=== PATIENT | female | born 1940 | race Caucasian/White ===

== ENCOUNTER 2023-07-13 09:36 | Outpatient (CLI) | payer MEDICARE, SELFPAY | END 2023-07-13 09:37 | disposition home or self-care (01) | LOC: AMB 07-20 05:47 | PROVIDERS: Visit Provider Family Medicine | DX: S79.912A Unspecified injury of left hip, initial encounter (principal); W01.0XXA Fall on same level from slipping, tripping and stumbling without subsequent striking against object, initial encounter; Y92.031 Bathroom in apartment as the place of occurrence of the external cause | CPT/HCPCS: A0425; A0427 ==

== ENCOUNTER 2023-07-13 10:09 | Inpatient (IN) | payer MEDICARE, SELFPAY ==
[2023-07-13] VITALS (10 sets, daily range): BP systolic 99–151; BP diastolic 55–93; PULSE 60–115; RESP 16–18; TEMP 36–36.7; O2SAT 93–96; BMI 16.5; BMI 18.6
--- NOTE | 2023-07-13 10:48 | ED.FALL ---
HPI - Fall General Time Seen by Provider: 10:48 Date Seen: 07/13/23 Chief Complaint: Hip Injury/Pain Stated Complaint: Ill Time Seen by Provider: 07/13/23 10:11 Source: patient, EMS and RN notes reviewed Mode of arrival: EMS Limitations: no limitations History of Present Illness HPI Narrative: This 83-year-old female is brought in by ambulance from [facility] where she moved in 3 days ago. She reportedly was coming out of the bathroom and fell, is complaining of left hip pain. She has underlying Parkinson's and states she is having tremors due to that. She did reportedly hit her head but there was no reported loss of consciousness. She is having no neck or back pain, no difficulty breathing, no chest pain, no abdominal pain. She continues to state that she has to urinate, does have depends on. They have tried her on a bedpan but then she declines. She feels like she needs to urinate. She is not on any blood thinners. She did received 2 mg IV morphine from EMS. Blood sugar was 144 per EMS. Related Data Home Medications Medication Instructions Recorded Confirmed Calcium + Vitamin D 07/13/23 aspirin 81 mg tablet,delayed 81 mg PO DAILY 07/13/23 07/13/23 release (Adult Aspirin Regimen) carbidopa ER 25 mg-levodopa 100 mg 1 tab PO TID 07/13/23 07/13/23 tablet,extended release carbidopa ER 50 mg-levodopa 200 mg 1 tab PO QHS 07/13/23 07/13/23 tablet,extended release donepezil 10 mg tablet 10 mg PO QHS 07/13/23 07/13/23 lisinopril 5 mg tablet 5 mg PO DAILY 07/13/23 07/13/23 melatonin 1 mg tablet 1 mg PO DAILY 07/13/23 07/13/23 polyethylene glycol 3350 17 17 g PO DAILY 07/13/23 07/13/23 gram/dose oral powder (ClearLax) rosuvastatin 20 mg tablet 20 mg PO DAILY 07/13/23 07/13/23 Allergies Allergy/AdvReac Type Severity Reaction Status Date / Time No Known Drug Allergies Allergy Verified 07/13/23 10:26 Review of Systems Status of ROS: Reports: 6 or more systems reviewed and unremarkable except as noted in History and below [facility] Medical History (Updated 07/13/23 @ 12:44 by Radha Kirkpatrick MD) Parkinsons disease ?G20.A1 - Parkinson's disease without dyskinesia, without mention of fluctuations (ICD-10) Exam Const: Vital Signs, click to edit/add: Vital Signs - 24 hr 07/13/23 10:22 Temperature 97.8 F Pulse Rate [Pulse Oximeter] 89 Respiratory Rate 18 Blood Pressure [Le ft Upper Arm] 147/81 H Pulse Oximetry 96 Oxygen Delivery Me thod Room Air This 83-year-old frail appearing, slender female is lying in the bed in exam room to. She is alert, interactive, no apparent distress. She is speaking appropriately with me. Voice is slightly tremulous. She does have some tremors going on in her arms, left greater than right. Pupils are equal round, sclera clear. Symmetrical facial function, no traumatic changes noted. No midline tenderness over neck. Lungs are clear, good air entry, no wheezing or crackles. CV regular rate rhythm, no murmur, normal S1-S2, no S3-S4. Abdomen is soft, nontender, nondistended, no organomegaly. She has no suprapubic tenderness. Her lower extremities seem to have equal length. She has normal distal sensation. No pain on palpation of feet, ankles, lower legs, knees, femurs. I can gently internally and externally rotate her left hip, questionable if that is causing her any pain at this point. Palpation over the greater trochanter and into the groin on the left hip really do not elucidate pain. No pain on palpation of her right lower extremity, does not have pain on inspection and range of motion of her upper extremities. Documenting provider has reviewed patient's vital signs: yes Course Course ED Course: We will obtain head CT just to ensure no mild intracranial abnormalities, given patient's current status doubt any significant traumatic change. We will obviously be getting imaging of her pelvis and left hip to rule out fracture. Will do baseline labs. Will do the vial triple swab in case this is a manifestation of weakness and potential new infectious illness for this patient. Obtain urinalysis when we are able. Reevaluation(s) Time of Reevaluation #1: 12:13 Reevaluation #1: Reviewed with patient and her that she has a pelvic fracture. Did review with Tom CORONEL from Orthopedics. He agrees weight-bearing with walker as able fine. We will give her a dose of Tylenol, have nursing staff see how she does getting up with a walker. Pain management may be a problem, certainly have concerns about narcotic use with her baseline Parkinson's. Time of Reevaluation #2: 13:08 Reevaluation #2: Nursing staff did contact her facility. They have no acute care services, no PT, no OT. Nursing staff did attempt to get this patient up ambulating. She went maybe a few feet with shuffling steps, they do not feel confident that she is capable of returning to her level of care at her current facility. I have reviewed with her that we will need to place her in the hospital, she will be observation, they will need to look for a [facility] rehab stay potentially. Will order her noon time dose of Sinemet for her Parkinson's. Consultations Consultation #1: Left message with the hospitalist Dr. Rojas on his phone. Will await a call back. 1:26 p.m.: Completed phone call conversation with Dr. Rojas, he accepts care. Time: 13:10 Vital Signs Vital signs: Initial Vital Signs Temperature 97.8 F 07/13/23 10:22 Temperature Source Temporal Artery Scan 07/13/23 10:22 Pulse Rate 89 07/13/23 10:22 Respiratory Rate 18 07/13/23 10:22 Blood Pressure 147/81 H 07/13/23 10:22 Blood Pressure Mean 103 07/13/23 10:22 Blood Pressure Position Supine 07/13/23 10:22 Pulse Oximetry 96 07/13/23 10:22 Oxygen Delivery Method Room Air 07/13/23 10:22 Vital Signs Temperature 97.8 F 07/13/23 10:22 Pulse Rate 89 07/13/23 10:22 Respiratory Rate 18 07/13/23 10:22 Blood Pressure 147/81 H 07/13/23 10:22 Pulse Oximetry 96 07/13/23 10:22 Oxygen Delivery Method Room Air 07/13/23 10:22 Temperature 97.8 F 07/13/23 10:22 Pulse Rate 89 07/13/23 10:22 Respiratory Rate 18 07/13/23 10:22 Blood Pressure 147/81 H 07/13/23 10:22 Pulse Oximetry 96 03/30/24 10:22 Oxygen Delivery Method Room Air 07/13/23 10:22 Medications Administered Medications: Discontinued Medications Generic Name Dose Route Start Last Admin Trade Name Vera PRN Reason Stop Dose Admin Acetaminophen 1,000 mg 07/13/23 12:14 07/13/23 13:12 Acetaminophen 500 Mg Tablet PO 07/13/23 12:15 1,000 mg ONCE ONE Administration - Fall Lab Data Attestation: I reviewed the patient's lab results. Labs: Lab Results 07/13/23 07/13/23 07/13/23 Range/Units 11:00 11:02 13:05 WBC 12.11 H (4.50-11.00) K/uL RBC 4.95 (4.00-5.20) m/uL Hgb 14.9 (12.0-16.0) gm/dL Hct 45.3 (33.0-51.0) % MCV 92 (80-100) fL MCH 30 (26-34) pg MCHC 33 (32-36) gm/dL RDW Coeff of Daxa 12.7 (11.5-15.5) % Plt Count 209 (140-440) K/uL Neut % (Auto) 82.1 H (42.0-72.0) % Lymph % (Auto) 11.2 L (20-44) % Rock % (Auto) 5.4 (0.0-11.0) % Eos % (Auto) 0.1 (0.0-7.0) % Baso % (Auto) 0.1 (0.0-3.0) % Neut # (Auto) 9.90 H (1.7-7.0) K/uL Lymph # (Auto) 1.40 (0.90-2.90) K/uL Rock # (Auto) 0.70 (0.00-0.90) K/UL Eos # (Auto) 0.00 (0.00-0.50) K/uL Baso # (Auto) 0.00 (0.00-0.30) K/uL Abs Immat Gran (auto) 0.10 (0.00-0.30) K/uL Imm/Tot Granulo (auto) 1.1 % Sodium 134 L (135-149) mmol/L Potassium 4.1 (3.6-5.1) mmol/L Chloride 102 (96-114) mmol/L Carbon Dioxide 27 (20-32) mmol/L Anion Gap 5 L (7-15) mEq/L BUN 20 (7-30) mg/dL Creatinine 0.6 (0.5-1.5) mg/dL Estimated Creat Clear 27.95 Estimated GFR 90 ml/min Glucose 115 (60-115) mg/dL Lactate 1.0 (0.5-1.9) mmol/L Calcium 9.3 (8.4-10.6) mg/dL Total Bilirubin 0.8 (0.1-1.5) mg/dL AST 34 (12-35) U/L ALT 7 (4-35) U/L Alkaline Phosphatase 77 (40-150) U/L Troponin I < 0.01 L (0.01-0.04) ng/mL Total Protein 7.1 (6.0-8.3) g/dL Albumin 4.4 (3.3-5.0) g/dL Urine Color Yellow (Yellow) Urine Appearance Clear (Clear) Urine pH 7.0 (5.0-8.5) Ur Specific Ione 1.015 (1.000-1.030) Urine Protein Negative (Negative) Urine Glucose (UA) Negative (Negative) Urine Ketones 1+ A (Negative) Urine Blood Trace-intact A (Negative) Urine Nitrite Negative (Negative) Urine Bilirubin Negative (Negative) Urine Urobilinogen 0.2 (0.2-1.0) Ur Leukocyte Esterase Negative (Negative) SARS-CoV-2 (PCR) Negative SARS-CoV-2 (Negative) Influenza Type A (PCR) Negative PCR FLU A (Negative) Influenza Type B (PCR) Negative PCR FLU B (Negative) RSV (PCR) Negative PCR RSV (Negative) Imaging Data CT scan - head: Attestation: I have reviewed the pertinent imaging results. Radiologist's impression: Patient: JESSICA CERVANTES Facility:?[facility] Patient ID:?[id number] Site Patient ID:?[id number]. Site :?1940 Study:?CT Head w/o-07/13/2023 11:14:06 AM Ordering Physician:Amilcar Kirkpatrick Final Report: INDICATION: Fell and hit head, on blood thinners TECHNIQUE: Head CT without contrast. COMPARISON: None FINDINGS: CSF spaces: Within normal limits for age. Brain parenchyma and extra-axial spaces: There are nonspecific low attenuation white matter changes consistent with chronic microvascular disease. No sign of mass, hemorrhage, or midline shift. Skull base and calvarium: The visualized paranasal sinuses and mastoid air cells demonstrate no acute or significant findings. The visualized orbits are grossly unremarkable. No skull fractures. IMPRESSION: No acute or significant findings. Please note that all CT scans at this facility use dose modulation, iterative reconstruction, and/or weight-based dosing when appropriate to reduce radiation dose to as low as reasonably achievable. Dictated by Fantasma Wu MD @ 07/13/2023 11:25:23 AM (Electronic Signature) XR left hip: Attestation: I have reviewed the pertinent imaging results. My impression: I do not appreciate a hip fracture but question a pubic ramus fracture. Await Radiology over-read. Radiologist's impression: Patient: JESSICA CERVANTES Facility:?[facility] Patient ID:?[id number] Site Patient ID:?[id number]. Site :?1940 Study:?XRay Hip Left 2 view with pelvis-07/13/2023 11:27:35 AM Ordering Physician:Amilcar Kirkpatrick Final Report: INDICATION: Fall and hip pain. TECHNIQUE: AP pelvis and 2 views of the left hip. FINDINGS: Subtle lucency in the inferior left pubic ramus suspicious for nondisplaced fracture. No proximal femur fracture. Hip joint is intact. Dictated by Fantasma Wu MD @ 07/13/2023 11:40:57 AM (Electronic Signature) Critical Care Time Critical Care Time Critical Care Time: No Discharge Plan Discharge Clinical Impression: Fall Qualifiers: Encounter type: initial encounter Qualified Code(s): W19.XXXA - Unspecified fall, initial encounter Parkinsons disease Qualifiers: Dyskinesia presence: unspecified whether dyskinesia Fluctuating manifestations: unspecified whether manifestations fluctuate Qualified Code(s): G20.A1 - Parkinson's disease without dyskinesia, without mention of fluctuations Closed fracture of single pubic ramus of pelvis Qualifiers: Encounter type: initial encounter Laterality: left Qualified Code(s): S32.592A - Other specified fracture of left pubis, initial encounter for closed fracture Patient Disposition: Admitted As Observation
--- NOTE | 2023-07-13 10:52 | XR_ITS ---
Patient: JESSICA CERVANTES Facility:?[facility] Patient ID:?[id number] Site Patient ID:?[id number]. Site :?1940 Study:?XRay-Hip Left 2 view with pelvis-07/13/2023 11:27:35 AM Ordering Physician:Amilcar Kirkpatrick Final Report: INDICATION: Fall and hip pain. TECHNIQUE: AP pelvis and 2 views of the left hip. FINDINGS: Subtle lucency in the inferior left pubic ramus suspicious for nondisplaced fracture. No proximal femur fracture. Hip joint is intact. Dictated by Fantasma Wu MD @ 07/13/2023 11:40:57 AM Signed by:?Fantasma Wu MD @07/13/2023 11:40:57 AM (Electronic Signature)
--- NOTE | 2023-07-13 10:53 | CT_ITS ---
Patient: JESSICA CERVANTES Facility:?[facility] Patient ID:?[id number] Site Patient ID:?[id number]. Site :?1940 Study:?CT-Head w/o-07/13/2023 11:14:06 AM Ordering Physician:?Radha Kirkpatrick Final Report: INDICATION: Fell and hit head, on blood thinners TECHNIQUE: Head CT without contrast. COMPARISON: None FINDINGS: CSF spaces: Within normal limits for age. Brain parenchyma and extra-axial spaces: There are nonspecific low attenuation white matter changes consistent with chronic microvascular disease. No sign of mass, hemorrhage, or midline shift. Skull base and calvarium: The visualized paranasal sinuses and mastoid air cells demonstrate no acute or significant findings. The visualized orbits are grossly unremarkable. No skull fractures. IMPRESSION: No acute or significant findings. Please note that all CT scans at this facility use dose modulation, iterative reconstruction, and/or weight-based dosing when appropriate to reduce radiation dose to as low as reasonably achievable. Dictated by Fantasma Wu MD @ 07/13/2023 11:25:23 AM Signed by:?Fantasma Wu MD @07/13/2023 11:25:23 AM (Electronic Signature)
[2023-07-13 11:08] LABS: Basophils Percent Auto 0.1 % (0.0-3.0); Eosinophils Percent Auto 0.1 % (0.0-7.0); Hematocrit 45.3 % (33.0-51.0); Hemoglobin* 14.9 gm/dL (12.0-16.0); Immature Granulocytes Pct Auto 1.1 %; Lymphocytes Percent Auto 11.2 % (20-44); Mean Corpuscular HGB Conc 33 gm/dL (32-36); Mean Corpuscular Hemoglobin 30 pg (26-34); Mean Corpuscular Volume 92 fL (80-100); Monocytes Percent Auto 5.4 % (0.0-11.0); Neutrophils Percent Auto 82.1 % (42.0-72.0); Platelet Count* 209 K/uL (140-440); RDW Coefficient of Variation % 12.7 % (11.5-15.5); Red Blood Count 4.95 m/uL (4.00-5.20); White Blood Count* 12.11 K/uL (4.50-11.00)
[2023-07-13 11:13] LABS: Slide Review Reflex No
[2023-07-13 11:26] LABS: Albumin* 4.4 g/dL (3.3-5.0); Chloride* 102 mmol/L (96-114)
[2023-07-13 11:27] LABS: Potassium* 4.1 mmol/L (3.6-5.1); Sodium* 134 mmol/L (135-149)
[2023-07-13 11:29] LABS: Bilirubin Total* 0.8 mg/dL (0.1-1.5); Creatinine* 0.6 mg/dL (0.5-1.5); Est. Creatinine Clearance* 27.95; Estimated Glomerular Filt Rate 90 ml/min
[2023-07-13 11:30] LABS: Alanine Aminotransferase* 7 U/L (4-35); Alkaline Phosphatase* 77 U/L (40-150); Anion Gap 5 mEq/L (7-15); Aspartate Amino Transferase* 34 U/L (12-35); Blood Urea Nitrogen* 20 mg/dL (7-30); Calcium* 9.3 mg/dL (8.4-10.6); Carbon Dioxide* 27 mmol/L (20-32); Glucose* 115 mg/dL (60-115); Total Protein* 7.1 g/dL (6.0-8.3)
[2023-07-13 11:42] LABS: Troponin I* < 0.01 ng/mL (0.01-0.04)
[2023-07-13 12:17] LABS: PCR FLU A Negative PCR FLU A (Negative); PCR FLU B Negative PCR FLU B (Negative); PCR RSV Negative PCR RSV (Negative); SARS PCR* Negative SARS-CoV-2 (Negative)
[2023-07-13] MEDS: ACETAMINOPHEN 500 MG TABLET 1000 MG PO (13:12)
[2023-07-13 13:15] LABS: Appearance Urine Clear (Clear); Bilirubin Urine Negative (Negative); Blood Urine Trace-intact (Negative); Color Urine Yellow (Yellow); Glucose Urine Negative (Negative); Ketones Urine 1+ (Negative); Leukocyte Esterase Urine Negative (Negative); Nitrite Urine Negative (Negative); Protein Urine Negative (Negative); Specific Gravity Urine 1.015 (1.000-1.030); Urobilinogen Urine 0.2 (0.2-1.0)
[2023-07-13 13:33] LABS: Bacteria Urine Few; Squamous Epithelial Cell Urine Few (None-Few)
--- NOTE | 2023-07-13 13:39 | PM.IMHP1 ---
Hospitalist- H&P: HPI History of Present Illness Date Seen: 07/13/23 Chief complaint: Ill Narrative: Sandra Medrano is a 83 year old female with coronary artery disease and Parkinson's disease admitted through the emergency department after falling at home today. Patient has Parkinson's disease and has been unsteady with her walking. She was just turning around in the doorway today when she tripped over her own feet and fell landing on her left hip. She also hit her head. She did not lose consciousness. She is now concerned primarily about pain in her left groin area. She has been unable to ambulate secondary to pain and weakness in her left leg since he fell. She reports she has otherwise been feeling well. No recent illness. No fever. She has been eating and drinking normally. She lives at [facility]. They are unable to provide the assistance she needs to return to their facility. She reports she has otherwise been in reasonably good health. She has a history of a myocardial infarction few years ago. She has not had any symptoms of coronary disease or any exertional symptoms since that time. Review of Systems Narrative: She reports ongoing bladder urgency and frequency. This is been out chronic problem for her but seems worse today since her fall [facility] Medical History (Updated 07/13/23 @ 15:06 by John Rojas MD) Cognitive impairment ?R41.89 - Other symptoms and signs involving cognitive functions and awareness (ICD-10) Melanoma ?C43.9 - Malignant melanoma of skin, unspecified (ICD-10) Heart failure with reduced ejection fraction ?I50.20 - Unspecified systolic (congestive) heart failure (ICD-10) Coronary artery disease ?I25.10 - Atherosclerotic heart disease of [place] coronary artery without angina pectoris (ICD-10) Parkinsons disease ?G20.A1 - Parkinson's disease without dyskinesia, without mention of fluctuations (ICD-10) Surgical History (Updated 07/13/23 @ 14:58 by John Rojas MD) History of breast biopsy ?Z98.890 - Other specified postprocedural states (ICD-10) History of colonoscopy ?Z98.890 - Other specified postprocedural states (ICD-10) History of tonsillectomy ?Z90.89 - Acquired absence of other organs (ICD-10) History of hysterectomy ?Z90.710 - Acquired absence of both cervix and uterus (ICD-10) Hx of cataract surgery ?Z98.49 - Cataract extraction status, unspecified eye (ICD-10) Family History (Updated 07/13/23 @ 14:59 by John oRjas MD) Brother Cardiovascular disease Father Cardiovascular disease Social History (Updated 07/13/23 @ 15:00 by John Rojas MD) Narrative: She lives with her , Jeison, at [facility]. Her is healthcare power of clinical quality analyst. Code status is DNR. Previously lived in [facility] and in [facility]. She is a nonsmoker. Rarely drinks alcohol. Meds Home Medications and Allergies Home Medications Medication Instructions Recorded Confirmed Type acetaminophen 325 mg tablet 325 mg PO Q6H PRN pain 07/13/23 07/13/23 History aspirin 81 mg tablet,delayed 81 mg PO MOWEFR 07/13/23 07/13/23 History release (Adult Aspirin Regimen) calcium citrate 315 mg 1 tab PO 6XW 07/13/23 07/13/23 History calcium-vitamin D3 6.25 mcg (250 unit) tablet carbidopa 25 mg-levodopa 100 mg 2.5 tab PO TID 07/13/23 07/13/23 History tablet carbidopa ER 50 mg-levodopa 200 mg 1 tab PO HS 07/13/23 07/13/23 History tablet,extended release donepezil 10 mg tablet 10 mg PO HS 07/13/23 07/13/23 History lisinopril 5 mg tablet 5 mg PO DAILY 07/13/23 07/13/23 History melatonin 1 mg tablet 1 mg PO HS 07/13/23 07/13/23 History nitroglycerin 0.4 mg sublingual 0.4 mg sublingual Q5M PRN 07/13/23 07/13/23 History tablet polyethylene glycol 3350 17 17 g PO DAILY 07/13/23 07/13/23 History gram/dose oral powder (ClearLax) rosuvastatin 20 mg tablet 20 mg PO DAILY 07/13/23 07/13/23 History sennosides 8.6 mg-docusate sodium 1 tab PO DAILY PRN 07/13/23 07/13/23 History 50 mg tablet (Senna-S) Allergies Allergy/AdvReac Type Severity Reaction Status Date / Time No Known Drug Allergies Allergy Verified 07/13/23 10:26 Exam Narrative: Exam Narrative: She is alert and appears in no distress. She gives her own history corroborated by her . Head without apparent trauma. Eyes normal. Extraocular movements are full. Visual michelle are intact. Oropharynx normal. No facial asymmetry. Neck is supple without mass or adenopathy. Respirations are clear to auscultation. Cardiovascular: S1, S2, regular tachycardia. No murmur gallop or rub. Abdomen is soft without tenderness or mass. She has mild tenderness with palpation in the left inguinal area. No apparent deformity or evidence of trauma on inspection of the left hip and groin and buttock area. She tolerates minimal movement in the left hip secondary to pain. Intact strength in feet and ankles bilaterally. No significant edema. Intact pedal pulses. No rash. Strength testing in all 4 extremities is approximately equal and symmetric except unable to test left hip and knee strength secondary to pain. Mild resting tremor noted in both hands. [id number] is normal Const: Vital Signs, click to edit/add: Vital Signs - 24 hr 07/13/23 10:22 Temperature 97.8 F Pulse Rate [Pulse Oximeter] 89 Respiratory Rate 18 Blood Pressure [Le ft Upper Arm] 147/81 H Pulse Oximetry 96 Oxygen Delivery Me thod Room Air Documenting provider has reviewed patient's vital signs: yes Hospitalist - H&P: Result Labs Labs: Short CBC 07/13/23 Range/Units 11:02 WBC 12.11 H (4.50-11.00) K/uL Hgb 14.9 (12.0-16.0) gm/dL Hct 45.3 (33.0-51.0) % Plt Count 209 (140-440) K/uL BMP 07/13/23 11:02 Sodium 134 L Potassium 4.1 Chloride 102 Carbon Dioxide 27 BUN 20 Creatinine 0.6 Glucose 115 Calcium 9.3 Cardiac Enzymes 07/13/23 Range/Units 11:02 Troponin I < 0.01 L (0.01-0.04) ng/mL Liver Function 07/13/23 Range/Units 11:02 Total Bilirubin 0.8 (0.1-1.5) mg/dL AST 34 (12-35) U/L ALT 7 (4-35) U/L Alkaline Phosphatase 77 (40-150) U/L Albumin 4.4 (3.3-5.0) g/dL Urine 07/13/23 Range/Units 13:05 Urine Color Yellow (Yellow) Urine Appearance Clear (Clear) Urine pH 7.0 (5.0-8.5) Ur Specific Johnson 1.015 (1.000-1.030) Urine Protein Negative (Negative) Urine Glucose (UA) Negative (Negative) Imaging CT scan - head: Radiologist's impression: Patient: [facility]ELLE [facility] Facility:?[facility] Patient ID:?[id number] Site Patient ID:?[id number]. Site :?1940 Study:?CT Head w/o-07/13/2023 11:14:06 AM Ordering Physician:Amilcar Kirkpatrick Final Report: INDICATION: Fell and hit head, on blood thinners TECHNIQUE: Head CT without contrast. COMPARISON: None FINDINGS: CSF spaces: Within normal limits for age. Brain parenchyma and extra-axial spaces: There are nonspecific low attenuation white matter changes consistent with chronic microvascular disease. No sign of mass, hemorrhage, or midline shift. Skull base and calvarium: The visualized paranasal sinuses and mastoid air cells demonstrate no acute or significant findings. The visualized orbits are grossly unremarkable. No skull fractures. IMPRESSION: No acute or significant findings. Please note that all CT scans at this facility use dose modulation, iterative reconstruction, and/or weight-based dosing when appropriate to reduce radiation dose to as low as reasonably achievable. Dictated by Fantasma Wu MD @ 07/13/2023 11:25:23 AM (Electronic Signature) hip x-ray: Radiologist's impression: [facility] Facility:?[facility] Patient ID:?[id number] Site Patient ID:?[id number]. Site :?1940 Study:?XRay Hip Left 2 view with pelvis-07/13/2023 11:27:35 AM Ordering Physician:Amilcar Kirkpatrick Final Report: INDICATION: Fall and hip pain. TECHNIQUE: AP pelvis and 2 views of the left hip. FINDINGS: Subtle lucency in the inferior left pubic ramus suspicious for nondisplaced fracture. No proximal femur fracture. Hip joint is intact. Assessment and Plan Assessment and plan (1) Closed fracture of single pubic ramus of pelvis: Problem comment: Weight-bearing as tolerated. Currently needing assistance to stand and transfer. Pain control with cautious use of opioids. Status: Acute (2) Fall: Problem comment: At risk for falls Status: Acute (3) Parkinsons disease: Problem comment: Continue routine Parkinson's medications Status: Acute (4) Cognitive impairment: Problem comment: Continue to assess. Status: Acute (5) Tachycardia: Problem comment: Sinus tachycardia for uncertain reasons. Possibly related to hip fracture and pain. Do basic cardiac assessment. Consider beta-vy due to history of coronary disease. Investigated other illnesses that could cause sinus tachycardia Status: Acute Plan Patient is admitted to the hospital for management of pelvic fracture, pain control, sinus tachycardia, poor balance. Discharge planning. PT OT. Build Technician. Total Time Spent Total Time Spent: Total time spent today is 60 minutes, 40 minutes in coordination of care discussing with patient, and other providers management of pelvic fracture and falls.
[2023-07-13] MEDS: CARBIDOPA-LEVODOPA 25-100 TABLET 1 TAB PO (13:42)
[2023-07-13] MEDS: CARBIDOPA-LEVODOPA 25-100 TABLET 1.5 TAB PO (15:30)
[2023-07-13] MEDS: METOPROLOL TARTRATE 25 MG TABLET PO ×2 (15:30→20:31)
[2023-07-13] MEDS: OXYCODONE 5 MG TABLET 2.5 MG PO (18:15)
--- NOTE | 2023-07-13 18:32 | PC.NURSE ---
End of Shift: The patient arrived to the floor around 1430. VSS on RA. Alert and orientated, although confused with situation with her injury. The patient reported moderate pain in her pelvis, she rated it at a 5/10... Ice pack was applied, and order for PRN oxycodone was received. The patient also stated that the pain is worse on her left side of her pelvis.. Therefor favors her right leg with ambulation Ax2 w/ GB and walker to the commode. Up in the chair for dinner. Alarms in place due to impulsivity and mild confusion with the Parkinsons. Rigid and stiff and a mild-moderate tremor is observed intermittently. Call light within reach. Lynn PAINTING BSN
[2023-07-13] MEDS: ACETAMINOPHEN 325 MG TABLET PO (19:29)
[2023-07-13] MEDS: CARBIDOPA-LEVODOPA 25-100 TABLET 2.5 TAB PO (20:30)
[2023-07-13] MEDS: DONEPEZIL 10 MG TABLET PO (20:31)
[2023-07-13] MEDS: MELATONIN 3 MG TABLET 1.5 MG PO (20:32)
[2023-07-14] VITALS (7 sets, daily range): BP systolic 101–167; BP diastolic 72–91; PULSE 62–90; RESP 16–20; TEMP 36.2–36.8; O2SAT 92–95
[2023-07-14] MEDS: OXYCODONE 5 MG TABLET 2.5 MG PO ×6 (02:33→20:02)
[2023-07-14] MEDS: ACETAMINOPHEN 325 MG TABLET PO (04:07)
[2023-07-14 06:25] LABS: Basophils Percent Auto 0.1 % (0.0-3.0); Eosinophils Percent Auto 0.3 % (0.0-7.0); Hematocrit 43.8 % (33.0-51.0); Hemoglobin* 14.6 gm/dL (12.0-16.0); Immature Granulocytes Pct Auto 0.4 %; Lymphocytes Percent Auto 7.8 % (20-44); Mean Corpuscular HGB Conc 33 gm/dL (32-36); Mean Corpuscular Hemoglobin 31 pg (26-34); Mean Corpuscular Volume 92 fL (80-100); Monocytes Percent Auto 8.7 % (0.0-11.0); Neutrophils Percent Auto 82.7 % (42.0-72.0); Platelet Count* 189 K/uL (140-440); RDW Coefficient of Variation % 12.6 % (11.5-15.5); Red Blood Count 4.78 m/uL (4.00-5.20); White Blood Count* 18.87 K/uL (4.50-11.00)
--- NOTE | 2023-07-14 06:30 | PC.NURSE ---
End of shift note [id number]: Pt noted to be alert & oriented to person and place though confused to correct time and situation when assessed. She is currently transferring/ambulating with assist of 2 using FWW and GB. Pt able to ambulate in room with minimal pain noted last evening though does favor right side and is more hesitant to bear weight on LLE.?Pt has been afebrile throughout the shift. Manual B/P cuff used to assess 0300 B/P as automatic cuff picking up artifact due to pt?s Parkinson?s tremor. Protective Mepilex in place to spine noted to be C/D/I upon assessment. No edema noted. PRN Tylenol, Oxycodone and ice packs utilized for pain control of pelvic fx along with rest and repositioning throughout the shift. Pt able to reposition independently in bed. No cough, CP, shortness of breath or N/V noted throughout the shift. Pt has been continent of bladder and was unable to recall date of last BM though bowel sounds active x 4. IV to R FA patent and SL. Pt is noted to be impulsive and did not use call light at times during the shift, instead setting bed alarm off by sitting up at side of bed independently. Pt has since been better about using call light after staff provided reinforcement to use call light when needing assistance. Pt noted to have hx of urinary frequency and urgency and requested to use commode multiple times throughout the shift. Pt noted to have poor sleep due to requesting to get up frequently to try to urinate so many times throughout the night. PVR of 191 mL noted this morning after urinating in commode. PERRLA. ?
[2023-07-14 06:34] LABS: Chloride* 99 mmol/L (96-114); Potassium* 3.8 mmol/L (3.6-5.1); Sodium* 132 mmol/L (135-149)
[2023-07-14 06:36] LABS: Slide Review Reflex No
[2023-07-14 06:37] LABS: Anion Gap 5 mEq/L (7-15); Blood Urea Nitrogen* 21 mg/dL (7-30); Carbon Dioxide* 28 mmol/L (20-32); Creatinine* 0.6 mg/dL (0.5-1.5); Est. Creatinine Clearance* 30.62; Estimated Glomerular Filt Rate 90 ml/min; Glucose* 133 mg/dL (60-115)
[2023-07-14 07:39] LABS: Troponin I* 0.02 ng/mL (0.01-0.04)
[2023-07-14] MEDS: cefTRIAXone 1 GM in 0.9 % SODIUM CHLORIDE Mini-bag 100 ML IVPB (08:37)
[2023-07-14] MEDS: polyethylene glycoL 3350 17 GM PACK PO (08:38)
[2023-07-14] MEDS: METOPROLOL TARTRATE 25 MG TABLET PO ×2 (08:38→20:02)
[2023-07-14] MEDS: ROSUVASTATIN CALCIUM 10 MG TABLET 20 MG PO (08:38)
[2023-07-14] MEDS: SENNOSIDES/DOCUSATE TABLET 1 TAB PO (08:38)
[2023-07-14] MEDS: lisinopriL 5 MG TABLET PO (08:38)
[2023-07-14] MEDS: SODIUM CHLORIDE 0.9 % (FLUSH) 10 ML SYRINGE 5 ML IVF ×2 (08:39→20:03)
[2023-07-14] MEDS: CARBIDOPA-LEVODOPA 25-100 TABLET 2.5 TAB PO ×3 (08:39→20:05)
[2023-07-14] MEDS: ACETAMINOPHEN 325 MG TABLET 650 MG PO ×2 (12:05→17:26)
--- NOTE | 2023-07-14 12:56 | P.IMPN_ITS ---
Progress Note: A&P Assessment and plan (1) Sepsis: Problem details: Sepsis is suspected with tachycardia and leukocytosis. Only suspicious source is urinary tract infection. Obtain cultures and initiate ceftriaxone. Status: Suspected (2) Closed fracture of single pubic ramus of pelvis: Problem details: Weight-bearing as tolerated. Currently needing assistance to stand and transfer. Pain control with cautious use of opioids. Status: Acute (3) Fall: Problem details: At risk for falls Status: Acute (4) Parkinsons disease: Problem details: Continue routine Parkinson's medications Status: Acute (5) Cognitive impairment: Problem details: Continue to assess. Status: Acute (6) Tachycardia: Problem details: Sinus tachycardia for uncertain reasons. Possibly related to hip fracture and pain. Do basic cardiac assessment. Consider beta-vy due to history of coronary disease. Investigated other illnesses that could cause sinus tachycardia Status: Acute Subjective Date Seen: 07/14/23 Interval history: HPI: Sandra Medrano is a 83 year old female with coronary artery disease and Parkinson's disease admitted through the emergency department after falling at home today. Patient has Parkinson's disease and has been unsteady with her walking. She was just turning around in the doorway today when she tripped over her own feet and fell landing on her left hip. She also hit her head. She did not lose consciousness. She is now concerned primarily about pain in her left groin area. She has been unable to ambulate secondary to pain and weakness in her left leg since he fell. She reports she has otherwise been feeling well. No recent illness. No fever. She has been eating and drinking normally. She lives at [facility]. They are unable to provide the assistance she needs to return to their facility. She reports she has otherwise been in reasonably good health. She has a history of a myocardial infarction few years ago. She has not had any symptoms of coronary disease or any exertional symptoms since that time. July 13: Having significant left hip/groin pain exacerbated by any movement in the hip or weight-bearing. Last evening she had hypertension and sinus tachycardia. Cause for this was unclear. Due to history of coronary artery disease with started on metoprolol. Improved heart rate overnight however she has developed an elevated white count. Continues to deny any focus of infection including cough congestion chest pain shortness of breath nausea vomiting diarrhea abdominal pain. She has chronic urinary symptoms which continue to be present. No other pain problems. She is not aware of any fever. Exam Narrative: Exam Narrative: She is alert and appears in no distress. She gives her own history. Respirations are clear to auscultation. Cardiovascular: S1, S2, regular rate and rhythm. Abdomen: Bowel sounds active. Abdomen is soft without tenderness or mass she tolerates minimal amount of movement in her left hip. No edema. No rash. Const: Vital Signs, click to edit/add: Vital Signs - 24 hr 07/13/23 13:08 07/13/23 13:32 07/13/23 13:42 Temperature Pulse Rate 107 H 111 H Pulse Rate [Right Pulse Oximeter] Respiratory Rate Blood Pressure 151/93 H Blood Pressure [Le ft Arm] Blood Pressure [Ri ght Arm] Pulse Oximetry 94 94 Oxygen Delivery Me thod Room Air 07/13/23 13:45 07/13/23 14:26 07/13/23 14:26 Temperature 98.0 F Pulse Rate 115 H Pulse Rate [Right Pulse Oximeter] 80 Respiratory Rate 18 18 Blood Pressure Blood Pressure [Le ft Arm] 140/68 H Blood Pressure [Ri ght Arm] Pulse Oximetry 95 93 93 Oxygen Delivery Me thod Room Air Room Air Room Air 07/13/23 19:25 07/13/23 22:37 07/13/23 23:14 Temperature 97.7 F 96.8 F L Pulse Rate Pulse Rate [Right Pulse Oximeter] 87 87 60 Respiratory Rate 16 16 16 Blood Pressure Blood Pressure [Le ft Arm] 128/72 Blood Pressure [Ri ght Arm] 99/55 L Pulse Oximetry 93 95 Oxygen Delivery Me thod Room Air Room Air 07/14/23 02:39 07/14/23 07:35 07/14/23 07:35 Temperature 98.3 F 97.7 F Pulse Rate Pulse Rate [Right Pulse Oximeter] 87 83 83 Respiratory Rate 16 16 16 Blood Pressure Blood Pressure [Le ft Arm] 148/72 H Blood Pressure [Ri ght Arm] 151/81 H Pulse Oximetry 94 95 Oxygen Delivery Me thod Room Air Room Air 07/14/23 12:10 Temperature 97.7 F Pulse Rate Pulse Rate [Right Pulse Oximeter] 83 Respiratory Rate 16 Blood Pressure Blood Pressure [Le ft Arm] Blood Pressure [Ri ght Arm] 151/81 H Pulse Oximetry 95 Oxygen Delivery Mn thod Room Air Documenting provider has reviewed patient's vital signs: yes Labs Labs: Laboratory Results - last 24 hr 07/13/23 07/14/23 07/14/23 13:05 06:08 07:13 WBC 18.87 H RBC 4.78 Hgb 14.6 Hct 43.8 MCV 92 MCH 31 MCHC 33 RDW Coeff of Daxa 12.6 Plt Count 189 Neut % (Auto) 82.7 H Lymph % (Auto) 7.8 L [place] % (Auto) 8.7 Eos % (Auto) 0.3 Baso % (Auto) 0.1 Neut # (Auto) 15.60 H Lymph # (Auto) 1.50 [place] # (Auto) 1.60 H Eos # (Auto) 0.10 Baso # (Auto) 0.00 Abs Immat Gran (auto) 0.10 Imm/Tot Granulo (auto) 0.4 Sodium 132 L Potassium 3.8 Chloride 99 Carbon Dioxide 28 Anion Gap 5 L BUN 21 Creatinine 0.6 Estimated Creat Clear 30.62 Estimated GFR 90 Glucose 133 H Calcium 9.0 Troponin I 0.02 Urine Color Yellow Urine Appearance Clear Urine pH 7.0 Ur Specific [place] 1.015 Urine Protein Negative Urine Glucose (UA) Negative Urine Ketones 1+ A Urine Blood Trace-intact A Urine Nitrite Negative Urine Bilirubin Negative Urine Urobilinogen 0.2 Ur Leukocyte Esterase Negative Urine RBC 2-5 A Urine WBC 2-5 Ur Squamous Epith Cells Few Urine Bacteria Few A Lab Acknowledgement Test Added
--- NOTE | 2023-07-14 13:53 | XR_ITS ---
Patient: JESSICA CERVANTES Facility:?[facility] [place] Patient ID:?[id number] Site Patient ID:?[id number]. Site :?[id number] Study:?XRay-Shoulder Left 3 view-07/14/2023 2:34:02 PM Ordering Physician:?John Rojas Final Report: INDICATION: Injury. TECHNIQUE: Three views of the left shoulder. FINDINGS: Acute fracture of the left humerus surgical neck. Dictated by Fantasma Wu MD @ 07/14/2023 2:45:35 PM Signed by:?Fantasma Wu MD @07/14/2023 2:45:35 PM (Electronic Signature)
--- NOTE | 2023-07-14 17:44 | PC.NURSE ---
End of shift pt has been pleasant. Pt is alert x2. She is up 2 with assist. walker and GB. she is eating and drinking and voiding. she takes 1 pill at a time with water. pt was up in chair. Pt fell. MD was called. x ray was ordered. pt has a arm fx and sling was applied. on and off per pt request. family is here and was updated. ice to the arm. tylenol and oxycodone for pain control she was moved to room 243. Protective Mepilex in place to spine noted to be C/D/I upon assessment. Loredo was started per md order. ISIDRO to R FA patent.
[2023-07-14] MEDS: DONEPEZIL 10 MG TABLET PO (20:02)
[2023-07-14] MEDS: MELATONIN 3 MG TABLET 1.5 MG PO (20:03)
[2023-07-15] VITALS (8 sets, daily range): BP systolic 91–146; BP diastolic 48–76; PULSE 68–88; RESP 10–20; TEMP 36.3–36.9; O2SAT 92–97; BMI 18.1
[2023-07-15] MEDS: OXYCODONE 5 MG TABLET 2.5 MG PO (01:01)
[2023-07-15] MEDS: ACETAMINOPHEN 325 MG TABLET 650 MG PO ×4 (01:01→20:41)
[2023-07-15 06:15] LABS: Basophils Percent Auto 0.2 % (0.0-3.0); Eosinophils Percent Auto 1.3 % (0.0-7.0); Hematocrit 39.6 % (33.0-51.0); Hemoglobin* 13.3 gm/dL (12.0-16.0); Immature Granulocytes Pct Auto 1.1 %; Lymphocytes Percent Auto 9.6 % (20-44); Mean Corpuscular HGB Conc 34 gm/dL (32-36); Mean Corpuscular Hemoglobin 31 pg (26-34); Mean Corpuscular Volume 91 fL (80-100); Monocytes Percent Auto 8.9 % (0.0-11.0); Neutrophils Percent Auto 78.9 % (42.0-72.0); Platelet Count* 165 K/uL (140-440); RDW Coefficient of Variation % 12.8 % (11.5-15.5); Red Blood Count 4.34 m/uL (4.00-5.20); White Blood Count* 16.07 K/uL (4.50-11.00)
[2023-07-15 06:33] LABS: Slide Review Reflex No
--- NOTE | 2023-07-15 07:05 | PC.NURSE ---
End of shift [id number] ? Pt alert, oriented to self and place. Disoriented to time and situation. Pt tolerating RA and regular fluids. Pt reported pain in L arm and rated it as 10/10. Pt also reported complaint of tremors, noted by RN in bilat LE and L arm/hand. Medication given per JUN. Pt tolerated turn and reposition, however frequently repeated help me during process. RN provided reassurance, pt behavior indicated improved comfort. Loredo catheter noted to be patent and draining. Pt observed to sleep during shift. ?
[2023-07-15] MEDS: ROSUVASTATIN CALCIUM 10 MG TABLET 20 MG PO (09:07)
[2023-07-15] MEDS: ASPIRIN 81 MG TABLET EC PO (09:08)
[2023-07-15] MEDS: lisinopriL 5 MG TABLET PO (09:08)
[2023-07-15] MEDS: CARBIDOPA-LEVODOPA 25-100 TABLET 2.5 TAB PO ×3 (09:08→20:39)
[2023-07-15] MEDS: polyethylene glycoL 3350 17 GM PACK PO (09:10)
[2023-07-15] MEDS: cefTRIAXone 1 GM in 0.9 % SODIUM CHLORIDE Mini-bag 100 ML IVPB (09:10)
[2023-07-15] MEDS: METOPROLOL TARTRATE 25 MG TABLET PO (09:10)
[2023-07-15] MEDS: SODIUM CHLORIDE 0.9 % (FLUSH) 10 ML SYRINGE 5 ML IVF ×2 (09:15→20:41)
[2023-07-15] MEDS: SENNOSIDES/DOCUSATE TABLET 1 TAB PO ×2 (12:05→20:40)
[2023-07-15] MEDS: 0.9 % SODIUM CHLORIDE 250 ml IV (12:09)
--- NOTE | 2023-07-15 13:04 | P.IMPN_ITS ---
Progress Note: A&P Assessment and plan (1) Sepsis: Problem details: Sepsis is suspected with tachycardia and leukocytosis. Only suspicious source is urinary tract infection. Urine cultures showing mixed nataliya. No obvious sign of infection. Tachycardia and leukocytosis may be due to fractures. Continue to monitor. Status: Suspected (2) Closed fracture of single pubic ramus of pelvis: Problem details: Weight-bearing as tolerated. Currently needing assistance to stand and transfer. Pain control with cautious use of opioids. Status: Acute (3) Fall: Problem details: At risk for falls Status: Acute (4) Parkinsons disease: Problem details: Continue routine Parkinson's medications Status: Acute (5) Cognitive impairment: Problem details: Continue to assess. Status: Acute (6) Tachycardia: Problem details: Sinus tachycardia for uncertain reasons. Possibly related to hip fracture and pain. Do basic cardiac assessment. Consider beta-vy due to history of coronary disease. 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 Underlying Parkinson's disease now with fracture of the left inferior pubic ramus and proximal left humerus. Now requiring pain medications. Discussed with patient and her and son that this is likely to be a quite difficult course of recovery from these injuries. Status: Acute (8) Proximal humerus fracture: Problem details: Conservative management per Ortho consult. Sling and range of motion as tolerated Quite disabled by this fracture of her left proximal humerus. Pain medications are necessary and helping but also contributing to her sedation and confusion. Status: Acute Plan Continue in hospital for management of pain, disability and monitoring for infection/sepsis. Time Spent With Patient Total time spent: Total time spent is 45 minutes, 30 minutes discussing with patient, spouse, son and other providers pain management, disability management and discharge planning Subjective Date Seen: 07/15/23 Interval history: HPI: Sandra Medrano is a 83 year old female with coronary artery disease and Parkinson's disease admitted through the emergency department after falling at home today. Patient has Parkinson's disease and has been unsteady with her walking. She was just turning around in the doorway today when she tripped over her own feet and fell landing on her left hip. She also hit her head. She did not lose consciousness. She is now concerned primarily about pain in her left groin area. She has been unable to ambulate secondary to pain and weakness in her left leg since he fell. She reports she has otherwise been feeling well. No recent illness. No fever. She has been eating and drinking normally. She lives at [facility]. They are unable to provide the assistance she needs to return to their facility. She reports she has otherwise been in reasonably good health. She has a history of a myocardial infarction few years ago. She has not had any symptoms of coronary disease or any exertional symptoms since that time. July 13: Having significant left hip/groin pain exacerbated by any movement in the hip or weight-bearing. Last evening she had hypertension and sinus tachycardia. Cause for this was unclear. Due to history of coronary artery disease with started on metoprolol. Improved heart rate overnight however she has developed an elevated white count. Continues to deny any focus of infection including cough congestion chest pain shortness of breath nausea vomiting diarrhea abdominal pain. She has chronic urinary symptoms which continue to be present. No other pain problems. She is not aware of any fever. July 14: Patient is intermittently sedated from opioid pain medicines. Mostly still oriented to her circumstances though some occasional confusion and disorientation is noted. Appears fairly comfortable when she is lying in bed but has quite a bit of pain with any attempts to move her left upper extremity. Also pain with weight-bearing on her left lower extremity. Exam Narrative: Exam Narrative: She is alert and oriented to being in the hospital. She is able to carry on a conversation. Respirations clear to auscultation. Cardiovascular: S1, S2, regular rate and rhythm. Abdomen: Bowel sounds active. Abdomen is soft without tenderness or mass. She poorly tolerates me removing the sling and attempting to extend her left elbow. She tolerates hip flexion and extension on the left fairly well. No significant edema. Const: Vital Signs, click to edit/add: Vital Signs - 24 hr 07/14/23 15:30 07/14/23 15:38 07/14/23 19:00 Temperature 97.1 F L 97.8 F Pulse Rate [Left P ulse Oximeter] Pulse Rate [Right Pulse Oximeter] 62 62 90 Respiratory Rate 16 16 20 Blood Pressure [Ri ght Arm] 101/76 167/91 H Pulse Oximetry 92 93 Oxygen Delivery Me thod Room Air Room Air 07/14/23 23:34 07/15/23 04:05 07/15/23 07:57 Temperature 98.4 F Pulse Rate [Left P ulse Oximeter] Pulse Rate [Right Pulse Oximeter] 88 Respiratory Rate 16 16 10 L Blood Pressure [Ri ght Arm] 146/76 H Pulse Oximetry 94 Oxygen Delivery Me thod Room Air 07/15/23 11:09 Temperature 97.3 F L Pulse Rate [Left P ulse Oximeter] 68 Pulse Rate [Right Pulse Oximeter] Respiratory Rate 18 Blood Pressure [Ri ght Arm] 91/48 L Pulse Oximetry 94 Oxygen Delivery Me thod Room Air Documenting provider has reviewed patient's vital signs: yes Labs Labs: Laboratory Results - last 24 hr 07/15/23 05:51 WBC 16.07 H RBC 4.34 Hgb 13.3 Hct 39.6 MCV 91 MCH 31 MCHC 34 RDW Coeff of Daxa 12.8 Plt Count 165 Neut % (Auto) 78.9 H Lymph % (Auto) 9.6 L [place] % (Auto) 8.9 Eos % (Auto) 1.3 Baso % (Auto) 0.2 Neut # (Auto) 12.70 H Lymph # (Auto) 1.50 [place] # (Auto) 1.40 H Eos # (Auto) 0.20 Baso # (Auto) 0.00 Abs Immat Gran (auto) 0.20 Imm/Tot Granulo (auto) 1.1
--- NOTE | 2023-07-15 16:25 | PC.SOCIAL ---
Addendum entered by MONICA Luna 07/15/23 16:59: Met with pt's nephew Salvador and provided update. Salvador was able to e-mail this worker medicare insurance cards for pt and provide pt's social security number. Secure e-mailed information to Teresa in admissions at [facility]. Original Note: Discharge planning- Per therapy, recommendation is SNF for rehab. Met with pt's Jeison and pt's nephew Salvador to discuss discharge plans. Pt's family would like pt to stay in [place] if possible. Family is hopeful for a private room. Family will consider placement in [place] or [place]. Contacted the following SNF's for possible placement. 1. [facility]- Phone call to Shagufta Chaudhari in admissions at [phone]. [facility] has openings for a shared room and will review referral. Secure e-mailed referral to [facility] for review. 2. [facility]- Phone call to Sondra Lo in admissions at [phone]. There are no openings. 3. [facility]- Phone call to Teresa in admissions at [phone]. There are openings for shared room and private room this week. Secure e-mailed referral to the [facility] for review. Arian at [place] called back with questions on pt's social security number and insurance card. There is no information in the [facility] system and no information in the pt's paper chart. Met with pt's to get a copy of pt's insurance card and social security card for records. Pt's informs that he does not have the information and explains that he accidently sent it to [place] in a box to a family member and is expecting the documents to be mailed back to him, but he is unsure when. Pt's gives permission to ask Chanda at [facility] if they have information on file. Secure e-mailed Chanda Bass at [facility] requesting information. Social work will continue to follow up as needed.
--- NOTE | 2023-07-15 17:18 | PC.NURSE ---
Shift Summary: Patient pleasant and cooperative. Up with two assist, walker and gait belt, pivot to BSC/recliner. Increased pain with certain positioning/ambulation. Ice packs to both left shoulder and hip. Regular diet, tolerating well, able to feed self independently after set up. BP low but patient asymptomatic, HR within normal range, MD updated on low BP, no new orders at this time. Patient oriented to self, forgetful, speech is delayed. Left arm in sling.
[2023-07-15] MEDS: DONEPEZIL 10 MG TABLET PO (20:40)
[2023-07-15] MEDS: MELATONIN 3 MG TABLET 1.5 MG PO (20:41)
[2023-07-16 02:47] VITALS: BP 103/56; PULSE 82; RESP 16; TEMP 36.3; O2SAT 98
[2023-07-16] MEDS: ACETAMINOPHEN 325 MG TABLET 650 MG PO ×3 (03:27→18:59)
[2023-07-16] MEDS: bisacodyL 10 MG SUPP.RECT PR (05:36)
--- NOTE | 2023-07-16 06:22 | PC.NURSE ---
End of shift note [id number]: Pt noted to be alert & oriented to self. She needs reminders that is she NWB to LUE due to fx. L arm currently in sling. Bed and chair alarms utilized due to fall risk and pt?s hx of fall. Pt currently pivot transferring with assist of 2 using FWW and GB. She takes pills whole one at a time. VSS and pt has been afebrile. PRN Tylenol and ice utilized for pain control of fractures to pelvis and L humerus along with rest and repositioning. Loredo catheter remains in place and is patent and draining. IV to R FA patent and SL with tubigrip in place for protective covering as day RN reported that yesterday pt was trying to pull at IV dressing. Pt has baseline tremor due to Parkinson?s Disease. Teaching Associate provided new protective Mepilex dressing to spine to cover enrique prominence. PRN suppository given this AM as date of last BM was unknown and pt?s abdomen noted to be firm with bowel sounds active x 4 and fluids encouraged this shift. Pt has since had large soft BM which was both continent and incontinent.
[2023-07-16 07:02] LABS: Basophils Percent Auto 0.1 % (0.0-3.0); Eosinophils Percent Auto 0.6 % (0.0-7.0); Hematocrit 37.1 % (33.0-51.0); Hemoglobin* 12.7 gm/dL (12.0-16.0); Immature Granulocytes Pct Auto 0.4 %; Lymphocytes Percent Auto 9.1 % (20-44); Mean Corpuscular HGB Conc 34 gm/dL (32-36); Mean Corpuscular Hemoglobin 31 pg (26-34); Mean Corpuscular Volume 90 fL (80-100); Monocytes Percent Auto 9.4 % (0.0-11.0); Neutrophils Percent Auto 80.4 % (42.0-72.0); Platelet Count* 156 K/uL (140-440); RDW Coefficient of Variation % 12.9 % (11.5-15.5); Red Blood Count 4.11 m/uL (4.00-5.20); White Blood Count* 16.11 K/uL (4.50-11.00)
[2023-07-16 07:07] LABS: Slide Review Reflex No
[2023-07-16 07:13] LABS: Chloride* 99 mmol/L (96-114); Sodium* 133 mmol/L (135-149)
[2023-07-16 07:14] LABS: Potassium* 3.7 mmol/L (3.6-5.1)
[2023-07-16 07:16] LABS: Anion Gap 4 mEq/L (7-15); Carbon Dioxide* 30 mmol/L (20-32); Creatinine* 0.6 mg/dL (0.5-1.5); Est. Creatinine Clearance* 31.74; Estimated Glomerular Filt Rate 90 ml/min
[2023-07-16 07:17] LABS: Blood Urea Nitrogen* 21 mg/dL (7-30); Calcium* 8.7 mg/dL (8.4-10.6); Glucose* 130 mg/dL (60-115)
[2023-07-16 07:42] VITALS: BP 142/71; PULSE 79; RESP 18; TEMP 36.9; O2SAT 97
[2023-07-16] MEDS: lisinopriL 5 MG TABLET PO (09:12)
[2023-07-16] MEDS: SENNOSIDES/DOCUSATE TABLET 1 TAB PO ×2 (09:12→20:53)
[2023-07-16] MEDS: METOPROLOL SUCCINATE (XL) 25 MG TAB PO (09:12)
[2023-07-16] MEDS: CARBIDOPA-LEVODOPA 25-100 TABLET 2.5 TAB PO ×3 (09:12→20:53)
[2023-07-16] MEDS: polyethylene glycoL 3350 17 GM PACK PO (09:13)
[2023-07-16] MEDS: ROSUVASTATIN CALCIUM 10 MG TABLET 20 MG PO (09:13)
--- NOTE | 2023-07-16 09:29 | P.ORCN_ITS ---
History of Present Illness HPI Date Seen: 07/15/23 Consult date: 07/15/23 Requesting physician: John Rojas Chief complaint: Pelvic pain, left arm pain Narrative: New patient visit. Pleasant 83-year-old female presents to [facility] via ambulance transport due to fall and injury involving left pelvis. Patient has history of Parkinson's with tremor. She was at the [facility], which she and her moved to 3 days ago from a condo in [place], [place]. Reportedly tripped and fell onto her left side hip region. Pain to left hip/pelvis, unable to weightbear. At [facility] Emergency Department, she was thought to have a fracture of the left inferior pubic ramus. Admitted for pain control and further care. During her admission on 07/14/23, she reportedly was found down in her room after an apparent fall from her chair. Reportedly the chair alarm did not sound. During that repeat exam, she was found to have left shoulder discomfort. X-rays of the left shoulder revealed proximal humerus fracture. She was given a sling. Today, she is complaining of left shoulder pain/arm pain greater than left pelvic/hip pain. She has no gross hip pain but notes some discomfort to the sits katie (ischial tuberosity) of her left side. Points to the anterior shoulder as location of pain. Her provides majority of the history for her. Prior to these injuries, she was a community ambulator, but gait has been an issue due to Parkinson's. Per , no history of fractures, or injuries. She was an active individual enjoying the outdoors years ago. Review of Systems Narrative: No recent fevers, chills, or aches; no numbness or tingling distally [facility] Medical History Proximal humerus fracture ?S42.209A - Unspecified fracture of upper end of unspecified humerus, initial encounter for closed fracture (ICD-10) Frailty syndrome in geriatric patient ?R54 - Age-related physical debility (ICD-10) Cognitive impairment ?R41.89 - Other symptoms and signs involving cognitive functions and awareness (ICD-10) Melanoma ?C43.9 - Malignant melanoma of skin, unspecified (ICD-10) Heart failure with reduced ejection fraction ?I50.20 - Unspecified systolic (congestive) heart failure (ICD-10) Coronary artery disease ?I25.10 - Atherosclerotic heart disease of [place] coronary artery without angina pectoris (ICD-10) Parkinsons disease ?G20.A1 - Parkinson's disease without dyskinesia, without mention of fluctuations (ICD-10) Surgical History History of breast biopsy ?Z98.890 - Other specified postprocedural states (ICD-10) History of colonoscopy ?Z98.890 - Other specified postprocedural states (ICD-10) History of tonsillectomy ?Z90.89 - Acquired absence of other organs (ICD-10) History of hysterectomy ?Z90.710 - Acquired absence of both cervix and uterus (ICD-10) Hx of cataract surgery ?Z98.49 - Cataract extraction status, unspecified eye (ICD-10) Family History Brother Cardiovascular disease Father Cardiovascular disease Social History Narrative: She lives with her , Jeison, at [facility]. Her is healthcare power of assistant county attorney. Code status is DNR. Previously lived in [facility] and in [facility]. She is a nonsmoker. Rarely drinks alcohol. What is your current living situation?: I presently have a place to live Problems where you live: no known problems Problems where you live details: None known In the past 12 months, utilities in danger of being shut off: no In past 12 months, lack of transportation kept you from medical appts, meetings, work, or getting things needed for daily living: no In the past 12 mos, have been you worried that your food would run out before you had money to buy more?: never true In the past 12 mos, the food you bought just didn't last and you didn't have money to buy more?: never true Smoking Status: Never smoker How often do you have a drink containing alcohol: never AUDIT-C Alcohol total score: 0 Non-prescribed substance use: denies use Caffeine: No How often does anyone, including family, friends and others, physically hurt you : never How often does anyone, including family, friends and others, insult or talk down to you: never How often does anyone, including family, friends and others, threaten you with harm: never How often does anyone, including family, friends and others, scream or curse at you: never Meds Home Medications and Allergies Home Medications Medication Instructions Recorded Confirmed Type acetaminophen 325 mg tablet 325 mg PO Q6H PRN pain 07/13/23 07/13/23 History aspirin 81 mg tablet,delayed 81 mg PO MOWEFR 07/13/23 07/13/23 History release (Adult Aspirin Regimen) calcium citrate 315 mg 1 tab PO 6XW 07/13/23 07/13/23 History calcium-vitamin D3 6.25 mcg (250 unit) tablet carbidopa 25 mg-levodopa 100 mg 2.5 tab PO TID 07/13/23 07/13/23 History tablet carbidopa ER 50 mg-levodopa 200 mg 1 tab PO HS 07/13/23 07/13/23 History tablet,extended release donepezil 10 mg tablet 10 mg PO HS 07/13/23 07/13/23 History lisinopril 5 mg tablet 5 mg PO DAILY 07/13/23 07/13/23 History melatonin 1 mg tablet 1 mg PO HS 07/13/23 07/13/23 History nitroglycerin 0.4 mg sublingual 0.4 mg sublingual Q5M PRN 07/13/23 07/13/23 History tablet polyethylene glycol 3350 17 17 g PO DAILY 07/13/23 07/13/23 History gram/dose oral powder (ClearLax) rosuvastatin 20 mg tablet 20 mg PO DAILY 07/13/23 07/13/23 History sennosides 8.6 mg-docusate sodium 1 tab PO DAILY PRN 07/13/23 07/13/23 History 50 mg tablet (Senna-S) Allergies Allergy/AdvReac Type Severity Reaction Status Date / Time No Known Drug Allergies Allergy Verified 07/13/23 10:26 Ortho Exam Narrative Exam Narrative: General: Patient appears frail, thin, noted by prominent spinous processes; quite spoken, easily falls asleep during conversation; A&Ox 3, no apparent acute distress. There is a Mepilex on her upper thoracic region over her spinous processes that is beginning to roll off from the distal aspect Pulmonary: Breathing pattern regular, even, without apparent distress or audible wheeze present. Left lower extremity: This exam was performed while patient was in the recliner No obvious shortening or rotation of the left lower extremity. No obvious swelling, ecchymosis, or erythema. Palpation of the left ischial tuberosity is mildly painful; Palpation of the pubic symphysis anteriorly is mildly painful. Both regions without obvious crepitus Gentle log roll does not produce any groin discomfort Hip flexion 95? without pain Internal rotation 25? no pain External rotation 35? no pain Full abduction and adduction to the degree that is allowed in the chair all without pain 2+ Dorsalis Pedis and Posterior Tibial pulses, intact dermatomes and myotomes distally with 5/5 motor strength dorsal and plantar flexion. Left upper extremity: Left upper extremity rests in a sling; there is general elevation of the left shoulder which appears to be guarding in nature Slight anterior prominence of the left shoulder compared to contralateral; no skin tenting, erythema, or ecchymosis Exquisite tender palpation over the anterior shoulder and proximal humerus; n ontender posterior aspect of her shoulder/scapula 2+ radial pulse, pink warm digits with brisk cap refill; intact dermatomes and myotomes distally including the radial, ulnar, and median nerve distributions. No strength testing performed Const Vital Signs, click to edit/add: Vital Signs - 24 hr 07/15/23 11:09 07/15/23 16:01 07/15/23 16:10 Temperature 97.3 F L 97.7 F Pulse Rate [Left Pulse Oximeter] 68 73 Respiratory Rate 18 20 20 Blood Pressure [Right Arm] 91/48 L 97/54 L Pulse Oximetry 94 92 Oxygen Delivery Method Room Air Room Air 07/15/23 19:15 07/15/23 23:00 07/15/23 23:21 Temperature 98.0 F 97.5 F L Pulse Rate [Left Pulse Oximeter] 74 76 76 Respiratory Rate 16 16 16 Blood Pressure [Right Arm] 140/76 H 101/53 L Pulse Oximetry 97 95 Oxygen Delivery Method Room Air Room Air 07/16/23 02:47 07/16/23 07:42 07/16/23 07:42 Temperature 97.4 F L 98.5 F Pulse Rate [Left Pulse Oximeter] 82 79 79 Respiratory Rate 16 18 18 Blood Pressure [Right Arm] 103/56 L 142/71 H Pulse Oximetry 98 97 Oxygen Delivery Method Room Air Room Air Results Labs Labs: Laboratory Results - last 48 hr 07/15/23 07/16/23 05:51 06:50 WBC 16.07 H 16.11 H RBC 4.34 4.11 Hgb 13.3 12.7 Hct 39.6 37.1 MCV 91 90 MCH 31 31 MCHC 34 34 RDW Coeff of Daxa 12.8 12.9 Plt Count 165 156 Neut % (Auto) 78.9 H 80.4 H Lymph % (Auto) 9.6 L 9.1 L [place] % (Auto) 8.9 9.4 Eos % (Auto) 1.3 0.6 Baso % (Auto) 0.2 0.1 Neut # (Auto) 12.70 H 13.00 H Lymph # (Auto) 1.50 1.50 [place] # (Auto) 1.40 H 1.50 H Eos # (Auto) 0.20 0.10 Baso # (Auto) 0.00 0.00 Abs Immat Gran (auto) 0.20 0.10 Imm/Tot Granulo (auto) 1.1 0.4 Sodium 133 L Potassium 3.7 Chloride 99 Carbon Dioxide 30 Anion Gap 4 L BUN 21 Creatinine 0.6 Estimated Creat Clear 31.74 Estimated GFR 90 Glucose 130 H Calcium 8.7 Diagnostic results Shoulder x-ray: report reviewed and image reviewed Hip x-ray: report reviewed and image reviewed Additional Comments: AP pelvis, left hip AP, and left cross-table lateral ordered by different provider [facility] dated 07/13/2023. These images were reviewed and corroborated with the radiology report showing radiolucency within the inferior pubic ramus suspicious for nondisplaced fracture. There is also a noted cortical in congruency at the left pubic symphysis without significant di splacement. No additional fractures noted. More notably, no fracture through the femoral neck, intertrochanteric, or subtrochanteric region. 2 different AP, and 1 scap Y-view of the left shoulder ordered by different provider [facility] dated 07/14/2023. These images were reviewed and corroborated with the radiology report showing a displaced surgical neck fracture of the proximal humerus with the diaphysis translated/displaced anteriorly, resulting in left upper extremity shortening. The humeral head remains concentrically reduced upon the glenoid. No additional fractures noted. Assessment and Plan Assessment and plan (1) Sepsis: Problem comment: Sepsis is suspected with tachycardia and leukocytosis. Only suspicious source is urinary tract infection. Urine cultures showing mixed nataliya. No obvious sign of infection clinically. Cultures negative so far. Tachycardia and leukocytosis may be due to fractures. Continue to monitor. Status: Suspected Total time spent: Total time spent is greater than 50% in coordination of care (as documented) at patient's floor/unit and/or counseling patient: (2) Closed fracture of single pubic ramus of pelvis: Problem comment: Weight-bearing as tolerated. Currently needing assistance to stand and transfer. Pain control with cautious use of opioids. Will add Naprosyn 250 mg once a day for a cautious use of NSAIDs for pain control Status: Acute Total time spent: Total time spent is greater than 50% in coordination of care (as documented) at patient's floor/unit and/or counseling patient: (3) Fall: Problem comment: At risk for falls Status: Acute Total time spent: Total time spent is greater than 50% in coordination of care (as documented) at patient's floor/unit and/or counseling patient: (4) Parkinsons disease: Problem comment: Continue routine Parkinson's medications Status: Acute Total time spent: Total time spent is greater than 50% in coordination of care (as documented) at patient's floor/unit and/or counseling patient: (5) Cognitive impairment: Problem comment: Continue to assess. Status: Acute Total time spent: Total time spent is greater than 50% in coordination of care (as documented) at patient's floor/unit and/or counseling patient: (6) Tachycardia: Problem comment: Sinus tachycardia for uncertain reasons. Possibly related to hip fracture and pain. Do basic cardiac assessment. Consider beta-vy due to history of coronary disease. Investigated other illnesses that could cause sinus tachycardia Status: Acute Total time spent: Total time spent is greater than 50% in coordination of care (as documented) at patient's floor/unit and/or counseling patient: (7) Frailty syndrome in geriatric patient: Problem comment: Patient has appeared very frail. Underlying Parkinson's disease now with fracture of the left inferior pubic ramus and proximal left humerus. Now requiring pain medications. Discussed with patient and her and son that this is likely to be a quite difficult course of recovery from these injuries. Status: Acute Total time spent: Total time spent is greater than 50% in coordination of care (as documented) at patient's floor/unit and/or counseling patient: (8) Proximal humerus fracture: Problem comment: Conservative management per Ortho consult. Sling and range of motion as tolerated. Quite disabled by this fracture of her left proximal humerus. Pain medications are necessary and helping but also contributing to her sedation and confusion. Add Naprosyn 250 mg once a day for pain control. Monitor for GI bleeding or renal affects Status: Acute Total time spent: Total time spent is greater than 50% in coordination of care (as documented) at patient's floor/unit and/or counseling patient: Plan We had a thorough discussion regarding both fractures. Patient was falling asleep during history taking, but more awake during exam. Left pelvis: Reassuring to see that her left hip is not involved as she has good motion without significant pain. With this nondisplaced inferior pubic ramus fracture, she can weight bear as tolerated. PT encouraged for leg exercises, largely motion without strengthening at this time. Originally, goal was for her to use the walker for ambulation assistance. Now due to the proximal humerus fracture, this recommendation has changed. Recommend assist of 1 or 2 with gait belt for ambulation assistance. Okay to weight bear on left lower extremity as tolerated. We briefly discussed pursuing a left hip/pelvis CT, but due to her non painful hip motion, my concern for a femoral neck or intertrochanteric/subtrochanteric fracture is low. We can re-evaluate with CT if she begins experiencing more pain with ambulation left hip/groin region. Left humerus: While we note the displacement of the diaphysis relative to the head, we still feel that non operative management is most prudent to treat this left surgical neck fracture. Her axillary nerve is intact. No significant hematoma. Would encourage sling for comfort, and ensure that she is not applying elevation to the shoulder as traction can help with pain and may provide some mild reduction to help with fracture healing. Advised no weight- bearing with left upper extremity. In time, encouraged elbow motion, but now she is encouraged to perform wrist, hand, digit range of motion. She states understanding. If she is seen with shoulder elevation frequently, we could consider collar and cuff with plaster splint to the forearm for added gravity, which in turn could help with gentle fracture reduction. In the future, if the fracture goes on to non-union or AVN of the humeral head, which is a concern due to the significant displacement and possible disruption of the circumflex arteries, then a reverse total shoulder arthroplasty would be considered. Patient will need SNF placement during fracture healing of both the pelvis and humerus. I would like to see her back in approximately 2-3 weeks for reassessment of the left proximal humerus fracture as well as to manage her left pelvic fracture. Thank you for allowing me to participate in this patient's care.
[2023-07-16] MEDS: NAPROXEN 250 MG TABLET PO (10:06)
[2023-07-16 11:00] VITALS: BP 114/56; PULSE 66; RESP 22; TEMP 36.7; O2SAT 93
--- NOTE | 2023-07-16 12:01 | PM.IMPN1 ---
Progress Note: A&P Assessment and plan (1) Sepsis: Problem details: Sepsis is suspected with tachycardia and leukocytosis. Only suspicious source is urinary tract infection. Urine cultures showing mixed nataliya. No obvious sign of infection clinically. Cultures negative so far. Tachycardia and leukocytosis may be due to fractures. Continue to monitor. Status: Suspected (2) Closed fracture of single pubic ramus of pelvis: Problem details: Weight-bearing as tolerated. Currently needing assistance to stand and transfer. Pain control with cautious use of opioids. Will add Naprosyn 250 mg once a day for a cautious use of NSAIDs for pain control Status: Acute (3) Proximal humerus fracture: Problem details: Conservative management per Ortho consult. Sling and range of motion as tolerated. Quite disabled by this fracture of her left proximal humerus. Pain medications are necessary and helping but also contributing to her sedation and confusion. Add Naprosyn 250 mg once a day for pain control. Monitor for GI bleeding or renal affects Status: Acute (4) Fall: Problem details: At risk for falls Status: Acute (5) Parkinsons disease: Problem details: Continue routine Parkinson's medications Status: Acute (6) Cognitive impairment: Problem details: Continue to assess. Status: Acute (7) Tachycardia: Problem details: Sinus tachycardia for uncertain reasons. Possibly related to hip fracture and pain. Do basic cardiac assessment. Consider beta-vy due to history of coronary disease. Investigated other illnesses that could cause sinus tachycardia Status: Acute (8) Frailty syndrome in geriatric patient: Problem details: Patient has appeared very frail. Underlying Parkinson's disease now with fracture of the left inferior pubic ramus and proximal left humerus. Now requiring pain medications. Discussed with patient and her and son that this is likely to be a quite difficult course of recovery from these injuries. Status: Acute Plan Continue in hospital for management of pain control monitoring for complications and awaiting safe discharge plan. Time Spent With Patient Total time spent: Total time spent 40 minutes, 30 minutes in coordination of care and discussing with patient and other providers management of pain and disability from her fractures Subjective Date Seen: 07/16/23 Interval history: HPI: Sandra Medrano is a 83 year old female with coronary artery disease and Parkinson's disease admitted through the emergency department after falling at home today. Patient has Parkinson's disease and has been unsteady with her walking. She was just turning around in the doorway today when she tripped over her own feet and fell landing on her left hip. She also hit her head. She did not lose consciousness. She is now concerned primarily about pain in her left groin area. She has been unable to ambulate secondary to pain and weakness in her left leg since he fell. She reports she has otherwise been feeling well. No recent illness. No fever. She has been eating and drinking normally. She lives at [facility]. They are unable to provide the assistance she needs to return to their facility. She reports she has otherwise been in reasonably good health. She has a history of a myocardial infarction few years ago. She has not had any symptoms of coronary disease or any exertional symptoms since that time. July 13: Having significant left hip/groin pain exacerbated by any movement in the hip or weight-bearing. Last evening she had hypertension and sinus tachycardia. Cause for this was unclear. Due to history of coronary artery disease with started on metoprolol. Improved heart rate overnight however she has developed an elevated white count. Continues to deny any focus of infection including cough congestion chest pain shortness of breath nausea vomiting diarrhea abdominal pain. She has chronic urinary symptoms which continue to be present. No other pain problems. She is not aware of any fever. July 14: Patient is intermittently sedated from opioid pain medicines. Mostly still oriented to her circumstances though some occasional confusion and disorientation is noted. Appears fairly comfortable when she is lying in bed but has quite a bit of pain with any attempts to move her left upper extremity. Also pain with weight-bearing on her left lower extremity. July 15: Patient reports generally doing well except for her left shoulder pain with any move arm movement and left hip pain with weight-bearing. She has poorly tolerated oxycodone 2.5 mg causing sedation. Not getting adequate pain relief with acetaminophen alone. Exam Narrative: Exam Narrative: She is alert and oriented to her circumstances this morning. Respirations are clear to auscultation. Cardiovascular: S1, S2, regular rate and rhythm. Abdomen is soft without tenderness or mass. She tolerates palpation and gentle motion in her left lower extremity knee and ankle. Left upper extremity she very poorly tolerates any motion in the elbow or shoulder. Palpation of the elbow is not tender. Intact pulses and sensation distally Const: Vital Signs, click to edit/add: Vital Signs - 24 hr 07/15/23 16:01 07/15/23 16:10 07/15/23 19:15 Temperature 97.7 F 98.0 F Pulse Rate [Left P ulse Oximeter] 73 74 Respiratory Rate 20 20 16 Blood Pressure [Ri ght Arm] 97/54 L 140/76 H Pulse Oximetry 92 97 Oxygen Delivery Me thod Room Air Room Air 07/15/23 23:00 07/15/23 23:21 07/16/23 02:47 Temperature 97.5 F L 97.4 F L Pulse Rate [Left P ulse Oximeter] 76 76 82 Respiratory Rate 16 16 16 Blood Pressure [Ri ght Arm] 101/53 L 103/56 L Pulse Oximetry 95 98 Oxygen Delivery Me thod Room Air Room Air 07/16/23 07:42 07/16/23 07:42 07/16/23 11:00 Temperature 98.5 F 98.1 F Pulse Rate [Left P ulse Oximeter] 79 79 66 Respiratory Rate 18 18 22 Blood Pressure [Ri ght Arm] 142/71 H 114/56 L Pulse Oximetry 97 93 Oxygen Delivery Me thod Room Air Room Air Documenting provider has reviewed patient's vital signs: yes Labs Labs: Laboratory Results - last 24 hr 07/16/23 06:50 WBC 16.11 H RBC 4.11 Hgb 12.7 Hct 37.1 MCV 90 MCH 31 MCHC 34 RDW Coeff of Daxa 12.9 Plt Count 156 Neut % (Auto) 80.4 H Lymph % (Auto) 9.1 L [place] % (Auto) 9.4 Eos % (Auto) 0.6 Baso % (Auto) 0.1 Neut # (Auto) 13.00 H Lymph # (Auto) 1.50 [place] # (Auto) 1.50 H Eos # (Auto) 0.10 Baso # (Auto) 0.00 Abs Immat Gran (auto) 0.10 Imm/Tot Granulo (auto) 0.4 Sodium 133 L Potassium 3.7 Chloride 99 Carbon Dioxide 30 Anion Gap 4 L BUN 21 Creatinine 0.6 Estimated Creat Clear 31.74 Estimated GFR 90 Glucose 130 H Calcium 8.7
[2023-07-16] MEDS: SODIUM CHLORIDE 0.9 % (FLUSH) 10 ML SYRINGE 5 ML IVF ×2 (13:12→20:54)
--- NOTE | 2023-07-16 14:01 | PC.SOCIAL ---
Addendum entered by MONICA Luna 07/16/23 16:35: Received a phone call from pt's [facility] Nurse Senior Firewall Engineer, Jennie, at [phone]. wildlife manager was requesting an update on pt's status and discharge plans. Provided update to major case detective. Addendum entered by MONICA Luna 07/16/23 16:32: Received a phone call from Teresa in admissions at the [facility]. Prior authorization was approved. [facility] can accept pt anytime tomorrow before 2:00 pm. Updated pt's family on discharge plan. Pt will qualify for non-emergency EMS due to fractures. Provided update to charge nurse. Original Note: Discharge planning- Received an e-mail from Teresa in admissions at The [facility] informing that pt has been accepted for admission and they will offer a private room/shared bathroom. Teresa informs that the [facility] will need to complete a prior authorization with insurance, so they would like an update on whether pt would like to accept the room. Met with pt's and discussed and pt's would like to accept. Provided update to Teresa at the [facility] and she informs that they will begin the prior authorization with insurance. Teresa will update this worker when more information is available. Received a voicemail from pt's nephew Salvador requesting a phone call back. Phone call to pt's nephew. Pt's nephew is asking for a timeline. Informed that the [facility] is working with pt's insurance to get a prior authorization, when authorization is given then we can determine when pt will transfer to the [facility]. Pt's nephew requests to be kept updated on progress. Social work will follow up as needed.
[2023-07-16 15:00] VITALS: BP 111/52; PULSE 73; RESP 16; TEMP 36.4; O2SAT 96
--- NOTE | 2023-07-16 15:18 | PC.NURSE ---
Nursing Care Hours: [id number] Pt this shift calm and cooperative, alert and oriented with occasional forgetfulness. Assist x2 pivot transfer to BSC. After working with PT, 2 person short transfer from bed to chair. Reporting pain 5-10/10 to left shoulder and 5-8/10 on left hip. Naproxen added to morning meds, tylenol given PRN and ice applied. Pt eating and drinking sufficiently. Urinary cath patent. No BM this shift. VSS
[2023-07-16 19:00] VITALS: BP 138/66; PULSE 84; RESP 16; TEMP 36.9; O2SAT 96
[2023-07-16] MEDS: DONEPEZIL 10 MG TABLET PO (20:53)
[2023-07-16] MEDS: MELATONIN 3 MG TABLET 1.5 MG PO (20:53)
[2023-07-16 23:40] VITALS: RESP 16
--- NOTE | 2023-07-17 00:57 | PC.NURSE ---
End of Shift: Patient pleasant and cooperative. Alert and oriented x3. Afebrile. Left arm in sling. CMS intact. Up to chair and BSC with 2 assist, walker and gait belt. Rating pain up to 7/10 with activity and PRN Tylenol given x1. Tolerating regular diet with no nausea. [place] patent.
[2023-07-17 06:00] VITALS: RESP 16
[2023-07-17 06:22] LABS: Basophils Percent Auto 0.2 % (0.0-3.0); Hematocrit 38.1 % (33.0-51.0); Hemoglobin* 12.7 gm/dL (12.0-16.0); Immature Granulocytes Pct Auto 1.7 %; Lymphocytes Percent Auto 9.9 % (20-44); Mean Corpuscular HGB Conc 33 gm/dL (32-36); Mean Corpuscular Hemoglobin 31 pg (26-34); Mean Corpuscular Volume 91 fL (80-100); Monocytes Percent Auto 8.9 % (0.0-11.0); Neutrophils Percent Auto 78.3 % (42.0-72.0); Platelet Count* 181 K/uL (140-440); RDW Coefficient of Variation % 13.1 % (11.5-15.5); Red Blood Count 4.17 m/uL (4.00-5.20); White Blood Count* 17.43 K/uL (4.50-11.00)
[2023-07-17 06:34] LABS: Slide Review Reflex No
[2023-07-17 06:51] LABS: Chloride* 100 mmol/L (96-114)
[2023-07-17 06:52] LABS: Potassium* 3.8 mmol/L (3.6-5.1); Sodium* 132 mmol/L (135-149)
[2023-07-17 06:54] LABS: Creatinine* 0.5 mg/dL (0.5-1.5); Est. Creatinine Clearance* 31.43; Estimated Glomerular Filt Rate 94 ml/min
[2023-07-17 06:55] LABS: Anion Gap 4 mEq/L (7-15); Blood Urea Nitrogen* 25 mg/dL (7-30); Calcium* 8.6 mg/dL (8.4-10.6); Carbon Dioxide* 28 mmol/L (20-32); Glucose* 125 mg/dL (60-115)
--- NOTE | 2023-07-17 07:30 | PC.NURSE ---
End of shift note: pt on restful night VS. night uneventful. neff patent and draining. pt to d/c today with non emergent EMS transport to [facility].
[2023-07-17 08:09] VITALS: BP 162/90; PULSE 96; RESP 16; TEMP 36.9; O2SAT 93
[2023-07-17] MEDS: CARBIDOPA-LEVODOPA 25-100 TABLET 2.5 TAB PO (08:51)
[2023-07-17] MEDS: METOPROLOL SUCCINATE (XL) 25 MG TAB PO (08:52)
[2023-07-17] MEDS: polyethylene glycoL 3350 17 GM PACK PO (08:52)
[2023-07-17] MEDS: lisinopriL 5 MG TABLET PO (08:52)
[2023-07-17] MEDS: ROSUVASTATIN CALCIUM 10 MG TABLET 20 MG PO (08:52)
[2023-07-17] MEDS: ASPIRIN 81 MG TABLET EC PO (08:52)
[2023-07-17] MEDS: NAPROXEN 250 MG TABLET PO (08:52)
[2023-07-17] MEDS: SENNOSIDES/DOCUSATE TABLET 1 TAB PO (08:52)
--- NOTE | 2023-07-17 10:22 | PC.NURSE ---
Pt. discharged to [facility] in [place] via [facility] non-emergent EMS. [id number] report given to Nurse Rosanne at [facility].
--- NOTE | 2023-07-17 10:57 | PC.SOCIAL ---
Discharge planning- Pt will transport via non-emergency EMS at 10:30 am to [facility] at [place]. Completed preadmission screening. Confirmation #[id number]. Secure e-mailed copy of PAS to eTresa in admissions at the [facility]. Provided update on transport time to the [facility]. Will follow up as needed.
--- NOTE | 2023-07-17 13:15 | PM.DS1 ---
DS: Providers Provider Date Seen: 07/17/23 Date of admission: 07/14/23 14:20 Primary care physician: Not a Local Provider Admitting Clinician: John Rojas MD Attending Physician on discharge: John Rojas MD Date of Discharge: 07/17/23 DS: Diagnosis Discharge Diagnosis (1) Closed fracture of single pubic ramus of pelvis: Status: Acute Problem details: Weight-bearing as tolerated. Currently needing assistance to stand and transfer. Pain control with cautious use of opioids. Oxycodone 2.5 mg has caused quite a bit of sedation. Will add Naprosyn 220 mg once a day for a cautious use of NSAIDs for pain control. Monitor for GI side effects, renal toxicity, bleeding. (2) Proximal humerus fracture: Status: Acute Problem details: Conservative management per Ortho consult. Sling and range of motion as tolerated. Quite disabled by this fracture of her left proximal humerus. Pain medications are necessary and helping but also contributing to her sedation and confusion. Add Naprosyn 220 mg once a day for pain control. Monitor for GI bleeding or renal affects (3) Parkinsons disease: Status: Acute Problem details: Continue routine Parkinson's medications (4) Fall: Status: Acute Problem details: At risk for falls. Up with assistance. (5) Cognitive impairment: Status: Acute Problem details: Continue to assess. (6) Tachycardia: Status: Acute Problem details: Sinus tachycardia for uncertain reasons. Possibly related to hip fracture and pain. Do basic cardiac assessment. Consider beta-vy due to history of coronary disease. Investigated other illnesses that could cause sinus tachycardia (7) Sepsis: Status: Suspected Problem details: Sepsis is suspected with tachycardia and leukocytosis. Only suspicious source is urinary tract infection. Urine cultures showing mixed nataliya. No obvious sign of infection clinically. Cultures negative so far. Tachycardia and leukocytosis may be due to fractures. Continue to monitor. (8) Frailty syndrome in geriatric patient: Status: Acute Problem details: Patient has appeared very frail. Underlying Parkinson's disease now with fracture of the left inferior pubic ramus and proximal left humerus. Now requiring pain medications. Discussed with patient and her and son that this is likely to be a quite difficult course of recovery from these injuries. DS: Summary Hospital Course Hospital Course: HPI: Sandra Medrano is a 83 year old female with coronary artery disease and Parkinson's disease admitted through the emergency department after falling at home today. Patient has Parkinson's disease and has been unsteady with her walking. She was just turning around in the doorway today when she tripped over her own feet and fell landing on her left hip. She also hit her head. She did not lose consciousness. She is now concerned primarily about pain in her left groin area. She has been unable to ambulate secondary to pain and weakness in her left leg since he fell. She reports she has otherwise been feeling well. No recent illness. No fever. She has been eating and drinking normally. She lives at [facility]. They are unable to provide the assistance she needs to return to their facility. She reports she has otherwise been in reasonably good health. She has a history of a myocardial infarction few years ago. She has not had any symptoms of coronary disease or any exertional symptoms since that time. July 13: Having significant left hip/groin pain exacerbated by any movement in the hip or weight-bearing. Last evening she had hypertension and sinus tachycardia. Cause for this was unclear. Due to history of coronary artery disease with started on metoprolol. Improved heart rate overnight however she has developed an elevated white count. Continues to deny any focus of infection including cough congestion chest pain shortness of breath nausea vomiting diarrhea abdominal pain. She has chronic urinary symptoms which continue to be present. No other pain problems. She is not aware of any fever. July 14: Patient is intermittently sedated from opioid pain medicines. Mostly still oriented to her circumstances though some occasional confusion and disorientation is noted. Appears fairly comfortable when she is lying in bed but has quite a bit of pain with any attempts to move her left upper extremity. Also pain with weight-bearing on her left lower extremity. July 15: Patient reports generally doing well except for her left shoulder pain with any move arm movement and left hip pain with weight-bearing. She has poorly tolerated oxycodone 2.5 mg causing sedation. Not getting adequate pain relief with acetaminophen alone. July 16: Pain control appears to be modestly better with naproxen. She still has an elevated white blood count but no obvious signs or symptoms of infection. Only concerns today are her left shoulder pain, left groin pain, parkinsonian tremor. Time Spent with Patient Time attestation: Total time spent providing and/or coordinating discharge services: 35 minutes Time spent: Greater than 30 minutes Exam Narrative: Exam Narrative: She is alert and appears in no distress. Eyes normal. Oropharynx normal. Neck is supple without mass or adenopathy. Respirations are clear to auscultation. Cardiovascular: S1, S2, regular rate and rhythm. No murmur gallop or rub. Abdomen: Bowel sounds active. Abdomen is soft without tenderness or mass. Inspection of her hips without obvious bruising or deformity. Lower extremities without significant edema. Left upper extremity in a sling. She poorly tolerates any motion in her left upper arm. Fingers are warm to touch she has intact sensation in her left upper extremity. Good peripheral pulses. Const: Vital Signs, click to edit/add: Vital Signs - 24 hr 07/16/23 15:00 07/16/23 15:00 07/16/23 19:00 Temperature 97.6 F 98.4 F Pulse Rate [Left P ulse Oximeter] Pulse Rate [Right Pulse Oximeter] 73 73 84 Respiratory Rate 16 16 16 Blood Pressure [Ri ght Arm] 111/52 L 138/66 Pulse Oximetry 96 96 Oxygen Delivery Me thod Room Air Room Air 07/16/23 23:40 07/16/23 23:40 07/17/23 06:00 Temperature Pulse Rate [Left P ulse Oximeter] Pulse Rate [Right Pulse Oximeter] Respiratory Rate 16 16 16 Blood Pressure [Ri ght Arm] Pulse Oximetry Oxygen Delivery Me thod Room Air 07/17/23 08:09 Temperature 98.5 F Pulse Rate [Left P ulse Oximeter] 96 Pulse Rate [Right Pulse Oximeter] Respiratory Rate 16 Blood Pressure [Ri ght Arm] 162/90 H Pulse Oximetry 93 Oxygen Delivery Me thod Room Air Documenting provider has reviewed patient's vital signs: yes DS: Data Data Completed and Pending Labs on day of discharge: Labs from last 24 hours 07/17/23 05:35 WBC 17.43 H RBC 4.17 Hgb 12.7 Hct 38.1 MCV 91 MCH 31 MCHC 33 RDW Coeff of Daxa 13.1 Plt Count 181 Neut % (Auto) 78.3 H Lymph % (Auto) 9.9 L [place] % (Auto) 8.9 Eos % (Auto) 1.0 Baso % (Auto) 0.2 Neut # (Auto) 13.60 H Lymph # (Auto) 1.70 [place] # (Auto) 1.60 H Eos # (Auto) 0.20 Baso # (Auto) 0.00 Abs Immat Gran (auto) 0.30 Imm/Tot Granulo (auto) 1.7 Sodium 132 L Potassium 3.8 Chloride 100 Carbon Dioxide 28 Anion Gap 4 L BUN 25 Creatinine 0.5 Estimated Creat Clear 31.43 Estimated GFR 94 Glucose 125 H Calcium 8.6 Preliminary micro results at discharge 07/14/23 08:27 Blood Culture - Preliminary Blood NO GROWTH AFTER 72 HOURS 07/14/23 08:21 Blood Culture - Preliminary Blood NO GROWTH AFTER 72 HOURS Discharge Plan Discharge Disposition: Xfer [facility] Date of Admission: 07/14/23 14:20 Attending Provider on Discharge: John Rojas Consulting Providers: Tom Ramirez Primary Care Provider: Provider,Not a Local Discharge Medications: New acetaminophen 325 mg Tablet 650 mg PO Q6H PRN (Reason: pain) Qty: 100 0RF sennosides-docusate sodium [Stool Softener-Laxative] 8.6-50 mg Tablet 1 tab PO BID Qty: 60 0RF metoprolol succinate 25 mg Tablet Extended Release 24 Hr 25 mg PO DAILY Qty: 30 0RF oxycodone 5 mg Tablet 2.5 mg PO Q4H PRNQty: 20 0RF naproxen sodium [Aleve] 220 mg capsule 220 mg PO DAILY Qty: 20 0RF Continued aspirin [Adult Aspirin Regimen] 81 mg tablet,delayed release (DR/EC) 81 mg PO MOWEFR Rx Instructions: SAT,SAT,SAT carbidopa-levodopa 50-200 mg tablet extended release 1 tab PO HS donepezil 10 mg tablet 10 mg PO HS lisinopril 5 mg tablet 5 mg PO DAILY melatonin 1 mg tablet 1 mg PO HS polyethylene glycol 3350 [ClearLax] 17 gram/dose powder 17 g PO DAILY rosuvastatin 20 mg tablet 20 mg PO DAILY calcium citrate-vitamin D3 315 mg-6.25 mcg (250 unit) tablet 1 tab PO 6XW Rx Instructions: SAT,SAT,SAT,SAT,,SAT; NOT SAT carbidopa-levodopa 25-100 mg tablet 2.5 tab PO TID nitroglycerin 0.4 mg tablet, sublingual 0.4 mg sublingual Q5M PRN Discontinued acetaminophen 325 mg tablet 325 mg PO Q6H PRN (Reason: pain) sennosides-docusate sodium [Senna-S] 8.6-50 mg tablet 1 tab PO DAILY PRN Discharge Orders: Discharge Order (Routine); Ordered 07/17/23 Ordered By: John Rojas Activity Level: Up with assist and Weight Bearing as Tolerated Activity Detail: Use arm sling for comfort for left humerus fracture. Removed sling to straighten elbow twice a day. Discharge Diet: Regular Follow Up Appointments: Provider,Not a Local [Primary Care Provider] - Forms: [facility] Info Instructions Admit to: SNF Discharge Potential: Fair Length of Stay: 30-90 days Can use facility standing orders?: Yes Code Status: DNR/DNI TEDs: Bilateral Knee Rehab Potential: Fair Therapy: Physical Therapy and Occupational Therapy Therapy Orders: Evaluate and Treat Oxygen: No Urinary Catheter: No Lab Orders: CBC and basic metabolic panel in 1 week
== END 2023-07-17 10:21 | DRG 536 ==
LOC: ED 13:09 → MEDSURG 13:53
PROVIDERS: Admitting Provider Family Medicine; Emergency Provider Family Medicine; Visit Provider Family Medicine
DX: S32.502A Unspecified fracture of left pubis, initial encounter for closed fracture (principal); S42.212A Unspecified displaced fracture of surgical neck of left humerus, initial encounter for closed fracture; I50.20 Unspecified systolic (congestive) heart failure; W01.0XXA Fall on same level from slipping, tripping and stumbling without subsequent striking against object, initial encounter; Y92.099 Unspecified place in other non-institutional residence as the place of occurrence of the external cause; G31.84 Mild cognitive impairment of uncertain or unknown etiology; W07.XXXA Fall from chair, initial encounter; Z91.81 History of falling; Y92.230 Patient room in hospital as the place of occurrence of the external cause; G89.11 Acute pain due to trauma; I25.10 Atherosclerotic heart disease of native coronary artery without angina pectoris; G20.A1 Parkinson's disease without dyskinesia, without mention of fluctuations; R00.0 Tachycardia, unspecified
CPT/HCPCS: 36415; 51701; 51798; 70450; 73030; 73502; 80048; 80053; 81001; 83605; 84484; 85025; 87040; 87081; 87086; 87631; 93005; 97116; 97161; 97165; 97530; 97535; 99284; 99285; A9270; G0378; J0696; J7050

== ENCOUNTER 2023-07-17 10:08 | Outpatient (CLI) | payer MEDICARE, SELFPAY | END 2023-07-17 10:09 | disposition home or self-care (01) | LOC: AMB 07-20 08:39 | PROVIDERS: Visit Provider Family Medicine | DX: S32.509 Unspecified fracture of unspecified pubis (principal); S42.209S Unspecified fracture of upper end of unspecified humerus, sequela | CPT/HCPCS: A0425; A0428 ==

== ENCOUNTER 2023-09-03 10:52 | Outpatient (REF) | payer MEDICARE, SELFPAY ==
[2023-09-03 11:21] LABS: Basophils Absolute Auto 0.01 K/uL (0.00-0.30); Basophils Percent Auto 0.1 % (0.0-3.0); Eosinophils Absolute Auto 0.02 K/uL (0.00-0.50); Eosinophils Percent Auto 0.2 % (0.0-7.0); Hematocrit 44.3 % (33.0-51.0); Hemoglobin* 14.2 gm/dL (12.0-16.0); Immature Granulocytes Abs Auto 0.03 K/uL (0.00-0.30); Immature Granulocytes Pct Auto 0.3 %; Lymphocytes Percent Auto 13.8 % (20-44); Mean Corpuscular HGB Conc 32 gm/dL (32-36); Mean Corpuscular Hemoglobin 30 pg (26-34); Mean Corpuscular Volume 94 fL (80-100); Monocytes Percent Auto 7.5 % (0.0-11.0); Neutrophils Percent Auto 78.1 % (42.0-72.0); Platelet Count* 279 K/uL (140-440); RDW Coefficient of Variation % 13.4 % (11.5-15.5); Red Blood Count 4.73 m/uL (4.00-5.20); White Blood Count* 10.61 K/uL (4.50-11.00)
[2023-09-03 11:33] LABS: Chloride* 97 mmol/L (96-114); Potassium* 3.4 mmol/L (3.6-5.1); Sodium* 134 mmol/L (135-149)
[2023-09-03 11:36] LABS: Creatinine* 0.6 mg/dL (0.5-1.5); Estimated Glomerular Filt Rate 90 ml/min
[2023-09-03 11:37] LABS: Anion Gap 7 mEq/L (7-15); Blood Urea Nitrogen* 12 mg/dL (7-30); Calcium* 8.8 mg/dL (8.4-10.6); Carbon Dioxide* 30 mmol/L (20-32); Glucose* 137 mg/dL (60-115)
[2023-09-03 11:49] LABS: Slide Review Reflex No
== END 2023-09-03 10:53 | disposition home or self-care (01) ==
LOC: NPINS 10:52
PROVIDERS: Visit Provider Nurse Practitioner Gerontology
DX: I50.9 Heart failure, unspecified (principal)
CPT/HCPCS: 80048; 85025

== ENCOUNTER 2023-10-15 10:13 | Outpatient (REF) | payer MEDICARE, SELFPAY ==
[2023-10-15 11:04] LABS: Chloride* 95 mmol/L (96-114); Potassium* 3.7 mmol/L (3.6-5.1); Sodium* 129 mmol/L (135-149)
[2023-10-15 11:07] LABS: Anion Gap 6 mEq/L (7-15); Blood Urea Nitrogen* 13 mg/dL (7-30); Calcium* 8.5 mg/dL (8.4-10.6); Carbon Dioxide* 28 mmol/L (20-32); Creatinine* 0.5 mg/dL (0.5-1.5); Estimated Glomerular Filt Rate 94 ml/min; Glucose* 141 mg/dL (60-115)
== END 2023-10-15 10:14 | disposition home or self-care (01) ==
LOC: NPINS 10:13
PROVIDERS: PCP Family Medicine; Visit Provider Family Medicine
DX: E87.0 Hyperosmolality and hypernatremia (principal)
CPT/HCPCS: 80048

== ENCOUNTER 2023-10-29 11:24 | Outpatient (REF) | payer MEDICARE, SELFPAY ==
[2023-10-29 13:15] LABS: Chloride* 96 mmol/L (96-114); Potassium* 3.4 mmol/L (3.6-5.1); Sodium* 133 mmol/L (135-149)
[2023-10-29 13:18] LABS: Anion Gap 10 mEq/L (7-15); Blood Urea Nitrogen* 13 mg/dL (7-30); Calcium* 8.9 mg/dL (8.4-10.6); Carbon Dioxide* 27 mmol/L (20-32); Creatinine* 0.5 mg/dL (0.5-1.5); Estimated Glomerular Filt Rate 94 ml/min; Glucose* 108 mg/dL (60-115)
== END 2023-10-29 11:25 | disposition home or self-care (01) ==
LOC: NPINS 11:24
PROVIDERS: PCP Family Medicine; Visit Provider Family Medicine
DX: E87.0 Hyperosmolality and hypernatremia (principal)
CPT/HCPCS: 80048

== ENCOUNTER 2023-12-26 14:31 | Outpatient (REF) | payer MEDICARE, BC, SELFPAY ==
[2023-12-26 15:53] LABS: Appearance Urine Clear (Clear); Color Urine Yellow (Yellow)
[2023-12-26 15:54] LABS: Bilirubin Urine Negative (Negative); Blood Urine Negative (Negative); Glucose Urine Negative (Negative); Ketones Urine Trace (Negative); Specific Gravity Urine 1.025 (1.000-1.030); pH Urine 6.5 (5.0-8.5)
[2023-12-26 15:55] LABS: Leukocyte Esterase Urine Negative (Negative); Nitrite Urine Negative (Negative); Protein Urine Negative (Negative); Urobilinogen Urine 0.2 (0.2-1.0)
== END 2023-12-26 14:32 | disposition home or self-care (01) ==
LOC: NPINS 14:31
PROVIDERS: PCP Family Medicine; Visit Provider Nurse Practitioner Gerontology
DX: R41.0 Disorientation, unspecified (principal)
CPT/HCPCS: 81003; 87086

== ENCOUNTER 2023-12-31 09:49 | Outpatient (REF) | payer MEDICARE, BC, SELFPAY ==
[2023-12-31 10:25] LABS: Chloride* 99 mmol/L (96-114); Potassium* 3.3 mmol/L (3.6-5.1); Sodium* 135 mmol/L (135-149)
[2023-12-31 10:28] LABS: Anion Gap 9 mEq/L (7-15); Blood Urea Nitrogen* 12 mg/dL (7-30); Carbon Dioxide* 27 mmol/L (20-32); Creatinine* 0.5 mg/dL (0.5-1.5); Estimated Glomerular Filt Rate 94 ml/min; Glucose* 137 mg/dL (60-115)
[2023-12-31 10:29] LABS: Calcium* 8.9 mg/dL (8.4-10.6)
== END 2023-12-31 09:50 | disposition home or self-care (01) ==
LOC: NPLBINS 09:49
PROVIDERS: PCP Family Medicine; Visit Provider Nurse Practitioner Gerontology
DX: E87.1 Hypo-osmolality and hyponatremia (principal)
CPT/HCPCS: 36415; 80048

== ENCOUNTER 2024-02-01 16:34 | Outpatient (CLI) | payer MEDICARE, BC, SELFPAY | END 2024-02-01 16:35 | disposition home or self-care (01) | LOC: AMB 02-04 16:55 | PROVIDERS: PCP Family Medicine; Visit Provider Student in an Organized Health Care Education/Training Program | DX: I10 Essential (primary) hypertension (principal); R35.0 Frequency of micturition | CPT/HCPCS: A0425; A0427 ==

== ENCOUNTER 2024-02-01 16:52 | Emergency (ER) | payer MEDICARE, BC, SELFPAY ==
[2024-02-01] VITALS (14 sets, daily range): BP systolic 179–192; BP diastolic 95–102; PULSE 82–97; RESP 16–22; TEMP 36.6; O2SAT 94–97; BMI 17.4
--- NOTE | 2024-02-01 17:40 | CRLHL7_ITS ---
For Patients: As a result of the Century Cures Act, medical imaging exams and procedure reports are released immediately into your electronic medical record. You may view this report before your referring provider. If you have questions, please contact your health care provider. INDICATION: Hypertension. TECHNIQUE: CT abdomen and pelvis acquired with 45 cc Isovue 370 IV contrast. COMPARISON: None. FINDINGS: Lower chest: Unremarkable. Liver: Unremarkable. Normal in size and attenuation. No suspicious masses. Gallbladder and bile ducts: Unremarkable. No stones or inflammation. No biliary dilatation. Pancreas: Unremarkable. No mass or inflammation. Spleen: Unremarkable. Normal in size. No masses. Adrenal glands: Unremarkable. No nodules. Kidneys: Unremarkable. No suspicious masses, stones, or hydronephrosis. GI tract: Small hiatal hernia. Above average colonic stool volume. No bowel obstruction. Appendix is not well visualized. Vasculature: Abdominal aorta is normal in caliber. Mesenteric arteries are patent. Lymph nodes: No lymphadenopathy. Peritoneum/Abdominal Wall: Unremarkable. No sign of mass or infiltration. No free air or significant free fluid. Pelvis: Unremarkable. Bones: Unremarkable for age. IMPRESSION: 1. no acute intra-abdominal process identified. 2. Above average colonic stool volume. Please note that all CT scans at this facility use dose modulation, iterative reconstruction, and/or weight-based dosing when appropriate to reduce radiation dose to as low as reasonably achievable. Dictated by Taisha Diez MD @ 02/01/2024 8:17:37 PM (Electronically Signed)
[2024-02-01 18:08] LABS: Hematocrit 40.1 % (33.0-51.0); Hemoglobin* 13.3 gm/dL (12.0-16.0); Mean Corpuscular HGB Conc 33 gm/dL (32-36); Mean Corpuscular Hemoglobin 32 pg (26-34); Mean Corpuscular Volume 96 fL (80-100); Neutrophils Percent Auto 68.2 % (42.0-72.0); Platelet Count* 176 K/uL (140-440); RDW Coefficient of Variation % 12.1 % (11.5-15.5); Red Blood Count 4.16 m/uL (4.00-5.20); White Blood Count* 8.15 K/uL (4.50-11.00)
[2024-02-01 18:09] LABS: Basophils Absolute Auto 0.05 K/uL (0.00-0.30); Basophils Percent Auto 0.6 % (0.0-3.0); Eosinophils Absolute Auto 0.05 K/uL (0.00-0.50); Eosinophils Percent Auto 0.6 % (0.0-7.0); Immature Granulocytes Abs Auto 0.02 K/uL (0.00-0.30); Immature Granulocytes Pct Auto 0.2 %; Lymphocytes Percent Auto 18.3 % (20-44); Monocytes Percent Auto 12.1 % (0.0-11.0); Neutrophils Absolute Auto 5.55 K/uL (1.7-7.0); Slide Review Reflex No
[2024-02-01 18:11] LABS: Creatinine, Point-of-Care* 0.6 mg/dl (0.6-1.3)
[2024-02-01 18:16] LABS: Albumin* 4.4 g/dL (3.3-5.0); Chloride* 97 mmol/L (96-114); Sodium* 134 mmol/L (135-149)
[2024-02-01 18:17] LABS: Potassium* 4.1 mmol/L (3.6-5.1)
--- NOTE | 2024-02-01 18:18 | ED_ITS ---
HPI - General Adult General Date Seen: 02/01/24 Chief complaint: Hypertension Stated complaint: Hypertension Time Seen by Provider: 02/01/24 17:11 Source: patient and family () Mode of arrival: EMS History of Present Illness HPI narrative: Patient is an 83-year-old female with some cognitive impairment from a [place] disease presenting to the emergency department via ambulance with her . She is having difficulty explain to me why she was brought and but her states she was having severe anxiety which is abnormal for her and they cannot figure out what was going on so EMS was called. When EMS arrived she was very hypertensive and she is brought to the emergency department. He states now she is acting fully back to normal with no other concerns. He is unsure what happened. She denies abdominal pain, fevers, chills, chest pain, shortness of breath, weakness, numbness, headache, vision changes. She does states she feels like she has to urinate. Related Data Home Medications ?Medication ?Instructions ?Recorded ?Confirmed aspirin 81 mg tablet,delayed 81 mg PO MOWEFR 07/13/23 12/24/23 release (Adult Aspirin Regimen) calcium 315 mg (as 1 tab PO 6XW 07/13/23 12/24/23 citrate)-vitamin D3 6.25 mcg (250 unit) tablet carbidopa 25 mg-levodopa 100 mg 2.5 tab PO TID 07/13/23 12/24/23 tablet carbidopa ER 50 mg-levodopa 200 mg 1 tab PO HS 07/13/23 12/24/23 tablet,extended release donepezil 10 mg tablet 10 mg PO HS 07/13/23 12/24/23 lisinopril 5 mg tablet 5 mg PO DAILY 07/13/23 12/24/23 melatonin 1 mg tablet 1 mg PO HS 07/13/23 12/24/23 nitroglycerin 0.4 mg sublingual 0.4 mg sublingual Q5M PRN 07/13/23 12/24/23 tablet polyethylene glycol 3350 17 17 g PO DAILY 07/13/23 12/24/23 gram/dose oral powder (ClearLax) rosuvastatin 20 mg tablet 20 mg PO DAILY 07/13/23 12/24/23 Previous Rx's ?Medication ?Instructions ?Recorded acetaminophen 325 mg tablet 650 mg (2 x 325 mg) PO Q6H PRN 07/17/23 pain #100 tabs metoprolol succinate 25 mg 25 mg PO DAILY #30 tabs 07/17/23 tablet,extended release 24 hr naproxen sodium 220 mg capsule 220 mg PO DAILY pain #20 caps 07/17/23 (Aleve) oxycodone 5 mg tablet 2.5 mg (1/2 x 5 mg) PO Q4H PRN #20 07/17/23 tabs sennosides 8.6 mg-docusate sodium 1 tab PO BID #60 tabs 07/17/23 50 mg tablet (Stool Softener-Laxative) bisacodyl 5 mg tablet 10 mg (2 x 5 mg) PO ONCE 1 day #2 02/01/24 tabs docusate sodium 100 mg capsule 100 mg PO BID #10 caps 02/01/24 magnesium citrate See Rx Instructions .Route 02/01/24 .COMPLEX PRN constipation #296 mL polyethylene glycol 3350 17 17 g PO DAILY #238 grams 02/01/24 gram/dose oral powder (Miralax) sennosides 8.6 mg capsule (senna) 17.2 mg (2 x 8.6 mg) PO DAILY #10 02/01/24 caps simethicone 125 mg capsule 250 mg (2 x 125 mg) PO ONCE #2 caps 02/01/24 Allergies Allergy/AdvReac Type Severity Reaction Status Date / Time No Known Drug Allergies Allergy Verified 12/24/23 15:01 Review of Systems Status of ROS: Reports: 10 or more systems reviewed and unremarkable except as noted in History and below [facility] Medical History Fall ?W19.XXXA - Unspecified fall, initial encounter (ICD-10) Proximal humerus fracture (07/14/23) ?S42.209A - Unspecified fracture of upper end of unspecified humerus, initial encounter for closed fracture (ICD-10) Frailty syndrome in geriatric patient ?R54 - Age-related physical debility (ICD-10) Cognitive impairment ?R41.89 - Other symptoms and signs involving cognitive functions and awareness (ICD-10) Melanoma ?C43.9 - Malignant melanoma of skin, unspecified (ICD-10) Heart failure with reduced ejection fraction ?I50.20 - Unspecified systolic (congestive) heart failure (ICD-10) Coronary artery disease ?I25.10 - Atherosclerotic heart disease of [place] coronary artery without angina pectoris (ICD-10) Parkinsons disease ?G20.A1 - Parkinson's disease without dyskinesia, without mention of fluctuations (ICD-10) Surgical History History of breast biopsy ?Z98.890 - Other specified postprocedural states (ICD-10) History of colonoscopy ?Z98.890 - Other specified postprocedural states (ICD-10) History of tonsillectomy ?Z90.89 - Acquired absence of other organs (ICD-10) History of hysterectomy ?Z90.710 - Acquired absence of both cervix and uterus (ICD-10) Hx of cataract surgery ?Z98.49 - Cataract extraction status, unspecified eye (ICD-10) Family History Brother Cardiovascular disease Father Cardiovascular disease Social History Narrative: She lives with her , Jeison, at [facility], [place] [employer]. Her is healthcare power of commercial attorney. Code status is DNR. Previously lived in [facility] and in [facility]. She is a nonsmoker. Rarely drinks alcohol. What is your current living situation?: I presently have a place to live Problems where you live: no known problems Problems where you live details: None known In the past 12 months, utilities in danger of being shut off: no In past 12 months, lack of transportation kept you from medical appts, meetings, work, or getting things needed for daily living: no In the past 12 mos, have been you worried that your food would run out before you had money to buy more?: never true In the past 12 mos, the food you bought just didn't last and you didn't have money to buy more?: never true Smoking Status: Never smoker How often do you have a drink containing alcohol: never AUDIT-C Alcohol total score: 0 Non-prescribed substance use: denies use Caffeine: No How often does anyone, including family, friends and others, physically hurt you : never How often does anyone, including family, friends and others, insult or talk down to you: never How often does anyone, including family, friends and others, threaten you with harm: never How often does anyone, including family, friends and others, scream or curse at you: never Exam Narrative: Exam Narrative: Const: Well-nourished, Well-developed, in no distress Eyes: PERRL, no conjunctival injection, and symmetrical lids HENT: Atraumatic external nose and ears. Moist mucous membranes. Neck: Symmetric, trachea midline, No thyromegaly. CVS: RRR, No murmurs or gallops. Peripheral pulses 2+ and equal in all extremities RESP: Unlabored respiratory effort. Clear to auscultation bilaterally. GI: Mild abdominal tenderness with mild distension, No rebound or guarding. MSK:Extremities w/o deformity, Normal Active ROM Skin: Warm, Dry. No rashes or lesions. Neuro: Normal Muscle tone, No focal neurological deficits. Psych: Awake, Alert, & Oriented x3. Appropriate mood and affect. Const: Vital Signs, click to edit/add: Vital Signs - 24 hr 02/01/24 16:59 02/01/24 17:15 02/01/24 17:30 Temperature 97.9 F Pulse Rate 90 90 Pulse Rate [Right Radial] 92 Respiratory Rate 22 Blood Pressure Blood Pressure [Ri ght Upper Arm] 179/96 H Pulse Oximetry 97 96 96 Oxygen Delivery Me thod Room Air 02/01/24 17:45 02/01/24 18:00 02/01/24 18:24 Temperature Pulse Rate 92 94 91 Pulse Rate [Right Radial] Respiratory Rate Blood Pressure Blood Pressure [Ri ght Upper Arm] Pulse Oximetry 96 96 94 Oxygen Delivery Me thod 02/01/24 18:25 02/01/24 18:41 02/01/24 18:45 Temperature Pulse Rate 91 82 97 Pulse Rate [Right Radial] Respiratory Rate Blood Pressure 192/95 H Blood Pressure [Ri ght Upper Arm] Pulse Oximetry 95 96 95 Oxygen Delivery Me thod 02/01/24 19:00 02/01/24 19:15 02/01/24 19:43 Temperature Pulse Rate 93 93 95 Pulse Rate [Right Radial] Respiratory Rate Blood Pressure Blood Pressure [Ri ght Upper Arm] Pulse Oximetry 94 94 94 Oxygen Delivery Me thod 02/01/24 19:45 02/01/24 19:58 Temperature Pulse Rate 96 92 Pulse Rate [Right Radial] Respiratory Rate 16 Blood Pressure 184/102 H Blood Pressure [Ri ght Upper Arm] Pulse Oximetry 95 94 Oxygen Delivery Me thod Course Vital Signs Vital signs: Initial Vital Signs Temperature 97.9 F 02/01/24 16:59 Temperature Source Temporal Artery Scan 02/01/24 16:59 Pulse Rate 92 02/01/24 16:59 Pulse Rhythm Regular 02/01/24 16:59 Respiratory Rate 22 02/01/24 16:59 Blood Pressure 179/96 H 02/01/24 16:59 Blood Pressure Mean 123 H 02/01/24 16:59 Pulse Oximetry 97 02/01/24 16:59 Oxygen Delivery Method Room Air 02/01/24 16:59 Vital Signs Temperature 97.9 F 02/01/24 16:59 Pulse Rate 92 02/01/24 16:59 Respiratory Rate 22 02/01/24 16:59 Blood Pressure 179/96 H 02/01/24 16:59 Pulse Oximetry 97 02/01/24 16:59 Oxygen Delivery Method Room Air 02/01/24 16:59 Temperature 97.9 F 02/01/24 16:59 Pulse Rate 92 02/01/24 19:58 Respiratory Rate 16 02/01/24 19:45 Blood Pressure 184/102 H 02/01/24 19:58 Pulse Oximetry 94 02/01/24 19:58 Oxygen Delivery Method Room Air 02/01/24 16:59 Medical Decision Making MDM Narrative Medical decision making narrative: Patient is an 83-year-old female presenting to emergency department for an episode anxiety that has since resolved. Her states her blood pressure has also improved. On my exam and no some abdominal tenderness and her does states her abdomen looks mildly distended. I cannot say for certain of the these symptoms are new or old and considering she was brought in for says a random episode of severe anxiety some abdominal discomfort could cause this considering her cognitive state. Will do urinalysis, CBC, CMP, CT scan of the abdomen pelvis with contrast. Lab work is not showing any concerning abnormalities. She continues to be asymptomatic in the emergency department. CT scan on my review shows quite a bit of constipation. I do not see any clear fecal impaction and family states she has been having bowel movements at her [facility] so do this I do believe this is most likely amenable to stool softeners. I spoke to family about a bowel cleanout regimen similar to a colonoscopy and they would like to try that at the stool softeners are not working. I informed them to keep her well hydrated throughout this. Radiologist this consistent with what I saw. Patient will be discharged at this time. They are agreeable to this plan. Lab Data Labs: Lab Results 02/01/24 02/01/24 Range/Units 17:39 17:55 WBC 8.15 (4.50-11.00) K/uL RBC 4.16 (4.00-5.20) m/uL Hgb 13.3 (12.0-16.0) gm/dL Hct 40.1 (33.0-51.0) % MCV 96 (80-100) fL MCH 32 (26-34) pg MCHC 33 (32-36) gm/dL RDW Coeff of [place] 12.1 (11.5-15.5) % Plt Count 176 (140-440) K/uL Neut % (Auto) 68.2 (42.0-72.0) % Lymph % (Auto) 18.3 L (20-44) % [place] % (Auto) 12.1 H (0.0-11.0) % Eos % (Auto) 0.6 (0.0-7.0) % Baso % (Auto) 0.6 (0.0-3.0) % Neut # (Auto) 5.55 (1.7-7.0) K/uL Lymph # (Auto) 1.50 (0.90-2.90) K/uL [place] # (Auto) 1.00 H (0.00-0.90) K/UL Eos # (Auto) 0.05 (0.00-0.50) K/uL Baso # (Auto) 0.05 (0.00-0.30) K/uL Abs Immat Gran (auto) 0.02 (0.00-0.30) K/uL Imm/Tot Granulo (auto) 0.2 % Sodium 134 L (135-149) mmol/L Potassium 4.1 (3.6-5.1) mmol/L Chloride 97 (96-114) mmol/L Carbon Dioxide 27 (20-32) mmol/L Anion Gap 10 (7-15) mEq/L BUN 19 (7-30) mg/dL Creatinine 0.5 (0.5-1.5) mg/dL Estimated Creat Clear 28.57 Estimated GFR 94 ml/min Glucose 107 (60-115) mg/dL Calcium 9.0 (8.4-10.6) mg/dL Total Bilirubin 0.4 (0.1-1.5) mg/dL AST 20 (12-35) U/L ALT 9 (4-35) U/L Alkaline Phosphatase 64 (40-150) U/L Total Protein 6.7 (6.0-8.3) g/dL Albumin 4.4 (3.3-5.0) g/dL Urine Color Yellow (Yellow) Urine Appearance Clear (Clear) Urine pH 8.5 (5.0-8.5) Ur Specific [place] 1.015 (1.000-1.030) Urine Protein Negative (Negative) Urine Glucose (UA) Negative (Negative) Urine Ketones Negative (Negative) Urine Blood Trace-intact A (Negative) Urine Nitrite Negative (Negative) Urine Bilirubin Negative (Negative) Urine Urobilinogen 0.2 (0.2-1.0) Ur Leukocyte Esterase Negative (Negative) Urine RBC 5-10 A (0-2) Urine WBC 0-2 (0-5) Ur Squamous Epith Cells None (None-Few) Urine Bacteria None (None) POC Creatinine 0.6 (0.6-1.3) mg/dl Imaging Data CT scan abdomen pelvis: Attestation: I have reviewed the pertinent imaging results. Radiologist's impression: 1. no acute intra-abdominal process identified. 2. Above average colonic stool volume. Please note that all CT scans at this facility use dose modulation, iterative reconstruction, and/or weight-based dosing when appropriate to reduce radiation dose to as low as reasonably achievable. Dictated by Taisha Diez MD @ 02/01/2024 8:17:37 PM Discharge Plan Discharge Clinical Impression: Constipation Qualifiers: Constipation type: unspecified constipation type Qualified Code(s): K59.00 - Constipation, unspecified Patient Disposition: Home w/ Parent or Adult Condition: Stable Instructions: Constipation (ED) Additional Instructions: Take the senna, docusate, MiraLax as directed. If that is not helping tried a bowel cleanout management provided. ?2 - Bisacodyl tablets (Dulcolax? laxative NOT Dulcolax? stool softener) each tablet contains 5 mg of bisacodyl ?1 - 8.3 ounce bottle of Polyethylene Glycol (PEG) 3350 Powder (MiraLAX, SmoothLAX, ClearLAX or generic equivalent) 64 oz. Gatorade? (No red colored flavors) Regular Gatorade?, Gatorade G2?, Powerade?, Powerade Zero?, Pedialyte or Propel?, Liquid IV, and other electrolyte beverages are acceptable. Red flavors are not allowed; all other colors (yellow, green, orange, purple, blue) are okay. It is also okay to buy two 2.12 oz packets of powdered Gatorade that can be mixed with water to a total volume of 64 oz of liquid. ? Simethicone 80 mg or 125 mg tablets, chewables, or softgels -Simethicone is available over the counter in a variety of forms and dosages. Capsules, chewable tablets, and liquid are all acceptable forms. - If you are buying 125 mg tablets, purchase enough simethicone to take 2 tablets. -If you are buying 80 mg tablets, purchase enough to take 3 tablets. ?1 - 10 oz. bottle Magnesium Citrate (No red colored flavors) It is also okay for you to use a 0.5 ounce package of powdered magnesium citrate (17 grams) mixed with 10 ounces of water. ?Tomorrow begin Clear Liquid Diet (clear liquids include things you can see through). Examples of a clear liquid diet include: water, clear broth or bouillon (gluten free options available), Gatorade, Pedialyte or Powerade, carbonated and non-carbonated soft drinks (Sprite, 7-Up, Gingerale), strained fruit juices without pulp (apple, white grape, white cranberry), Jell-O, popsicles, and up to one cup of black coffee or tea (no milk or cream) each day. The following are not allowed on a clear liquid diet: red liquids, alcoholic beverages, dairy products, protein shakes, cream broths, juice with pulp, products containing oil and chewing tobacco. For additional details on following a clear liquid diet, please see [email or web address] ?Take 2 Bisacodyl (Dulcolax) tablets ?4-6 hour later Drink Miralax ? Gatorade preparation Mix 1 bottle of Miralax with 64 oz. of Gatorade in a large pitcher. Drink 1 - 8 oz. glass of the Miralax/Gatorade solution. Continue drinking 1 - 8 oz. glass every 15 minutes thereafter until the mixture is gone With the last glass of Miralax ? Gatorade solution: take 240-250 mg of simethicone. -Simethicone is available over the counter in a variety of forms and dosages. Capsules, chewable tablets, and liquid are all acceptable forms. -Take enough of the medication to total between 240-250 mg. For example, if you have -125 mg chewable tablets, take 2 tablets to total 250 mg. -80 mg tablets, take 3 tablets to total 240 mg. ?The next day take 10 ounces of magnesium citrate Prescriptions: New senna 8.6 mg capsule 17.2 mg PO DAILY Qty: 10 0RF docusate sodium 100 mg capsule 100 mg PO BID Qty: 10 0RF polyethylene glycol 3350 [Miralax] 17 gram/dose powder 17 g PO DAILY Qty: 238 1RF bisacodyl 5 mg tablet 10 mg PO ONCE 1 Days Qty: 2 0RF simethicone 125 mg capsule 250 mg PO ONCE Qty: 2 0RF magnesium citrate Solution See Rx Instructions .ROUTE .COMPLEX PRN (Reason: constipation) Qty: 296 0RF Rx Instructions: Take 10 oz bottle at once No Action aspirin [Adult Aspirin Regimen] 81 mg tablet,delayed release (DR/EC) 81 mg PO MOWEFR Rx Instructions: SAT,SAT,FRI carbidopa-levodopa 50-200 mg tablet extended release 1 tab PO HS donepezil 10 mg tablet 10 mg PO HS lisinopril 5 mg tablet 5 mg PO DAILY melatonin 1 mg tablet 1 mg PO HS polyethylene glycol 3350 [ClearLax] 17 gram/dose powder 17 g PO DAILY rosuvastatin 20 mg tablet 20 mg PO DAILY calcium citrate-vitamin D3 315 mg-6.25 mcg (250 unit) tablet 1 tab PO 6XW Rx Instructions: SUN,SAT,SAT,SAT,TH,FRI; NOT SAT carbidopa-levodopa 25-100 mg tablet 2.5 tab PO TID nitroglycerin 0.4 mg tablet, sublingual 0.4 mg sublingual Q5M PRN acetaminophen 325 mg Tablet 650 mg PO Q6H PRN (Reason: pain) Qty: 100 0RF sennosides-docusate sodium [Stool Softener-Laxative] 8.6-50 mg Tablet 1 tab PO BID Qty: 60 0RF metoprolol succinate 25 mg Tablet Extended Release 24 Hr 25 mg PO DAILY Qty: 30 0RF oxycodone 5 mg Tablet 2.5 mg PO Q4H PRNQty: 20 0RF naproxen sodium [Aleve] 220 mg capsule 220 mg PO DAILY Qty: 20 0RF Follow Up/Referrals: Della Franks MD [Primary Care Provider] - [facility]: [facility] Info Inst[facility]
[2024-02-01 18:19] LABS: Alanine Aminotransferase* 9 U/L (4-35); Alkaline Phosphatase* 64 U/L (40-150); Anion Gap 10 mEq/L (7-15); Aspartate Amino Transferase* 20 U/L (12-35); Bilirubin Total* 0.4 mg/dL (0.1-1.5); Blood Urea Nitrogen* 19 mg/dL (7-30); Carbon Dioxide* 27 mmol/L (20-32); Creatinine* 0.5 mg/dL (0.5-1.5); Est. Creatinine Clearance* 28.57; Estimated Glomerular Filt Rate 94 ml/min; Glucose* 107 mg/dL (60-115); Total Protein* 6.7 g/dL (6.0-8.3)
[2024-02-01 18:32] LABS: Appearance Urine Clear (Clear); Bilirubin Urine Negative (Negative); Blood Urine Trace-intact (Negative); Color Urine Yellow (Yellow); Glucose Urine Negative (Negative); Ketones Urine Negative (Negative); Leukocyte Esterase Urine Negative (Negative); Nitrite Urine Negative (Negative); Protein Urine Negative (Negative); Specific Gravity Urine 1.015 (1.000-1.030); Urobilinogen Urine 0.2 (0.2-1.0); pH Urine 8.5 (5.0-8.5)
[2024-02-01 18:49] LABS: WBC Urine 0-2 (0-5)
== END 2024-02-01 20:37 | disposition home or self-care (01) ==
PROVIDERS: Emergency Provider Student in an Organized Health Care Education/Training Program; PCP Family Medicine
DX: K59.00 Constipation, unspecified (principal)
CPT/HCPCS: 36415; 74177; 80053; 81001; 82565; 85025; 99283; Q9967

== ENCOUNTER 2024-05-08 06:45 | Outpatient (CLI) | payer MEDICARE, BC, SELFPAY | END 2024-05-08 06:46 | disposition home or self-care (01) | LOC: AMB 05-28 03:37 | PROVIDERS: PCP Family Medicine; Visit Provider Internal Medicine | DX: S59.902A Unspecified injury of left elbow, initial encounter (principal); W19.XXXA Unspecified fall, initial encounter; Y92.122 Bedroom in nursing home as the place of occurrence of the external cause | CPT/HCPCS: A0425; A0427 ==

== ENCOUNTER 2024-05-08 07:09 | Emergency (ER) | payer MEDICARE, BC, SELFPAY ==
[2024-05-08] VITALS (19 sets, daily range): BP systolic 107–160; BP diastolic 63–91; PULSE 66–100; RESP 16; TEMP 36.3; O2SAT 91–98
--- NOTE | 2024-05-08 07:16 | CRLHL7_ITS ---
For Patients: As a result of the Cures Act, medical imaging exams and procedure reports are released immediately into your electronic medical record. You may view this report before your referring provider. If you have questions, please contact your health care provider. Indication: Fall, pain Technique: Left elbow 3 views Comparison: None Findings/Impression: Displaced and angulated supracondylar fracture of humerus with adjacent soft tissue swelling. Small elbow joint effusion is present. Dictated by Damon Medel MD @ 05/08/2024 8:02:50 AM (Electronically Signed)
--- NOTE | 2024-05-08 07:47 | ED_ITS ---
HPI - General Adult General Chief complaint: Fall/Minor Trauma <Arnulfo Bacon MD - Last Filed: 05/08/24 07:52> Stated complaint: Fall <Arnulfo Bacon MD - Last Filed: 05/08/24 07:52> Time Seen by Provider: 05/08/24 07:32 <Arnulfo Bacon MD - Last Filed: 05/08/24 07:52> History of Present Illness HPI narrative: Patient is a 84-year-old woman who lives at the [facility] with her . Patient was found on the floor this morning. Patient has dimension is often wandering at night. Patient's did not hear her get up or fall. It is unclear how long the patient has been on the floor. Patient has an obviously swollen painful left elbow. She states that she has not injured elsewhere. Patient is really unable to provide any further history and her who arrives at the end of the exam is unaware of any recent problems either. Patient again has dementia but is been in her usual state of health. Review her record does show she has a history of pubic ramus fracture and a proximal humerus fracture on the left.. She does not appear to be on any anticoagulants. She does take aspirin 81 mg. <Arnulfo Bacon MD - Last Filed: 05/08/24 07:52> Related Data Home medications: Home Medications ?Medication ?Instructions ?Recorded ?Confirmed aspirin 81 mg tablet,delayed 81 mg PO MOWEFR 07/13/23 02/27/24 release (Adult Aspirin Regimen) calcium 315 mg (as 1 tab PO 6XW 07/13/23 02/27/24 citrate)-vitamin D3 6.25 mcg (250 unit) tablet carbidopa 25 mg-levodopa 100 mg 2.5 tab PO TID 07/13/23 02/27/24 tablet carbidopa ER 50 mg-levodopa 200 mg 1 tab PO HS 07/13/23 02/27/24 tablet,extended release donepezil 10 mg tablet 10 mg PO HS 07/13/23 02/27/24 lisinopril 5 mg tablet 5 mg PO DAILY 07/13/23 02/27/24 melatonin 1 mg tablet 1 mg PO HS 07/13/23 02/27/24 nitroglycerin 0.4 mg sublingual 0.4 mg sublingual Q5M PRN 07/13/23 02/27/24 tablet polyethylene glycol 3350 17 17 g PO DAILY 07/13/23 02/27/24 gram/dose oral powder (ClearLax) rosuvastatin 20 mg tablet 20 mg PO DAILY 07/13/23 02/27/24 Previous Rx's ?Medication ?Instructions ?Recorded acetaminophen 325 mg tablet 650 mg (2 x 325 mg) PO Q6H PRN 07/17/23 pain #100 tabs metoprolol succinate 25 mg 25 mg PO DAILY #30 tabs 07/17/23 tablet,extended release 24 hr naproxen sodium 220 mg capsule 220 mg PO DAILY pain #20 caps 07/17/23 (Aleve) oxycodone 5 mg tablet 2.5 mg (1/2 x 5 mg) PO Q4H PRN #20 07/17/23 tabs sennosides 8.6 mg-docusate sodium 1 tab PO BID #60 tabs 07/17/23 50 mg tablet (Stool Softener-Laxative) bisacodyl 5 mg tablet 10 mg (2 x 5 mg) PO ONCE 1 day #2 02/01/24 tabs docusate sodium 100 mg capsule 100 mg PO BID #10 caps 02/01/24 magnesium citrate See Rx Instructions .Route 02/01/24 .COMPLEX PRN constipation #296 mL polyethylene glycol 3350 17 17 g PO DAILY #238 grams 02/01/24 gram/dose oral powder (Miralax) sennosides 8.6 mg capsule (senna) 17.2 mg (2 x 8.6 mg) PO DAILY #10 02/01/24 caps simethicone 125 mg capsule 250 mg (2 x 125 mg) PO ONCE #2 caps 02/01/24 <Arnulfo Bacon MD - Last Filed: 05/08/24 07:52> Allergies/adverse reactions: Allergies Allergy/AdvReac Type Severity Reaction Status Date / Time No Known Drug Allergies Allergy Verified 02/27/24 10:52 <Arnulfo Bacon MD - Last Filed: 05/08/24 07:52> Review of Systems Status of ROS: Reports: 10 or more systems reviewed and unremarkable except as noted in History and below <Arnulfo Bacon MD - Last Filed: 05/08/24 07:52> PFSH PFSH Medical History: Medical History Fall ?W19.XXXA - Unspecified fall, initial encounter (ICD-10) Proximal humerus fracture (07/14/23) ?S42.209A - Unspecified fracture of upper end of unspecified humerus, initial encounter for closed fracture (ICD-10) Frailty syndrome in geriatric patient ?R54 - Age-related physical debility (ICD-10) Cognitive impairment ?R41.89 - Other symptoms and signs involving cognitive functions and awareness (ICD-10) Melanoma ?C43.9 - Malignant melanoma of skin, unspecified (ICD-10) Heart failure with reduced ejection fraction ?I50.20 - Unspecified systolic (congestive) heart failure (ICD-10) Coronary artery disease ?I25.10 - Atherosclerotic heart disease of [place] coronary artery without angina pectoris (ICD-10) Parkinsons disease ?G20.A1 - Parkinson's disease without dyskinesia, without mention of fluctuations (ICD-10) <Arnulfo Bacon MD - Last Filed: 05/08/24 07:52> Surgical History: Surgical History History of breast biopsy ?Z98.890 - Other specified postprocedural states (ICD-10) History of colonoscopy ?Z98.890 - Other specified postprocedural states (ICD-10) History of tonsillectomy ?Z90.89 - Acquired absence of other organs (ICD-10) History of hysterectomy ?Z90.710 - Acquired absence of both cervix and uterus (ICD-10) Hx of cataract surgery ?Z98.49 - Cataract extraction status, unspecified eye (ICD-10) <Arnulfo Bacon MD - Last Filed: 05/08/24 07:52> Family History: Family History Brother Cardiovascular disease Father Cardiovascular disease <Arnulfo Bacon MD - Last Filed: 05/08/24 07:52> Social History: Social History Narrative: She lives with her , Jeison, at [facility]. Her is healthcare [employer]. Code status is DNR. Previously lived in [facility] and in [facility]. She is a nonsmoker. Rarely drinks alcohol. What is your current living situation?: I presently have a place to live Problems where you live: no known problems Problems where you live details: None known In the past 12 months, utilities in danger of being shut off: no In past 12 months, lack of transportation kept you from medical appts, meetings, work, or getting things needed for daily living: no In the past 12 mos, have been you worried that your food would run out before you had money to buy more?: never true In the past 12 mos, the food you bought just didn't last and you didn't have money to buy more?: never true Smoking Status: Never smoker How often do you have a drink containing alcohol: never AUDIT-C Alcohol total score: 0 Non-prescribed substance use: denies use Caffeine: No How often does anyone, including family, friends and others, physically hurt you : never How often does anyone, including family, friends and others, insult or talk down to you: never How often does anyone, including family, friends and others, threaten you with harm: never How often does anyone, including family, friends and others, scream or curse at you: never <Arnulfo Bacon MD - Last Filed: 05/08/24 07:52> Exam Narrative: Exam Narrative: EXAM GENERAL: Patient appears comfortable with signs of parkinsonism. EYES: No scleral icterus. Head grossly normal cephalic no obvious signs of trauma Neck no pain with range of motion. LYMPH: No supraclavicular or cervical lymphadenopathy. SKIN: Bruising throughout primarily in the left arm and hand. EXT: No dependent lower extremity pedal edema. Left elbow shows swelling as well as limited range of motion. Diffuse ecch ymoses noted. HEART: Regular rate and rhythm with no murmurs, rubs, or gallops. LUNGS: Clear to auscultation bilaterally with no crackles or wheezes. ABD: Soft, non tender, non distended. PSYCH: Good eye contact, speech is not pressured. <Arnulfo Bacon MD - Last Filed: 05/08/24 07:52> Const: Vital Signs, click to edit/add: Vital Signs - 24 hr 05/08/24 07:16 05/08/24 08:58 05/08/24 09:00 Temperature 97.3 F L Pulse Rate 74 73 Pulse Rate [Pulse Oximeter] 78 Respiratory Rate 16 Blood Pressure Blood Pressure [Ri ght Upper Arm] 153/81 H Pulse Oximetry 95 98 98 Oxygen Delivery Me thod Room Air 05/08/24 09:02 05/08/24 09:03 05/08/24 09:15 Temperature Pulse Rate 70 70 68 Pulse Rate [Pulse Oximeter] Respiratory Rate Blood Pressure 155/91 H Blood Pressure [Ri ght Upper Arm] Pulse Oximetry 97 97 97 Oxygen Delivery Me thod 05/08/24 09:30 05/08/24 10:56 05/08/24 11:04 Temperature Pulse Rate 66 99 100 Pulse Rate [Pulse Oximeter] Respiratory Rate Blood Pressure Blood Pressure [Ri ght Upper Arm] Pulse Oximetry 98 96 95 Oxygen Delivery Me thod 05/08/24 11:44 05/08/24 12:00 05/08/24 12:01 Temperature Pulse Rate Pulse Rate [Pulse Oximeter] Respiratory Rate 16 Blood Pressure 142/82 H 160/85 H Blood Pressure [Ri ght Upper Arm] Pulse Oximetry Oxygen Delivery Me thod 05/08/24 12:45 05/08/24 13:00 05/08/24 13:02 Temperature Pulse Rate 71 76 72 Pulse Rate [Pulse Oximeter] Respiratory Rate Blood Pressure 107/63 Blood Pressure [Ri ght Upper Arm] Pulse Oximetry 92 91 92 Oxygen Delivery Me thod 05/08/24 13:30 05/08/24 13:45 05/08/24 14:00 Temperature Pulse Rate 74 72 76 Pulse Rate [Pulse Oximeter] Respiratory Rate Blood Pressure Blood Pressure [Ri ght Upper Arm] Pulse Oximetry 92 93 96 Oxygen Delivery Me thod 05/08/24 14:02 Temperature Pulse Rate 72 Pulse Rate [Pulse Oximeter] Respiratory Rate 16 Blood Pressure 115/65 Blood Pressure [Ri ght Upper Arm] Pulse Oximetry 97 Oxygen Delivery Me thod <Arnulfo Bacon MD - Last Filed: 05/08/24 07:52> Vital Signs, click to edit/add: Vital Signs - 24 hr 05/08/24 07:16 05/08/24 08:58 05/08/24 09:00 Temperature 97.3 F L Pulse Rate 74 73 Pulse Rate [Pulse Oximeter] 78 Respiratory Rate 16 Blood Pressure Blood Pressure [Ri ght Upper Arm] 153/81 H Pulse Oximetry 95 98 98 Oxygen Delivery Me thod Room Air 05/08/24 09:02 05/08/24 09:03 05/08/24 09:15 Temperature Pulse Rate 70 70 68 Pulse Rate [Pulse Oximeter] Respiratory Rate Blood Pressure 155/91 H Blood Pressure [Ri ght Upper Arm] Pulse Oximetry 97 97 97 Oxygen Delivery Me thod 05/08/24 09:30 05/08/24 10:56 05/08/24 11:04 Temperature Pulse Rate 66 99 100 Pulse Rate [Pulse Oximeter] Respiratory Rate Blood Pressure Blood Pressure [Ri ght Upper Arm] Pulse Oximetry 98 96 95 Oxygen Delivery Me thod 05/08/24 11:44 05/08/24 12:00 05/08/24 12:01 Temperature Pulse Rate Pulse Rate [Pulse Oximeter] Respiratory Rate 16 Blood Pressure 142/82 H 160/85 H Blood Pressure [Ri ght Upper Arm] Pulse Oximetry Oxygen Delivery Me thod 05/08/24 12:45 05/08/24 13:00 05/08/24 13:02 Temperature Pulse Rate 71 76 72 Pulse Rate [Pulse Oximeter] Respiratory Rate Blood Pressure 107/63 Blood Pressure [Ri ght Upper Arm] Pulse Oximetry 92 91 92 Oxygen Delivery Me thod 05/08/24 13:30 05/08/24 13:45 05/08/24 14:00 Temperature Pulse Rate 74 72 76 Pulse Rate [Pulse Oximeter] Respiratory Rate Blood Pressure Blood Pressure [Ri ght Upper Arm] Pulse Oximetry 92 93 96 Oxygen Delivery Me thod 05/08/24 14:02 Temperature Pulse Rate 72 Pulse Rate [Pulse Oximeter] Respiratory Rate 16 Blood Pressure 115/65 Blood Pressure [Ri ght Upper Arm] Pulse Oximetry 97 Oxygen Delivery Me thod <Tom Hill DO - Last Filed: 05/08/24 17:12> Course Course ED Course: X-ray of the left elbow CT head and neck CBC comprehensive metabolic panel troponin CPK UA pending. <Arnulfo Bacon MD - Last Filed: 05/08/24 07:52> Vital Signs Vital signs: Initial Vital Signs Temperature 97.3 F L 01/24/25 07:16 Temperature Source Temporal Artery Scan 05/08/24 07:16 Pulse Rate 78 05/08/24 07:16 Respiratory Rate 16 05/08/24 07:16 Blood Pressure 153/81 H 05/08/24 07:16 Blood Pressure Mean 105 05/08/24 07:16 Blood Pressure Position Supine 05/08/24 07:16 Pulse Oximetry 95 05/08/24 07:16 Oxygen Delivery Method Room Air 05/08/24 07:16 Vital Signs Temperature 97.3 F L 05/08/24 07:16 Pulse Rate 78 05/08/24 07:16 Respiratory Rate 16 05/08/24 07:16 Blood Pressure 153/81 H 05/08/24 07:16 Pulse Oximetry 95 05/08/24 07:16 Oxygen Delivery Method Room Air 05/08/24 07:16 Temperature 97.3 F L 05/08/24 07:16 Pulse Rate 72 05/08/24 14:02 Respiratory Rate 16 05/08/24 14:02 Blood Pressure 115/65 05/08/24 14:02 Pulse Oximetry 97 05/08/24 14:02 Oxygen Delivery Method Room Air 05/08/24 07:16 <Arnulfo Bacon MD - Last Filed: 05/08/24 07:52> Initial Vital Signs Temperature 97.3 F L 05/08/24 07:16 Temperature Source Temporal Artery Scan 05/08/24 07:16 Pulse Rate 78 05/08/24 07:16 Respiratory Rate 16 05/08/24 07:16 Blood Pressure 153/81 H 05/08/24 07:16 Blood Pressure Mean 105 05/08/24 07:16 Blood Pressure Position Supine 05/08/24 07:16 Pulse Oximetry 95 05/08/24 07:16 Oxygen Delivery Method Room Air 05/08/24 07:16 Vital Signs Temperature 97.3 F L 05/08/24 07:16 Pulse Rate 78 05/08/24 07:16 Respiratory Rate 16 05/08/24 07:16 Blood Pressure 153/81 H 05/08/24 07:16 Pulse Oximetry 95 05/08/24 07:16 Oxygen Delivery Method Room Air 05/08/24 07:16 Temperature 97.3 F L 05/08/24 07:16 Pulse Rate 72 05/08/24 14:02 Respiratory Rate 16 05/08/24 14:02 Blood Pressure 115/65 05/08/24 14:02 Pulse Oximetry 97 05/08/24 14:02 Oxygen Delivery Method Room Air 05/08/24 07:16 <Tom Hill DO - Last Filed: 05/08/24 17:12> Medications Administered Medications: Discontinued Medications Generic Name Dose Route Start Last Admin Trade Name Freq PRN Reason Stop Dose Admin Acetaminophen 650 mg 05/08/24 07:58 05/08/24 08:01 Acetaminophen 325 Mg Tablet PO 05/08/24 07:59 650 mg ONCE ONE Administration Carbidopa/Levodopa 2.5 tab 05/08/24 12:15 05/08/24 12:13 Carbidopa-Levodopa 25-100 Tablet PO 05/08/24 12:16 2.5 tab ONCE ONE Administration Morphine Sulfate 4 mg 05/08/24 09:26 05/08/24 09:37 Morphine 4 Mg/Ml Inj IVP 05/08/24 09:27 4 mg ONCE ONE Administration <Arnulfo Bacon MD - Last Filed: 05/08/24 07:52> Discontinued Medications Generic Name Dose Route Start Last Admin Trade Name Freq PRN Reason Stop Dose Admin Acetaminophen 650 mg 05/08/24 07:58 05/08/24 08:01 Acetaminophen 325 Mg Tablet PO 05/08/24 07:59 650 mg ONCE ONE Administration Carbidopa/Levodopa 2.5 tab 05/08/24 12:15 05/08/24 12:13 Carbidopa-Levodopa 25-100 Tablet PO 05/08/24 12:16 2.5 tab ONCE ONE Administration Morphine Sulfate 4 mg 05/08/24 09:26 05/08/24 09:37 Morphine 4 Mg/Ml Inj IVP 05/08/24 09:27 4 mg ONCE ONE Administration <Tom Hill DO - Last Filed: 05/08/24 17:12> Medical Decision Making MDM Narrative Medical decision making narrative: Patient is an 84-year-old female signed out to me pending lab work and imaging. CT scan head and neck reviewed by myself and the radiologist shows no acute concerning abnormalities. Left elbow x-ray shows concerns of supraco ndylar fracture. I spoke to the on-call orthopedic provider who recommended a CT scan for better evaluation. This was done. Once the results were back I spoke to him again and he states this will need a trauma surgeon to manage it cannot be done through [facility]. She is neurovascular intact. I spoke to the on-call [place] orthopedic provider who is agreeable that the patient should likely be transferred as it is difficult for her to get follow-up considering she is in memory care. Called multiple hospitals to find placement eventually was able to send her to [facility] as a trauma. Family is agreeable to this. I did place a posterior long-arm splint and sugar-tong to keep the elbow stable. Her lab work done show any concerning abnormalities. She be transferred straight to [facility]. EKG and troponin also showed no concerning findings. CK within normal limits. <Tom Hill DO - Last Filed: 05/08/24 17:12> Lab Data Labs: Lab Results 05/08/24 05/08/24 Range/Units 07:15 08:20 WBC 7.78 (4.50-11.00) K/uL RBC 4.36 (4.00-5.20) m/uL Hgb 13.5 (12.0-16.0) gm/dL Hct 41.1 (33.0-51.0) % MCV 94 (80-100) fL MCH 31 (26-34) pg MCHC 33 (32-36) gm/dL RDW Coeff of [place]ax[place] 11.9 (11.5-15.5) % Plt Count 228 (140-440) K/uL Neut % (Auto) 77.7 H (42.0-72.0) % Lymph % (Auto) 14.5 L (20-44) % Gem % (Auto) 6.9 (0.0-11.0) % Eos % (Auto) 0.3 (0.0-7.0) % Baso % (Auto) 0.3 (0.0-3.0) % Neut # (Auto) 6.00 (1.7-7.0) K/uL Lymph # (Auto) 1.10 (0.90-2.90) K/uL Gem # (Auto) 0.50 (0.00-0.90) K/UL Eos # (Auto) 0.02 (0.00-0.50) K/uL Baso # (Auto) 0.02 (0.00-0.30) K/uL Abs Immat Gran (auto) 0.02 (0.00-0.30) K/uL Imm/Tot Granulo (auto) 0.3 % Sodium 135 (135-149) mmol/L Potassium 3.4 L (3.6-5.1) mmol/L Chloride 101 (96-114) mmol/L Carbon Dioxide 26 (20-32) mmol/L Anion Gap 8 (7-15) mEq/L BUN 10 (7-30) mg/dL Creatinine 0.4 L (0.5-1.5) mg/dL Estimated GFR 98 ml/min Glucose 136 H (60-115) mg/dL Calcium 8.4 (8.4-10.6) mg/dL Total Bilirubin 0.7 (0.1-1.5) mg/dL AST 14 (12-35) U/L ALT 5 (4-35) U/L Alkaline Phosphatase 62 (40-150) U/L Total Creatine Kinase 101 (41-117) U/L Troponin I < 0.01 L (0.01-0.04) ng/mL Total Protein 6.2 (6.0-8.3) g/dL Albumin 4.1 (3.3-5.0) g/dL SARS-CoV-2 (PCR) Negative SARS-CoV-2 (Negative) Influenza Type A (PCR) Negative PCR FLU A (Negative) Influenza Type B (PCR) Negative PCR FLU B (Negative) <Arnulfo Bacon MD - Last Filed: 05/08/24 07:52> Lab Results 05/08/24 05/08/24 Range/Units 07:15 08:20 WBC 7.78 (4.50-11.00) K/uL RBC 4.36 (4.00-5.20) m/uL Hgb 13.5 (12.0-16.0) gm/dL Hct 41.1 (33.0-51.0) % MCV 94 (80-100) fL MCH 31 (26-34) pg MCHC 33 (32-36) gm/dL RDW Coeff of Daxa 11.9 (11.5-15.5) % Plt Count 228 (140-440) K/uL Neut % (Auto) 77.7 H (42.0-72.0) % Lymph % (Auto) 14.5 L (20-44) % Gem % (Auto) 6.9 (0.0-11.0) % Eos % (Auto) 0.3 (0.0-7.0) % Baso % (Auto) 0.3 (0.0-3.0) % Neut # (Auto) 6.00 (1.7-7.0) K/uL Lymph # (Auto) 1.10 (0.90-2.90) K/uL Gem # (Auto) 0.50 (0.00-0.90) K/UL Eos # (Auto) 0.02 (0.00-0.50) K/uL Baso # (Auto) 0.02 (0.00-0.30) K/uL Abs Immat Gran (auto) 0.02 (0.00-0.30) K/uL Imm/Tot Granulo (auto) 0.3 % Sodium 135 (135-149) mmol/L Potassium 3.4 L (3.6-5.1) mmol/L Chloride 101 (96-114) mmol/L Carbon Dioxide 26 (20-32) mmol/L Anion Gap 8 (7-15) mEq/L BUN 10 (7-30) mg/dL Creatinine 0.4 L (0.5-1.5) mg/dL Estimated GFR 98 ml/min Glucose 136 H (60-115) mg/dL Calcium 8.4 (8.4-10.6) mg/dL Total Bilirubin 0.7 (0.1-1.5) mg/dL AST 14 (12-35) U/L ALT 5 (4-35) U/L Alkaline Phosphatase 62 (40-150) U/L Total Creatine Kinase 101 (41-117) U/L Troponin I < 0.01 L (0.01-0.04) ng/mL Total Protein 6.2 (6.0-8.3) g/dL Albumin 4.1 (3.3-5.0) g/dL SARS-CoV-2 (PCR) Negative SARS-CoV-2 (Negative) Influenza Type A (PCR) Negative PCR FLU A (Negative) Influenza Type B (PCR) Negative PCR FLU B (Negative) <Tom Hill DO - Last Filed: 05/08/24 17:12> Imaging Data CT scan head: Attestation: I have reviewed the pertinent imaging results. <Tom Hill DO - Last Filed: 05/08/24 17:12> Radiologist's impression: Chronic changes without acute intracranial traumatic injury. Please note that all CT scans at this facility use dose modulation, iterative reconstruction, and/or weight-based dosing when appropriate to reduce radiation dose to as low as reasonably achievable. Dictated by Damon Medel MD @ 05/08/2024 8:45:28 AM <Tom Hill DO - Last Filed: 05/08/24 17:12> CT scan cervical spine: Attestation: I have reviewed the pertinent imaging results. <Tom Hill DO - Last Filed: 05/08/24 17:12> Radiologist's impression: Motion degraded suboptimal exam. Within the constraints of examination, multilevel degenerative changes without acute traumatic injury. Please note that all CT scans at this facility use dose modulation, iterative reconstruction, and/or weight-based dosing when appropriate to reduce radiation dose to as low as reasonably achievable. Dictated by Damon Medel MD @ 05/08/2024 8:37:40 AM <Tom Hill DO - Last Filed: 05/08/24 17:12> X-ray left elbow: Attestation: I have reviewed the pertinent imaging results. <Tom Hill DO - Last Filed: 05/08/24 17:12> Radiologist's impression: Displaced and angulated supracondylar fracture of humerus with adjacent soft tissue swelling. Small elbow joint effusion is present. Dictated by Damon Medel MD @ 05/08/2024 8:02:50 AM <Tom Hill DO - Last Filed: 05/08/24 17:12> CT left elbow: Attestation: I have reviewed the pertinent imaging results. <Tom Hill DO - Last Filed: 05/08/24 17:12> Radiologist's impression: 1. Acute displaced fracture of the distal left humerus with mixed supracondylar and condylar involvement. Disruption of the trochlear articular surface with 7 mm displacement posteriorly. Fracture spares the capitellar articular surface. Fracture extends obliquely to the distal lateral humeral epicondylar region where there is 18 mm of displacement. 2. No proximal radial or proximal ulnar fracture. 3. An elbow joint effusion is present. Dictated by Neto James MD @ 05/08/2024 10:13:51 AM Please note that all CT scans at this facility use dose modulation, iterative reconstruction, and/or weight-based dosing when appropriate to reduce radiation dose to as low as reasonably achievable. Dictated by: Neto James MD @ 05/08/2024 10:14:02 <Tom Hill DO - Last Filed: 05/08/24 17:12> ECG Data Attestation: I personally reviewed and interpreted this ECG as follows: <Tom Hill DO - Last Filed: 05/08/24 17:12> Prior ECG tracings: available for review <Tom Hill DO - Last Filed: 05/08/24 17:12> Interpretation: Normal sinus rhythm with a rate of 76 beats per minute, left axis deviation, normal intervals, normal axis, no ST or T-wave abnormalities. Appears similar to previous EKGs on file other than the slight left axis deviation <Tom Hill DO - Last Filed: 05/08/24 17:12> Discharge Plan Discharge Clinical Impression: Closed fracture of left elbow Qualifiers: Encounter type: initial encounter Qualified Code(s): S42.402A - Unspecified fracture of lower end of left humerus, initial encounter for closed fracture <Arnulfo Bacon MD - Last Filed: 05/08/24 07:52> Patient Disposition: [facility] <Arnulfo Bacon MD - Last Filed: 05/08/24 07:52> Condition: Stable <Arnulfo Bacon MD - Last Filed: 05/08/24 07:52> Prescriptions: No Action aspirin [Adult Aspirin Regimen] 81 mg tablet,delayed release (DR/EC) 81 mg PO MOWEFR Rx Instructions: MON,WED,FRI carbidopa-levodopa 50-200 mg tablet extended release 1 tab PO HS donepezil 10 mg tablet 10 mg PO HS lisinopril 5 mg tablet 5 mg PO DAILY melatonin 1 mg tablet 1 mg PO HS polyethylene glycol 3350 [ClearLax] 17 gram/dose powder 17 g PO DAILY rosuvastatin 20 mg tablet 20 mg PO DAILY calcium citrate-vitamin D3 315 mg-6.25 mcg (250 unit) tablet 1 tab PO 6XW Rx Instructions: SUN,MON,TUE,WED,,FRI; NOT SAT carbidopa-levodopa 25-100 mg tablet 2.5 tab PO TID nitroglycerin 0.4 mg tablet, sublingual 0.4 mg sublingual Q5M PRN acetaminophen 325 mg Tablet 650 mg PO Q6H PRN (Reason: pain) Qty: 100 0RF sennosides-docusate sodium [Stool Softener-Laxative] 8.6-50 mg Tablet 1 tab PO BID Qty: 60 0RF metoprolol succinate 25 mg Tablet Extended Release 24 Hr 25 mg PO DAILY Qty: 30 0RF oxycodone 5 mg Tablet 2.5 mg PO Q4H PRNQty: 20 0RF naproxen sodium [Aleve] 220 mg capsule 220 mg PO DAILY Qty: 20 0RF senna 8.6 mg capsule 17.2 mg PO DAILY Qty: 10 0RF docusate sodium 100 mg capsule 100 mg PO BID Qty: 10 0RF polyethylene glycol 3350 [Miralax] 17 gram/dose powder 17 g PO DAILY Qty: 238 1RF bisacodyl 5 mg tablet 10 mg PO ONCE 1 Days Qty: 2 0RF simethicone 125 mg capsule 250 mg PO ONCE Qty: 2 0RF magnesium citrate Solution See Rx Instructions .ROUTE .COMPLEX PRN (Reason: constipation) Qty: 296 0RF Rx Instructions: Take 10 oz bottle at once <Arnulfo Bacon MD - Last Filed: 05/08/24 07:52> Stand Alone [facility]: [facility] <Arnulfo Bacon MD - Last Filed: 05/08/24 07:52> Procedures Orthopedic Splinting/Casting Left elbow: Side: left <Tom Hill DO - Last Filed: 05/08/24 17:12> Upper Extremity Injury Location: elbow <Tom Hill DO - Last Filed: 05/08/24 17:12> Upper extremity immobilizer: sugar tong splint <Tom Hill DO - Last Filed: 05/08/24 17:12> Applied by clinician: / <Tom Hill DO - Last Filed: 05/08/24 17:12> Conclusion: patient tolerated procedure <Tom Hill, DO - Last Filed: 05/08/24 17:12>
--- NOTE | 2024-05-08 07:53 | CRLHL7_ITS ---
For Patients: As a result of the Century Cures Act, medical imaging exams and procedure reports are released immediately into your electronic medical record. You may view this report before your referring provider. If you have questions, please contact your health care provider. INDICATION: Fall. TECHNIQUE: CT head without contrast. COMPARISON: None. FINDINGS: There is no acute intracranial hemorrhage or large vascular territory infarct. No midline shift. Moderate parenchymal atrophy is present. Patchy white matter hypodensities are nonspecific and are likely related to chronic microvascular ischemic changes. Bilateral intra-ocular lens implantation. No mucosal thickening of the paranasal sinus. No skull fractures. IMPRESSION: Chronic changes without acute intracranial traumatic injury. Please note that all CT scans at this facility use dose modulation, iterative reconstruction, and/or weight-based dosing when appropriate to reduce radiation dose to as low as reasonably achievable. Dictated by Damon Medel MD @ 05/08/2024 8:45:28 AM (Electronically Signed)
--- NOTE | 2024-05-08 07:53 | CRLHL7_ITS ---
For Patients: As a result of the Century Cures Act, medical imaging exams and procedure reports are released immediately into your electronic medical record. You may view this report before your referring provider. If you have questions, please contact your health care provider. INDICATION: Fall. TECHNIQUE: CT cervical spine without contrast. COMPARISON: None. FINDINGS: Limited motion degraded exam. Cervical vertebral body height is maintained. There is rightward deviation of the cervical spine. Bilateral occipital condyles are intact. Atlantooccipital and atlanto odontoid interval is preserved. Minimal anterolisthesis of C3 over C4 is present. partial fusion of the right posterior elements of C2-3. Multilevel moderate degenerative changes with reduction of intervertebral disc height at C4-5, C5-6 and C6-7 level with anterior osteophytes. Multilevel uncovertebral as well as facet arthropathy is present. Multifocal heterogeneous thyroid nodules, few of them demonstrates foci of calcification and unlikely related to goitrous changes. Motion degraded images, limits the assessment for the soft tissue. No obvious paravertebral hematoma or fluid collection. Included lung apices demonstrates no concerning findings. IMPRESSION: Motion degraded suboptimal exam. Within the constraints of examination, multilevel degenerative changes without acute traumatic injury. Please note that all CT scans at this facility use dose modulation, iterative reconstruction, and/or weight-based dosing when appropriate to reduce radiation dose to as low as reasonably achievable. Dictated by Damon Medel MD @ 05/08/2024 8:37:40 AM (Electronically Signed)
[2024-05-08] MEDS: ACETAMINOPHEN 325 MG TABLET 650 MG PO (08:01)
[2024-05-08 08:04] LABS: Basophils Absolute Auto 0.02 K/uL (0.00-0.30); Basophils Percent Auto 0.3 % (0.0-3.0); Eosinophils Absolute Auto 0.02 K/uL (0.00-0.50); Eosinophils Percent Auto 0.3 % (0.0-7.0); Hematocrit 41.1 % (33.0-51.0); Hemoglobin* 13.5 gm/dL (12.0-16.0); Immature Granulocytes Abs Auto 0.02 K/uL (0.00-0.30); Immature Granulocytes Pct Auto 0.3 %; Lymphocytes Percent Auto 14.5 % (20-44); Mean Corpuscular HGB Conc 33 gm/dL (32-36); Mean Corpuscular Hemoglobin 31 pg (26-34); Mean Corpuscular Volume 94 fL (80-100); Monocytes Percent Auto 6.9 % (0.0-11.0); Neutrophils Percent Auto 77.7 % (42.0-72.0); Platelet Count* 228 K/uL (140-440); RDW Coefficient of Variation % 11.9 % (11.5-15.5); Red Blood Count 4.36 m/uL (4.00-5.20); White Blood Count* 7.78 K/uL (4.50-11.00)
[2024-05-08 08:16] LABS: Slide Review Reflex No
[2024-05-08 08:22] LABS: Albumin* 4.1 g/dL (3.3-5.0); Chloride* 101 mmol/L (96-114)
[2024-05-08 08:23] LABS: Potassium* 3.4 mmol/L (3.6-5.1); Sodium* 135 mmol/L (135-149)
[2024-05-08 08:25] LABS: Anion Gap 8 mEq/L (7-15); Aspartate Amino Transferase* 14 U/L (12-35); Bilirubin Total* 0.7 mg/dL (0.1-1.5); Carbon Dioxide* 26 mmol/L (20-32); Creatinine* 0.4 mg/dL (0.5-1.5); Estimated Glomerular Filt Rate 98 ml/min
[2024-05-08 08:26] LABS: Alanine Aminotransferase* 5 U/L (4-35); Alkaline Phosphatase* 62 U/L (40-150); Blood Urea Nitrogen* 10 mg/dL (7-30); Calcium* 8.4 mg/dL (8.4-10.6); Creatine Kinase* 101 U/L (41-117); Glucose* 136 mg/dL (60-115); Total Protein* 6.2 g/dL (6.0-8.3)
[2024-05-08 08:41] LABS: Troponin I* < 0.01 ng/mL (0.01-0.04)
[2024-05-08 09:09] LABS: PCR FLU A Negative PCR FLU A (Negative); PCR FLU B Negative PCR FLU B (Negative); SARS PCR* Negative SARS-CoV-2 (Negative)
--- NOTE | 2024-05-08 09:17 | CRLHL7_ITS ---
For Patients: As a result of the Cures Act, medical imaging exams and procedure reports are released immediately into your electronic medical record. You may view this report before your referring provider. If you have questions, please contact your health care provider. INDICATION: Fracture. TECHNIQUE: Noncontrast CT of the left elbow. COMPARISON: Radiographs from 05/08/2024. FINDINGS: There is an acute displaced fracture of the distal left humerus which demonstrates mixed supracondylar and condylar involvement. The fracture extends to disrupt the trochlear articular surface where there is approximately 7 millimeters displacement posteriorly. The fracture spares the capitellar articular surface. Fracture extends obliquely to the distal lateral humeral epicondylar region where there is approximately 18 millimeters of displacement. There is no acute proximal radial fracture. No acute proximal ulnar fracture. An elbow joint effusion is present. IMPRESSION: 1. Acute displaced fracture of the distal left humerus with mixed supracondylar and condylar involvement. Disruption of the trochlear articular surface with 7 mm displacement posteriorly. Fracture spares the capitellar articular surface. Fracture extends obliquely to the distal lateral humeral epicondylar region where there is 18 mm of displacement. 2. No proximal radial or proximal ulnar fracture. 3. An elbow joint effusion is present. Dictated by Neto James MD @ 05/08/2024 10:13:51 AM Please note that all CT scans at this facility use dose modulation, iterative reconstruction, and/or weight-based dosing when appropriate to reduce radiation dose to as low as reasonably achievable. Dictated by: Neto James MD @ 05/08/2024 10:14:02 (Electronically Signed)
[2024-05-08] MEDS: MORPHINE 4 MG/ML INJ IVP (09:37)
[2024-05-08] MEDS: CARBIDOPA-LEVODOPA 25-100 TABLET 2.5 TAB PO (12:13)
== END 2024-05-08 15:16 | disposition short-term general hospital (02) ==
PROVIDERS: Internal Medicine; Emergency Provider Student in an Organized Health Care Education/Training Program; PCP Family Medicine
DX: S42.402A Unspecified fracture of lower end of left humerus, initial encounter for closed fracture (principal); W19.XXXA Unspecified fall, initial encounter; Y93.9 Activity, unspecified; Y92.099 Unspecified place in other non-institutional residence as the place of occurrence of the external cause
CPT/HCPCS: 36415; 70450; 72125; 73070; 73200; 80053; 81003; 82550; 84484; 85025; 87631; 93005; 96374; 99285; A9270; J2270

== ENCOUNTER 2024-05-08 15:00 | Outpatient (CLI) | payer MEDICARE, BC, SELFPAY | END 2024-05-08 15:01 | disposition home or self-care (01) | LOC: AMB 05-17 06:38 | PROVIDERS: PCP Family Medicine; Visit Provider Student in an Organized Health Care Education/Training Program | DX: S42.402A Unspecified fracture of lower end of left humerus, initial encounter for closed fracture (principal) | CPT/HCPCS: A0425; A0429 ==

== ENCOUNTER 2024-06-01 12:30 | Outpatient (CLI) | payer MEDICARE, BC, SELFPAY | END 2024-06-01 12:31 | disposition home or self-care (01) | LOC: AMB 06-02 10:32 | PROVIDERS: PCP Family Medicine; Visit Provider Emergency Medicine Emergency Medical Services | DX: R55 Syncope and collapse (principal) | CPT/HCPCS: A0425; A0427 ==

== ENCOUNTER 2024-06-01 12:55 | Inpatient (IN) | payer MEDICARE, BC, SELFPAY ==
[2024-06-01] VITALS (52 sets, daily range): BP systolic 102–168; BP diastolic 46–90; PULSE 63–97; RESP 0–25; TEMP -13.9–37.3; O2SAT 87–100; BMI 17.5; BMI 18.5
--- OUTSIDE RECORDS SUMMARY | 2024-06-01 12:58 | XMS_ITS | Clinical Summary ---
Author Organization [facility] Address [address] [place] [address] Care Team Providers Care Anchor Tacker Name Role Phone LudmilaDaja, P.A.-C. Primary Care Prov ider Source Comments Patient records contain information from all sites at [facility]. For routine questions regarding patient records, call [phone] during business hours, M-F 8:00 AM - 5:00 PM Central Time. Record requests for emergency care only can be directed to [phone] at any time.[facility] Allergies Active Allergy Reactions Criticality Noted Date Comments Leland Pollen Itching Medium 10/14/2012 Seasonal Allergies: Allergic Rhinitis, Itchy watery eyes, Sneezing Medications * This document contains information received from the source organization and may not represent a complete record from that organization. acetaminophen (TYLENOL) 325 mg tablet Take 325 mg by mouth every 6 (six) hours as needed for pain. Active calcium citrate-vitamin D3 (CITRACAL+D) 315-200 mg-unit per tablet 1 tablet daily with breakfast. Does not take on Saturdays Active aspirin [address] tablet Take 1 tablet (81 mg total) by mouth 3 (three) times a week. Take on Mondays, Wednesdays and Fridays only 12 tablet 11 3 Active rosuvastatin (CRESTOR) 20 mg tablet Take 1 tablet (20 mg total) by mouth daily. 90 tablet 3 3 Active carbidopa-levodo pa (SINEMET CR) 50-200 mg per ER tablet Take 1 tablet by mouth at bedtime. 90 tablet 3 3 Active donepeziL (ARICEPT) 10 mg tabletIndication s:Parkinsonism Unspecified (HCC) Take 1 tablet (10 mg total) by mouth at bedtime. 90 tablet 3 4 025 Active melatonin 1 mg tabletIndication s:Insomnia Due To Medical Condition Take 1 tablet (1 mg total) by mouth at bedtime. 30 tablet 11 4 025 Active polyethylene glycol (MIRALAX) 17 gram powder packet Take 1 packet (17 g total) by mouth daily. Dissolve each 17 g dose in 240 mLs (8 ounces) of beverage. Hold for loose stools 30 packet 11 4 025 Active sennosides-docus ate sodium (Senna with Docusate Sodium) 8.6-50 mg per tablet Take 1 tablet by mouth at bedtime as needed for constipation for up to 30 doses. 30 tablet 4 Active carbidopa-levodo pa (SINEMET) 25-100 mg per tabletIndication s:Parkinson's Disease With Dyskinesia, With Fluctuations (HCC) Take 2.5 tablets by mouth 3 (three) times a day. Increase 06/30/23 (In addition to HS dose) 225 tablet 2 4 Active oxyCODONE (Roxicodone) 5 mg immediate release tabletIndication s:Acute Pain Take 1 tablet (5 mg total) by mouth every 6 (six) hours as needed for severe pain or score 7-10 of 10 Indication: Acute Pain. 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 Spells Neurological 06/20/2023 Overview (06/20/2023): Related to parkinson's. Frailty Age Related Physical Debility 06/16/2023 Overview (06/25/2023): Primary and secondary frailty in the setting of advanced age, comorbid burden. Assist of 1 for bathing and grooming, dressing, walker ambulation, feeding setup Incontinent of bladder, continent of bowel Osteopenia 05/16/2020 Hyperlipidemia 05/16/2020 Overview (06/25/2023): On rosuvastatin for secondary prevention CAD events Lab Results Component Value Date LDLCALC 45 10/05/2022 Coronary Artery Disease Without Angina Pectoris 05/05/2020 Overview (06/25/2023): 1. STEMI 11/17/2019 s/p PCI and MAHESH to proximal LAD and PTCA to 1st diagonal branch. By report patient was left dominant. No significant disease of left main or left circumflex artery. On ASA and rosuvastatin Cardiomyopathy Ischemic 05/05/2020 Overview (05/05/2020): 1. LVEF 45% by outside echo with regional wall motion abnormalities in LAD distribution. Chronic Diastolic (Congestive) Heart Failure Overview (06/29/2023): 10/05/22 TTE Final Impressions E/e' 16.7 1. Normal left ventricular chamber size. 2. Calculated 2-D linear left ventricular ejection fraction 62%. Visual estimate: 60%. 3. Regional wall motion abnormalities were present (see wall motion graphics). 4. Moderately elevated left ventricular filling pressure. 5. Normal right ventricular chamber size with normal systolic function. 6. Estimated right ventricular systolic pressure 32 mmHg (right atrial pressure of 5 mmHg). 7. Trileaflet aortic valve. No Doppler evidence of aortic stenosis. Trivial aortic regurgitation. 8. Mild tricuspid valve regurgitation. 9. Normal inferior vena cava size with normal inspiratory collapse (>50%). 10. Normal sinus of Valsalva diameter of 34 mm. 11. Normal mid ascending aorta diameter of 31 mm. 12. Compared to the report of 04/11/2021 no significant change has occurred. Side by side comparison of images performed. BNP 756 [2020] Beta vy:none (on Aricept) ACEI/ARB: lisinopril ARNI: none Na/Glu transport inhibitor: none Tech: none Diuretic: none Dry weight: 44 kg Wt Readings from Last 6 Encounters: 06/25/23 43.4 kg 06/16/23 43.5 kg 02/12/23 42.2 kg 02/02/23 42.6 kg 01/14/23 41.8 kg 11/28/22 40.3 kg Assessment & Plan (06/20/2023 7:48 AM GRIP): Euvolemic. 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 This is almost 24/7. She seems to get limited sleep. She is unable to manage iADLs and most ADLs (needs cueing to even stand and walk). Her is having difficulties with medication management. Assessment & Plan (06/20/2023 11:01 AM GRIP): She is wandering 24/7. She needs a locked memory care to allow her to move freely but not get lost. Spoke directly to Abdiel at SNF to help with this transition. It is NOT safe for her to return home as her also has memory issues and can not safely care for her. Discussion in the hospital if she needs increased Sinemet, it was unclear if she was taking sinemet correctly, therefore will leave as is while at SNF, and reassess in one week (with Dr. Freed) as that will give us more knowledge of the need once she has been taking it at SNF in a more controled way. 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 Fracture Humerus Simple Supracondylar Nondisplaced Closed Initial Left Discharge Disposition: Home or Self Care 05/14/2024 9:06 AM GRIP - 05/14/2024 10:13 AM GRIP Hospital Encounter Department of Orthopedic Surgery in [address] [phone] Chanell Garcia P.A.-C., M.S. Fracture Humerus Simple Supracondylar Nondisplaced Closed Initial Left (Primary Dx); Pain Arm Left Discharge Disposition: Home or Self Care 05/11/2024 Orders Only Department of Orthopedic Surgery in [address] [phone] Chanell Garcia P.A.-C., M.S. Pain Arm Left (Primary Dx) 05/11/2024 Results Follow-Up [facility] Emergency Department [address] [place] [phone] Mary Keller M.S.N., R.N. Interpretation of Outside CT Extremity 05/08/2024 5:15 PM GRIP Ancillary Procedure Department of Radiology in [place], [place] [address] [place] [address] Tripp Gomez M.D. 05/08/2024 5:10 PM GRIP Ancillary Procedure Department of Radiology in [place], [place] [address] [place] [phone] Tripp Gomez M.D. 05/08/2024 5:05 PM GRIP Ancillary Procedure Department of Radiology in [place], [place] [address] [place] [phone] Tripp Gomez M.D. 05/08/2024 5:05 PM GRIP Ancillary Procedure Department of Radiology in [place], [place] [address] [place] [phone] Tripp Gomez M.D. 05/08/2024 4:49 PM GRIP - 05/08/2024 10:[address] [facility] Emergency Department [address] [place] [phone] Tripp Gomez M.D. Pain Arm Left (Primary Dx) Discharge Disposition: Home or Self Care 05/08/2024 Intake [facility] from Last 3 Months Immunizations Immunization Administration Dates Next Due DT, Pediatric 09/17/2004 HZV (ZOSTAVAX) 11/09/2009 Influenza TIV (IM) 01/29/2012, 1,01/26/2010,2008,01/28/2008 Influenza high dose QV(65 ye ars or older) (PF) 01/26/2020,01/22/2019,02/04/2018,2016,02/09/2016,02/09/2015,01/26/2014,1 Influenza, Quadrivalent, Adj uvanted, Preservative Free 01/11/2023,01/15/2022,01/12/2021 PCV13 12/15/2014 PPSV23 07/10/2006 RSV: respiratory syncytial v irus (ABRYSVO) bivalent vaccine 01/11/2023 RZV (SHINGRIX) 02/24/2020,08/13/2019 SARS-COV-2 (COVID-19) - PFIZ ER (Discontinued)(12 years or older) 01/17/2021,07/04/2020,06/08/2020 SARS-COV-2 (COVID-19) - PFIZ ER TS(Discontinued)(12 years or older) 08/01/2021 Td (Adult), adsorbed 09/19/2004 Tdap 12/15/2014 Family History Medical History Relation Name Comments Coronary artery disease Brother Ivan Quispe Bypa ss Breast cancer (cancer in one breast) Maternal Grandmot her Bri Pham Breast cancer (cancer in one breast) Mother's Sister Tamir Ng Relation Name Status Comments Brother Ivan Quispe Maternal Grandmother Bri Pham Mother's Sister Sandor Ng Social History Tobacco Use Types Packs/Day Years Used Date Smoking Tobacco: Never Smokeless Tobacco: Never Tobacco Cessation:Counseling Given: Not Answered Alcohol Use Standard Drinks/Week Comments Not Currently 0 (1 standard drink = 0.6 oz pur e alcohol) occasional glass of wine [facility] Bunker Modeities Answer Date Recorded In the past 12 months has [employer], gas, oil, or water [employer] threatened to shut off services in your home? No 08/20/2023 Humiliation, Afraid, Rape, and Kick questionnair e Answer Date Recorded Within the last year, have y ou been afraid of your partner or ex-partner? No 06/16/2023 Within the last year, have y ou been humiliated or emotionally abused in other ways by your partner or ex-partner? No Within the last year, have y ou been kicked, hit, slapped, or otherwise physically hurt by your partner or ex-partner? No 06/16/2023 Within the last year, have y ou been raped or forced to have any kind of sexual activity by your partner or ex-partner? No 06/16/2023 Social Connection and Isolation Panel [NHANES] A nswer Date Recorded In a typical week, how many times do you talk on the phone with family, friends, or neighbors? Once a week 08/09/19 How often do you get togethe r with friends or relatives? Once a week 08/08/2022 How often do you attend [facility] or [facility] services? 1 to 4 times per year 08/08/2022 Do you belong to any clubs o r organizations such as hoahaoism groups, unions, fraternal or athletic groups, or school groups? No 08/08/2022 How often do you attend meet ings of the clubs or organizations you belong to? 1 to 4 times per year 08/08/2022 Are you , , di vorced, , never , or living with a partner? 08/08/2022 AUDIT-C Answer Date Recorded Q1: How often do you have a drink containing alc ohol? Never 08/08/2022 Q2: How many drinks containi ng alcohol do you have on a typical day when you are drinking? 1 or 2 08/08/2022 Q3: How often do you have six or more drinks on one occasion? Never 08/08/2022 Overall Financial Resource Strain (CARDIA) Answe r Date Recorded How hard is it for you to pa y for the very basics like food, housing, medical care, and heating? Not hard at all 08/08/2022 PHQ-2 Answer Date Recorded PHQ-2 Score 0 10/18/2022 [facility] - Occupational Stress Questionnaire Answer Date Recorded Do you feel stress - tense, restless, nervous, or anxious, or unable to sleep at night because your mind is troubled all the time - these days? To some extent 08/08/2022 Exercise Vital Sign Answer Date Recorde d On average, how many days pe r week do you engage in moderate to strenuous exercise (like a brisk walk)? 0 days 08/20/2023 On average, how many minutes do you engage in exercise at this level? 0 min 08/20/2023 Hunger Vital Sign Answer Date Recorded Within the past 12 months, y ou worried that your food would run out before you got the money to buy more. Never true 08/20/19 24 Within the past 12 months, t he food you bought just didn't last and you didn't have money to get more. Never true 08/20/2023 PRAPARE - Transportation Answer Date Re corded In the past 12 months, has l ack of transportation kept you from medical appointments or from getting medications? No 10/2023 In the past 12 months, has l ack of transportation kept you from meetings, work, or from getting things needed for daily living? No 08/20/2023 Depression Answer Date Recor ded PHQ-9 Total Score (max 27) 9 10/18 Nutrition Answer Date Recorded On average, how many serving s of fruits and vegetables do you eat per day (serving size is equal to 1 cup or approximately the size of a tennis ball)? 0-2 08/20/2023 Dental Answer Date Recorded Dental: Regular Dentist Yes 08/21/19 Employment Answer Date Recorded Employment status Retired 08/20/2023 Housing Stability Answer Date Recorded What is your living situation today? I have a [facility] place to live 08/20/2023 Education Answer Date Recorded What is the highest level of school you have completed or the highest degree you have received? Bachelor's degree (e.g., BA, AB, BS) 03/05/2019 Comments No Sex and Gender Information Value Date Recorded Sex Assigned at Female 12/15/2020 11:07 AM CDT Legal Sex Female 8:25 AM GRIP Gender Identity Female 03/05/2019 8:17 AM GRIP Sexual Orientation Straight 03/05/2019 8: 17 AM GRIP Last Filed Vital Signs Vital Sign Reading Time Taken Comments Blood Pressure 151/86 05/08/2024 8:00 PM GRIP Pulse 93 05/08/2024 7:00 PM GRIP Temperature 36.7 C (98.1 F) 05/08/2024 4:35 PM GRIP Respiratory Rate 14 05/08/2024 4:35 PM GRIP Oxygen Saturation 95% 05/08/2024 7:00 PM GRIP Inhaled Oxygen Concentration - - Weight 43.4 kg (95 lb 9.6 oz) 06/25/2023 9:43 AM CDT Height 154.9 cm (5' 1) 06/16/2023 2:45 PM GRIP Body Mass Index 18.06 06/16/2023 2:45 PM GRIP Plan of Treatment Upcoming Encounters Date Type Department Care Team (Late st Contact Info) Description 06/08/2024 10:00 AM GRIP Appointment Department of Orthopedic Surgery in [place], [place] [address] [place] [phone] Chanell Garcia P.A.-C., M.S. [address] [place] [address] Discharge Disposition: Home or Self Care 08/17/2024 12:00 PM CDT Telemedicine Department of Neurology in [place], [place] [address] [place] [facility] [phone] Dot Sultana M.D., M.B.A. [address] [facility] [place] [phone] Discharge Disposition: Home or Self Care Health Maintenance Due Date Last Done Comments Visit: Medicare Annual Wellness 10/20/2023 10/18/2022 Influenza Vaccine (#1) 2024 , 01/15/2022, 01/12/2021, Additional history exists Visit: Annual, age 65+ (or Medicare and <65) 01/15/2024 01/14/2023 Fall Risk Screen (Annual) 04/15/2024 Office Visit for Blood Pressure Check / Re-check 06/24/2024 06/25/2023 COVID-19 Vaccine ( season) 2024 01/09/2024, 01/21/2023, 01/15/2022, Additional history exists DTaP,Tdap,and Td Vaccines (4 - Td or Tdap) 12/15/2024 12/15/2014, 09/19/2004, 09/17/2004 Pneumococcal vaccine (50+ years) Completed 12/15/2014, 07/10/2006 Zoster Vaccines Completed 02/24/2020, 07/16, 11/09/2009 RSV vaccine - (32-36 weeks) or 60+ years Completed 01/11/2023 IPV Vaccines Aged Out No longer eligi ble based on patient's age to complete this topic Procedures Procedure Name Priority Date/Time Associated Diagnosis Comments DX ELBOW LEFT 2 VIEWS RAD - Routine (most inpatients and all outpatients) 05/14/2024 11:35 AM GRIP Fracture Humerus Simple Supracondylar Nondisplaced Closed Initial Left ORS CAST ROOM VISIT Routine 05/14/2024 10:00 AM GRIP Pain Arm Left DX HUMERUS LEFT 2 VIEW AND ELBOW LEFT 2 VIEW RAD - Routine (most inpatients and all outpatients) 05/08/2024 7:09 PM GRIP HC URINALYSIS AUTO WO MICRO Routine 05/08/2024 6:01 PM GRIP DIPSTICK, U STAT 05/08/2024 5:57 PM GRIP PH, U STAT 05/08/2024 5:57 PM GRIP OSMOLALITY, U STAT 05/08/2024 5:57 PM GRIP MICROSCOPIC AUTOMATED STAT 05/08/2024 5:57 PM GRIP URINALYSIS WITH MICROSCOPIC STAT 05/08/2024 5:57 PM GRIP MAGNESIUM, S STAT 05/08/2024 5:43 PM GRIP BASIC METABOLIC PANEL, S/P STAT 05/08/2024 5:43 PM GRIP CBC WITH DIFFERENTIAL, B STAT 05/08/2024 5:43 PM GRIP INTERPRETATION OF OUTSIDE DX EXTREMITY RAD - Routine (most inpatients and all outpatients) 05/08/2024 5:06 PM GRIP INTERPRETATION OF OUTSIDE CT EXTREMITY RAD - Routine (most inpatients and all outpatients) 05/08/2024 5:06 PM GRIP INTERPRETATION OF OUTSIDE CT SPINE RAD - Routine (most inpatients and all outpatients) 05/08/2024 5:06 PM GRIP INTERPRETATION OF OUTSIDE CT HEAD RAD - Routine (most inpatients and all outpatients) 05/08/2024 5:[address] MSK Routine 05/08/2024 9:[address] NEURO Routine 05/08/2024 8:[address] NEURO Routine 05/08/2024 8:10 AM GRIP OUTSIDE DX SKELETAL Routine 05/08/2024 7 :35 AM GRIP from Last 3 Months Results * DX Elbow Left 2 Views (05/14/2024 11:35 AM GRIP) Anatomical Region Laterality Modality Upper Extremity, Elbow, Musc uloskeletal RST LOS, Musculoskeletal ARZ LOS, Muskuloskeletal FLA LOS Left Digit al Radiography Impressions 05/14/2024 11:40 AM GRIP Since 05/08/2024, a cast has been applied, degrading visualization of the bones. Oblique impacted and displaced fracture of the distal left humerus, involving the trochlear articular surface medially and the supracondylar region laterally. Lateral displacement of the distal fragment. No change in alignment since outside CT 05/08/2024. Narrative 05/14/2024 11:40 AM GRIP EXAM: DX ELBOW LEFT 2 VIEWS Procedure Note Paige Barrios M.D. - 05/14/2024 EXAM: DX ELBOW LEFT 2 VIEWS IMPRESSION: Since 05/08/2024, a cast has been applied, degrading visualization of thebones. Oblique impacted and displaced fracture of the distal left humerus,involving the trochlear articular surface medially and the supracondylarregion laterally. Lateral displacement of the distal fragment. No change in alignment sinceoutside CT 05/08/2024. Chanell Garcia P.A.-C., M.S. IMG DIAGNOSTIC IM AGING PROCEDURES Final Result * PROCEDURE PLACEHOLDER (05/14/2024 10:00 AM GRIP) Narrative MMODAL - 05/14/2024 10:00 AM GRIP Chanell Garcia P.A.-C., M.S. 05/15/2024 9:36 AM ORS Cast Room Visit Performed by: Chanell Garcia P.A.-C., M.S. Authorized by: Chanell Garcia P.A.-C., M.S. Chanell Garcia P.A.-C. MTye. PROCEDURE/MINOR S URGICAL ORDERABLES Final Result MMODAL NA * DX Humerus Left 2 View and Elbow Left 2 View (05/08/2024 7:09 PM GRIP) Anatomical Region Laterality Modality Upper Extremity, Humerus, Mu sculoskeletal RST LOS, Musculoskeletal ARZ LOS, Muskuloskeletal FLA LOS Left Digit al Radiography Impressions 05/08/2024 7:33 PM GRIP Please refer to elbow radiographs and CT for supracondylar fracture of the left humerus. Age indeterminate displaced fracture of the humeral head/neck. The humeral head displaced posterolaterally. Superior subluxation and anterior displacement of the proximal shaft of the left humerus. Periosteal bone formation about the fracture site, concerning for subacute/chronic fracture. AC joint is maintained. Narrative 05/08/2024 7:33 PM GRIP EXAM: DX HUMERUS LEFT 2 VIEW AND ELBOW LEFT 2 VIEW Procedure Note Dayna Hallman M.D. - 05/08/2024 EXAM: DX HUMERUS LEFT 2 VIEW AND ELBOW LEFT 2 VIEW IMPRESSION: Please refer to elbow radiographs and CT for supracondylar fracture of theleft humerus. Age indeterminate displaced fracture of the humeral head/neck. The humeralhead displaced posterolaterally. Superior subluxation and anteriordisplacement of the proximal shaft of the left humerus. Periosteal boneformation about the fracture site, concerning for subacute/chronic fracture. AC joint is maintained. Fara Rojas M.D. IM DIAGNOSTIC IMAGING PROC EDURES Final Result * (ABNORMAL) Dipstick, POCT, Urine (05/08/2024 6:01 PM GRIP) Glucose, POCT, U Negative Negative mg/dL 05/08/2024 6:03 PM GRIP PCED Ketone, POCT, U 15(A) Negative mg/dL 05/08/2024 6:03 PM GRIP PCED Specific [place], POCT, U 1.020 1.005 - 1.030 05/08/2024 6:03 PM GRIP PCED Blood, POCT, U Negative Negative 05/08/2024 6:03 PM GRIP PCED pH, POCT, Urine 7.0 5.0 - 8.0 05/08/2024 6:03 PM GRIP PCED Protein, POCT, U 30(A) Negative mg/dL 05/08/2024 6:03 PM GRIP PCED Nitrites, POCT, U Negative Negative 05/08/2024 6:03 PM GRIP PCED Leukocytes, POCT, U Negative Negative 05/08/2024 6:03 PM GRIP PCED Urine 05/08/2024 6:01 PM GRIP 05/08/2024 6:03 PM GRIP us Unknown Provider LAB POCT ORDERABLES - DEVICE Fi nal Result Performing Organization Address [facility] de Phone Number POC RST [facility] [address] [place] [address], [facility] PCED [facility] POC [address] [place] [address] * (ABNORMAL) Dipstick, Urine (05/08/2024 5:57 PM GRIP) Hemoglobin, QL, U Trace(A) Negative 05/08/2024 7:00 PM GRIP DTL Leukocyte Esterase, U Negative Negative 05/08/2024 7:00 PM GRIP DTL Nitrite, U Negative Negative 05/08/2024 7:00 PM GRIP DTL Ketone, U 10(A) Negative mg/dL 05/08/2024 7:00 PM GRIP DTL Glucose, U Negative Negative mg/dL 05/08/2024 7:00 PM GRIP DTL Urine 05/08/2024 5:57 PM GRIP 05/08/2024 6:50 PM GRIP us Fara Rojas M.D. LAB URINE ORDERABLES Final Result Performing Organization Address [facility] Co de Phone Number [facility] [address] [place] [address], [facility] DTL [facility] [address] [place] [address] * (ABNORMAL) Microscopic Automated (05/08/2024 5:57 PM GRIP) Microscopy Abnormal 05/08/2024 7:00 PM GRIP DTL RBC 3-10(A) <3 /hpf 05/08/2024 7:00 PM GRIP DTL Dysmorphic RBC <25 <25 % 05/08/2024 7:00 PM GRIP DTL WBC 1-3 /hpf 05/08/2024 7:00 PM GRIP DTL Comment: ----REFERENCE VALUE---- <4 (Males) <11 (Females) Casts, Hyaline 1-3 /lpf 05/08/2024 7:00 PM GRIP DTL Urine 05/08/2024 5:57 PM GRIP 05/08/2024 6:50 PM GRIP Fara Rojas M.D. LAB URINE ORDERABLES Final Result Performing Organization Address City/[facility]/ZIP Co de Phone Number [facility] [address] [place], [place] [id number] [place] [address] [place] [address] * pH, Urine (05/08/2024 5:57 PM GRIP) pH, U 5.9 4.5 - 8.0 05/08/2024 7:2 8 PM GRIP DT Urine 05/08/2024 5:57 PM GRIP 05/08/2024 6:50 PM GRIP us Fara Rojas M.D. LAB URINE ORDERABLES Final Result [facility] [address] [place] [address], [facility] [address] [place] [address] * Osmolality, Urine (05/08/2024 5:57 PM GRIP) Osmolality, U 567 150 - 1150 mOsm/kg 05/08/2024 7:28 PM GRIP DTL Urine 05/08/2024 5:57 PM GRIP 05/08/2024 6:50 PM GRIP Fara Rojas M.D. LAB URINE ORDERABLES Final Result Performing Organization Address [facility] Co de Phone Number [facility] [address] [place] [address], [facility] [address] [place] [address] * (ABNORMAL) Urinalysis, with Microscopic: Urine, Catheter (05/08/2024 5:57 PM GRIP) Source Urine, Urine, Catheter 05/08/2024 6:49 PM GRIP DTL Color, U Yellow 05/08/2024 6:50 PM GRIP DTL Clarity, U Clear 05/08/2024 6:50 PM GRIP DTL Protein, U 42(H) <26 mg/dL 05/08/2024 7:51 PM GRIP DTL Protein/Osmola lity 0.74(H) <0.42 ratio 05/08/2024 7:51 PM GRIP DTL Predicted 24 HR Protein, U 509(H) <229 mg/24 h 05/08/2024 7:51 PM GRIP DTL Predicted Range 126-2062 mg/24 h 05/08/2024 7:51 PM GRIP DTL Urine (Urine, Catheter) 05/08/2024 5:57 PM GRIP 05/08/2024 6:49 PM GRIP us Fara Rojas M.D. LAB URINE ORDERABLES Final Result Performing Organization Address [facility]/ZIP Co de Phone Number [facility] [address] [place] [address], [facility] [address] [place] [address] * (ABNORMAL) CBC with Differential, Blood (05/08/2024 5:43 PM GRIP) Hemoglobin 13.8 11.6 - 15.0 g/dL 05/08/2024 5:53 PM GRIP STMA Hematocrit 41.4 35.5 - 44.9 % 05/08/2024 5:53 PM GRIP STMA Erythrocytes 4.41 3.92 - 5.13 x10(12)/L 05/08/2024 5:53 PM GRIP STMA MCV 93.9 78.2 - 97.9 fL 05/08/2024 5:53 PM GRIP STMA RBC Distrib Width 12.0(L) 12.2 - 16.1 % 05/08/2024 5:53 PM GRIP STMA Platelet Count 262 157 - 371 x10(9)/L 05/08/2024 5:53 PM GRIP STMA Leukocytes 19.5(H) 3.4 - 9.6 x10(9)/L 05/08/2024 5:53 PM GRIP STMA Neutrophils 16.20(H) 1.56 - 6.45 x10(9)/L 05/08/2024 5:53 PM GRIP DHPM Lymphocytes 1.65 0.95 - 3.07 x10(9)/L 05/08/2024 5:53 PM GRIP STMA Monocytes 1.47(H) 0.26 - 0.81 x10(9)/L 05/08/2024 5:53 PM GRIP STMA Eosinophils 0.10 0.03 - 0.48 x10(9)/L 05/08/2024 5:53 PM GRIP STMA Basophils 0.04 0.01 - 0.08 x10(9)/L 05/08/2024 5:53 PM GRIP STMA Blood (Blood, Venous) 05/08/2024 5:43 PM GRIP 05/08/2024 5:49 PM GRIP us Fara Rojas M.D. LAB BLOOD ADD-ON Final Resu lt [facility] [address] [place] [address], [facility] STMA [facility] [address] [place] [address] [facility] [address] [place] [address] * Magnesium (05/08/2024 5:43 PM GRIP) [facility] Magnesium, P 2.2 1.7 - 2.3 mg/dL 05/08/2024 6:14 PM GRIP STMA Blood (Blood, Venous) 05/08/2024 5:43 PM GRIP 05/08/2024 5:49 PM GRIP Fara Rojas M.D. LAB BLOOD ADD-ON Final Resu lt [facility] [address] [place] [address], [facility] STMA [facility] [address] [place] [address] * (ABNORMAL) Basic Metabolic Panel (05/08/2024 5:43 PM GRIP) Potassium, P 3.7 3.6 - 5.2 mmol/L 05/08/2024 6:14 PM GRIP STMA Sodium, P 135 135 - 145 mmol/L 05/08/2024 6:14 PM GRIP STMA Chloride, P 98 98 - 107 mmol/L 05/08/2024 6:14 PM GRIP STMA Bicarbonate, P 24 22 - 29 mmol/L 05/08/2024 6:14 PM GRIP STMA Anion Gap, P 13 7 - 15 05/08/2024 6:14 PM GRIP STMA BUN (Blood Urea Nitrogen), P 12 6 - 21 mg/dL 05/08/2024 6:14 PM GRIP STMA Creatinine 0.55(L) 0.59 - 1.04 mg/dL 05/08/2024 6:14 PM GRIP STMA Estimated GFR (eGFR) >90 >=60 mL/min/BSA 05/08/2024 6:14 PM GRIP STMA Comment: Estimated GFR calculated using the 2020 CKD_EPI creatinine equation. Calcium, Total, P 8.9 8.8 - 10.2 mg/dL 05/08/2024 6:14 PM GRIP STMA Glucose, P 139 70 - 140 mg/dL 05/08/2024 6:14 PM GRIP STMA Blood (Blood, Venous) 05/08/2024 5:43 PM GRIP 05/08/2024 5:49 PM GRIP us Fara Rojas M.D. LAB BLOOD ADD-ON Final Resu lt [facility] [address] [place] [address], [facility] [address] [place] [address] * Interpretation of Outside DX Extremity (05/08/2024 5:06 PM GRIP) Anatomical Region Laterality Modality Musculoskeletal RST LOS, Mus culoskeletal ARZ LOS, Muskuloskeletal FLA LOS, Musculoskeletal, Other N/A Digita l Radiography Impressions 05/08/2024 5:35 PM GRIP Acute, displaced and comminuted condylar/supracondylar fracture of the left humerus. The largest fracture fragment displaced laterally approximately 9 mm. Small to moderate elbow joint effusion. Visualized radial head appears unremarkable. Demineralization. Overlying soft tissue swelling. Narrative 05/08/2024 5:35 PM GRIP EXAM: INTERPRETATION OF OUTSIDE DX EXTREMITY Left elbow radiographs with 3 views obtained at outside center on 05/08/2024. Procedure Note Dayna Hallman M.D. - 05/08/2024 EXAM: INTERPRETATION OF OUTSIDE DX EXTREMITY Left elbow radiographs with 3 views obtained at outside center on05/08/2024. IMPRESSION: Acute, displaced and comminuted condylar/supracondylar fracture of theleft humerus. The largest fracture fragment displaced laterallyapproximately 9 mm. Small to moderate elbow joint effusion. Visualizedradial head appears unremarkable. Demineralization. Overlying soft tissue swelling. us Tripp Gomez M.D. IMG DIAGNOSTIC IMAGING PROCEDU RES Final Result * Interpretation of Outside CT Extremity (05/08/2024 5:06 PM GRIP) Anatomical Region Laterality Modality Musculoskeletal RST LOS, Mus culoskeletal ARZ LOS, Muskuloskeletal FLA LOS, Musculoskeletal, Other N/A Comput ed Tomography Impressions 05/10/2024 12:[address] of the left elbow demonstrates an acute comminuted displaced intra-articular fracture of the distal humerus that extends obliquely from the supracondylar region laterally to the articular surface of the trochlea. Lateral and anterior displacement of the dominant lateral humeral condylar fracture fragment. Exam is somewhat limited due to motion artifact and technique, but there are no obvious additional fractures. Mild subluxation of the ulnotrochlear joint. Moderate elbow joint effusion. Soft tissue swelling. Narrative 05/10/2024 12:42 PM GRIP EXAM: INTERPRETATION OF OUTSIDE CT EXTREMITY Interpretation of outside CT of the left elbow without IV contrast dated 05/08/2024 with 2-D reconstructions. COMPARISON: Radiograph 05/08/2034 Procedure Note Isis Sánchez M.D. - 05/10/2024 EXAM: INTERPRETATION OF OUTSIDE CT EXTREMITY Interpretation of outside CT of the left elbow without IV contrast date05/08/2024 with 2-D reconstructions. COMPARISON: Radiograph 05/08/2034 IMPRESSION: CT of the left elbow demonstrates an acute comminuted displacedintra-articular fracture of the distal humerus that extends obliquely fromthe supracondylar region laterally to the articular surface of thetrochlea. Lateral and anterior displacement of the dominant lateral humeral condylar fracture fragment.Exam is somewhat limited due to motion artifact and technique, but thereare no obvious additional fractures. Mild subluxation of the ulnotrochlearjoint. Moderate elbow joint effusion. Soft tissue swelling. us Tripp Gomez M.D. IMG CT PROCEDURES Final Result * Interpretation of Outside CT Spine (05/08/2024 5:06 PM GRIP) Anatomical Region Laterality Modality Spine, Neuroradiology RST LO S, Neuroradiology ARZ LOS, Neuroradiology FLA LOS, Other N/A Computed Tomography Impressions 05/08/2024 7:54 PM GRIP No acute fracture or traumatic malalignment of the cervical spine. Narrative 05/08/2024 7:54 PM GRIP EXAM: INTERPRETATION OF OUTSIDE CT SPINE \ Interpretation of outside CT cervical spine without IV contrast performed on 05/08/2024. COMPARISON: CT cervical spine 02/02/2023 FINDINGS: This study is degraded by patient motion artifact. No acute fracture or traumatic malalignment of the cervical spine. No prevertebral soft tissue swelling no intraspinal hematoma. Mild anterior subluxation of C3 on C4, C4 and C5 and C7 on T1. Degenerative changes of the cervical spine worst at C4-5 through C6-7. No significant canal stenosis. Moderate left C4-5 and moderate bilateral C5-6 neural foraminal narrowing. Apical pleural scarring. Multinodular thyroid, unchanged. Procedure Note Genesis Stringer M.D. - 05/08/2024 EXAM: INTERPRETATION OF OUTSIDE CT SPINE \ Interpretation of outside CT cervical spine without IV contrast performedon 05/08/2024. COMPARISON: CT cervical spine 02/02/2023 FINDINGS: This study is degraded by patient motion artifact. No acute fracture ortraumatic malalignment of the cervical spine. No prevertebral soft tissueswelling no intraspinal hematoma. Mild anterior subluxation of C3 on C4, C4 and C5 and C7 on T1.Degenerative changes of the cervical spine worst at C4-5 through C6-7. Nosignificant canal stenosis. Moderate left C4-5 and moderate bilateral C5-6neural foraminal narrowing. Apical pleural scarring. Multinodular thyroid, unchanged. IMPRESSION: No acute fracture or traumatic malalignment of the cervical spine. us Tripp Gomez M.D. [facility] CT PROCEDURES Final Result * Interpretation of Outside CT Head (05/08/2024 5:06 PM GRIP) Anatomical Region Laterality Modality Head, Neuroradiology RST LOS , Neuroradiology ARZ LOS, Neuroradiology FLA LOS, Other N/A Computed Tomography Impressions 05/08/2024 7:49 PM GRIP No acute intracranial abnormality. Narrative 05/08/2024 7:49 PM GRIP EXAM: INTERPRETATION OF OUTSIDE CT HEAD Interpretation of outside CT head without IV contrast performed on 05/08/2024. COMPARISON: [place] CT head 06/16/2023. HISTORY: Parkinson's, dementia, status post fall to ground. FINDINGS: Motion and beam hardening artifact. No intracranial hemorrhage, acute large vessel territorial infarction, hydrocephalus or midline shift is present. No intracranial mass effect or subdural fluid collection is seen. Moderate cerebral and cerebellar atrophy. Moderate microvascular ischemic disease. Atherosclerotic calcification of the internal carotid arteries. Mild mucosal thickening within the paranasal sinuses. The mastoid air cells are clear. Degenerative changes of the temporomandibular joints. Procedure Note Genesis Stringer M.D. - 05/08/2024 EXAM: INTERPRETATION OF OUTSIDE CT HEAD Interpretation of outside CT head without IV contrast performed on05/08/2024. COMPARISON: [place] CT head 06/16/2023. HISTORY: Parkinson's, dementia, status post fall to ground. FINDINGS: Motion and beam hardening artifact. No intracranial hemorrhage, acute large vessel territorial infarction,hydrocephalus or midline shift is present. No intracranial mass effect orsubdural fluid collection is seen. Moderate cerebral and cerebellaratrophy. Moderate microvascular ischemic disease. Atherosclerotic calcification of the internal carotid arteries. Mild mucosal thickening within the paranasal sinuses. The mastoid aircells are clear. Degenerative changes of the temporomandibular joints. IMPRESSION: No acute intracranial abnormality. Tripp Gomez M.D. IMG CT PROCEDURES Final Result * CT ELBOW LT WO CON-Outside CT MSK (05/08/2024 9:45 AM GRIP) 05/08/2024 9:45 AM GRIP Narrative [facility] - 05/08/2024 1:27 PM GRIP This order has been created and auto-finalized to support the import of outside images. If available, original interpretation can be found on the Media Tab in Chart Review, in Document Viewer, as an image in QREADS or as an Addendum. If a re-interpretation or overread is required please follow defined workflow. us Provider Not In System IMG CT PROCEDURES Final R esult [facility] NA * CT cervical spine wo con-Outside CT Neuro (05/08/2024 8:15 AM GRIP) Only the most recent of2 resultswithin the time period is included. Narrative [facility] - 05/08/2024 1:28 PM GRIP This order has been created and auto-finalized to support the import of outside images. If available, original interpretation can be found on the Media Tab in Chart Review, in Document Viewer, as an image in QREADS or as an Addendum. If a re-interpretation or overread is required please follow defined workflow. us Provider Not In System IMG CT PROCEDURES Final R esult Performing Organization Address [facility] Co de Phone Number II NA * XR ELBOW LT 2V-Outside Skeletal Xray (05/08/2024 7:35 AM GRIP) Narrative [facility] - 05/08/2024 1:24 PM GRIP This order has been created and auto-finalized to support the import of outside images. If available, original interpretation can be found on the Media Tab in Chart Review, in Document Viewer, as an image in QREADS or as an Addendum. If a re-interpretation or overread is required please follow defined workflow. us Provider Not In System IMG DIAGNOSTIC IMAGING PA OCEDURES Final Result Performing Organization Address [facility] de Phone Number II NA from Last 3 Months Insurance [address] [address] [employer] [facility] [id number] Advance Directives For more information, please contact: [phone] Documents on File Type Date Recorded Patient Instrumentation And Control Technician Expl anation Advance Directives 10/25/2022 2:10 PM Jose Manuel Hilario (Sulaiman james) Rahel Eduardo HCPOA/ADVOCATE/AGENT/ HEALTH OCCUPATIONS INSTRUCTOR/SURROG ATE Advance Directives 06/14/2021 7:48 AM HCPOA /ADVOCATE/AGENT/ HEALTH OCCUPATIONS INSTRUCTOR/SURROG ATE * DNR/DNI (Latest Code Status on File) Date Activated Date Inactivated Comments 06/16/2023 3:58 PM 06/18/2023 3:45 PM Healthcare Agents on File Name Relationship Healthcare Agent Relationship Communication Jose Manuel Hilario (Jeison) Mitchell Spouse Health Care Agent [email or web address] Relative Health Care Agent Rafaela Eduardo Relative Health Care Agent [email or web address] Care Teams Anchor Tacker Relationship Specialty Start Date End Date Daja Keys MPAS, P.A.-C. [address] [place] [phone] PCP - General Family Medicine 07/04/23
--- OUTSIDE RECORDS SUMMARY | 2024-06-01 13:00 | XMS_ITS | Encounter Summary ---
Author Organization [facility] Address [address] [place] [address] Care Team Providers Care Environmental Education Specialist Name Role Phone Daja Keys, P.A.-C. Primary Care Prov ider Encounter Details Date Type Department Care Team (Latest Contact Info) Description 05/08/2024 Intake [facility] Social History Tobacco Use Types Packs/Day Years Used Date Smoking Tobacco: Never Smokeless Tobacco: Never Alcohol Use Standard Drinks/Week Comments Not Currently 0 (1 standard drink = 0.6 oz pur e alcohol) occasional glass of wine [facility] Utilities Answer Date Recorded In the past 12 months has th e [employer], gas, oil, or water [employer] threatened to shut off services in your [...] week 08/08/2022 How often do you attend chur ch or baptist services? 1 to 4 times per year [...] Answer Date Recorded PHQ-2 Score 0 10/18/2022 [facility] of Occupat ional Health - Occupational Stress Questionnaire Answer Date Recorded [...] money to buy more. Never true 08/20/19 Within the past 12 months, t he [...] your living situation today? I have a [facility] place to live 08/20/2023 Education Answer Date Recorded What is the highest level of school you have completed or the highest degree you have received? Bachelor's degree (e.g., BA, AB, BS) 03/05/2019 Comments No Sex and Gender Information Value Date Recorded Sex Assigned at Female 12/15/2020 11:07 AM CDT Legal Sex Female 8:25 AM FRENCH TRANSLATOR Gender Identity Female 03/05/2019 8:17 AM FRENCH TRANSLATOR Sexual Orientation Straight 03/05/2019 8: 17 AM FRENCH TRANSLATOR documented as of this encounter Plan of Treatment Upcoming Encounters Date Type Department Care Team (Late st Contact Info) Description 06/08/2024 10:00 AM FRENCH TRANSLATOR Appointment Department of Orthopedic Surgery in [place], [place] [address] [place] [address] Chanell Garcia P.A.-C., M.S. [address] [place] [address] Discharge Disposition: Home or Self Care 08/17/2024 12:00 PM CDT Telemedicine Department of Neurology in [place], [place] [address] [place] [phone] Dot Sultana M.D., M.B.A. [address] [place] [address] Discharge Disposition: Home or Self Care documented as of this encounter Visit Diagnoses Not on filedocumented in this encounter Additional Health Concerns Assessment Noted Time PHQ-9 Depression Total Score: 9 10/19/19 23 8:25 AM CDT documented as of this encounter Care Teams Environmental Education Specialist Relationship Specialty Start Date End Date Daja Keys MPAS, P.A.-C. [address] [place] [phone] PCP - General Family Medicine 07/04/23 documented as of this encounter
--- OUTSIDE RECORDS SUMMARY | 2024-06-01 13:00 | XMS_ITS | Encounter Summary ---
Author Organization [facility] Address [address] [place] [address] Care Team Providers Care Machine Filler Shredder Name Role Phone Daja Keys, P.A.-C. Primary Care Prov ider Encounter Details Date Type Department Care Team (Late st Contact Info) Description 05/08/2024 5:15 PM ANALYSIS LEAD Ancillary Procedure Department of Radiology in [place], [place] [address] [place] [address] Tripp Gomez M.D. [address] [place] [phone] Social History Tobacco Use Types Packs/Day Years Used Date Smoking Tobacco: Never Smokeless Tobacco: Never Alcohol Use Standard Drinks/Week Comments Not Currently 0 (1 standard drink = 0.6 oz pur e alcohol) occasional glass of wine [facility] Utilities Answer Date Recorded In the past 12 months has th e electric, gas, oil, or water company threatened to shut off services in your [...] often do you attend chur ch or anabaptist services? 1 to 4 times per year 08/08/2022 Do you belong to any clubs o r organizations such as scientologist groups, unions, fraternal or athletic groups, or [...] Answer Date Recorded PHQ-2 Score 0 10/18/2022 [facility] of Occupat ional Health - Occupational Stress [...] your living situation today? I have a [facility] place to live 08/20/2023 Education Answer Date Recorded What is the highest level of school you have completed or the highest degree you have received? Bachelor's degree (e.g., BA, AB, BS) 03/05/2019 Comments No Sex and Gender Information Value Date Recorded Sex Assigned at Female 12/15/2020 11:07 AM CDT Legal Sex Female 8:25 AM ANALYSIS LEAD Gender Identity Female 03/05/2019 8:17 AM ANALYSIS LEAD Sexual Orientation Straight 03/05/2019 8: 17 AM ANALYSIS LEAD documented as of this encounter Plan of Treatment Upcoming Encounters Date Type Department Care Team (Late st Contact Info) Description 06/08/2024 10:00 AM ANALYSIS LEAD Appointment Department of Orthopedic Surgery in [place], [place] [address] [place] [address] Chanell Garcia P.A.-C., M.S. [address] [place] [address] Discharge Disposition: Home or Self Care 08/17/2024 12:00 PM CDT Telemedicine Department of Neurology in [place], [place] [address] [place] [phone] Dot Sultana M.D., M.B.A. [address] [place] [address] Discharge Disposition: Home or Self Care documented as of this encounter Procedures Procedure Name Priority Date/Time Associated Diagnosis Comments INTERPRETATION OF OUTSIDE CT EXTREMITY RAD - Routine (most inpatients and all outpatients) 05/08/2024 5:06 PM ANALYSIS LEAD documented in this encounter Results * Interpretation of Outside CT Extremity (05/08/2024 5:06 PM ANALYSIS LEAD) Anatomical Region Laterality Modality Musculoskeletal RST LOS, Mus culoskeletal ARZ LOS, Muskuloskeletal FLA LOS, Musculoskeletal, Other N/A Comput ed Tomography Impressions 05/10/2024 12:[address] of the left elbow demonstrates an [...] Soft tissue swelling. Narrative 05/10/2024 12:42 PM ANALYSIS LEAD EXAM: INTERPRETATION OF OUTSIDE CT EXTREMITY Interpretation [...] Gomez M.D. IMG CT PROCEDURES Final Result documented in this encounter Visit Diagnoses Not on filedocumented in this encounter Additional Health Concerns Assessment Noted Time PHQ-9 Depression Total Score: 9 10/19/19 23 8:25 AM CDT documented as of this encounter Care Teams Machine Filler Shredder Relationship Specialty Start Date End Date Daja Keys MPAS, P.A.-C. [address] [place] [phone] PCP - General Family Medicine 07/04/23 documented as of this encounter
--- OUTSIDE RECORDS SUMMARY | 2024-06-01 13:00 | XMS_ITS | Encounter Summary ---
Author Organization [facility] Address [address] [place] [address] Care Team Providers Care Liner Reroll Tender Name Role Phone Ludmila Daja AGUIRRE, P.A.-C. Primary Care Prov ider Reason for Visit * Reason Comments Arm Pain + Humerus Fx LEFT Encounter Details Date Type Department Care Team (Late st Contact Info) Description 05/08/2024 4:49 PM ANALYTICAL TECH - 05/08/2024 10:25 PM ANALYTICAL TECH Emergency [facility] Emergency Department [address] [place] [address] Tirpp Gomez M.D. [address] [place] [address] Pain Arm Left (Primary Dx) Discharge Disposition: Home or Self Care Social History Tobacco Use Types Packs/Day Years Used Date Smoking Tobacco: Never Smokeless Tobacco: Never Alcohol Use Standard Drinks/Week Comments Not Currently 0 (1 standard drink = 0.6 oz pur e alcohol) occasional glass of wine [facility] Utilities Answer Date Recorded In the past 12 months has e [employer], gas, oil, or water company threatened to [...] 08/08/2022 How often do you attend chur or presybeterian services? 1 to 4 times per year 08/08/2022 Do you belong to any clubs o r organizations such as mandaeism groups, unions, fraternal or athletic groups, or [...] Answer Date Recorded PHQ-2 Score 0 10/18/2022 [facility] - Occupational [...] your living situation today? I have a [facility] place to live 08/20/2023 Education Answer Date Recorded What is the highest level of school you have completed or the highest degree you have received? Bachelor's degree (e.g., BA, AB, BS) 03/05/2019 Comments No Sex and Gender Information Value Date Recorded Sex Assigned at Female 12/15/2020 11:07 AM CDT Legal Sex Female 8:25 AM ANALYTICAL TECH Gender Identity Female 03/05/2019 8:17 AM ANALYTICAL TECH Sexual Orientation Straight 03/05/2019 8: 17 AM ANALYTICAL TECH documented as of this encounter Last Filed Vital Signs Vital Sign Reading Time Taken Comments Blood Pressure 151/86 05/08/2024 8:00 PM ANALYTICAL TECH Pulse 93 05/08/2024 7:00 PM ANALYTICAL TECH Temperature 36.7 C (98.1 F) 05/08/2024 4:35 PM ANALYTICAL TECH Respiratory Rate 14 05/08/2024 4:35 PM ANALYTICAL TECH Oxygen Saturation 95% 05/08/2024 7:00 PM ANALYTICAL TECH Inhaled Oxygen Concentration - - Weight - - Height - - Body Mass Index - - documented in this encounter Discharge Instructions * Discharge Instructions* Fara Rojas M.D. - 05/08/2024 7:14 PM ANALYTICAL TECH You were seen in the emergency department for a fracture in your left elbow. You were seen by an orthopedic surgeon who did not recommend surgery. They will follow up with you in the outpatient setting. Please take Tylenol as needed for mild/moderate pain. For severe pain, we have prescribed you oxycodone 5 mg to be taken every 6 hours as needed. YTICAL TECH YTICAL TECH * Attachments The following attachments cannot be sent through Care Everywhere. * Distal Humerus Elbow Fracture (Turkish) documented in this encounter Medications at Time of Discharge acetaminophen (TYLENOL) 325 mg tablet Take 325 mg by mouth every 6 (six) hours as needed for pain. calcium citrate-vitamin D3 (CITRACAL+D) 315-200 mg-unit per tablet 1 tablet daily with breakfast. Does not take on Saturdays carbidopa-levodop a (SINEMET CR) 50-200 mg per ER tablet Take 1 tablet by mouth at bedtime. 90 tablet 3 04/01/2023 carbidopa-levodop a (SINEMET) 25-100 mg per tabletIndications :Parkinson's Disease With Dyskinesia, With Fluctuations (HCC) Take 2.5 tablets by mouth 3 (three) times a day. Increase 06/30/23 (In addition to HS dose) 225 tablet 2 07/04/2023 donepeziL (ARICEPT) 10 mg tabletIndications :Parkinsonism Unspecified (HCC) Take 1 tablet (10 mg total) by mouth at bedtime. 90 tablet 3 06/20/2023 5 melatonin 1 mg tabletIndications :Insomnia Due To Medical Condition Take 1 tablet (1 mg total) by mouth at bedtime. 30 tablet 11 06/20/2023 5 oxyCODONE (Roxicodone) 5 mg immediate release tabletIndications :Acute Pain Take 1 tablet (5 mg total) by mouth every 6 (six) hours as needed for severe pain or score 7-10 of 10 Indication: Acute Pain. 12 tablet 05/08/2024 10:10 PM ANALYTICAL TECH 05/08/2024 polyethylene glycol (MIRALAX) 17 gram powder packet Take 1 packet (17 g total) by mouth daily. Dissolve each 17 g dose in 240 mLs (8 ounces) of beverage. Hold for loose stools 30 packet 11 06/25/2023 5 sennosides-docusa te sodium (Senna with Docusate Sodium) 8.6-50 mg per tablet Take 1 tablet by mouth at bedtime as needed for constipation for up to 30 doses. 30 tablet 06/25/2023 documented as of this encounter Consult Notes * Christo Salmeron M.D. - 05/08/2024 6:38 PM CSTAssociated Order(s): Orthopedic Surgery consult (hospital) SUBJECTIVE TODAY'S DATE: 05/08/2024 REFERRING PROVIDER: Orthopedic Surgery consult (hospital) Referring Provider: Fara Rojas M.D. No ref. provider found PRIMARY TEAM: DANN C16 -- Sandra Medrano ([phone]) 84 y.o.female CONTACT: [phone] (home) Telephone Information: CHIEF COMPLAINT/REASON FOR CONSULT Left elbow fracture HISTORY OF PRESENT ILLNESS Sandra Medrano is a 84 y.o. female with a past medical history relevant for Parkinson's, CAD, dementia, hypertension who presented to an outside ED from her memory care facility after being found on the ground for an unknown time. She was found to have a left elbow fracture and was transferred to the [facility] ED for further cares. The patient is unable to recall events leading to her injury. History was obtained in part by her niece (power of school traffic guard) and her . In my discussion with family, patient lives in a memory care facility ([facility]). Her family reports they were told that she had fallen out of bed resulting in her injury. She does have a history of a proximal humerus fracture that has been managed nonoperatively. Otherwise, no knownprior injuries or surgical history involving her left elbow. ANTICOAGULATION: Aspirin 81 mg daily TOBACCO USE: No DIABETES: No STEROIDS: No PAST MEDICAL & SURGICAL HISTORY PERTINENT PAST MEDICAL HISTORY: Parkinson's, dementia, CAD, hypertension PERTINENT PAST SURGICAL HISTORY: No MEDICATIONS Please see MAR for a complete medication list. Pertinent meds: Aspirin 81 mg, Carbidopa-levodopa, Donepezil ALLERGIES Pertinent Allergies: No SOCIAL The patient lives in [facility]. OBJECTIVE BP (!) 170/97 Pulse 104 Temp 36.7 ??C (Oral) Resp 14 LMP (LMP Unknown) SpO2 95% PHYSICAL EXAMINATION General: A&Ox3, well-appearing, NAD Skin: Intact, no erythema, swelling, abrasions, open wounds MSK: - LUE: There is mild bruising about the left elbow. She has tenderness to palpation diffusely aboutthe left elbow. No skin openings or tenting to suggest open fracture or impending open fracture. Able to demonstrate wrist extension and flexion, make a thumbs up, make an okay sign, cross her fingers. Sensation intact to light touch in the axillary, median, radial, and ulnar nerve distributions. 2+ radial pulse. IMAGING: Interpretation of Outside DX Extremity Result Date: 05/08/2024 Impression: Acute, displaced and comminuted condylar/supracondylar fracture of the left humerus. The largest fracture fragment displaced laterally approximately 9 mm. Small to moderate elbow joint effusion. Visualized radial head appears unremarkable. Demineralization. Overlying soft tissue swelling. IMAGING REVIEW: I personally reviewed the imaging and read the radiology reports of Sandra Medrano today which demonstrate a displaced, comminuted supracondylar fracture of the left humerus. ASSESSMENT / PLAN #1 Closed, left supracondylar humerus fracture #2 Prior left proximal humerus fracture 6 months ago (treated nonoperatively at OSH) Unfortunately Sandra Medrano sustained the above injury. This is a closed injury, and the patient is neurovascularly intact in the injured extremity. There is no indication for acute surgical intervention. A well-padded posterior slab splint was applied in approximately 90?? of flexion. Patient is to remain nonweightbearing of the left upper extremity in her sling. We discussed that outpatientfollow up will be arranged and further discussion of conservative versus surgical management we will be made at that time. RECOMMENDATIONS: NWB LUE in Splint and Sling We will arrange outpatient follow up Please contact [facility] ([place]) at [phone] with any questions or concerns regarding this patient. This is a resident's note. This patient's history and clinical picture will be staffed with the senior resident, fellow, or staff analyst instrumentation technician within 24 hours. For further and final recommendations please look to their consult/supervisory note. Kendall Salmeron MD Orthopedic Surgery Resident YTICAL TECH YTICAL TECH YTICAL TECH documented in this encounter ED Notes * Tripp Gomez M.D. - 05/08/2024 10:25 PM CST I have personally seen and examined this patient. I have fully participated in the care of this patient. I have reviewed all clinical information including history, physical exam, orders, and plan. Iagree with the note of the resident. Assessment and Plan Underwent CT head, CT spine, CT extremity, and Xray extremity at outside facility. Found to have a left elbow fracture and was transferred here for further cares. We will obtain [facility] interpretation of outside images and an orthopedic consultation.. Final Diagnoses: as of 05/10/24 1117 Pain Arm Left Tripp Gomez M.D. 05/10/24 1117 YTICAL TECH * Fara Rojas M.D. - 05/08/2024 5:04 PM CST SUBJECTIVE CHIEF COMPLAINT/REASON FOR VISIT Arm Pain (+ Humerus Fx LEFT) HISTORY OF PRESENT ILLNESS 84-year-old male with a past medical history of Parkinson's, dementia, pubic ramus fracture, hypertension who presented to an outside ED from a memory care facility ([facility]) after being found on the ground, for an unknown time. She was found to have a left elbow fracture and was transferred here for further cares. Patient underwent CT head, CT spine, CT extremity, and Xray extremity at outside facility. On evaluation in our ED, patient is unable to recall the events surrounding her presentation to theemergency room. She endorses pain in her left elbow. Denies headache or pain anywhere else. History provided by: Patient History limited by: Dementia REVIEW OF SYSTEMS Constitutional: Negative for chills and fever. Respiratory: Negative for shortness of breath. Cardiovascular: Negative for chest pain. Gastrointestinal: Negative for abdominal pain. Genitourinary: Negative for dysuria. Musculoskeletal: Positive for extremity pain. Psychiatric/Behavioral: Positive for confusion. OBJECTIVE Initial Vitals [05/08/24 1635] Temperature 36.7 ??C Pulse Rate 108 Heart Rate Resp Rate 14 Blood Pressure (!) 178/94 SpO2 97 % Pain Score 5 - Moderate pain PHYSICAL EXAMINATION Constitutional: Vitals reviewed. Cardiovascular: Normal rate and regular rhythm. Pulmonary/Chest: Effort normal. Abdominal: Soft. Bowel sounds are normal. There is no abdominal tenderness. Neurological: Alert. She is not disoriented. Oriented to self only ASSESSMENT/PLAN Assessment and Plan 84-year-old male with a past medical history of Parkinson's, dementia, pubic ramus fracture, hypertension who presented to an outside ED from a memory care facility ([facility]) after being found on the ground, for an unknown time. Underwent CT head, CT spine, CT extremity, and Xray extremity at outside facility. Found to have a left elbow fracture and was transferred here for further cares. We will obtain [facility] interpretation of outside images and an orthopedic consultation. . DIFFERENTIAL DIAGNOSES Left elbow fracture. ED Course as of 05/08/245 SatMay 08, 2024 0834 [facility] interpretation of Xray extremity: Acute, displaced and comminuted condylar/supracondylar fracture of the left humerus. 1759 Leukocytes(!): 19.5 1834 Per orthopedic surgery, no further intervention needed at this time. Patient to follow-up in the outpatient setting. Final Diagnoses: as of 05/08/242134 Pain Arm Left Fara Rojas M.D. Resident 05/08/241915 Fara Rojas M.D. Resident 05/08/242156 YTICAL TECH YTICAL TECH * Paola Wang R.N. - 05/08/2024 4:39 PM CST Patient sent from [place] after a fall at 0800 today, pt found to have a left humerus fracture. Patient lives at a senior care in [place] with a Hx of dementia. Paola Wang RLakishaN. 05/08/24 1640 YTICAL TECH documented in this encounter Plan of Treatment Upcoming Encounters Date Type Department Care Team (Late st Contact Info) Description 06/08/2024 10:00 AM ANALYTICAL TECH Appointment Department of Orthopedic Surgery in [place], [place] [address] [place] [address] Chanell Garcia, AdrianoALakisha-C., M.S. [address] [place] [address] Discharge Disposition: Home or Self Care 08/17/2024 12:00 PM CDT Telemedicine Department of Neurology in [place], [place] [address] [place] [id number] Dot Sultana M.D., M.B.A. [address] [place] [phone] Discharge Disposition: Home or Self Care documented as of this encounter Procedures Procedure Name Priority Date/Time Associated Diagnosis Comments DX HUMERUS LEFT 2 VIEW AND ELBOW LEFT 2 VIEW RAD - Routine (most inpatients and all outpatients) 05/08/2024 7:09 PM ANALYTICAL TECH HC URINALYSIS AUTO WO MICRO Routine 05/08/2024 6:01 PM ANALYTICAL TECH DIPSTICK, U STAT 05/08/2024 5:57 PM ANALYTICAL TECH MICROSCOPIC AUTOMATED STAT 05/08/2024 5:57 PM ANALYTICAL TECH PH, U STAT 05/08/2024 5:57 PM ANALYTICAL TECH OSMOLALITY, U STAT 05/08/2024 5:57 PM ANALYTICAL TECH URINALYSIS WITH MICROSCOPIC STAT 05/08/2024 5:57 PM ANALYTICAL TECH CBC WITH DIFFERENTIAL, B STAT 05/08/2024 5:43 PM ANALYTICAL TECH MAGNESIUM, S STAT 05/08/2024 5:43 PM ANALYTICAL TECH BASIC METABOLIC PANEL, S/P STAT 05/08/2024 5:43 PM ANALYTICAL TECH INTERPRETATION OF OUTSIDE DX EXTREMITY RAD - Routine (most inpatients and all outpatients) 05/08/2024 5:06 PM ANALYTICAL TECH INTERPRETATION OF OUTSIDE CT EXTREMITY RAD - Routine (most inpatients and all outpatients) 05/08/2024 5:06 PM ANALYTICAL TECH INTERPRETATION OF OUTSIDE CT SPINE RAD - Routine (most inpatients and all outpatients) 05/08/2024 5:06 PM ANALYTICAL TECH INTERPRETATION OF OUTSIDE CT HEAD RAD - Routine (most inpatients and all outpatients) 05/08/2024 5:06 PM ANALYTICAL TECH documented in this encounter Results * DX Humerus Left 2 View and Elbow Left 2 View (05/08/2024 7:09 PM ANALYTICAL TECH) Anatomical Region Laterality Modality Upper Extremity, Humerus, Mu sculoskeletal RST LOS, Musculoskeletal ARZ LOS, Muskuloskeletal FLA LOS Left Digit al Radiography Impressions 05/08/2024 7:33 PM ANALYTICAL TECH Please refer to elbow radiographs and CT for supracondylar fracture of the left humerus. Age indeterminate displaced fracture of the humeral head/neck. The humeral head displaced posterolaterally. Superior subluxation and anterior displacement of the proximal shaft of the left humerus. Periosteal bone formation about the fracture site, concerning for subacute/chronic fracture. AC joint is maintained. Narrative 05/08/2024 7:33 PM ANALYTICAL TECH EXAM: DX HUMERUS LEFT 2 VIEW AND ELBOW LEFT 2 VIEW Procedure Note Dayna Halmlan M.D. - 05/08/2024 EXAM: DX HUMERUS LEFT [...] for subacute/chronic fracture. AC joint is maintained. us Fara Rojas M.D. [facility] DIAGNOSTIC IMAGING PROC EDURES Final Result * (ABNORMAL) Dipstick, POCT, Urine (05/08/2024 6:01 PM ANALYTICAL TECH) Glucose, POCT, U Negative Negative mg/dL 05/08/2024 6:03 PM ANALYTICAL TECH PCED Ketone, POCT, U 15(A) Negative mg/dL 05/08/2024 6:03 PM ANALYTICAL TECH PCED Specific [place], POCT, U 1.020 1.005 - 1.030 05/08/2024 6:03 PM ANALYTICAL TECH PCED Blood, POCT, U Negative Negative 05/08/2024 6:03 PM ANALYTICAL TECH PCED pH, POCT, Urine 7.0 5.0 - 8.0 05/08/2024 6:03 PM ANALYTICAL TECH PCED Protein, POCT, U 30(A) Negative mg/dL 05/08/2024 6:03 PM ANALYTICAL TECH PCED Nitrites, POCT, U Negative Negative 05/08/2024 6:03 PM ANALYTICAL TECH PCED Leukocytes, POCT, U Negative Negative 05/08/2024 6:03 PM ANALYTICAL TECH PCED Urine 05/08/2024 6:01 PM ANALYTICAL TECH 05/08/2024 6:03 PM ANALYTICAL TECH us Unknown Provider LAB POCT ORDERABLES - DEVICE Fi nal Result Performing Organization Address [facility]/State/ZIP Co de Phone Number POC RST [facility] OUT[facility]IENT [facility] [address] [place] [address], [facility] PCED [facility] POC [address] [place] [address] * (ABNORMAL) Dipstick, Urine (05/08/2024 5:57 PM ANALYTICAL TECH) Hemoglobin, QL, U Trace(A) Negative 05/08/2024 7:00 PM ANALYTICAL TECH DTL Leukocyte Esterase, U Negative Negative 05/08/2024 7:00 PM ANALYTICAL TECH DTL Nitrite, U Negative Negative 05/08/2024 7:00 PM ANALYTICAL TECH DTL Ketone, U 10(A) Negative mg/dL 05/08/2024 7:00 PM ANALYTICAL TECH DTL Glucose, U Negative Negative mg/dL 05/08/2024 7:00 PM ANALYTICAL TECH DTL Urine 05/08/2024 5:57 PM ANALYTICAL TECH 05/08/2024 6:50 PM ANALYTICAL TECH us Fara Rojas M.D. LAB URINE ORDERABLES Final Result [facility] [address] [place] [address], [facility] [address] [place] [address] * pH, Urine (05/08/2024 5:57 PM ANALYTICAL TECH) pH, U 5.9 4.5 - 8.0 05/08/2024 7:2 8 PM ANALYTICAL TECH DTL Urine 05/08/2024 5:57 PM ANALYTICAL TECH 05/08/2024 6:50 PM ANALYTICAL TECH us Fara Rojas M.D. LAB URINE ORDERABLES Final Result Performing Organization Address City/[facility]/ZIP Co de Phone Number [facility] [address] [place] [address] * Osmolality, Urine (05/08/2024 5:57 PM ANALYTICAL TECH) Osmolality, U 567 150 - 1150 mOsm/kg 05/08/2024 7:28 PM ANALYTICAL TECH DTL Urine 05/08/2024 5:57 PM ANALYTICAL TECH 05/08/2024 6:50 PM ANALYTICAL TECH us Fara Rojas M.D. LAB URINE ORDERABLES Final Result Performing Organization Address [facility] Co de Phone Number [facility] [address] [place] [address], [address] [address] * (ABNORMAL) Microscopic Automated (05/08/2024 5:57 PM ANALYTICAL TECH) Microscopy Abnormal 05/08/2024 7:00 PM ANALYTICAL TECH DTL RBC 3-10(A) <3 /hpf 05/08/2024 7:00 PM ANALYTICAL TECH DTL Dysmorphic RBC <25 <25 % 05/08/2024 7:00 PM ANALYTICAL TECH DTL WBC 1-3 /hpf 05/08/2024 7:00 PM ANALYTICAL TECH DTL Comment: ----REFERENCE VALUE---- <4 (Males) <11 (Females) Casts, Hyaline 1-3 /lpf 05/08/2024 7:00 PM ANALYTICAL TECH DTL Urine 05/08/2024 5:57 PM ANALYTICAL TECH 05/08/2024 6:50 PM ANALYTICAL TECH us Fara Rojas M.D. LAB URINE ORDERABLES Final Result Performing Organization Address City/State/[facility] de Phone Number [facility] [address] [place] [address], [facility] [address] [place] [address] * (ABNORMAL) Urinalysis, with Microscopic: Urine, Catheter (05/08/2024 5:57 PM ANALYTICAL TECH) Source Urine, Urine, Catheter 05/08/2024 6:49 PM ANALYTICAL TECH DTL Color, U Yellow 05/08/2024 6:50 PM ANALYTICAL TECH DTL Clarity, U Clear 05/08/2024 6:50 PM ANALYTICAL TECH DTL Protein, U 42(H) <26 mg/dL 05/08/2024 7:51 PM ANALYTICAL TECH DTL Protein/Osmola lity 0.74(H) <0.42 ratio 05/08/2024 7:51 PM ANALYTICAL TECH DTL Predicted 24 HR Protein, U 509(H) <229 mg/24 h 05/08/2024 7:51 PM ANALYTICAL TECH DTL Predicted Range 126-2062 mg/24 h 05/08/2024 7:51 PM ANALYTICAL TECH DTL Urine (Urine, Catheter) 05/08/2024 5:57 PM ANALYTICAL TECH 05/08/2024 6:49 PM ANALYTICAL TECH us Fara Rojas M.D. LAB URINE ORDERABLES Final Result Performing Organization Address [facility] de Phone Number [facility] [address] [place], [place] [address] [address] [place] [address] * Magnesium (05/08/2024 5:43 PM ANALYTICAL TECH) Magnesium, P 2.2 1.7 - 2.3 mg/dL 05/08/2024 6:14 PM ANALYTICAL TECH ST[facility] Blood (Blood, Venous) 05/08/2024 5:43 PM ANALYTICAL TECH 05/08/2024 5:49 PM ANALYTICAL TECH us Fara Rojas M.D. LAB BLOOD ADD-ON Final Resu lt [facility] [address] [place] [address], [facility] [address] [place] [address] * (ABNORMAL) Basic Metabolic Panel (05/08/2024 5:43 PM ANALYTICAL TECH) Potassium, P 3.7 3.6 - 5.2 mmol/L 05/08/2024 6:14 PM ANALYTICAL TECH STMA Sodium, P 135 135 - 145 mmol/L 05/08/2024 6:14 PM ANALYTICAL TECH [facility] Chloride, P 98 98 - 107 mmol/L 05/08/2024 6:14 PM ANALYTICAL TECH [facility] Bicarbonate, P 24 22 - 29 mmol/L 05/08/2024 6:14 PM ANALYTICAL TECH [facility] Anion Gap, P 13 7 - 15 05/08/2024 6:14 PM ANALYTICAL TECH [facility] BUN (Blood Urea Nitrogen), P 12 6 - 21 mg/dL 05/08/2024 6:14 PM ANALYTICAL TECH [facility] Creatinine 0.55(L) 0.59 - 1.04 mg/dL 05/08/2024 6:14 PM ANALYTICAL TECH [facility] Estimated GFR (eGFR) >90 >=60 mL/min/BSA 05/08/2024 6:14 PM ANALYTICAL TECH [facility] Comment: Estimated GFR calculated using the 2020 CKD_EPI creatinine equation. Calcium, Total, P 8.9 8.8 - 10.2 mg/dL 05/08/2024 6:14 PM ANALYTICAL TECH STMA Glucose, P 139 70 - 140 mg/dL 05/08/2024 6:14 PM ANALYTICAL TECH [facility] Blood (Blood, Venous) 05/08/2024 5:43 PM ANALYTICAL TECH 05/08/2024 5:49 PM ANALYTICAL TECH us Fara Rojas M.D. LAB BLOOD ADD-ON Final Resu lt [facility] [address] [place] [address], [facility] STMA [facility] [address] [place] [address] * (ABNORMAL) CBC with Differential, Blood (05/08/2024 5:43 PM ANALYTICAL TECH) Hemoglobin 13.8 11.6 - 15.0 g/dL 05/08/2024 5:53 PM ANALYTICAL TECH [facility] Hematocrit 41.4 35.5 - 44.9 % 05/08/2024 5:53 PM ANALYTICAL TECH [facility] Erythrocytes 4.41 3.92 - 5.13 x10(12)/L 05/08/2024 5:53 PM ANALYTICAL TECH [facility] MCV 93.9 78.2 - 97.9 fL 05/08/2024 5:53 PM ANALYTICAL TECH [facility] RBC Distrib Width 12.0(L) 12.2 - 16.1 % 05/08/2024 5:53 PM ANALYTICAL TECH [facility] Platelet Count 262 157 - 371 x10(9)/L 05/08/2024 5:53 PM ANALYTICAL TECH [facility] Leukocytes 19.5(H) 3.4 - 9.6 x10(9)/L 05/08/2024 5:53 PM ANALYTICAL TECH [facility] Neutrophils 16.20(H) 1.56 - 6.45 x10(9)/L 05/08/2024 5:53 PM ANALYTICAL TECH [facility] Lymphocytes 1.65 0.95 - 3.07 x10(9)/L 05/08/2024 5:53 PM ANALYTICAL TECH [facility] Monocytes 1.47(H) 0.26 - 0.81 x10(9)/L 05/08/2024 5:53 PM ANALYTICAL TECH [facility] Eosinophils 0.10 0.03 - 0.48 x10(9)/L 05/08/2024 5:53 PM ANALYTICAL TECH [facility] Basophils 0.04 0.01 - 0.08 x10(9)/L 05/08/2024 5:53 PM ANALYTICAL TECH [facility] Blood (Blood, Venous) 05/08/2024 5:43 PM ANALYTICAL TECH 05/08/2024 5:49 PM ANALYTICAL TECH us Fara Rojas M.D. LAB BLOOD ADD-ON Final Resu lt [facility] [address] [place] [address], [place] ST[facility] [address] [place] [address] [facility] [address] [place] [address] * Interpretation of Outside DX Extremity (05/08/2024 5:06 PM ANALYTICAL TECH) Anatomical Region Laterality Modality Musculoskeletal RST LOS, Mus culoskeletal ARZ LOS, Muskuloskeletal FLA LOS, Musculoskeletal, Other N/A Digita l Radiography Impressions 05/08/2024 5:35 PM ANALYTICAL TECH Acute, displaced and comminuted condylar/supracondylar fracture of the left humerus. The largest fracture fragment displaced laterally approximately 9 mm. Small to moderate elbow joint effusion. Visualized radial head appears unremarkable. Demineralization. Overlying soft tissue swelling. Narrative 05/08/2024 5:35 PM ANALYTICAL TECH EXAM: INTERPRETATION OF OUTSIDE DX EXTREMITY Left [...] soft tissue swelling. us Tripp Gomez M.D. IMM[facility]za DIAGNOSTIC IMAGING PROCEDU RES Final Result * Interpretation of Outside CT Extremity (05/08/2024 5:06 PM ANALYTICAL TECH) Anatomical Region Laterality Modality Musculoskeletal RST LOS, Mus culoskeletal ARZ LOS, Muskuloskeletal FLA LOS, Musculoskeletal, Other N/A Comput ed Tomography Impressions 05/10/2024 12:[address] of the left elbow demonstrates an [...] Soft tissue swelling. Narrative 05/10/2024 12:42 PM ANALYTICAL TECH EXAM: INTERPRETATION OF OUTSIDE CT EXTREMITY Interpretation [...] of Outside CT Spine (05/08/2024 5:06 PM ANALYTICAL TECH) Anatomical Region Laterality Modality Spine, Neuroradiology RST LO S, Neuroradiology ARZ LOS, Neuroradiology FLA LOS, Other N/A Computed Tomography Impressions 05/08/2024 7:54 PM ANALYTICAL TECH No acute fracture or traumatic malalignment of the cervical spine. Narrative 05/08/2024 7:54 PM ANALYTICAL TECH EXAM: INTERPRETATION OF OUTSIDE CT SPINE \ [...] the cervical spine. us Tripp Gomez M.D. [facility] [place] [facility] CT PROCEDURES Final Result * Interpretation of Outside CT Head (05/08/2024 5:06 PM ANALYTICAL TECH) Anatomical Region Laterality Modality Head, Neuroradiology RST LOS , Neuroradiology ARZ LOS, Neuroradiology FLA LOS, Other N/A Computed Tomography Impressions 05/08/2024 7:49 PM ANALYTICAL TECH No acute intracranial abnormality. Narrative 05/08/2024 7:49 PM ANALYTICAL TECH EXAM: INTERPRETATION OF OUTSIDE CT HEAD Interpretation of outside CT head without IV contrast performed on 05/08/2024. COMPARISON: [facility] CT head 06/16/2023. HISTORY: Parkinson's, dementia, status [...] head without IV contrast performed on05/08/2024. COMPARISON: [facility] CT head 06/16/2023. HISTORY: Parkinson's, dementia, status [...] temporomandibular joints. IMPRESSION: No acute intracranial abnormality. us Tripp [facility] CT PROCEDURES Final Result documented in this encounter Visit Diagnoses Diagnosis Pain Arm Left- Primary documented in this encounter Administered Medications Inactive Administered Medications - up to 3 most recent administrations Medication Order MAR Action Action Date Dose Rate Site carbidopa-levodopa 12.5-50 mg per tablet 1 tablet (Sinemet) 1 tablet, oral, Once, On Sat05/08/24 at 2113, For 1 dose Given 05/08/2024 9:39 PM ANALYTICAL TECH 1 tablet carbidopa-levodopa 25-100 mg per tablet 2 tablet (Sinemet) 2 tablet, oral, Once, On Sat05/08/24 at 2113, For 1 dose Given 05/08/2024 9:39 PM ANALYTICAL TECH 2 tablets fentaNYL injection 50 mcg (Sublimaze) 50 mcg, intravenous, Once, On Sat05/08/24 at 1808, For 1 dose Given 05/08/2024 6:13 PM ANALYTICAL TECH 50 mcg Lactated Ringer's bolus 500 mL 500 mL, intravenous, at 500 mL/hr, Administer over 1 Hours, Once, On Sat05/08/24 at 1908, For 1 dose New Bag 05/08/2024 7:37 PM ANALYTICAL TECH 500 mL 500 mL/hr documented in this encounter Active and Recently Administered Medications Times are shown in ANALYTICAL TECH. Scheduled Medication Order 05/06/2024 05/07/2024 05/08/2024 carbidopa-levodopa 12.5-50 mg per tablet 1 tablet (Sinemet) (COMPLETED) 1 tablet, oral, Once, On Sat05/08/24 at 2113, For 1 dose 2138 (Given - Provid er: J Carlos Hart R.N.) carbidopa-levodopa 25-100 mg per tablet 2 tablet (Sinemet) (COMPLETED) 2 tablet, oral, Once, On Sat05/08/24 at 2114, For 1 dose 2138 (Given - Provid er: J Carlos Hart R.N.) fentaNYL injection 50 mcg (Sublimaze) (COMPLETED) 50 mcg, intravenous, Once, On Sat05/08/24 at 1808, For 1 dose 181 (Given - Provid er: Angela Crsos R.N.) Lactated Ringer's bolus 500 mL (COMPLETED) 500 mL, intravenous, at 500 mL/hr, Administer over 1 Hours, Once, On Sat05/08/24 at 1908, For 1 dose 1936 (New Bag - Prov ider: Nancy Ramos RAleksandar)2050 (Stopped - Provider: Suyapa Dye R.N.) documented in this encounter Additional Health Concerns Assessment Noted Time PHQ-9 Depression Total Score: 9 10/19/19 23 8:25 AM CDT documented as of this encounter Care Teams Liner Reroll Tender Relationship Specialty Start Date End Date Daja Keys MPAS, P.A.-C. [address] [phone] PCP - General Family Medicine 07/04/23 documented as of this encounter
--- OUTSIDE RECORDS SUMMARY | 2024-06-01 13:00 | XMS_ITS | Encounter Summary ---
Author Organization [facility] Address [address] [place] [address] Care Team Providers Care Mural Artist Name Role Phone Daja Keys, P.A.-C. Primary Care Prov ider Encounter Details Date Type Department Care Team (Late st Contact Info) Description 05/08/2024 5:10 PM PERSONNEL AND PAYROLL TECHNICIAN Ancillary Procedure Department of Radiology in [place], [place] [address] [place] [address] Tripp Gomez M.D. [address] [place] [phone] Social History Tobacco Use Types Packs/Day Years Used Date Smoking Tobacco: Never Smokeless Tobacco: Never Alcohol Use Standard Drinks/Week Comments Not Currently 0 (1 standard drink = 0.6 oz pur e alcohol) occasional glass of wine [facility] Utilities Answer Date Recorded In the [...] often do you attend chur ch or scientologist services? 1 to 4 times per year 08/08/2022 Do you belong to any clubs o r organizations such as adventism groups, unions, fraternal or athletic groups, or [...] Answer Date Recorded PHQ-2 Score 0 10/18/2022 [facility] of Occupat ional Health - Occupational Stress [...] your living situation today? I have a [facility] place to live 08/20/2023 Education Answer Date Recorded What is the highest level of school you have completed or the highest degree you have received? Bachelor's degree (e.g., BA, AB, BS) 03/05/2019 Comments No Sex and Gender Information Value Date Recorded Sex Assigned at Female 12/15/2020 11:07 AM CDT Legal Sex Female 8:25 AM PERSONNEL AND PAYROLL TECHNICIAN Gender Identity Female 03/05/2019 8:17 AM PERSONNEL AND PAYROLL TECHNICIAN Sexual Orientation Straight 03/05/2019 8: 17 AM PERSONNEL AND PAYROLL TECHNICIAN documented as of this encounter Plan of Treatment Upcoming Encounters Date Type Department Care Team (Late st Contact Info) Description 06/08/2024 10:00 AM PERSONNEL AND PAYROLL TECHNICIAN Appointment Department of Orthopedic Surgery in [place], [place] [address] [place] [address] Chanell Garcia P.A.-C., M.S. [address] [place] [address] Discharge Disposition: Home or Self Care 08/17/2024 12:00 PM CDT Telemedicine Department of Neurology in [place], [place] [address] [place] [address] Dot Sultana M.D., M.B.A. [address] [place] [address] Discharge Disposition: Home or Self Care documented as of this encounter Procedures Procedure Name Priority Date/Time Associated Diagnosis Comments INTERPRETATION OF OUTSIDE CT SPINE RAD - Routine (most inpatients and all outpatients) 05/08/2024 5:06 PM PERSONNEL AND PAYROLL TECHNICIAN documented in this encounter Results * Interpretation of Outside CT Spine (05/08/2024 5:06 PM PERSONNEL AND PAYROLL TECHNICIAN) Anatomical Region Laterality Modality Spine, Neuroradiology RST LO S, Neuroradiology ARZ LOS, Neuroradiology FLA LOS, Other N/A Computed Tomography Impressions 05/08/2024 7:54 PM PERSONNEL AND PAYROLL TECHNICIAN No acute fracture or traumatic malalignment of the cervical spine. Narrative 05/08/2024 7:54 PM PERSONNEL AND PAYROLL TECHNICIAN EXAM: INTERPRETATION OF OUTSIDE CT SPINE \ [...] or traumatic malalignment of the cervical spine. Tripp Gomez M.D. IMG CT PROCEDURES Final Result documented in this encounter Visit Diagnoses Not on filedocumented in this encounter Additional Health Concerns Assessment Noted Time PHQ-9 Depression Total Score: 9 10/19/19 23 8:25 AM CDT documented as of this encounter Care Teams Mural Artist Relationship Specialty Start Date End Date Daja Keys MPAS, P.A.-C. [address] [phone] PCP - General Family Medicine 07/04/23 documented as of this encounter
--- OUTSIDE RECORDS SUMMARY | 2024-06-01 13:00 | XMS_ITS | Encounter Summary ---
Author Organization [facility] Address [address] [place] [address] Care Team Providers Care Guyline Operator Name Role Phone Daja Keys, P.A.-C. Primary Care Prov ider Encounter Details Date Type Department Care Team (Late st Contact Info) Description 05/08/2024 5:05 PM HEDIS MANAGER Ancillary Procedure Department of Radiology in [place], [place] [address] [place] [address] Tripp Gomez M.D. [address] [place] [phone] Social History Tobacco Use Types Packs/Day Years Used Date Smoking Tobacco: Never Smokeless Tobacco: Never Alcohol Use Standard Drinks/Week Comments Not Currently 0 (1 standard drink = 0.6 oz pur e alcohol) occasional glass of wine [facility] Utilities Answer Date Recorded In the [...] often do you attend chur ch or latter-day services? 1 to 4 times per year 08/08/2022 Do you belong to any clubs o r organizations such as anglican groups, unions, fraternal or athletic groups, or [...] Date Recorded PHQ-2 Score 0 10/18/2022 [facility] [place] of Occupat ional Health - Occupational Stress [...] your living situation today? I have a [facility] place to live 08/20/2023 Education Answer Date Recorded What is the highest level of school you have completed or the highest degree you have received? Bachelor's degree (e.g., BA, AB, BS) 03/05/2019 Comments No Sex and Gender Information Value Date Recorded Sex Assigned at Female 12/15/2020 11:07 AM CDT Legal Sex Female 8:25 AM HEDIS MANAGER Gender Identity Female 03/05/2019 8:17 AM HEDIS MANAGER Sexual Orientation Straight 03/05/2019 8: 17 AM HEDIS MANAGER documented as of this encounter Plan of Treatment Upcoming Encounters Date Type Department Care Team (Late st Contact Info) Description 06/08/2024 10:00 AM HEDIS MANAGER Appointment Department of Orthopedic Surgery in [place], [place] [address] [place] [address] Chanell Garcia P.A.-C., M.S. [address] [place] [address] Discharge Disposition: Home or Self Care 08/17/2024 12:00 PM CDT Telemedicine Department of Neurology in [place], [place] [address] [place] [phone] Dot Sultana M.D., M.B.A. [address] [place] [address] Discharge Disposition: Home or Self Care documented as of this encounter Procedures Procedure Name Priority Date/Time Associated Diagnosis Comments INTERPRETATION OF OUTSIDE CT HEAD RAD - Routine (most inpatients and all outpatients) 05/08/2024 5:06 PM HEDIS MANAGER documented in this encounter Results * Interpretation of Outside CT Head (05/08/2024 5:06 PM HEDIS MANAGER) Anatomical Region Laterality Modality Head, Neuroradiology RST LOS , Neuroradiology ARZ LOS, Neuroradiology FLA LOS, Other N/A Computed Tomography Impressions 05/08/2024 7:49 PM HEDIS MANAGER No acute intracranial abnormality. Narrative 05/08/2024 7:49 PM HEDIS MANAGER EXAM: INTERPRETATION OF OUTSIDE CT HEAD Interpretation of outside CT head without IV contrast performed on 05/08/2024. COMPARISON: [facility] CT head 06/16/2023. HISTORY: Parkinson's, dementia, status [...] head without IV contrast performed on05/08/2024. COMPARISON: [facility] CT head 06/16/2023. HISTORY: Parkinson's, dementia, status [...] documented as of this encounter Care Teams Guyline Operator Relationship Specialty Start Date End Date Daja Keys MPAS, P.A.-C. [address] [place] [phone] PCP - General Family Medicine 07/04/23 documented as of this encounter
--- OUTSIDE RECORDS SUMMARY | 2024-06-01 13:01 | XMS_ITS | Encounter Summary ---
Author Organization [facility] Address [address] [place] [address] Care Team Providers Care Research Librarian Name Role Phone Daja Keys P.A.-C. Primary Care Prov ider Reason for Referral * Outpatient (Routine) - Closed Specialty Diagnoses / Procedures Referred By Cinthya salas Referred To Contact Diagnoses Fracture Humerus Simple Supracondylar Nondisplaced Closed Initial Left Procedures DX Elbow Left 2 Views Chanell Garcia P.A.-C., M.S. [address] [place] [address] Phone: tel: fax: [facility] Referral ID Status Reason Start Date Expiration Date Visits Re quested Visits Authorized [id number] Closed 05/14/2024 08/14/2025 1 1 CE MANAGER EXECUTIVE ASSISTANT Reason for Visit * Outpatient (Routine) - Closed Specialty Diagnoses / Procedures Referred By Cinthya salas Referred To Contact Diagnoses Fracture Humerus Simple Supracondylar Nondisplaced Closed Initial Left Procedures DX Elbow Left 2 Views Chanell Garcia P.A.-C., M.S. [address] [place] [address] Phone: tel: fax: [facility] Referral ID Status Reason Start Date Expiration Date Visits Re quested Visits Authorized [id number] Closed 05/14/2024 08/14/2025 1 1 Encounter Details Date Type Department Care Team (Latest Contact Info) Description 05/14/2024 10:14 AM OFFICE MANAGER EXECUTIVE ASSISTANT - 05/14/2024 11:59 PM OFFICE MANAGER EXECUTIVE ASSISTANT Hospital Encounter Department of Radiology, [facility], in [place], [place] [address] [place] [address] Chanell Garcia P.A.-C., M.S. [address] [place] [address] Fracture Humerus Simple Supracondylar Nondisplaced Closed Initial Left Discharge Disposition: Home or Self Care Social History Tobacco Use Types Packs/Day Years Used Date Smoking Tobacco: Never Smokeless Tobacco: Never Alcohol Use Standard Drinks/Week Comments Not Currently 0 (1 standard drink = 0.6 oz pur e alcohol) occasional glass of wine [facility] [employer] Answer Date Recorded In the past 12 months has e [employer], gas, oil, or water [employer] threatened to shut off services in your [...] often do you attend chur ch or sabianist services? 1 to 4 times per year 08/08/2022 Do you belong to any clubs o r organizations such as zoroastrian groups, unions, fraternal or athletic groups, or [...] Answer Date Recorded PHQ-2 Score 0 10/18/2022 [facility] Occupat ional [facility] - Occupational Stress Questionnaire Answer Date [...] your living situation today? I have a [facility] place to live 08/20/2023 Education Answer Date Recorded What is the highest level of school you have completed or the highest degree you have received? Bachelor's degree (e.g., BA, AB, BS) 03/05/2019 Comments No Sex and Gender Information Value Date Recorded Sex Assigned at Female 12/15/2020 11:07 AM CDT Legal Sex Female 8:25 AM OFFICE MANAGER EXECUTIVE ASSISTANT Gender Identity Female 03/05/2019 8:17 AM OFFICE MANAGER EXECUTIVE ASSISTANT Sexual Orientation Straight 03/05/2019 8: 17 AM OFFICE MANAGER EXECUTIVE ASSISTANT documented as of this encounter Medications at Time of Discharge [...] Acute Pain. 12 tablet 05/08/2024 10:10 PM OFFICE MANAGER EXECUTIVE ASSISTANT 05/08/2024 polyethylene glycol (MIRALAX) 17 gram powder [...] tablet 06/25/2023 documented as of this encounter Plan of Treatment Upcoming Encounters Date Type Department Care Team (Late st Contact Info) Description 06/08/2024 10:00 AM OFFICE MANAGER EXECUTIVE ASSISTANT Appointment Department of Orthopedic Surgery in [place], [place] [address] [place] [phone] Chanell Garcia P.A.-C., M.S. [address] [place] [address] Discharge Disposition: Home or Self Care 08/17/2024 12:00 PM CDT Telemedicine Department of Neurology in [place], [place] [address] [place] [phone] Dot Sultana M.D., M.B.A. [address] [place] [address] Discharge Disposition: Home or Self Care documented as of this encounter Procedures Procedure Name Priority Date/Time Associated Diagnosis Comments DX ELBOW LEFT 2 VIEWS RAD - Routine (most inpatients and all outpatients) 05/14/2024 11:35 AM OFFICE MANAGER EXECUTIVE ASSISTANT Fracture Humerus Simple Supracondylar Nondisplaced Closed Initial Left documented in this encounter Results * DX Elbow Left 2 Views (05/14/2024 11:35 AM OFFICE MANAGER EXECUTIVE ASSISTANT) Anatomical Region Laterality Modality Upper Extremity, Elbow, Musc uloskeletal RST LOS, Musculoskeletal ARZ LOS, Muskuloskeletal FLA LOS Left Digit al Radiography Impressions 05/14/2024 11:40 AM OFFICE MANAGER EXECUTIVE ASSISTANT Since 05/08/2024, a cast has been applied, degrading visualization of the bones. Oblique impacted and displaced fracture of the distal left humerus, involving the trochlear articular surface medially and the supracondylar region laterally. Lateral displacement of the distal fragment. No change in alignment since outside CT 05/08/2024. Narrative 05/14/2024 11:40 AM OFFICE MANAGER EXECUTIVE ASSISTANT EXAM: DX ELBOW LEFT 2 VIEWS Procedure [...] IMG DIAGNOSTIC IM AGING PROCEDURES Final Result documented in this encounter Visit Diagnoses Diagnosis Fracture Humerus Simple Supracondylar Nondisplaced Closed Initial Left documented in this encounter Additional Health Concerns Assessment Noted Time PHQ-9 Depression Total Score: 9 10/19/19 23 8:25 AM CDT documented as of this encounter Care Teams Research Librarian Relationship Specialty Start Date End Date Daja Keys, CARLA, P.A.-C. [address] [place] [phone] PCP - General Family Medicine 07/04/23 documented as of this encounter
--- OUTSIDE RECORDS SUMMARY | 2024-06-01 13:01 | XMS_ITS | Encounter Summary ---
Author Organization [facility] Address [address] [place] [address] Care Team Providers Care Scientific Editor Name Role Phone Daja Keys, P.A.-C. Primary Care Prov ider Encounter Details Date Type Department Care Team (Late st Contact Info) Description 05/08/2024 5:05 PM INTERNET DATABASE SPECIALIST Ancillary Procedure Department of Radiology in [place], [place] [address] [place] [address] Tripp Gomez M.D. [address] [place] [phone] Social History Tobacco Use Types Packs/Day Years Used Date Smoking Tobacco: Never Smokeless Tobacco: Never Alcohol Use Standard Drinks/Week Comments Not Currently 0 (1 standard drink = 0.6 oz pur e alcohol) occasional glass of wine [facility] Utilities Answer Date Recorded In [...] often do you attend chur ch or synagogue services? 1 to 4 times per year 08/08/2022 Do you belong to any clubs o r organizations such as mandaen groups, unions, fraternal or athletic groups, or [...] Answer Date Recorded PHQ-2 Score 0 10/18/2022 [facility] [place] of Occupat ional Health - Occupational Stress [...] your living situation today? I have a [facility] place to live 08/20/2023 Education Answer Date Recorded What is the highest level of school you have completed or the highest degree you have received? Bachelor's degree (e.g., BA, AB, BS) 03/05/2019 Comments No Sex and Gender Information Value Date Recorded Sex Assigned at Female 12/15/2020 11:07 AM CDT Legal Sex Female 8:25 AM INTERNET DATABASE SPECIALIST Gender Identity Female 03/05/2019 8:17 AM INTERNET DATABASE SPECIALIST Sexual Orientation Straight 03/05/2019 8: 17 AM INTERNET DATABASE SPECIALIST documented as of this encounter Plan of Treatment Upcoming Encounters Date Type Department Care Team (Late st Contact Info) Description 06/08/2024 10:00 AM INTERNET DATABASE SPECIALIST Appointment Department of Orthopedic Surgery in [place], [place] [address] [place] [address] Chanell Garcia P.A.-C., M.S. [address] [place] [address] Discharge Disposition: Home or Self Care 08/17/2024 12:00 PM CDT Telemedicine Department of Neurology in [place], [place] [address] [place] [phone] Dot Sultana M.D., M.B.A. [address] [place] [address] Discharge Disposition: Home or Self Care documented as of this encounter Procedures Procedure Name Priority Date/Time Associated Diagnosis Comments INTERPRETATION OF OUTSIDE DX EXTREMITY RAD - Routine (most inpatients and all outpatients) 05/08/2024 5:06 PM INTERNET DATABASE SPECIALIST documented in this encounter Results * Interpretation of Outside DX Extremity (05/08/2024 5:06 PM INTERNET DATABASE SPECIALIST) Anatomical Region Laterality Modality Musculoskeletal RST LOS, Mus culoskeletal ARZ LOS, Muskuloskeletal FLA LOS, Musculoskeletal, Other N/A Digita l Radiography Impressions 05/08/2024 5:35 PM INTERNET DATABASE SPECIALIST Acute, displaced and comminuted condylar/supracondylar fracture of the left humerus. The largest fracture fragment displaced laterally approximately 9 mm. Small to moderate elbow joint effusion. Visualized radial head appears unremarkable. Demineralization. Overlying soft tissue swelling. Narrative 05/08/2024 5:35 PM INTERNET DATABASE SPECIALIST EXAM: INTERPRETATION OF OUTSIDE DX EXTREMITY Left [...] Demineralization. Overlying soft tissue swelling. us Tripp [facility] DIAGNOSTIC IMAGING PROCEDU RES Final Result documented in this encounter Visit Diagnoses Not on filedocumented in this encounter Additional Health Concerns Assessment Noted Time PHQ-9 Depression Total Score: 9 10/19/19 23 8:25 AM CDT documented as of this encounter Care Teams Scientific Editor Relationship Specialty Start Date End Date Daja Keys MPAS, P.A.-C. [address] [place] [phone] PCP - General Family Medicine 07/04/23 documented as of this encounter
--- OUTSIDE RECORDS SUMMARY | 2024-06-01 13:01 | XMS_ITS | Encounter Summary ---
Author Organization [facility] Address [address] [place] [address] Care Team Providers Care Inspector Process Name Role Phone LudmilaDaja, P.A.-C. Primary Care Prov ider Encounter Details Date Type Department Care Team (Late st Contact Info) Description 05/11/2024 Results Follow-Up [facility] Emergency Department [address] [place] [address] Mary Keller, M.S.N., R.N. [address] [place] [address] Extremity Social History Tobacco Use Types Packs/Day Years Used Date Smoking Tobacco: Never Smokeless Tobacco: Never Alcohol Use Standard Drinks/Week Comments Not Currently 0 (1 standard drink = 0.6 oz pur e alcohol) occasional glass of wine [facility] Utilities Answer Date Recorded In the [...] often do you attend chur ch or hoahaoism services? 1 to 4 times per year 08/08/2022 Do you belong to any clubs o r organizations such as tenriism groups, unions, fraternal or athletic groups, or [...] Answer Date Recorded PHQ-2 Score 0 10/18/2022 [facility] [place] of Occupat ional Health - Occupational Stress [...] your living situation today? I have a [facility] place to live 08/20/2023 Education Answer Date Recorded What is the highest level of school you have completed or the highest degree you have received? Bachelor's degree (e.g., BA, AB, BS) 03/05/2019 Comments No Sex and Gender Information Value Date Recorded Sex Assigned at Female 12/15/2020 11:07 AM CDT Legal Sex Female 8:25 AM TRAFFIC SIGN ERECTION SUPERVISOR Gender Identity Female 03/05/2019 8:17 AM TRAFFIC SIGN ERECTION SUPERVISOR Sexual Orientation Straight 03/05/2019 8: 17 AM TRAFFIC SIGN ERECTION SUPERVISOR documented as of this encounter Plan of Treatment Upcoming Encounters Date Type Department Care Team (Late st Contact Info) Description 06/08/2024 10:00 AM TRAFFIC SIGN ERECTION SUPERVISOR Appointment Department of Orthopedic Surgery in [place], [place] [address] [place] [address] Chanell Garcia P.A.-C., M.S. [address] [place] [address] Discharge Disposition: Home or Self Care 08/17/2024 12:00 PM CDT Telemedicine Department of Neurology in [place], [place] [address] [place] [phone] Dot Sultana M.D., M.B.A. [address] [place] [phone] Discharge Disposition: Home or Self Care documented as of this encounter Visit Diagnoses Not on filedocumented in this encounter Additional Health Concerns Assessment Noted Time PHQ-9 Depression Total Score: 9 10/19/19 23 8:25 AM CDT documented as of this encounter Care Teams Inspector Process Relationship Specialty Start Date End Date Daja Keys MPAS, P.A.-C. [address] [place] [phone] PCP - General Family Medicine 07/04/23 documented as of this encounter
--- OUTSIDE RECORDS SUMMARY | 2024-06-01 13:01 | XMS_ITS | Encounter Summary ---
Author Organization [facility] Address [address] [place] [address] Care Team Providers Care Assistant Store Manager Sales Name Role Phone Daja Keys P.ALakisha-C. Primary Care Prov ider Reason for Referral * Outpatient (Routine) - Closed Specialty Diagnoses / Procedures Referred By Cinthya salas Referred To Contact Diagnoses Pain Arm Left Procedures ORS Cast Room Visit Chanell Garcia P.A.-C., M.S. [address] [place] [address] Phone: tel: fax: [facility] Referral ID Status Reason Start Date Expiration Date Visits Re quested Visits Authorized [id number] Closed 05/11/2024 08/11/2025 1 1 STED LIVING ASSOCIATE Encounter Details Date Type Department Care Team (Late st Contact Info) Description 05/11/2024 Orders Only Department of Orthopedic Surgery in [place], [place] [address] [place] [address] Chanell Garcia P.A.-C., M.S. [address] [place] [address] Pain Arm Left (Primary Dx) Social History Tobacco Use Types Packs/Day Years Used Date Smoking Tobacco: Never Smokeless Tobacco: Never Alcohol Use Standard Drinks/Week Comments Not Currently 0 (1 standard drink = 0.6 oz pur e alcohol) occasional glass of wine [facility] [employer] Answer Date Recorded In the past 12 months has th e [employer], gas, oil, or water [employer] threatened to shut off services in your [...] often do you attend chur ch or roman catholic services? 1 to 4 times per year 08/08/2022 Do you belong to any clubs o r organizations such as mormonism groups, unions, fraternal or athletic groups, or [...] Answer Date Recorded PHQ-2 Score 0 10/18/2022 [facility] - Occupational [...] your living situation today? I have a [facility] place to live 08/20/2023 Education Answer Date Recorded What is the highest level of school you have completed or the highest degree you have received? Bachelor's degree (e.g., BA, AB, BS) 03/05/2019 Comments No Sex and Gender Information Value Date Recorded Sex Assigned at Female 12/15/2020 11:07 AM CDT Legal Sex Female 8:25 AM ASSISTED LIVING ASSOCIATE Gender Identity Female 03/05/2019 8:17 AM ASSISTED LIVING ASSOCIATE Sexual Orientation Straight 03/05/2019 8: 17 AM ASSISTED LIVING ASSOCIATE documented as of this encounter Plan of Treatment Upcoming Encounters Date Type Department Care Team (Late st Contact Info) Description 06/08/2024 10:00 AM ASSISTED LIVING ASSOCIATE Appointment Department of Orthopedic Surgery in [place], [place] [address] [place] [address] Chanell Garcia P.A.-C., M.S. [address] [place] [address] Discharge Disposition: Home or Self Care 08/17/2024 12:00 PM CDT Telemedicine Department of Neurology in [place], [place] [address] [place] [phone] Dot Sultana M.D., M.B.A. [address] [place] [address] Discharge Disposition: Home or Self Care documented as of this encounter Results * PROCEDURE PLACEHOLDER (05/14/2024 10:00 AM ASSISTED LIVING ASSOCIATE) Narrative MMODAL - 05/14/2024 10:00 AM ASSISTED LIVING ASSOCIATE Chanell Garcia P.A.-C., M.S. 05/15/2024 9:36 AM ORS Cast Room Visit Performed by: Chanell Garcia P.A.-C., M.S. Authorized by: Chanell Garcia P.A.-C., M.S. Chanell Garcia P.A.-C. MPatsy PROCEDURE/MINOR S URGICAL ORDERABLES Final Result MMODAL NA documented in this encounter Visit Diagnoses Diagnosis Pain Arm Left- Primary Fracture Humerus Simple Supracondylar Nondisplaced Closed Initial Left- Primary Pain Arm Left documented in this encounter Additional Health Concerns Assessment Noted Time PHQ-9 Depression Total Score: 9 10/19/19 23 8:25 AM CDT documented as of this encounter Care Teams Assistant Store Manager Sales Relationship Specialty Start Date End Date Daja Keys MPAS, PLakishaALakisha-Robert. [address] [place] [phone] PCP - General Family Medicine 07/04/23 documented as of this encounter
--- OUTSIDE RECORDS SUMMARY | 2024-06-01 13:01 | XMS_ITS | Encounter Summary ---
Author Organization [facility] Address [address] [place] [address] Care Team Providers Care Monitor And Storage Bin Tender Name Role Phone Daja Keys P.A.-C. Primary Care Prov ider Reason for Referral * Outpatient (Routine) - Authorized Specialty Diagnoses / Procedures Referred By Cinthya salas Referred To Contact Diagnoses Fracture Humerus Simple Supracondylar Nondisplaced Closed Initial Left Procedures DX Elbow Left 2 Views Chanell Garcia P.A.-C., M.S. [address] [place] [address] Phone: tel: fax: [facility] Referral ID Status Reason Start Date Expiration Date V isits Requested Visits Authorized [id number] Authorized 05/14/2024 08/14/2025 1 1 [facility] * Outpatient (Routine) - Authorized Specialty Diagnoses / Procedures Referred By Contdawn t Referred To Contact Diagnoses Fracture Humerus Simple Supracondylar Nondisplaced Closed Initial Left Procedures ORS Cast Room Visit Chanell Garcia P.A.-C., M.S. [address] [place] [phone] Phone: tel: fax: [facility] Referral ID Status Reason Start Date Expiration Date V isits Requested Visits Authorized [id number] Authorized 05/14/2024 08/14/2025 1 1 [facility] * Outpatient (Routine) - Closed Specialty Diagnoses / Procedures Referred By Contac t Referred To Contact Diagnoses Fracture Humerus Simple Supracondylar Nondisplaced Closed Initial Left Procedures DX Elbow Left 2 Views Chanell Garcia P.A.-C., M.S. [address] [place] [phone] Phone: tel: fax: [facility] Referral ID Status Reason Start Date Expiration Date Visits Re quested Visits Authorized [id number] Closed 05/14/2024 08/14/2025 1 1 [facility] * Outpatient (Routine) - Closed Specialty Diagnoses / Procedures Referred By Contac t Referred To Contact Diagnoses Pain Arm Left Procedures ORS Cast Room Visit Chanell Garcia P.A.-C., M.S. [address] [place] [phone] Phone: tel: fax: [facility] Referral ID Status Reason Start Date Expiration Date Visits Re quested Visits Authorized [id number] Closed 05/11/2024 08/11/2025 1 1 [facility] Reason for Visit * Reason Comments Follow-up * Outpatient (Routine) - Closed Specialty Diagnoses / Procedures Referred By Contac t Referred To Contact Diagnoses Pain Arm Left Procedures ORS Cast Room Visit Chanell Garcia P.A.-C., M.S. [address] [place] [address] Phone: tel: fax: [facility] Referral ID Status Reason Start Date Expiration Date Visits Re quested Visits Authorized [id number] Closed 05/11/2024 08/11/2025 1 1 Encounter Details Date Type Department Care Team (Latest Contact Info) Description 05/14/2024 9:06 AM HORTIC[facility] SPECIALTY [facility] - 05/14/2024 10:13 AM [facility] Encounter Department of Orthopedic Surgery in [place], [place] [address] [place] [address] Chanell Garcia P.A.-C., M.S. [address] [place] [address] Fracture Humerus Simple Supracondylar Nondisplaced Closed Initial Left (Primary Dx); Pain Arm Left Discharge Disposition: Home or Self Care Social History Tobacco Use Types Packs/Day Years Used Date Smoking Tobacco: Never Smokeless Tobacco: Never Alcohol Use Standard Drinks/Week Comments Not Currently 0 (1 standard drink = 0.6 oz pur e alcohol) occasional glass of wine [employer] Answer Date Recorded In the past 12 months has e [employer], gas, oil, or water [employer] threatened to shut off services in your [...] often do you attend chur ch or uatsdin services? 1 to 4 times per year 08/08/2022 Do you belong to any clubs o r organizations such as rastafari groups, unions, fraternal or athletic groups, or [...] Answer Date Recorded PHQ-2 Score 0 10/18/2022 [facility] - Occupational [...] your living situation today? I have a [facility] place to live 08/20/2023 Education Answer Date Recorded What is the highest level of school you have completed or the highest degree you have received? Bachelor's degree (e.g., BA, AB, BS) 03/05/2019 Comments No Sex and Gender Information Value Date Recorded Sex Assigned at Female 12/15/2020 11:07 AM CDT Legal Sex Female 8:25 AM HORTICULTURAL SPECIALTY GROWER Gender Identity Female 03/05/2019 8:17 AM HORTICULTURAL SPECIALTY GROWER Sexual Orientation Straight 03/05/2019 8: 17 AM HORTICULTURAL SPECIALTY GROWER documented as of this encounter Discharge Instructions * Patient Instructions* Chanell Garcia P.A.-C., M.S. - 05/14/2024 10:00 AM H[employer]IC[facility]TY [facility] ORTHOPEDIC RECOMMENDATIONS: --The left arm has been immobilized in a cast. Cast to remain on until Orthopedic follow up. --Keep cast dry when bathing. --Keep arm elevated as much as able. --Encourage frequent motion of the fingers. --Avoid lifting, pushing, pulling, carrying greater than the weight of a cup of coffee with the left hand. --If a platform walker is available, ok to use platform walker for mobility. --Follow up with Orthopedic team in 3 weeks with repeat x-rays. --Contact Dr. Vann's team at [phone] with any concerns prior to follow up. [facility] documented in this encounter Medications at Time [...] Acute Pain. 12 tablet 05/08/2024 10:10 PM H[facility]IC[facility]TY [facility] 05/08/2024 polyethylene glycol (MIRALAX) 17 gram powder [...] tablet 06/25/2023 documented as of this encounter Procedure Notes * Chanell Garcia P.A.-C. M.S. - 05/14/2024 10:00 AM CSTAssociated Order(s): ORS Cast Room Visit Pre-Procedure Diagnose(s): Pain Arm Left Post-Procedure Diagnose(s): Pain Arm Left ORS Cast Room Visit Performed by: Chanell Garcia P.A.-C. MTye. Authorized by: Chanell Garcia P.A.-C. MLakishaSLakisha Involved Side: Left Date of Injury: 05/08/2024 Description of surgery/injury: Nonoperative management supracondylar humerus fracture INDICATION: Ongoing care PROCEDURE: Exam, cast change HISTORY OF PRESENT ILLNESS Sandra Medrano is a 84 y.o. female who on 05/08/2024 sustained the above injury as the result ofa fall. She reportedly also had a left proximal humerus fracture treated nonoperatively on the [place] approximately 6 months ago. The patient presents to the cast room today 6 days after the injury for exam, x-rays in cast change. Sandra Medrano is accompanied by her niece and has been. She resides at a memory care facility. Pain has been waxing and waning. Patient is using oral medicationsfor pain control. Patient has been nonweightbearing on the left upper extremity in the well nerves splint. At baseline, she uses a walker for mobility which she has been unable to use since her injury. They are not currently experiencing numbness, tingling to the affected limb. PHYSICAL EXAM General Appearance: Patient appears slightly uncomfortable but alert. The patient is alert and oriented to person, place, and time and able to follow commands. Skin/Incision: Ecchymosis noted to the hand and elbow area. Moderate swelling around the elbow. Skin is intact. Musculoskeletal: Upper Extremity: Elbow Range of Motion: Deferred due to injury The patient does have tenderness to palpation to the elbow. Patient is able to fire the interosseosus, EPL, finger flexors, finger extensors, wrist flexors, wrist extensors. Neurologic: Upper Extremity: Intact sensation to light touch through the axillary, musculocutaneous, radial, ulnar, nerve distributions of the affected arm. Vascular: Upper Extremity: The left upper extremity does appear well perfused. IMPRESSION/REPORT/PLAN IMAGING STUDIES: Repeat x-rays performed after placement of cast reveal no significant change in alignment 2 supracondylar humerus fracture. Independently interpreted. The patient continues to recover from their above stated procedure/injury Recommended brace/cast/splint: Long-arm cast Cast/Splint was removed by cast room staff. Recommended weight bearing: Nonweightbearing to left upper extremity. May utilize a platform walkerfor mobility if available Range of Motion: Elbow immobilized. Okay to perform shoulder range of motion and move the digits asoften as possible. Pain: The patient is encouraged to continue with [id number] pain medications including Tylenol. May apply ice and elevate for swelling and discomfort as needed. Hygiene: Keep cast dry when bathing Follow Up: We will see the patient back in the cast room in approximately 3 weeks with repeat x-rays. The following written instructions were provided to the [facility] care facility: ORTHOPEDIC RECOMMENDATIONS: --The left arm has been immobilized in a cast. Cast to remain on until Orthopedic follow up. --Keep cast dry when bathing. --Keep arm elevated as much as able. --Encourage frequent motion of the fingers. --Avoid lifting, pushing, pulling, carrying greater than the weight of a cup of coffee with the left hand. --If a platform walker is available, ok to use platform walker for mobility. --Follow up with Orthopedic team in 3 weeks with repeat x-rays. --Contact Dr. Vann's team at [phone] with any concerns prior to follow up. Encouraged the patient to reach out to our team prior to follow-up with any questions or concerns. All questions were answered, patient understands and agrees with the plan. [facility] documented in this encounter Plan of Treatment Upcoming Encounters Date Type Department Care Team (Late st Contact Info) Description 06/08/2024 10:00 AM HORTICULTURAL SPECIALTY GROWER Appointment Department of Orthopedic Surgery in [address] [address] Chanell Garcia P.A.-C., M.S. [address] [place] [address] Discharge Disposition: Home or Self Care 08/17/2024 12:00 PM CDT Telemedicine Department of Neurology in [place], [place] [address] [place] [phone] Dot Sultana M.D., M.B.A. [address] [place] [phone] Discharge Disposition: Home or Self Care Scheduled Orders Name Type Priority Associated Diagnoses Orde r Schedule ORS Cast Room Visit Procedures Routine Fracture Humerus Simple Supracondylar Nondisplaced Closed Initial Left Expected: 06/05/2024, Expires: 08/12/2025 DX Elbow Left 2 Views Imaging RAD - Routine (most inpatients and all outpatients) Fracture Humerus Simple Supracondylar Nondisplaced Closed Initial Left Expected: 06/05/2024, Expires: 08/12/2025 documented as of this encounter Procedures Procedure Name Priority Date/Time Associated Diagnosis Comments ORS CAST ROOM VISIT Routine 05/14/2024 1 0:00 AM H[facility]IC[facility]TY [facility] Pain Arm Left documented in this encounter Results * DX Elbow Left 2 Views (05/14/2024 11:35 AM HORTICULTURAL SPECIALTY [facility]OWER) Anatomical Region Laterality Modality Upper Extremity, Elbow, Musc uloskeletal RST LOS, Musculoskeletal ARZ LOS, Muskuloskeletal FLA LOS Left Digit al Radiography Impressions 05/14/2024 11:40 AM HORTICULTURAL SPECIALTY [facility]OWER Since 05/08/2024, a cast has been applied, degrading visualization of the bones. Oblique impacted and displaced fracture of the distal left humerus, involving the trochlear articular surface medially and the supracondylar region laterally. Lateral displacement of the distal fragment. No change in alignment since outside CT 05/08/2024. Narrative 05/14/2024 11:40 AM H[facility]IC[facility] EXAM: DX ELBOW LEFT 2 VIEWS Procedure Note Paige Barrios M.D. - 05/14/2024 EXAM: DX ELBOW LEFT 2 VIEWS IMPRESSION: Since 05/08/2024, a cast has been applied, degrading visualization of thebones. Oblique impacted and displaced fracture of the distal left humerus,involving the trochlear articular surface medially and the supracondylarregion laterally. Lateral displacement of the distal fragment. No change in alignment sinceoutside CT 05/08/2024. us Chanell Garcia P.A.-C., M.S. IMG DIAGNOSTIC IM AGING PROCEDURES Final Result * PROCEDURE PLACEHOLDER (05/14/2024 10:00 AM HORTICULT[facility]TY [facility]) Narrative MMODAL - 05/14/2024 10:00 AM H[employer]ICULTURAL SPECIALTY [facility]OWER Chanell Garcia P.A.-C., M.S. 05/15/2024 9:36 AM ORS Cast Room Visit Performed by: Chanell Garcia P.A.-C., M.S. Authorized by: Chanell Garcia P.A.-C., M.S. Chanell Garcia P.A.-C., M.S. PROCEDURE/MINOR S URGICAL ORDERABLES Final Result MMODAL NA documented in this encounter Visit Diagnoses Diagnosis Fracture Humerus Simple Supracondylar Nondisplaced Closed Initial Left- Primary Pain Arm Left Fracture Humerus Simple Supracondylar Nondisplaced Closed Initial Left documented in this encounter Additional Health Concerns Assessment Noted Time PHQ-9 Depression Total Score: 9 10/19/19 23 8:25 AM CDT documented as of this encounter Care Teams Monitor And Storage Bin Tender Relationship Specialty Start Date End Date Daja Keys MPAS, PKarina. [address] [place] [phone] PCP - General Family Medicine 07/04/23 documented as of this encounter
--- NOTE | 2024-06-01 13:15 | ED_ITS ---
HPI - Altered Mental Status General Time Seen by Provider: 13:15 Date Seen: 06/01/24 Chief Complaint: Altered Mental Status Stated Complaint: Unresponsive Time Seen by Provider: 06/01/24 13:09 Source: patient Mode of arrival: EMS Limitations: altered mental status History of Present Illness HPI narrative: Sandra is an 84-year-old female with a history of Parkinson's, dementia/ cognitive impairment who is brought to the emergency room by EMS after having an unresponsive episode. It appears that this happened yesterday as well. According to EMS and nurse's patient had been sitting in a chair and was unresponsive with a blood pressure of 60 systolic. No reports of unusual shaking vomiting recent fever or chills. Once here in the emergency room patient was making some noises and appearing to protect the airway. I initially ordered labs and CTs. Once Sandra returned her family was available and they describe witnessing Sandra's behavior both yesterday and today. yesterday and today's episodes were very similar in that Sandra would not respond except to make uh-huh type responses when asked questions. She would not open her eyes. They did not have her checked out yesterday and this morning Sandra seemed back to normal and her baseline. Her niece does note that she seems more confused lately and in the past had had a UTI that cause confusion. No history of seizures. Related Data Home Medications ?Medication ?Instructions ?Recorded ?Confirmed aspirin 81 mg tablet,delayed 81 mg PO MOWEFR 07/13/23 06/01/24 release (Adult Aspirin Regimen) carbidopa 25 mg-levodopa 100 mg 2.5 tab PO .TIDAC 07/13/23 06/01/24 tablet carbidopa ER 50 mg-levodopa 200 mg 1 tab PO HS 07/13/23 06/01/24 tablet,extended release donepezil 10 mg tablet 10 mg PO HS 07/13/23 06/01/24 lisinopril 5 mg tablet 5 mg PO DAILY 07/13/23 06/01/24 nitroglycerin 0.4 mg sublingual 0.4 mg sublingual Q5M PRN 07/13/23 02/27/24 tablet polyethylene glycol 3350 17 17 g PO DAILY 07/13/23 02/27/24 gram/dose oral powder (ClearLax) rosuvastatin 20 mg tablet 20 mg PO DAILY 07/13/23 06/01/24 acetaminophen 500 mg tablet 1,000 mg PO TID 06/01/24 06/01/24 (Acetaminophen Pain Relief) calcium 500 mg (as carbonate)-vit 1 tab PO DAILY 06/01/24 06/01/24 D3 10 mcg (400 unit) chewable tablet (Calcium 500 + D) gabapentin 100 mg capsule 100 mg PO HS 06/01/24 06/01/24 melatonin 3 mg tablet 3 mg PO HS 06/01/24 06/01/24 Previous Rx's ?Medication ?Instructions ?Recorded metoprolol succinate 25 mg 25 mg PO DAILY #30 tabs 07/17/23 tablet,extended release 24 hr naproxen sodium 220 mg capsule 220 mg PO DAILY pain #20 caps 07/17/23 (Aleve) oxycodone 5 mg tablet 2.5 mg (1/2 x 5 mg) PO Q4H PRN #20 07/17/23 tabs sennosides 8.6 mg-docusate sodium 1 tab PO BID #60 tabs 07/17/23 50 mg tablet (Stool Softener-Laxative) docusate sodium 100 mg capsule 100 mg PO BID #10 caps 02/01/24 magnesium citrate See Rx Instructions .Route 02/01/24 .COMPLEX PRN constipation #296 mL polyethylene glycol 3350 17 17 g PO DAILY #238 grams 02/01/24 gram/dose oral powder (Miralax) sennosides 8.6 mg capsule (senna) 17.2 mg (2 x 8.6 mg) PO DAILY #10 02/01/24 caps simethicone 125 mg capsule 250 mg (2 x 125 mg) PO ONCE #2 caps 02/01/24 Allergies Allergy/AdvReac Type Severity Reaction Status Date / Time pollen extracts Allergy Unknown Verified 06/01/24 14:02 Review of Systems Status of ROS: Reports: unobtainable due to medical condition [facility] Medical History Fall ?W19.XXXA - Unspecified fall, initial encounter (ICD-10) Proximal humerus fracture (07/14/23) ?S42.209A - Unspecified fracture of upper end of unspecified humerus, initial encounter for closed fracture (ICD-10) Frailty syndrome in geriatric patient ?R54 - Age-related physical debility (ICD-10) Cognitive impairment ?R41.89 - Other symptoms and signs involving cognitive functions and awareness (ICD-10) Melanoma ?C43.9 - Malignant melanoma of skin, unspecified (ICD-10) Heart failure with reduced ejection fraction ?I50.20 - Unspecified systolic (congestive) heart failure (ICD-10) Coronary artery disease ?I25.10 - Atherosclerotic heart disease of [place] coronary artery without angina pectoris (ICD-10) Parkinsons disease ?G20.A1 - Parkinson's disease without dyskinesia, without mention of fluctuations (ICD-10) Surgical History History of breast biopsy ?Z98.890 - Other specified postprocedural states (ICD-10) History of colonoscopy ?Z98.890 - Other specified postprocedural states (ICD-10) History of tonsillectomy ?Z90.89 - Acquired absence of other organs (ICD-10) History of hysterectomy ?Z90.710 - Acquired absence of both cervix and uterus (ICD-10) Hx of cataract surgery ?Z98.49 - Cataract extraction status, unspecified eye (ICD-10) Family History Brother Cardiovascular disease Father Cardiovascular disease Social History Narrative: She lives with her , Jeison, at [facility]. 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 Code status is DNR. Previously lived in [facility] and in [facility]. She is a nonsmoker. Rarely drinks alcohol. What is your current living situation?: I presently have a place to live Problems where you live: no known problems Problems where you live details: None known In the past 12 months, utilities in danger of being shut off: no In past 12 months, lack of transportation kept you from medical appts, meetings, work, or getting things needed for daily living: no In the past 12 mos, have been you worried that your food would run out before you had money to buy more?: never true In the past 12 mos, the food you bought just didn't last and you didn't have money to buy more?: never true Smoking Status: Never smoker How often do you have a drink containing alcohol: never AUDIT-C Alcohol total score: 0 Non-prescribed substance use: denies use Caffeine: No How often does anyone, including family, friends and others, physically hurt you : never How often does anyone, including family, friends and others, insult or talk down to you: never How often does anyone, including family, friends and others, threaten you with harm: never How often does anyone, including family, friends and others, scream or curse at you: never service: No Exam Narrative: Exam Narrative: Sandra is in stab 2. She is with her eyes closed. She is protecting her airway and there is no wheezing. I do ask her questions and she responds with the equivalent of yes or no appropriately when asked about pain and if she is comfortable. She will not open her eyes and when I attempt to open her lids she hold her eyes closed. Her face is symmetrical without any facial drooping. Her lips are dry but her mucous membranes are moist. Neck is supple without lymphadenopathy. Head is atraumatic Normocephalic. Palpation over the cervical spine yields no discomfort. No step-offs are noted. Heart with regular rate and rhythm. Lungs are clear in all lung areas. Abdomen is soft and nontender. Lower extremities without edema. Patient is will not move her extremities at this time. No evidence of bruising. Const: Vital Signs, click to edit/add: Vital Signs - 24 hr 06/01/24 13:04 06/01/24 13:08 06/01/24 13:11 Temperature 6.9 F L Pulse Rate 66 69 Pulse Rate [Pulse Oximeter] 66 Respiratory Rate 16 Blood Pressure 107/56 L Blood Pressure [Ri ght Upper Arm] 102/51 L Pulse Oximetry 95 96 95 Oxygen Delivery Me thod Room Air 06/01/24 13:15 06/01/24 13:16 06/01/24 13:17 Temperature Pulse Rate 63 63 66 Pulse Rate [Pulse Oximeter] Respiratory Rate Blood Pressure 110/59 L Blood Pressure [Ri ght Upper Arm] Pulse Oximetry 96 96 96 Oxygen Delivery Me thod 06/01/24 13:30 06/01/24 13:31 06/01/24 13:45 Temperature Pulse Rate 63 66 Pulse Rate [Pulse Oximeter] Respiratory Rate 19 18 21 Blood Pressure 108/62 Blood Pressure [Ri ght Upper Arm] Pulse Oximetry 97 98 Oxygen Delivery Me thod 06/01/24 13:46 06/01/24 13:47 06/01/24 14:11 Temperature Pulse Rate 81 Pulse Rate [Pulse Oximeter] Respiratory Rate 23 20 Blood Pressure 117/66 Blood Pressure [Ri ght Upper Arm] Pulse Oximetry 97 Oxygen Delivery Me thod 06/01/24 14:15 06/01/24 14:19 06/01/24 14:30 Temperature Pulse Rate 80 81 93 Pulse Rate [Pulse Oximeter] Respiratory Rate 16 18 18 Blood Pressure Blood Pressure [Ri ght Upper Arm] Pulse Oximetry 97 98 97 Oxygen Delivery Me thod 06/01/24 14:34 06/01/24 14:40 06/01/24 14:45 Temperature Pulse Rate 88 85 Pulse Rate [Pulse Oximeter] Respiratory Rate 15 11 L 14 Blood Pressure 146/71 H Blood Pressure [Ri ght Upper Arm] Pulse Oximetry 100 92 Oxygen Delivery Me thod 06/01/24 14:46 06/01/24 14:47 06/01/24 15:00 Temperature Pulse Rate Pulse Rate [Pulse Oximeter] Respiratory Rate 6 L 12 18 Blood Pressure 145/77 H Blood Pressure [Ri ght Upper Arm] Pulse Oximetry Oxygen Delivery Me thod 06/01/24 15:02 06/01/24 15:03 06/01/24 15:15 Temperature Pulse Rate 91 95 Pulse Rate [Pulse Oximeter] Respiratory Rate 20 8 L 17 Blood Pressure 145/75 H Blood Pressure [Ri ght Upper Arm] Pulse Oximetry 96 97 Oxygen Delivery Me thod 06/01/24 15:17 06/01/24 15:30 06/01/24 15:31 Temperature Pulse Rate 84 88 Pulse Rate [Pulse Oximeter] Respiratory Rate 22 14 Blood Pressure 145/79 H 151/78 H Blood Pressure [Ri ght Upper Arm] Pulse Oximetry 96 95 Oxygen Delivery Me thod 06/01/24 15:45 06/01/24 15:46 06/01/24 16:00 Temperature Pulse Rate 90 93 97 Pulse Rate [Pulse Oximeter] Respiratory Rate 20 Blood Pressure 145/79 H 164/81 H Blood Pressure [Ri ght Upper Arm] Pulse Oximetry 95 95 97 Oxygen Delivery Me thod 06/01/24 16:01 06/01/24 16:02 06/01/24 16:03 Temperature Pulse Rate 96 95 Pulse Rate [Pulse Oximeter] Respiratory Rate 25 H 22 Blood Pressure 155/90 H Blood Pressure [Ri ght Upper Arm] Pulse Oximetry 97 87 L Oxygen Delivery Me thod 06/01/24 16:15 06/01/24 16:16 06/01/24 16:30 Temperature Pulse Rate Pulse Rate [Pulse Oximeter] Respiratory Rate 19 21 20 Blood Pressure 168/85 H Blood Pressure [Ri ght Upper Arm] Pulse Oximetry Oxygen Delivery Me thod 06/01/24 16:31 Temperature Pulse Rate Pulse Rate [Pulse Oximeter] Respiratory Rate 21 Blood Pressure 137/84 Blood Pressure [Ri ght Upper Arm] Pulse Oximetry Oxygen Delivery Me thod Documenting provider has reviewed patient's vital signs: yes Course Course ED Course: Differential diagnosis includes but is not limited to seizure, postictal state, behavioral issue, reaction to Parkinson's medications, underlying infection including UTI pneumonia COVID influenza or RSV. Must also consider stroke, cardiac arrhythmia. Will obtain EKG, chest x-ray, CT CTA of the head and neck, labs to include CBC, comprehensive panel, troponin, urinalysis, CRP. Reevaluation(s) Reevaluation #1: Nursing staff notes that after patient's cath for urinalysis she went into a rapid rate sustain for under a minute. They show me the the rhythm strip and this appears to be SVT. She has now returned to a normal rhythm. Reevaluation #2: Sandra is now near back to her normal self and is interactive. She is concerned that she is with wet underwear. She is now moving all of her extremities and appears to be back to baseline. I do tell the family that Sandra has questionable positive UA with positive nitrites as well as a chest x-ray with possible pneumonia. Will give her 1 dose of Rocephin. Reevaluation #3: Patient has tested positive for influenza A. Chest x-ray with possibility of infiltrate but O2 sats and pulse within normal limits. Consultations Consultation #1: I had the pleasure of speaking to Neurology. They do not feel that this requires inpatient EEG monitoring tonight but monitoring overnight would be appropriate. They feel that this is more possibly autonomic dysregulation secondary to the Parkinson's made worse by underlying infection. Suggest outpatient follow-up for potential EEG with their neurologist after discharge. Vital Signs Vital signs: Initial Vital Signs Temperature 6.9 F L 06/01/24 13:04 Temperature Source Temporal Artery Scan 06/01/24 13:04 Pulse Rate 66 06/01/24 13:04 Respiratory Rate 16 06/01/24 13:04 Blood Pressure 102/51 L 06/01/24 13:04 Blood Pressure Mean 68 L 06/01/24 13:04 Blood Pressure Position Supine 06/01/24 13:04 Pulse Oximetry 95 06/01/24 13:04 Oxygen Delivery Method Room Air 06/01/24 13:04 Vital Signs Temperature 6.9 F L 06/01/24 13:04 Pulse Rate 66 06/01/24 13:04 Respiratory Rate 16 06/01/24 13:04 Blood Pressure 102/51 L 06/01/24 13:04 Pulse Oximetry 95 06/01/24 13:04 Oxygen Delivery Method Room Air 06/01/24 13:04 Temperature 6.9 F L 06/01/24 13:04 Pulse Rate 95 06/01/24 16:03 Respiratory Rate 21 06/01/24 16:31 Blood Pressure 137/84 06/01/24 16:31 Pulse Oximetry 87 L 06/01/24 16:03 Oxygen Delivery Method Room Air 06/01/24 13:04 Medications Administered Medications: Discontinued Medications Generic Name Dose Route Start Last Admin Trade Name Freq PRN Reason Stop Dose Admin Ceftriaxone Sodium 1 gm/ 100 mls @ 200 mls/hr 06/01/24 14:55 06/01/24 15:26 Sodium Chloride IVPB 06/01/24 14:56 200 mls/hr ONCE ONE Administration MDM - Altered Mental Status MDM Narrative Medical decision making narrative: 1. Altered mentation-improved at this time. This is the 2nd event in a matter of 24 hours. Neurology feels that this may be related to autonomic dysregulation and and hypotensive episode caused from infection. Patient has possibility of UTI with positive nitrites and questionable infiltrate on her chest x-ray. She has now returned positive for influenza a as well. Questionable seizure disorder but neurology does not feel that she needs transfer for EEG but could do that as an outpatient after discharge after speaking to her neurologist for Parkinson's. At this time she is back to baseline. 2. SVT-brief and has not recurred. This was under 30 seconds. Initial troponin is negative. Second troponin pending. 3. Parkinson's disease and dementia -has been receptive to staying after our discussion. 4. Influenza a-patient has tested in positive for influenza A. She has no respiratory symptoms at this time. Chest x-ray suggested the possibility of an infiltrate. Patient was given Rocephin 1 g IV for both coverage of possible pneumonia and UTI. 5. Disposition-admit under the care of hospitalist Dr. Arthur. Medical Records Attestation: I reviewed the patient's medical records. Lab Data Attestation: I reviewed the patient's lab results. Labs: Lab Results 06/01/24 06/01/24 06/01/24 Range/Units 13:15 13:42 14:32 WBC 9.89 (4.50-11.00) K/uL RBC 4.14 (4.00-5.20) m/uL Hgb 13.0 (12.0-16.0) gm/dL Hct 40.1 (33.0-51.0) % MCV 97 (80-100) fL MCH 31 (26-34) pg MCHC 32 (32-36) gm/dL RDW Coeff of [place] 13.0 (11.5-15.5) % Plt Count 219 (140-440) K/uL Neut % (Auto) 78.5 H (42.0-72.0) % Lymph % (Auto) 9.3 L (20-44) % [place] % (Auto) 11.4 H (0.0-11.0) % Eos % (Auto) 0.3 (0.0-7.0) % Baso % (Auto) 0.3 (0.0-3.0) % Neut # (Auto) 7.80 H (1.7-7.0) K/uL Lymph # (Auto) 0.90 (0.90-2.90) K/uL [place] # (Auto) 1.10 H (0.00-0.90) K/UL Eos # (Auto) 0.03 (0.00-0.50) K/uL Baso # (Auto) 0.03 (0.00-0.30) K/uL Abs Immat Gran (auto) 0.02 (0.00-0.30) K/uL Imm/Tot Granulo (auto) 0.2 % Sodium 134 L (135-149) mmol/L Potassium 4.2 (3.6-5.1) mmol/L Chloride 100 (96-114) mmol/L Carbon Dioxide 25 (20-32) mmol/L Anion Gap 9 (7-15) mEq/L BUN 19 (7-30) mg/dL Creatinine 0.7 (0.5-1.5) mg/dL Estimated Creat Clear 31.13 Estimated GFR 86 ml/min Glucose 85 (60-115) mg/dL Calcium 8.8 (8.4-10.6) mg/dL Total Bilirubin 0.4 (0.1-1.5) mg/dL AST 17 (12-35) U/L ALT < 4 L (4-35) U/L Alkaline Phosphatase 72 (40-150) U/L Troponin I < 0.01 L (0.01-0.04) ng/mL C-Reactive Protein 1.6 H (0.5-1.0) mg/dL Total Protein 6.4 (6.0-8.3) g/dL Albumin 4.1 (3.3-5.0) g/dL Urine Color Yellow (Yellow) Urine Appearance Clear (Clear) Urine pH 6.0 (5.0-8.5) Ur Specific [place] 1.010 (1.000-1.030) Urine Protein Trace A (Negative) Urine Glucose (UA) Negative (Negative) Urine Ketones 1+ A (Negative) Urine Blood Negative (Negative) Urine Nitrite Positive A (Negative) Urine Bilirubin Negative (Negative) Urine Urobilinogen 0.2 (0.2-1.0) Ur Leukocyte Esterase Trace A (Negative) Urine RBC 0-2 (0-2) Urine WBC 0-2 (0-5) Ur Squamous Epith Cells Few (None-Few) Urine Bacteria Few A (None) SARS-CoV-2 (PCR) Negative SARS-CoV-2 (Negative) Influenza Type A (PCR) POSITIVE PCR FLU A A (Negative) Influenza Type B (PCR) Negative PCR FLU B (Negative) RSV (PCR) Negative PCR RSV (Negative) POC Troponin I 0.01 (0.01-0.04) ng/ml Imaging Data Chest x-ray: Attestation: I have reviewed the pertinent imaging results. Radiologist's impression: Cardiovascular/Mediastinum: Magnified cardiac silhouette. Unremarkable. Lungs: No focal consolidation. Mild pulmonary vascular congestion and interstitial edema. Hazy ill-defined right infrahilar opacification. Airways: Trachea remains midline. Pleura: No pleural effusions or pneumothorax. Bones: No acute osseous abnormalities. Upper abdomen: Unremarkable. IMPRESSION: Mild pulmonary edema. A superimposed pneumonia of the right infrahilar region should be clinically excluded. CT scan - head: Attestation: I have reviewed the pertinent imaging results. My impression: I do not note any acute findings Radiologist's impression: There is no intra-axial or extra-axial fluid collection. There is no mass effect or midline shift. There is age-related cortical atrophy with mild sulcal widening and ex vacuo dilatation of the lateral ventricles. There are chronic small vessel disease changes in the subcortical and periventricular white matter without lost jay-white differentiation. The orbits and their contents are grossly within normal limits. The bony calvarium is grossly intact. The paranasal sinuses are clear. The mastoid air cells are well aerated. Impression: Stable age-related and chronic small vessel disease changes of the brain without acute intracranial abnormality. head angio: Attestation: I have reviewed the pertinent imaging results. Radiologist's impression: There is no cerebral aneurysm or large vessel occlusion. The right internal carotid artery is normal. The right middle cerebral artery and its branches are normal. The right anterior cerebral artery and its branches are normal. The left internal carotid artery is normal. The left middle cerebral artery and its branches are normal. The left anterior cerebral artery and its branches are normal. The anterior communicating artery is well visualized and appears normal. The right vertebral artery and PICA are normal. The left vertebral artery and PICA are normal. The vertebral arteries are codominant. The basilar artery is patent and appears normal. The right posterior cerebral artery is normal. The left posterior cerebral artery is normal. The visualized venous structures are patent. IMPRESSION: Patent proximal intracranial vasculature without intracranial aneurysms. neck angio: Attestation: I have reviewed the pertinent imaging results. Radiologist's impression: he origins of the great vessels from the aortic arch are patent. The origin of the right vertebral artery is patent. The origin of the left vertebral artery is patent. The common carotid arteries are patent. There is no stenosis at the origin of the right internal carotid artery. There is no stenosis at the origin of the left internal carotid artery. The rest of the cervical segments of the internal carotid arteries are patent up to the skull base. The vertebral arteries are codominant. The cervical segments of the vertebral arteries are patent up to the skull base. The visualized lung apices are unremarkable. The thyroid gland demonstrates a goiter. The soft tissues of the neck are unremarkable. There are degenerative changes in the cervical spine. IMPRESSION: Patent cervical vasculature. ECG Data Attestation: I personally reviewed and interpreted this ECG as follows: Interpretation: EKG by my read shows sinus rhythm at a rate of 63. There are occasional PACs noted. Otherwise no acute ST or T-wave changes. NH and QT intervals within normal limits. Discharge Plan Discharge Clinical Impression: Influenza A, Altered mental status, UTI (urinary tract infection) Patient Disposition: Admitted As Observation Condition: Improved
--- NOTE | 2024-06-01 13:34 | CRLHL7_ITS ---
For Patients: As a result of the Century Cures Act, medical imaging exams and procedure reports are released immediately into your electronic medical record. You may view this report before your referring provider. If you have questions, please contact your health care provider. DATE: 06/01/2024 CLINICAL HISTORY: Patient with altered mental status. TECHNIQUE: Standard helical CT image acquisition through the intracranial circulation following intravenous administration of contrast material with bolus tracking. 2D and 3D MIP images for post-processing were performed and interpreted on an independent workstation and 3D images were permanently archived. COMPARISON: CT same day. FINDINGS: There is no cerebral aneurysm or large vessel occlusion. The right internal carotid artery is normal. The right middle cerebral artery and its branches are normal. The right anterior cerebral artery and its branches are normal. The left internal carotid artery is normal. The left middle cerebral artery and its branches are normal. The left anterior cerebral artery and its branches are normal. The anterior communicating artery is well visualized and appears normal. The right vertebral artery and PICA are normal. The left vertebral artery and PICA are normal. The vertebral arteries are codominant. The basilar artery is patent and appears normal. The right posterior cerebral artery is normal. The left posterior cerebral artery is normal. The visualized venous structures are patent. IMPRESSION: Patent proximal intracranial vasculature without intracranial aneurysms. Please note that all CT scans at this facility use dose modulation, iterative reconstruction, and/or weight-based dosing when appropriate to reduce radiation dose to as low as reasonably achievable. Dictated by Clayton Keith MD @ 06/01/2024 2:56:03 PM (Electronically Signed)
--- NOTE | 2024-06-01 13:34 | CRLHL7_ITS ---
For Patients: As a result of the Century Cures Act, medical imaging exams and procedure reports are released immediately into your electronic medical record. You may view this report before your referring provider. If you have questions, please contact your health care provider. DATE: 06/01/2024 CLINICAL HISTORY: Patient with altered mental status. TECHNIQUE: Standard helical CT image acquisition of the neck up to the skull base after bolus intravenous contrast enhancement. 2D and 3D MIP images for post-processing were performed and interpreted on an independent workstation and 3D images were permanently archived. COMPARISON: CT same day. FINDINGS: The origins of the great vessels from the aortic arch are patent. The origin of the right vertebral artery is patent. The origin of the left vertebral artery is patent. The common carotid arteries are patent. There is no stenosis at the origin of the right internal carotid artery. There is no stenosis at the origin of the left internal carotid artery. The rest of the cervical segments of the internal carotid arteries are patent up to the skull base. The vertebral arteries are codominant. The cervical segments of the vertebral arteries are patent up to the skull base. The visualized lung apices are unremarkable. The thyroid gland demonstrates a goiter. The soft tissues of the neck are unremarkable. There are degenerative changes in the cervical spine. IMPRESSION: Patent cervical vasculature. Please note that all CT scans at this facility use dose modulation, iterative reconstruction, and/or weight-based dosing when appropriate to reduce radiation dose to as low as reasonably achievable. Dictated by Clayton Keith MD @ 06/01/2024 2:54:07 PM (Electronically Signed)
--- NOTE | 2024-06-01 13:34 | CRLHL7_ITS ---
For Patients: As a result of the Cures Act, medical imaging exams and procedure reports are released immediately into your electronic medical record. You may view this report before your referring provider. If you have questions, please contact your health care provider. Indication: Altered mental status, unresponsive Technique: Volumetric multidetector CT images of the head were obtained without the administration of low osmolar intravenous contrast. Comparison: CT head May 08, 2024 Findings: There is no intra-axial or extra-axial fluid collection. There is no mass effect or midline shift. There is age-related cortical atrophy with mild sulcal widening and ex vacuo dilatation of the lateral ventricles. There are chronic small vessel disease changes in the subcortical and periventricular white matter without lost jay-white differentiation. The orbits and their contents are grossly within normal limits. The bony calvarium is grossly intact. The paranasal sinuses are clear. The mastoid air cells are well aerated. Impression: Stable age-related and chronic small vessel disease changes of the brain without acute intracranial abnormality. Please note that all CT scans at this facility use dose modulation, iterative reconstruction, and/or weight-based dosing when appropriate to reduce radiation dose to as low as reasonably achievable. Dictated by Parveen Coreas MD @ 06/01/2024 2:15:57 PM (Electronically Signed)
--- OUTSIDE RECORDS SUMMARY | 2024-06-01 13:35 | XMS_ITS | Clinical Summary ---
Author Organization [facility] Address [address] [place] [address] Care Team Providers Care Truck Operator Name Role Phone LudmilaDaja, P.A.-C. Primary Care Prov ider Source Comments Patient records contain information from all sites at [facility]. For routine questions regarding patient records, call [phone] during business hours, M-F 8:00 AM - 5:00 PM Central Time. Record requests for emergency care only can be directed to [phone] at any time.[facility] Allergies Active Allergy Reactions Criticality Noted Date Comments [place] Pollen Itching Medium 10/14/2012 Seasonal Allergies: Allergic [...] Acute Pain. 12 tablet 05/08/2024 10:10 PM IDEA MAN 5 Active Active Problems Problem Noted Date [...] kg Assessment & Plan (06/20/2023 7:48 AM IDEA MAN): Euvolemic. 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 Assessment & Plan (06/20/2023 11:01 AM IDEA MAN): She is wandering 24/7. She needs a [...] Department Care Team Description 05/14/2024 10:14 AM IDEA MAN - 05/14/2024 11:59 PM IDEA MAN Hospital Encounter Department of Radiology, [facility], in [address] [phone] Chanell Garcia P.A.-C., M.S. Fracture Humerus Simple Supracondylar Nondisplaced Closed Initial Left Discharge Disposition: Home or Self Care 05/14/2024 9:06 AM IDEA MAN - 05/14/2024 10:13 AM IDEA MAN Hospital Encounter Department of Orthopedic Surgery in [address] [phone] Chanell Garcia P.A.-C., M.S. Fracture Humerus Simple Supracondylar Nondisplaced Closed Initial Left (Primary Dx); Pain Arm Left Discharge Disposition: Home or Self Care 05/11/2024 Orders Only Department of Orthopedic Surgery in [address] [phone] Chanell Garcia P.A.-C., M.S. Pain Arm Left (Primary Dx) 05/11/2024 Results Follow-Up [facility] Emergency Department [address] [place] [phone] Mary Keller M.S.N., R.N. Interpretation of Outside CT Extremity 05/08/2024 5:15 PM IDEA MAN Ancillary Procedure Department of Radiology in [place], [place] [address] [place] [address] Tripp Gomez M.D. 05/08/2024 5:10 PM IDEA MAN Ancillary Procedure Department of Radiology in [place], [place] [address] [place] [phone] Tripp Gomez M.D. 05/08/2024 5:05 PM IDEA MAN Ancillary Procedure Department of Radiology in [place], [place] [address] [place] [phone] Tripp Gomez M.D. 05/08/2024 5:05 PM IDEA MAN Ancillary Procedure Department of Radiology in [place], [place] [address] [place] [phone] Tripp Gomez M.D. 05/08/2024 4:49 PM IDEA MAN - 05/08/2024 10:25 PM IDEA MAN Emergency [facility] Emergency Department [address] [place] [phone] Tripp Gomez M.D. Pain Arm Left (Primary [...] e alcohol) occasional glass of wine [facility] divorce360ities Answer Date Recorded In the past 12 months has [employer], gas, oil, or water [employer] threatened to shut off services in your [...] week 08/08/2022 How often do you attend [facility] or restorationism services? 1 to 4 times per year [...] Answer Date Recorded PHQ-2 Score 0 10/18/2022 [facility] [place] [facility] - Occupational Stress Questionnaire Answer Date Recorded [...] AM CDT Legal Sex Female 8:25 AM IDEA MAN Gender Identity Female 03/05/2019 8:17 AM IDEA MAN Sexual Orientation Straight 03/05/2019 8: 17 AM IDEA MAN Last Filed Vital Signs Vital Sign Reading Time Taken Comments Blood Pressure 151/86 05/08/2024 8:00 PM IDEA MAN Pulse 93 05/08/2024 7:00 PM IDEA MAN Temperature 36.7 C (98.1 F) 05/08/2024 4:35 PM IDEA MAN Respiratory Rate 14 05/08/2024 4:35 PM IDEA MAN Oxygen Saturation 95% 05/08/2024 7:00 PM IDEA MAN Inhaled Oxygen Concentration - - Weight 43.4 kg (95 lb 9.6 oz) 06/25/2023 9:43 AM CDT Height 154.9 cm (5' 1) 06/16/2023 2:45 PM IDEA MAN Body Mass Index 18.06 06/16/2023 2:45 PM IDEA MAN Plan of Treatment Upcoming Encounters Date Type Department Care Team (Late st Contact Info) Description 06/08/2024 10:00 AM IDEA MAN Appointment Department of Orthopedic Surgery in [place], [place] [address] [place] [phone] Chanell Garcia P.A.-C., M.S. [address] [place] [address] Discharge Disposition: Home or Self Care 08/17/2024 12:00 PM CDT Telemedicine Department of Neurology in [place], [place] [address] [place] [phone] Dot Sultana M.D., M.B.A. [address] [facility] [place] [phone] Discharge Disposition: Home or Self Care Health [...] inpatients and all outpatients) 05/14/2024 11:35 AM IDEA MAN Fracture Humerus Simple Supracondylar Nondisplaced Closed Initial Left ORS CAST ROOM VISIT Routine 05/14/2024 10:00 AM IDEA MAN Pain Arm Left DX HUMERUS LEFT 2 VIEW AND ELBOW LEFT 2 VIEW RAD - Routine (most inpatients and all outpatients) 05/08/2024 7:09 PM IDEA MAN HC URINALYSIS AUTO WO MICRO Routine 05/08/2024 6:01 PM IDEA MAN DIPSTICK, U STAT 05/08/2024 5:57 PM IDEA MAN PH, U STAT 05/08/2024 5:57 PM IDEA MAN OSMOLALITY, U STAT 05/08/2024 5:57 PM IDEA MAN MICROSCOPIC AUTOMATED STAT 05/08/2024 5:57 PM IDEA MAN URINALYSIS WITH MICROSCOPIC STAT 05/08/2024 5:57 PM IDEA MAN MAGNESIUM, S STAT 05/08/2024 5:43 PM IDEA MAN BASIC METABOLIC PANEL, S/P STAT 05/08/2024 5:43 PM IDEA MAN CBC WITH DIFFERENTIAL, B STAT 05/08/2024 5:43 PM IDEA MAN INTERPRETATION OF OUTSIDE DX EXTREMITY RAD - Routine (most inpatients and all outpatients) 05/08/2024 5:06 PM IDEA MAN INTERPRETATION OF OUTSIDE CT EXTREMITY RAD - Routine (most inpatients and all outpatients) 05/08/2024 5:06 PM IDEA MAN INTERPRETATION OF OUTSIDE CT SPINE RAD - Routine (most inpatients and all outpatients) 05/08/2024 5:06 PM IDEA MAN INTERPRETATION OF OUTSIDE CT HEAD RAD - Routine (most inpatients and all outpatients) 05/08/2024 5:06 PM IDEA MAN OUTSIDE CT MSK Routine 05/08/2024 9:45 [address] IDEA [address] NEURO Routine 05/08/2024 8:15 [address] IDEA MAN [address] NEURO Routine 05/08/2024 8:10 AM IDEA MAN OUTSIDE DX SKELETAL Routine 05/08/2024 7 :35 AM IDEA MAN from Last 3 Months Results * DX Elbow Left 2 Views (05/14/2024 11:35 AM IDEA MAN) Anatomical Region Laterality Modality Upper Extremity, Elbow, Musc uloskeletal RST LOS, Musculoskeletal ARZ LOS, Muskuloskeletal FLA LOS Left Digit al Radiography Impressions 05/14/2024 11:40 AM IDEA MAN Since 05/08/2024, a cast has been applied, degrading visualization of the bones. Oblique impacted and displaced fracture of the distal left humerus, involving the trochlear articular surface medially and the supracondylar region laterally. Lateral displacement of the distal fragment. No change in alignment since outside CT 05/08/2024. Narrative 05/14/2024 11:40 AM IDEA MAN EXAM: DX ELBOW LEFT 2 VIEWS Procedure [...] Result * PROCEDURE PLACEHOLDER (05/14/2024 10:00 AM IDEA MAN) Narrative MMODAL - 05/14/2024 10:00 AM IDEA MAN Chanell Garcia P.A.-C., M.S. 05/15/2024 9:36 AM ORS Cast Room Visit Performed by: Chanell Garcia P.A.-C., M.S. Authorized by: Chanell Garcia P.A.-C., M.S. Chanell Garcia P.A.-C. MTye. PROCEDURE/MINOR S URGICAL ORDERABLES Final Result MMODAL NA * DX Humerus Left 2 View and Elbow Left 2 View (05/08/2024 7:09 PM IDEA MAN) Anatomical Region Laterality Modality Upper Extremity, Humerus, Mu sculoskeletal RST LOS, Musculoskeletal ARZ LOS, Muskuloskeletal FLA LOS Left Digit al Radiography Impressions 05/08/2024 7:33 PM IDEA MAN Please refer to elbow radiographs and CT for supracondylar fracture of the left humerus. Age indeterminate displaced fracture of the humeral head/neck. The humeral head displaced posterolaterally. Superior subluxation and anterior displacement of the proximal shaft of the left humerus. Periosteal bone formation about the fracture site, concerning for subacute/chronic fracture. AC joint is maintained. Narrative 05/08/2024 7:33 PM IDEA MAN EXAM: DX HUMERUS LEFT 2 VIEW AND [...] (ABNORMAL) Dipstick, POCT, Urine (05/08/2024 6:01 PM IDEA MAN) Glucose, POCT, U Negative Negative mg/dL 05/08/2024 6:03 PM IDEA MAN PCED Ketone, POCT, U 15(A) Negative mg/dL 05/08/2024 6:03 PM IDEA MAN PCED Specific [place], POCT, U 1.020 1.005 - 1.030 05/08/2024 6:03 PM IDEA MAN PCED Blood, POCT, U Negative Negative 05/08/2024 6:03 PM IDEA MAN PCED pH, POCT, Urine 7.0 5.0 - 8.0 05/08/2024 6:03 PM IDEA MAN PCED Protein, POCT, U 30(A) Negative mg/dL 05/08/2024 6:03 PM IDEA MAN PCED Nitrites, POCT, U Negative Negative 05/08/2024 6:03 PM IDEA MAN PCED Leukocytes, POCT, U Negative Negative 05/08/2024 6:03 PM IDEA MAN PCED Urine 05/08/2024 6:01 PM IDEA MAN 05/08/2024 6:03 PM IDEA MAN us Unknown Provider LAB POCT ORDERABLES - DEVICE Fi nal Result Performing Organization Address [facility] de Phone Number [facility] [address] [place] [address], [facility] PCED [facility] POC [address] [place] [address] * (ABNORMAL) Dipstick, Urine (05/08/2024 5:57 PM IDEA MAN) Hemoglobin, QL, U Trace(A) Negative 05/08/2024 7:00 PM IDEA MAN DTL Leukocyte Esterase, U Negative Negative 05/08/2024 7:00 PM IDEA MAN DTL Nitrite, U Negative Negative 05/08/2024 7:00 PM IDEA MAN DTL Ketone, U 10(A) Negative mg/dL 05/08/2024 7:00 PM IDEA MAN DTL Glucose, U Negative Negative mg/dL 05/08/2024 7:00 PM IDEA MAN DTL Urine 05/08/2024 5:57 PM IDEA MAN 05/08/2024 6:50 PM IDEA MAN us Fara Rojas M.D. LAB URINE ORDERABLES Final Result Performing Organization Address [facility] Co de Phone Number [facility] [address] [place] [address], [facility] DTL [facility] [address] [place] [address] * (ABNORMAL) Microscopic Automated (05/08/2024 5:57 PM IDEA MAN) Microscopy Abnormal 05/08/2024 7:00 PM IDEA MAN DTL RBC 3-10(A) <3 /hpf 05/08/2024 7:00 PM IDEA MAN DTL Dysmorphic RBC <25 <25 % 05/08/2024 7:00 PM IDEA MAN DTL WBC 1-3 /hpf 05/08/2024 7:00 PM IDEA MAN DTL Comment: ----REFERENCE VALUE---- <4 (Males) <11 (Females) Casts, Hyaline 1-3 /lpf 05/08/2024 7:00 PM IDEA MAN DTL Urine 05/08/2024 5:57 PM IDEA MAN 05/08/2024 6:50 PM IDEA MAN Fara Rojas M.D. LAB URINE ORDERABLES Final Result Performing Organization Address City/[facility]/ZIP Co de Phone Number [facility] [address] [place] [phone] [place] [address] [place] [address] * pH, Urine (05/08/2024 5:57 PM IDEA MAN) pH, U 5.9 4.5 - 8.0 05/08/2024 7:2 8 PM IDEA MAN DT Urine 05/08/2024 5:57 PM IDEA MAN 05/08/2024 6:50 PM IDEA MAN us Fara Rojas M.D. LAB URINE ORDERABLES Final Result [facility] [address] [place] [address], [facility] [address] [place] [address] * Osmolality, Urine (05/08/2024 5:57 PM IDEA MAN) Osmolality, U 567 150 - 1150 mOsm/kg 05/08/2024 7:28 PM IDEA MAN DTL Urine 05/08/2024 5:57 PM IDEA MAN 05/08/2024 6:50 PM IDEA MAN Fara Rojas M.D. LAB URINE ORDERABLES Final Result Performing Organization Address [facility] Co de Phone Number [facility] [address] [place] [address], [facility] [address] [place] [address] * (ABNORMAL) Urinalysis, with Microscopic: Urine, Catheter (05/08/2024 5:57 PM IDEA MAN) Source Urine, Urine, Catheter 05/08/2024 6:49 PM IDEA MAN DTL Color, U Yellow 05/08/2024 6:50 PM IDEA MAN DTL Clarity, U Clear 05/08/2024 6:50 PM IDEA MAN DTL Protein, U 42(H) <26 mg/dL 05/08/2024 7:51 PM IDEA MAN DTL Protein/Osmola lity 0.74(H) <0.42 ratio 05/08/2024 7:51 PM IDEA MAN DTL Predicted 24 HR Protein, U 509(H) <229 mg/24 h 05/08/2024 7:51 PM IDEA MAN DTL Predicted Range 126-2062 mg/24 h 05/08/2024 7:51 PM IDEA MAN DTL Urine (Urine, Catheter) 05/08/2024 5:57 PM IDEA MAN 05/08/2024 6:49 PM IDEA MAN us Fara Rojas M.D. LAB URINE ORDERABLES Final Result Performing Organization Address [facility]/ZIP Co de Phone Number [facility] [address] [place] [address], [facility] [address] [place] [address] * (ABNORMAL) CBC with Differential, Blood (05/08/2024 5:43 PM IDEA MAN) Hemoglobin 13.8 11.6 - 15.0 g/dL 05/08/2024 5:53 PM IDEA MAN STMA Hematocrit 41.4 35.5 - 44.9 % 05/08/2024 5:53 PM IDEA MAN STMA Erythrocytes 4.41 3.92 - 5.13 x10(12)/L 05/08/2024 5:53 PM IDEA MAN STMA MCV 93.9 78.2 - 97.9 fL 05/08/2024 5:53 PM IDEA MAN STMA RBC Distrib Width 12.0(L) 12.2 - 16.1 % 05/08/2024 5:53 PM IDEA MAN STMA Platelet Count 262 157 - 371 x10(9)/L 05/08/2024 5:53 PM IDEA MAN STMA Leukocytes 19.5(H) 3.4 - 9.6 x10(9)/L 05/08/2024 5:53 PM IDEA MAN STMA Neutrophils 16.20(H) 1.56 - 6.45 x10(9)/L 05/08/2024 5:53 PM IDEA MAN DHPM Lymphocytes 1.65 0.95 - 3.07 x10(9)/L 05/08/2024 5:53 PM IDEA MAN STMA Monocytes 1.47(H) 0.26 - 0.81 x10(9)/L 05/08/2024 5:53 PM IDEA MAN STMA Eosinophils 0.10 0.03 - 0.48 x10(9)/L 05/08/2024 5:53 PM IDEA MAN STMA Basophils 0.04 0.01 - 0.08 x10(9)/L 05/08/2024 5:53 PM IDEA MAN STMA Blood (Blood, Venous) 05/08/2024 5:43 PM IDEA MAN 05/08/2024 5:49 PM IDEA MAN us Fara Rojas M.D. LAB BLOOD ADD-ON Final Resu lt [facility] [address] [place] [address], [facility] STMA [facility] [address] [place] [address] [facility] [address] [place] [address] * Magnesium (05/08/2024 5:43 PM IDEA MAN) [facility] Magnesium, P 2.2 1.7 - 2.3 mg/dL 05/08/2024 6:14 PM IDEA MAN STMA Blood (Blood, Venous) 05/08/2024 5:43 PM IDEA MAN 05/08/2024 5:49 PM IDEA MAN Fara Rojas M.D. LAB BLOOD ADD-ON Final Resu lt [facility] [address] [place] [address], [facility] STMA [facility] [address] [place] [address] * (ABNORMAL) Basic Metabolic Panel (05/08/2024 5:43 PM IDEA MAN) Potassium, P 3.7 3.6 - 5.2 mmol/L 05/08/2024 6:14 PM IDEA MAN STMA Sodium, P 135 135 - 145 mmol/L 05/08/2024 6:14 PM IDEA MAN STMA Chloride, P 98 98 - 107 mmol/L 05/08/2024 6:14 PM IDEA MAN STMA Bicarbonate, P 24 22 - 29 mmol/L 05/08/2024 6:14 PM IDEA MAN STMA Anion Gap, P 13 7 - 15 05/08/2024 6:14 PM IDEA MAN STMA BUN (Blood Urea Nitrogen), P 12 6 - 21 mg/dL 05/08/2024 6:14 PM IDEA MAN STMA Creatinine 0.55(L) 0.59 - 1.04 mg/dL 05/08/2024 6:14 PM IDEA MAN STMA Estimated GFR (eGFR) >90 >=60 mL/min/BSA 05/08/2024 6:14 PM IDEA MAN STMA Comment: Estimated GFR calculated using the 2020 CKD_EPI creatinine equation. Calcium, Total, P 8.9 8.8 - 10.2 mg/dL 05/08/2024 6:14 PM IDEA MAN STMA Glucose, P 139 70 - 140 mg/dL 05/08/2024 6:14 PM IDEA MAN STMA Blood (Blood, Venous) 05/08/2024 5:43 PM IDEA MAN 05/08/2024 5:49 PM IDEA MAN us Fara Rojas M.D. LAB BLOOD ADD-ON Final Resu lt [facility] [address] [place] [address], [facility] [address] [place] [address] * Interpretation of Outside DX Extremity (05/08/2024 5:06 PM IDEA MAN) Anatomical Region Laterality Modality Musculoskeletal RST LOS, Mus culoskeletal ARZ LOS, Muskuloskeletal FLA LOS, Musculoskeletal, Other N/A Digita l Radiography Impressions 05/08/2024 5:35 PM IDEA MAN Acute, displaced and comminuted condylar/supracondylar fracture of the left humerus. The largest fracture fragment displaced laterally approximately 9 mm. Small to moderate elbow joint effusion. Visualized radial head appears unremarkable. Demineralization. Overlying soft tissue swelling. Narrative 05/08/2024 5:35 PM IDEA MAN EXAM: INTERPRETATION OF OUTSIDE DX EXTREMITY Left [...] of Outside CT Extremity (05/08/2024 5:06 PM IDEA MAN) Anatomical Region Laterality Modality Musculoskeletal RST LOS, Mus culoskeletal ARZ LOS, Muskuloskeletal FLA LOS, Musculoskeletal, Other N/A Comput ed Tomography Impressions 05/10/2024 12:[address] of the left elbow demonstrates an [...] Soft tissue swelling. Narrative 05/10/2024 12:42 PM IDEA MAN EXAM: INTERPRETATION OF OUTSIDE CT EXTREMITY Interpretation [...] of Outside CT Spine (05/08/2024 5:06 PM IDEA MAN) Anatomical Region Laterality Modality Spine, Neuroradiology RST LO S, Neuroradiology ARZ LOS, Neuroradiology FLA LOS, Other N/A Computed Tomography Impressions 05/08/2024 7:54 PM IDEA MAN No acute fracture or traumatic malalignment of the cervical spine. Narrative 05/08/2024 7:54 PM IDEA MAN EXAM: INTERPRETATION OF OUTSIDE CT SPINE \ [...] the cervical spine. us Tripp Gomez M.D. [facility] [place] PROCEDURES Final Result * Interpretation of Outside CT Head (05/08/2024 5:06 PM IDEA MAN) Anatomical Region Laterality Modality Head, Neuroradiology RST LOS , Neuroradiology ARZ LOS, Neuroradiology FLA LOS, Other N/A Computed Tomography Impressions 05/08/2024 7:49 PM IDEA MAN No acute intracranial abnormality. Narrative 05/08/2024 7:49 PM IDEA MAN EXAM: INTERPRETATION OF OUTSIDE CT HEAD Interpretation of outside CT head without IV contrast performed on 05/08/2024. COMPARISON: [place] CT head 06/16/2023. HISTORY: Parkinson's, dementia, status [...] head without IV contrast performed on05/08/2024. COMPARISON: [place] CT head 06/16/2023. HISTORY: Parkinson's, dementia, status [...] WO CON-Outside CT MSK (05/08/2024 9:45 AM IDEA MAN) 05/08/2024 9:45 AM IDEA MAN Narrative [facility] - 05/08/2024 1:27 PM IDEA MAN This order has been created and auto-finalized [...] wo con-Outside CT Neuro (05/08/2024 8:15 AM IDEA MAN) Only the most recent of2 resultswithin the time period is included. Narrative [facility] - 05/08/2024 1:28 PM IDEA MAN This order has been created and auto-finalized [...] PROCEDURES Final R esult Performing Organization Address [facility] Co de Phone Number II NA * XR ELBOW LT 2V-Outside Skeletal Xray (05/08/2024 7:35 AM IDEA MAN) Narrative [facility] - 05/08/2024 1:24 PM IDEA MAN This order has been created and auto-finalized to support the import of outside images. If available, original interpretation can be found on the Media Tab in Chart Review, in Document Viewer, as an image in QREADS or as an Addendum. If a re-interpretation or overread is required please follow defined workflow. us Provider Not In System IMG DIAGNOSTIC IMAGING CA OCEDURES Final Result Performing Organization Address [facility] de Phone Number II NA from Last 3 Months Insurance [address] [phone] [facility] [place] [address] Advance Directives For more information, please contact: [phone] Documents on File Type Date Recorded Patient Director Behavioral Health Expl anation Advance Directives 10/25/2022 2:10 PM Jose Manuel Hilario (Sulaiman james) Rahel Eduardo HCPOA/ADVOCATE/AGENT/ [facility]/SURROG ATE Advance Directives 06/14/2021 7:48 AM HCPOA /ADVOCATE/AGENT/ [facility]/SURROG ATE * DNR/DNI (Latest Code Status on File) Date Activated Date Inactivated Comments 06/16/2023 3:58 PM 06/18/2023 3:45 PM Healthcare Agents on File Name Relationship Healthcare Agent Relationship Communication Jose Manuel Hilario (Jeison) Mitchell Spouse Health Care Agent [email or web address] Relative Health Care Agent Rafaela Eduardo Relative Health Care Agent [email or web address] Care Teams Truck Operator Relationship Specialty Start Date End Date Daja Keys MPAS, P.A.-C. [address] [phone] PCP - General Family Medicine 07/04/23
--- OUTSIDE RECORDS SUMMARY | 2024-06-01 13:36 | XMS_ITS | Encounter Summary ---
Author Organization [facility] Address [address] [place] [address] Care Team Providers Care Parking Manager Name Role Phone Daja Keys, P.A.-C. Primary Care Prov ider Encounter Details Date Type Department Care Team (Latest Contact Info) Description 05/08/2024 Intake [facility] Social History Tobacco Use Types Packs/Day Years Used Date Smoking Tobacco: Never Smokeless Tobacco: Never Alcohol Use Standard Drinks/Week Comments Not Currently 0 (1 standard drink = 0.6 oz pur e alcohol) occasional glass of wine [facility] Utilities Answer Date Recorded In the past 12 months has th e [employer], gas, oil, or water [place] threatened to shut off services in your [...] often do you attend chur ch or rastafarian services? 1 to 4 times per year 08/08/2022 Do you belong to any clubs o r organizations such as latter day groups, unions, fraternal or athletic groups, or [...] Answer Date Recorded PHQ-2 Score 0 10/18/2022 [facility] of Occupat ional Health - Occupational Stress [...] your living situation today? I have a [facility] place to live 08/20/2023 Education Answer Date Recorded What is the highest level of school you have completed or the highest degree you have received? Bachelor's degree (e.g., BA, AB, BS) 03/05/2019 Comments No Sex and Gender Information Value Date Recorded Sex Assigned at Female 12/15/2020 11:07 AM CDT Legal Sex Female 8:25 AM LEGAL INVESTIGATOR Gender Identity Female 03/05/2019 8:17 AM LEGAL INVESTIGATOR Sexual Orientation Straight 03/05/2019 8: 17 AM LEGAL INVESTIGATOR documented as of this encounter Plan of Treatment Upcoming Encounters Date Type Department Care Team (Late st Contact Info) Description 06/08/2024 10:00 AM LEGAL INVESTIGATOR Appointment Department of Orthopedic Surgery in [place], [place] [address] [place] [address] Chanell Garcia P.A.-C., M.S. [address] [place] [address] Discharge Disposition: Home or Self Care 08/17/2024 12:00 PM CDT Telemedicine Department of Neurology in [place], [place] [address] [place] [phone] Dot Sultana M.D., M.B.A. [address] [place] [address] Discharge Disposition: Home or Self Care documented as of this encounter Visit Diagnoses Not on filedocumented in this encounter Additional Health Concerns Assessment Noted Time PHQ-9 Depression Total Score: 9 10/19/19 23 8:25 AM CDT documented as of this encounter Care Teams Parking Manager Relationship Specialty Start Date End Date Daja Keys MPAS, P.A.-C. [address] [place] [phone] PCP - General Family Medicine 07/04/23 documented as of this encounter
--- OUTSIDE RECORDS SUMMARY | 2024-06-01 13:36 | XMS_ITS | Encounter Summary ---
Author Organization [facility] Address [address] [place] [address] Care Team Providers Care Gameplay Programmer Name Role Phone Ludmila Daja AGUIRRE, P.A.-C. Primary Care Prov ider Reason for Visit * Reason Comments Arm Pain + Humerus Fx LEFT Encounter Details Date Type Department Care Team (Late st Contact Info) Description 05/08/2024 4:49 PM COMMUNICATIONS MAINTAINER - 05/08/2024 10:25 PM COMMUNICATIONS MAINTAINER Emergency [facility] Emergency Department [address] [place] [address] Tripp Gomez M.D. [address] [place] [address] Pain Arm Left (Primary Dx) Discharge Disposition: Home or Self Care Social History Tobacco Use Types Packs/Day Years Used Date Smoking Tobacco: Never Smokeless Tobacco: Never Alcohol Use Standard Drinks/Week Comments Not Currently 0 (1 standard drink = 0.6 oz pur e alcohol) occasional glass of wine [facility] Utilities Answer Date Recorded In the past 12 months has e [employer], gas, oil, or water company threatened to [...] How often do you attend chur or voodoo services? 1 to 4 times per year 08/08/2022 Do you belong to any clubs o r organizations such as jew groups, unions, fraternal or athletic groups, or [...] Answer Date Recorded PHQ-2 Score 0 10/18/2022 [facility] [place] of Occupat ional Health - Occupational Stress [...] your living situation today? I have a [facility] place to live 08/20/2023 Education Answer Date Recorded What is the highest level of school you have completed or the highest degree you have received? Bachelor's degree (e.g., BA, AB, BS) 03/05/2019 Comments No Sex and Gender Information Value Date Recorded Sex Assigned at Female 12/15/2020 11:07 AM CDT Legal Sex Female 8:25 AM COMMUNICATIONS MAINTAINER Gender Identity Female 03/05/2019 8:17 AM COMMUNICATIONS MAINTAINER Sexual Orientation Straight 03/05/2019 8: 17 AM COMMUNICATIONS MAINTAINER documented as of this encounter Last Filed Vital Signs Vital Sign Reading Time Taken Comments Blood Pressure 151/86 05/08/2024 8:00 PM COMMUNICATIONS MAINTAINER Pulse 93 05/08/2024 7:00 PM COMMUNICATIONS MAINTAINER Temperature 36.7 C (98.1 F) 05/08/2024 4:35 PM COMMUNICATIONS MAINTAINER Respiratory Rate 14 05/08/2024 4:35 PM COMMUNICATIONS MAINTAINER Oxygen Saturation 95% 05/08/2024 7:00 PM COMMUNICATIONS MAINTAINER Inhaled Oxygen Concentration - - Weight - - Height - - Body Mass Index - - documented in this encounter Discharge Instructions * Discharge Instructions* Fara Rojas M.D. - 05/08/2024 7:14 PM COMMUNICATIONS MAINTAINER You were seen in the emergency department for a fracture in your left elbow. You were seen by an orthopedic surgeon who did not recommend surgery. They will follow up with you in the outpatient setting. Please take Tylenol as needed for mild/moderate pain. For severe pain, we have prescribed you oxycodone 5 mg to be taken every 6 hours as needed. UNICATIONS MAINTAINER UNICATIONS MAINTAINER * Attachments The following attachments cannot be sent through Care Everywhere. * Distal Humerus Elbow Fracture (Ukrainian) documented in this encounter Medications at Time [...] Acute Pain. 12 tablet 05/08/2024 10:10 PM COMMUNICATIONS MAINTAINER 05/08/2024 polyethylene glycol (MIRALAX) 17 gram powder [...] PRIMARY TEAM: DANN C16 -- Sandra Medrano ([phone]) 84 y.o.female CONTACT: [phone] (home) Telephone Information: CHIEF COMPLAINT/REASON FOR CONSULT [...] elbow fracture and was transferred to the [facility] ED for further cares. The patient is unable to recall events leading to her injury. History was obtained in part by her niece (power of environmental attorney) and her . In my discussion with family, patient lives in a memory care facility ([facility]). Her family reports they were told that [...] Allergies: No SOCIAL The patient lives in [facility]. OBJECTIVE BP (!) 170/97 Pulse 104 Temp [...] follow up Please contact [facility] ([place]) at [phone] with any questions or concerns regarding this patient. This is a resident's note. This patient's history and clinical picture will be staffed with the senior resident, fellow, or research staff member fashion adviser within 24 hours. For further and final recommendations please look to their consult/supervisory note. Kendall Salmeron MD Orthopedic Surgery Resident UNICATIONS MAINTAINER UNICATIONS MAINTAINER UNICATIONS MAINTAINER documented in this encounter ED Notes * [...] here for further cares. We will obtain [place] interpretation of outside images and an orthopedic consultation.. Final Diagnoses: as of 05/10/24 1117 Pain Arm Left Tripp Gomze M.D. 05/10/24 1117 UNICATIONS MAINTAINER * Fara Rojas M.D. - 05/08/2024 5:04 PM CST SUBJECTIVE CHIEF COMPLAINT/REASON FOR VISIT Arm Pain (+ Humerus Fx LEFT) HISTORY OF PRESENT ILLNESS 84-year-old male with a past medical history of Parkinson's, dementia, pubic ramus fracture, hypertension who presented to an outside ED from a memory care facility ([facility]) after being found on the ground, for [...] outside ED from a memory care facility ([facility]) after being found on the ground, for an unknown time. Underwent CT head, CT spine, CT extremity, and Xray extremity at outside facility. Found to have a left elbow fracture and was transferred here for further cares. We will obtain [place] interpretation of outside images and an orthopedic consultation. . DIFFERENTIAL DIAGNOSES Left elbow fracture. ED Course as of 05/08/245 SatMay 08, 2024 8554 [place] interpretation of Xray extremity: Acute, displaced and comminuted condylar/supracondylar fracture of the left humerus. 1759 Leukocytes(!): 19.5 1834 Per orthopedic surgery, no further intervention needed at this time. Patient to follow-up in the outpatient setting. Final Diagnoses: as of 05/08/242134 Pain Arm Left Fara Rojas M.D. Resident 05/08/241915 Fara Rojas M.D. Resident 05/08/242156 UNICATIONS MAINTAINER UNICATIONS MAINTAINER * Paola Wang R.N. - 05/08/2024 4:39 PM CST Patient sent from [place] after a fall at 0800 today, pt found to have a left humerus fracture. Patient lives at a long-term in [place] with a Hx of dementia. Paola Wang RLakishaN. 05/08/24 1640 UNICATIONS MAINTAINER documented in this encounter Plan of Treatment Upcoming Encounters Date Type Department Care Team (Late st Contact Info) Description 06/08/2024 10:00 AM COMMUNICATIONS MAINTAINER Appointment Department of Orthopedic Surgery in [place], [place] [address] [place] [address] Chanell Garcia, AdrianoALakisha-C., M.S. [address] [place] [address] Discharge Disposition: Home or Self Care 08/17/2024 12:00 PM CDT Telemedicine Department of Neurology in [place], [place] [address] [place] [phone] Dot Sultana M.D., M.B.A. [address] [place] [phone] Discharge Disposition: Home or Self Care documented as of this encounter Procedures Procedure Name Priority Date/Time Associated Diagnosis Comments DX HUMERUS LEFT 2 VIEW AND ELBOW LEFT 2 VIEW RAD - Routine (most inpatients and all outpatients) 05/08/2024 7:09 PM COMMUNICATIONS MAINTAINER HC URINALYSIS AUTO WO MICRO Routine 05/08/2024 6:01 PM COMMUNICATIONS MAINTAINER DIPSTICK, U STAT 05/08/2024 5:57 PM COMMUNICATIONS MAINTAINER MICROSCOPIC AUTOMATED STAT 05/08/2024 5:57 PM COMMUNICATIONS MAINTAINER PH, U STAT 05/08/2024 5:57 PM COMMUNICATIONS MAINTAINER OSMOLALITY, U STAT 05/08/2024 5:57 PM COMMUNICATIONS MAINTAINER URINALYSIS WITH MICROSCOPIC STAT 05/08/2024 5:57 PM COMMUNICATIONS MAINTAINER CBC WITH DIFFERENTIAL, B STAT 05/08/2024 5:43 PM COMMUNICATIONS MAINTAINER MAGNESIUM, S STAT 05/08/2024 5:43 PM COMMUNICATIONS MAINTAINER BASIC METABOLIC PANEL, S/P STAT 05/08/2024 5:43 PM COMMUNICATIONS MAINTAINER INTERPRETATION OF OUTSIDE DX EXTREMITY RAD - Routine (most inpatients and all outpatients) 05/08/2024 5:06 PM COMMUNICATIONS MAINTAINER INTERPRETATION OF OUTSIDE CT EXTREMITY RAD - Routine (most inpatients and all outpatients) 05/08/2024 5:06 PM COMMUNICATIONS MAINTAINER INTERPRETATION OF OUTSIDE CT SPINE RAD - Routine (most inpatients and all outpatients) 05/08/2024 5:06 PM COMMUNICATIONS MAINTAINER INTERPRETATION OF OUTSIDE CT HEAD RAD - Routine (most inpatients and all outpatients) 05/08/2024 5:06 PM COMMUNICATIONS MAINTAINER documented in this encounter Results * DX Humerus Left 2 View and Elbow Left 2 View (05/08/2024 7:09 PM COMMUNICATIONS MAINTAINER) Anatomical Region Laterality Modality Upper Extremity, Humerus, Mu sculoskeletal RST LOS, Musculoskeletal ARZ LOS, Muskuloskeletal FLA LOS Left Digit al Radiography Impressions 05/08/2024 7:33 PM COMMUNICATIONS MAINTAINER Please refer to elbow radiographs and CT for supracondylar fracture of the left humerus. Age indeterminate displaced fracture of the humeral head/neck. The humeral head displaced posterolaterally. Superior subluxation and anterior displacement of the proximal shaft of the left humerus. Periosteal bone formation about the fracture site, concerning for subacute/chronic fracture. AC joint is maintained. Narrative 05/08/2024 7:33 PM COMMUNICATIONS MAINTAINER EXAM: DX HUMERUS LEFT 2 VIEW AND [...] (ABNORMAL) Dipstick, POCT, Urine (05/08/2024 6:01 PM COMMUNICATIONS MAINTAINER) Glucose, POCT, U Negative Negative mg/dL 05/08/2024 6:03 PM COMMUNICATIONS MAINTAINER PCED Ketone, POCT, U 15(A) Negative mg/dL 05/08/2024 6:03 PM COMMUNICATIONS MAINTAINER PCED Specific [place], POCT, U 1.020 1.005 - 1.030 05/08/2024 6:03 PM COMMUNICATIONS MAINTAINER PCED Blood, POCT, U Negative Negative 05/08/2024 6:03 PM COMMUNICATIONS MAINTAINER PCED pH, POCT, Urine 7.0 5.0 - 8.0 05/08/2024 6:03 PM COMMUNICATIONS MAINTAINER PCED Protein, POCT, U 30(A) Negative mg/dL 05/08/2024 6:03 PM COMMUNICATIONS MAINTAINER PCED Nitrites, POCT, U Negative Negative 05/08/2024 6:03 PM COMMUNICATIONS MAINTAINER PCED Leukocytes, POCT, U Negative Negative 05/08/2024 6:03 PM COMMUNICATIONS MAINTAINER PCED Urine 05/08/2024 6:01 PM COMMUNICATIONS MAINTAINER 05/08/2024 6:03 PM COMMUNICATIONS MAINTAINER us Unknown Provider LAB POCT ORDERABLES - DEVICE Fi nal Result Performing Organization Address [facility]/State/ZIP Co de Phone Number POC RST [facility] OUT[facility] [address] [place] [address], [facility] PCED [facility] POC [address] [place] [address] * (ABNORMAL) Dipstick, Urine (05/08/2024 5:57 PM COMMUNICATIONS MAINTAINER) Hemoglobin, QL, U Trace(A) Negative 05/08/2024 7:00 PM COMMUNICATIONS MAINTAINER DTL Leukocyte Esterase, U Negative Negative 05/08/2024 7:00 PM COMMUNICATIONS MAINTAINER DTL Nitrite, U Negative Negative 05/08/2024 7:00 PM COMMUNICATIONS MAINTAINER DTL Ketone, U 10(A) Negative mg/dL 05/08/2024 7:00 PM COMMUNICATIONS MAINTAINER DTL Glucose, U Negative Negative mg/dL 05/08/2024 7:00 PM COMMUNICATIONS MAINTAINER DTL Urine 05/08/2024 5:57 PM COMMUNICATIONS MAINTAINER 05/08/2024 6:50 PM COMMUNICATIONS MAINTAINER us Fara Rojas M.D. LAB URINE ORDERABLES Final Result [facility] [place] [address] [place] [address], [facility] [address] [place] [address] * pH, Urine (05/08/2024 5:57 PM COMMUNICATIONS MAINTAINER) pH, U 5.9 4.5 - 8.0 05/08/2024 7:2 8 PM COMMUNICATIONS MAINTAINER DTL Urine 05/08/2024 5:57 PM COMMUNICATIONS MAINTAINER 05/08/2024 6:50 PM COMMUNICATIONS MAINTAINER us Fara oRjas M.D. LAB URINE ORDERABLES Final Result Performing Organization Address City/[facility]/ZIP Co de Phone Number [facility] [address] [place] [address] * Osmolality, Urine (05/08/2024 5:57 PM COMMUNICATIONS MAINTAINER) Osmolality, U 567 150 - 1150 mOsm/kg 05/08/2024 7:28 PM COMMUNICATIONS MAINTAINER DTL Urine 05/08/2024 5:57 PM COMMUNICATIONS MAINTAINER 05/08/2024 6:50 PM COMMUNICATIONS MAINTAINER us Fara Rojas M.D. LAB URINE ORDERABLES Final Result Performing Organization Address [facility] Co de Phone Number [facility] [address] [place] [address], [address] [address] * (ABNORMAL) Microscopic Automated (05/08/2024 5:57 PM COMMUNICATIONS MAINTAINER) Microscopy Abnormal 05/08/2024 7:00 PM COMMUNICATIONS MAINTAINER DTL RBC 3-10(A) <3 /hpf 05/08/2024 7:00 PM COMMUNICATIONS MAINTAINER DTL Dysmorphic RBC <25 <25 % 05/08/2024 7:00 PM COMMUNICATIONS MAINTAINER DTL WBC 1-3 /hpf 05/08/2024 7:00 PM COMMUNICATIONS MAINTAINER DTL Comment: ----REFERENCE VALUE---- <4 (Males) <11 (Females) Casts, Hyaline 1-3 /lpf 05/08/2024 7:00 PM COMMUNICATIONS MAINTAINER DTL Urine 05/08/2024 5:57 PM COMMUNICATIONS MAINTAINER 05/08/2024 6:50 PM COMMUNICATIONS MAINTAINER us Fara Rojas M.D. LAB URINE ORDERABLES Final Result Performing Organization Address City/State/[facility] de Phone Number [facility] [address] [place] [address], [facility] [address] [place] [address] * (ABNORMAL) Urinalysis, with Microscopic: Urine, Catheter (05/08/2024 5:57 PM COMMUNICATIONS MAINTAINER) Source Urine, Urine, Catheter 05/08/2024 6:49 PM COMMUNICATIONS MAINTAINER DTL Color, U Yellow 05/08/2024 6:50 PM COMMUNICATIONS MAINTAINER DTL Clarity, U Clear 05/08/2024 6:50 PM COMMUNICATIONS MAINTAINER DTL Protein, U 42(H) <26 mg/dL 05/08/2024 7:51 PM COMMUNICATIONS MAINTAINER DTL Protein/Osmola lity 0.74(H) <0.42 ratio 05/08/2024 7:51 PM COMMUNICATIONS MAINTAINER DTL Predicted 24 HR Protein, U 509(H) <229 mg/24 h 05/08/2024 7:51 PM COMMUNICATIONS MAINTAINER DTL Predicted Range 126-2062 mg/24 h 05/08/2024 7:51 PM COMMUNICATIONS MAINTAINER DTL Urine (Urine, Catheter) 05/08/2024 5:57 PM COMMUNICATIONS MAINTAINER 05/08/2024 6:49 PM COMMUNICATIONS MAINTAINER us Fara Rojas M.D. LAB URINE ORDERABLES Final Result Performing Organization Address [facility] de Phone Number [facility] [address] [place], [place] [address] [address] [place] [address] * Magnesium (05/08/2024 5:43 PM COMMUNICATIONS MAINTAINER) Magnesium, P 2.2 1.7 - 2.3 mg/dL 05/08/2024 6:14 PM COMMUNICATIONS MAINTAINER STMA Blood (Blood, Venous) 05/08/2024 5:43 PM COMMUNICATIONS MAINTAINER 05/08/2024 5:49 PM COMMUNICATIONS MAINTAINER us Fara Rojas M.D. LAB BLOOD ADD-ON Final Resu lt [facility] [address] [place] [address], [facility] [address] [place] [address] * (ABNORMAL) Basic Metabolic Panel (05/08/2024 5:43 PM COMMUNICATIONS MAINTAINER) Potassium, P 3.7 3.6 - 5.2 mmol/L 05/08/2024 6:14 PM COMMUNICATIONS MAINTAINER STMA Sodium, P 135 135 - 145 mmol/L 05/08/2024 6:14 PM COMMUNICATIONS MAINTAINER STMA Chloride, P 98 98 - 107 mmol/L 05/08/2024 6:14 PM COMMUNICATIONS MAINTAINER STMA Bicarbonate, P 24 22 - 29 mmol/L 05/08/2024 6:14 PM COMMUNICATIONS MAINTAINER STMA Anion Gap, P 13 7 - 15 05/08/2024 6:14 PM COMMUNICATIONS MAINTAINER [facility] BUN (Blood Urea Nitrogen), P 12 6 - 21 mg/dL 05/08/2024 6:14 PM COMMUNICATIONS MAINTAINER STMA Creatinine 0.55(L) 0.59 - 1.04 mg/dL 05/08/2024 6:14 PM COMMUNICATIONS MAINTAINER STMA Estimated GFR (eGFR) >90 >=60 mL/min/BSA 05/08/2024 6:14 PM COMMUNICATIONS MAINTAINER STMA Comment: Estimated GFR calculated using the 2020 CKD_EPI creatinine equation. Calcium, Total, P 8.9 8.8 - 10.2 mg/dL 05/08/2024 6:14 PM COMMUNICATIONS MAINTAINER STMA Glucose, P 139 70 - 140 mg/dL 05/08/2024 6:14 PM COMMUNICATIONS MAINTAINER ST[facility] Blood (Blood, Venous) 05/08/2024 5:43 PM COMMUNICATIONS MAINTAINER 05/08/2024 5:49 PM COMMUNICATIONS MAINTAINER us Fara Rojas M.D. LAB BLOOD ADD-ON Final Resu lt [facility] [address] [place] [address], [facility] STMA [facility] [address] [place] [address] * (ABNORMAL) CBC with Differential, Blood (05/08/2024 5:43 PM COMMUNICATIONS MAINTAINER) Hemoglobin 13.8 11.6 - 15.0 g/dL 05/08/2024 5:53 PM COMMUNICATIONS MAINTAINER STMA Hematocrit 41.4 35.5 - 44.9 % 05/08/2024 5:53 PM COMMUNICATIONS MAINTAINER STMA Erythrocytes 4.41 3.92 - 5.13 x10(12)/L 05/08/2024 5:53 PM COMMUNICATIONS MAINTAINER ST[facility] MCV 93.9 78.2 - 97.9 fL 05/08/2024 5:53 PM COMMUNICATIONS MAINTAINER STMA RBC Distrib Width 12.0(L) 12.2 - 16.1 % 05/08/2024 5:53 PM COMMUNICATIONS MAINTAINER ST[facility] Platelet Count 262 157 - 371 x10(9)/L 05/08/2024 5:53 PM COMMUNICATIONS MAINTAINER STMA Leukocytes 19.5(H) 3.4 - 9.6 x10(9)/L 05/08/2024 5:53 PM COMMUNICATIONS MAINTAINER STMA Neutrophils 16.20(H) 1.56 - 6.45 x10(9)/L 05/08/2024 5:53 PM COMMUNICATIONS MAINTAINER DHPM Lymphocytes 1.65 0.95 - 3.07 x10(9)/L 05/08/2024 5:53 PM COMMUNICATIONS MAINTAINER STMA Monocytes 1.47(H) 0.26 - 0.81 x10(9)/L 05/08/2024 5:53 PM COMMUNICATIONS MAINTAINER STMA Eosinophils 0.10 0.03 - 0.48 x10(9)/L 05/08/2024 5:53 PM COMMUNICATIONS MAINTAINER STMA Basophils 0.04 0.01 - 0.08 x10(9)/L 05/08/2024 5:53 PM COMMUNICATIONS MAINTAINER ST[facility] Blood (Blood, Venous) 05/08/2024 5:43 PM COMMUNICATIONS MAINTAINER 05/08/2024 5:49 PM COMMUNICATIONS MAINTAINER us Fara Rojas M.D. LAB BLOOD ADD-ON Final Resu lt [facility] [address] [place] [address], [place] STMA [facility] [address] [place] [address] [facility] [address] [place] [address] * Interpretation of Outside DX Extremity (05/08/2024 5:06 PM COMMUNICATIONS MAINTAINER) Anatomical Region Laterality Modality Musculoskeletal RST LOS, Mus culoskeletal ARZ LOS, Muskuloskeletal FLA LOS, Musculoskeletal, Other N/A Digita l Radiography Impressions 05/08/2024 5:35 PM COMMUNICATIONS MAINTAINER Acute, displaced and comminuted condylar/supracondylar fracture of the left humerus. The largest fracture fragment displaced laterally approximately 9 mm. Small to moderate elbow joint effusion. Visualized radial head appears unremarkable. Demineralization. Overlying soft tissue swelling. Narrative 05/08/2024 5:35 PM COMMUNICATIONS MAINTAINER EXAM: INTERPRETATION OF OUTSIDE DX EXTREMITY Left [...] of Outside CT Extremity (05/08/2024 5:06 PM COMMUNICATIONS MAINTAINER) Anatomical Region Laterality Modality Musculoskeletal RST LOS, Mus culoskeletal ARZ LOS, Muskuloskeletal FLA LOS, Musculoskeletal, Other N/A Comput ed Tomography Impressions 05/10/2024 12:[address] of the left elbow demonstrates an [...] Soft tissue swelling. Narrative 05/10/2024 12:42 PM COMMUNICATIONS MAINTAINER EXAM: INTERPRETATION OF OUTSIDE CT EXTREMITY Interpretation [...] of Outside CT Spine (05/08/2024 5:06 PM COMMUNICATIONS MAINTAINER) Anatomical Region Laterality Modality Spine, Neuroradiology RST LO S, Neuroradiology ARZ LOS, Neuroradiology FLA LOS, Other N/A Computed Tomography Impressions 05/08/2024 7:54 PM COMMUNICATIONS MAINTAINER No acute fracture or traumatic malalignment of the cervical spine. Narrative 05/08/2024 7:54 PM COMMUNICATIONS MAINTAINER EXAM: INTERPRETATION OF OUTSIDE CT SPINE \ [...] the cervical spine. us Tripp Gomez M.D. [facility] [place] PROCEDURES Final Result * Interpretation of Outside CT Head (05/08/2024 5:06 PM COMMUNICATIONS MAINTAINER) Anatomical Region Laterality Modality Head, Neuroradiology RST LOS , Neuroradiology ARZ LOS, Neuroradiology FLA LOS, Other N/A Computed Tomography Impressions 05/08/2024 7:49 PM COMMUNICATIONS MAINTAINER No acute intracranial abnormality. Narrative 05/08/2024 7:49 PM COMMUNICATIONS MAINTAINER EXAM: INTERPRETATION OF OUTSIDE CT HEAD Interpretation of outside CT head without IV contrast performed on 05/08/2024. COMPARISON: [place] CT head 06/16/2023. HISTORY: Parkinson's, dementia, status [...] head without IV contrast performed on05/08/2024. COMPARISON: [place] CT head 06/16/2023. HISTORY: Parkinson's, dementia, status [...] For 1 dose Given 05/08/2024 9:39 PM COMMUNICATIONS MAINTAINER 1 tablet carbidopa-levodopa 25-100 mg per tablet 2 tablet (Sinemet) 2 tablet, oral, Once, On Sat05/08/24 at 2113, For 1 dose Given 05/08/2024 9:39 PM COMMUNICATIONS MAINTAINER 2 tablets fentaNYL injection 50 mcg (Sublimaze) 50 mcg, intravenous, Once, On Sat05/08/24 at 1808, For 1 dose Given 05/08/2024 6:13 PM COMMUNICATIONS MAINTAINER 50 mcg Lactated Ringer's bolus 500 mL 500 mL, intravenous, at 500 mL/hr, Administer over 1 Hours, Once, On Sat05/08/24 at 1908, For 1 dose New Bag 05/08/2024 7:37 PM COMMUNICATIONS MAINTAINER 500 mL 500 mL/hr documented in this encounter Active and Recently Administered Medications Times are shown in COMMUNICATIONS MAINTAINER. Scheduled Medication Order 05/06/2024 05/07/2024 05/08/2024 carbidopa-levodopa [...] dose 181 (Given - Provid er: Angela Cross R.N.) Lactated Ringer's bolus 500 mL (COMPLETED) [...] documented as of this encounter Care Teams Gameplay Programmer Relationship Specialty Start Date End Date Daja Keys MPAS, P.A.-C. [address] [place] [phone] PCP - General Family Medicine 07/04/23 documented as of this encounter
--- OUTSIDE RECORDS SUMMARY | 2024-06-01 13:37 | XMS_ITS | Encounter Summary ---
Author Organization [facility] Address [address] [place] [address] Care Team Providers Care Mandarin Teacher Name Role Phone Daja Keys, P.A.-C. Primary Care Prov ider Encounter Details Date Type Department Care Team (Late st Contact Info) Description 05/08/2024 5:10 PM ENDOSCOPIC TECHNICIAN Ancillary Procedure Department of Radiology in [place], [place] [address] [place] [address] Tripp Gomez M.D. [address] [place] [phone] Social History Tobacco Use Types Packs/Day Years Used Date Smoking Tobacco: Never Smokeless Tobacco: Never Alcohol Use Standard Drinks/Week Comments Not Currently 0 (1 standard drink = 0.6 oz pur e alcohol) occasional glass of wine [facility] Utilities Answer Date Recorded In the [...] often do you attend chur ch or sikhism services? 1 to 4 times per year 08/08/2022 Do you belong to any clubs o r organizations such as zoroastrianism groups, unions, fraternal or athletic groups, or [...] Answer Date Recorded PHQ-2 Score 0 10/18/2022 [facility] [place] of Occupat ional Health - Occupational Stress [...] your living situation today? I have a [facility] place to live 08/20/2023 Education Answer Date Recorded What is the highest level of school you have completed or the highest degree you have received? Bachelor's degree (e.g., BA, AB, BS) 03/05/2019 Comments No Sex and Gender Information Value Date Recorded Sex Assigned at Female 12/15/2020 11:07 AM CDT Legal Sex Female 8:25 AM ENDOSCOPIC TECHNICIAN Gender Identity Female 03/05/2019 8:17 AM ENDOSCOPIC TECHNICIAN Sexual Orientation Straight 03/05/2019 8: 17 AM ENDOSCOPIC TECHNICIAN documented as of this encounter Plan of Treatment Upcoming Encounters Date Type Department Care Team (Late st Contact Info) Description 06/08/2024 10:00 AM ENDOSCOPIC TECHNICIAN Appointment Department of Orthopedic Surgery in [place], [place] [address] [place] [address] Chanell Garcia P.A.-C., M.S. [address] [place] [address] Discharge Disposition: Home or Self Care 08/17/2024 12:00 PM CDT Telemedicine Department of Neurology in [place], [place] [address] [place] [address] Dot Sultana M.D., M.B.A. [address] [place] [address] Discharge Disposition: Home or Self Care documented as of this encounter Procedures Procedure Name Priority Date/Time Associated Diagnosis Comments INTERPRETATION OF OUTSIDE CT SPINE RAD - Routine (most inpatients and all outpatients) 05/08/2024 5:06 PM ENDOSCOPIC TECHNICIAN documented in this encounter Results * Interpretation of Outside CT Spine (05/08/2024 5:06 PM ENDOSCOPIC TECHNICIAN) Anatomical Region Laterality Modality Spine, Neuroradiology RST LO S, Neuroradiology ARZ LOS, Neuroradiology FLA LOS, Other N/A Computed Tomography Impressions 05/08/2024 7:54 PM ENDOSCOPIC TECHNICIAN No acute fracture or traumatic malalignment of the cervical spine. Narrative 05/08/2024 7:54 PM ENDOSCOPIC TECHNICIAN EXAM: INTERPRETATION OF OUTSIDE CT SPINE [...] documented as of this encounter Care Teams Mandarin Teacher Relationship Specialty Start Date End Date Daja Keys MPAS, P.A.-C. [address] [place] [phone] PCP - General Family Medicine 07/04/23 documented as of this encounter
--- OUTSIDE RECORDS SUMMARY | 2024-06-01 13:37 | XMS_ITS | Encounter Summary ---
Author Organization [facility] Address [address] [place] [address] Care Team Providers Care Grooming Assistant Name Role Phone Daja Keys, P.A.-C. Primary Care Prov ider Encounter Details Date Type Department Care Team (Late st Contact Info) Description 05/08/2024 5:15 PM ENAMEL PULVERIZER Ancillary Procedure Department of Radiology in [place], [place] [address] [place] [address] Tripp Gomez M.D. [address] [place] [phone] Social History Tobacco Use Types Packs/Day Years Used Date Smoking Tobacco: Never Smokeless Tobacco: Never Alcohol Use Standard Drinks/Week Comments Not Currently 0 (1 standard drink = 0.6 oz pur e alcohol) occasional glass of wine [facility] Utilities Answer Date Recorded In the past [...] often do you attend chur ch or anabaptism services? 1 to 4 times per year 08/08/2022 Do you belong to any clubs o r organizations such as oriental orthodox groups, unions, fraternal or athletic groups, or [...] Answer Date Recorded PHQ-2 Score 0 10/18/2022 [facility] [place] of Occupat ional Health - Occupational Stress [...] your living situation today? I have a [facility] place to live 08/20/2023 Education Answer Date Recorded What is the highest level of school you have completed or the highest degree you have received? Bachelor's degree (e.g., BA, AB, BS) 03/05/2019 Comments No Sex and Gender Information Value Date Recorded Sex Assigned at Female 12/15/2020 11:07 AM CDT Legal Sex Female 8:25 AM ENAMEL PULVERIZER Gender Identity Female 03/05/2019 8:17 AM ENAMEL PULVERIZER Sexual Orientation Straight 03/05/2019 8: 17 AM ENAMEL PULVERIZER documented as of this encounter Plan of Treatment Upcoming Encounters Date Type Department Care Team (Late st Contact Info) Description 06/08/2024 10:00 AM ENAMEL PULVERIZER Appointment Department of Orthopedic Surgery in [place], [place] [address] [place] [address] Chanell Garcia P.A.-C., M.S. [address] [place] [address] Discharge Disposition: Home or Self Care 08/17/2024 12:00 PM CDT Telemedicine Department of Neurology in [place], [place] [address] [place] [phone] Dot Sultana M.D., M.B.A. [address] [place] [address] Discharge Disposition: Home or Self Care documented as of this encounter Procedures Procedure Name Priority Date/Time Associated Diagnosis Comments INTERPRETATION OF OUTSIDE CT EXTREMITY RAD - Routine (most inpatients and all outpatients) 05/08/2024 5:06 PM ENAMEL PULVERIZER documented in this encounter Results * Interpretation of Outside CT Extremity (05/08/2024 5:06 PM ENAMEL PULVERIZER) Anatomical Region Laterality Modality Musculoskeletal RST LOS, Mus culoskeletal ARZ LOS, Muskuloskeletal FLA LOS, Musculoskeletal, Other N/A Comput ed Tomography Impressions 05/10/2024 12:[address] of the left elbow demonstrates an [...] Soft tissue swelling. Narrative 05/10/2024 12:42 PM ENAMEL PULVERIZER EXAM: INTERPRETATION OF OUTSIDE CT EXTREMITY Interpretation [...] documented as of this encounter Care Teams Grooming Assistant Relationship Specialty Start Date End Date Daja Keys MPAS, P.A.-C. [address] [place] [phone] PCP - General Family Medicine 07/04/23 documented as of this encounter
--- OUTSIDE RECORDS SUMMARY | 2024-06-01 13:37 | XMS_ITS | Encounter Summary ---
Author Organization [facility] Address [address] [place] [address] Care Team Providers Care Collar Starcher Name Role Phone Daja Keys P.A.-C. Primary Care Prov ider Reason for Referral * Outpatient (Routine) - Closed Specialty Diagnoses / Procedures Referred By Cinthya salas Referred To Contact Diagnoses Fracture Humerus Simple Supracondylar Nondisplaced Closed Initial Left Procedures DX Elbow Left 2 Views Chanell Garcia P.A.-C., M.S. [address] [place] [address] Phone: tel: fax: [facility] Referral ID Status Reason Start Date Expiration Date Visits Re quested Visits Authorized [id number] Closed 05/14/2024 08/14/2025 1 1 E REPAIRER Reason for Visit * Outpatient (Routine) - Closed Specialty Diagnoses / Procedures Referred By Cinthya salas Referred To Contact Diagnoses Fracture Humerus Simple Supracondylar Nondisplaced Closed Initial Left Procedures DX Elbow Left 2 Views Chanell Garcia P.A.-C., M.S. [address] [place] [address] Phone: tel: fax: [facility] Referral ID Status Reason Start Date Expiration Date Visits Re quested Visits Authorized [id number] Closed 05/14/2024 08/14/2025 1 1 Encounter Details Date Type Department Care Team (Latest Contact Info) Description 05/14/2024 10:14 AM CABLE REPAIRER - 05/14/2024 11:59 PM CABLE REPAIRER Hospital Encounter Department of Radiology, [facility], in [place], [place] [address] [place] [address] Chanell Garcia P.A.-C., M.S. [address] [place] [address] Fracture Humerus Simple Supracondylar Nondisplaced Closed Initial Left Discharge Disposition: Home or Self Care Social History Tobacco Use Types Packs/Day Years Used Date Smoking Tobacco: Never Smokeless Tobacco: Never Alcohol Use Standard Drinks/Week Comments Not Currently 0 (1 standard drink = 0.6 oz pur e alcohol) occasional glass of wine [facility] [employer] Answer Date Recorded In the past 12 months has e [employer], gas, oil, or water [employer] threatened to shut off services in your [...] often do you attend chur ch or muslim services? 1 to 4 times per year 08/08/2022 Do you belong to any clubs o r organizations such as cheondoism groups, unions, fraternal or athletic groups, or [...] Answer Date Recorded PHQ-2 Score 0 10/18/2022 [facility] of Occupat ional [facility] - Occupational Stress Questionnaire Answer Date [...] your living situation today? I have a [facility] place to live 08/20/2023 Education Answer Date Recorded What is the highest level of school you have completed or the highest degree you have received? Bachelor's degree (e.g., BA, AB, BS) 03/05/2019 Comments No Sex and Gender Information Value Date Recorded Sex Assigned at Female 12/15/2020 11:07 AM CDT Legal Sex Female 8:25 AM CABLE REPAIRER Gender Identity Female 03/05/2019 8:17 AM CABLE REPAIRER Sexual Orientation Straight 03/05/2019 8: 17 AM CABLE REPAIRER documented as of this encounter Medications at [...] Acute Pain. 12 tablet 05/08/2024 10:10 PM CABLE REPAIRER 05/08/2024 polyethylene glycol (MIRALAX) 17 gram powder [...] st Contact Info) Description 06/08/2024 10:00 AM CABLE REPAIRER Appointment Department of Orthopedic Surgery in [place], [place] [address] [place] [phone] Chanell Garcia P.A.-C., M.S. [address] [place] [address] Discharge Disposition: Home or Self Care 08/17/2024 12:00 PM CDT Telemedicine Department of Neurology in [place], [place] [address] [place] [phone] Dot Sultana M.D., M.B.A. [address] [place] [address] Discharge Disposition: Home or Self Care documented as of this encounter Procedures Procedure Name Priority Date/Time Associated Diagnosis Comments DX ELBOW LEFT 2 VIEWS RAD - Routine (most inpatients and all outpatients) 05/14/2024 11:35 AM CABLE REPAIRER Fracture Humerus Simple Supracondylar Nondisplaced Closed Initial Left documented in this encounter Results * DX Elbow Left 2 Views (05/14/2024 11:35 AM CABLE REPAIRER) Anatomical Region Laterality Modality Upper Extremity, Elbow, Musc uloskeletal RST LOS, Musculoskeletal ARZ LOS, Muskuloskeletal FLA LOS Left Digit al Radiography Impressions 05/14/2024 11:40 AM CABLE REPAIRER Since 05/08/2024, a cast has been applied, degrading visualization of the bones. Oblique impacted and displaced fracture of the distal left humerus, involving the trochlear articular surface medially and the supracondylar region laterally. Lateral displacement of the distal fragment. No change in alignment since outside CT 05/08/2024. Narrative 05/14/2024 11:40 AM CABLE REPAIRER EXAM: DX ELBOW LEFT 2 VIEWS Procedure [...] documented as of this encounter Care Teams Collar Starcher Relationship Specialty Start Date End Date Daja Keys, CARLA, P.A.-C. [address] [place] [phone] PCP - General Family Medicine 07/04/23 documented as of this encounter
--- OUTSIDE RECORDS SUMMARY | 2024-06-01 13:37 | XMS_ITS | Encounter Summary ---
Author Organization [facility] Address [address] [place] [address] Prov[address] Care [address] Shaft And Steering Post Repairer Name Role Phone Daja Keys P.ALakisha-C. Primary Care Prov ider Reason for Referral * Outpatient (Routine) - Closed Specialty Diagnoses / Procedures Referred By Cinthya salas Referred To Contact Diagnoses Pain Arm Left Procedures ORS Cast Room Visit Chanell Garcia P.A.-C., M.S. [address] [place] [address] Phone: tel: fax: [facility] Referral ID Status Reason Start Date Expiration Date Visits Re quested Visits Authorized [id number] Closed 05/11/2024 08/11/2025 1 1 E FUND PRINCIPAL Encounter Details Date Type Department Care Team (Late st Contact Info) Description 05/11/2024 Orders Only Department of Orthopedic Surgery in [place], [place] [address] [place] [address] Chanell Garcia P.A.-C., M.S. [address] [place] [address] Pain Arm Left (Primary Dx) Social History Tobacco Use Types Packs/Day Years Used Date Smoking Tobacco: Never Smokeless Tobacco: Never Alcohol Use Standard Drinks/Week Comments Not Currently 0 (1 standard drink = 0.6 oz pur e alcohol) occasional glass of wine [facility] [employer] Answer Date Recorded In the past 12 months has th e [employer], gas, oil, or water [employer] threatened to shut off services in your [...] often do you attend chur ch or jehovah's witness services? 1 to 4 times per year 08/08/2022 Do you belong to any clubs o r organizations such as yazidism groups, unions, fraternal or athletic groups, or [...] Answer Date Recorded PHQ-2 Score 0 10/18/2022 [facility] of Occupat ional Health - Occupational Stress [...] your living situation today? I have a [employer] [facility] [employer] place to live 08/20/2023 Education Answer Date Recorded What is the highest level of school you have completed or the highest degree you have received? Bachelor's degree (e.g., BA, AB, BS) 03/05/2019 Comments No Sex and Gender Information Value Date Recorded Sex Assigned at Female 12/15/2020 11:07 AM CDT Legal Sex Female 8:25 AM HEDGE FUND PRINCIPAL Gender Identity Female 03/05/2019 8:17 AM HEDGE FUND PRINCIPAL Sexual Orientation Straight 03/05/2019 8: 17 AM HEDGE FUND PRINCIPAL documented as of this encounter Plan of Treatment Upcoming Encounters Date Type Department Care Team (Late st Contact Info) Description 06/08/2024 10:00 AM HEDGE FUND PRINCIPAL Appointment Department of Orthopedic Surgery in [place], [place] [address] [place] [address] Chanell Garcia P.A.-C., M.S. [address] [place] [address] Discharge Disposition: Home or Self Care 08/17/2024 12:00 PM CDT Telemedicine Department of Neurology in [place], [place] [address] [place] [phone] Dot Sultana M.D., M.B.A. [address] [place] [address] Discharge Disposition: Home or Self Care documented as of this encounter Results * PROCEDURE PLACEHOLDER (05/14/2024 10:00 AM HEDGE FUND PRINCIPAL) Narrative MMODAL - 05/14/2024 10:00 AM HEDGE FUND PRINCIPAL Chanell Garcia P.A.-C., M.S. 05/15/2024 9:36 AM [...] documented as of this encounter Care Teams Drive Shaft And Steering Post Repairer Relationship Specialty Start Date End Date Daja Keys MPAS, PLakishaALakisha-Robert. [address] [place] [phone] PCP - General Family Medicine 07/04/23 documented as of this encounter
--- OUTSIDE RECORDS SUMMARY | 2024-06-01 13:37 | XMS_ITS | Encounter Summary ---
Author Organization [facility] Address [address] [place] [address] Care Team Providers Care Glove Wrapper Name Role Phone Daja Keys P.A.-C. Primary Care Prov ider Reason for Referral * Outpatient (Routine) - Authorized Specialty Diagnoses / Procedures Referred By Cinthya salas Referred To Contact Diagnoses Fracture Humerus Simple Supracondylar Nondisplaced Closed Initial Left Procedures DX Elbow Left 2 Views Chanell Garcia P.A.-C., M.S. [address] [place] [address] Phone: tel: fax: [facility] Referral ID Status Reason Start Date Expiration Date V isits Requested Visits Authorized [id number] Authorized 05/14/2024 08/14/2025 1 1 BLEACHER * Outpatient (Routine) - Authorized Specialty Diagnoses / Procedures Referred By Contdawn t Referred To Contact Diagnoses Fracture Humerus Simple Supracondylar Nondisplaced Closed Initial Left Procedures ORS Cast Room Visit Chanell Garcia P.A.-C., M.S. [address] [place] [phone] Phone: tel: fax: [facility] Referral ID Status Reason Start Date Expiration Date V isits Requested Visits Authorized [id number] Authorized 05/14/2024 08/14/2025 1 1 BLEACHER * Outpatient (Routine) - Closed Specialty Diagnoses / Procedures Referred By Contac t Referred To Contact Diagnoses Fracture Humerus Simple Supracondylar Nondisplaced Closed Initial Left Procedures DX Elbow Left 2 Views Chanell Garcia P.A.-C., M.S. [address] [place] [phone] Phone: tel: fax: [facility] Referral ID Status Reason Start Date Expiration Date Visits Re quested Visits Authorized [id number] Closed 05/14/2024 08/14/2025 1 1 BLEACHER * Outpatient (Routine) - Closed Specialty Diagnoses / Procedures Referred By Contac t Referred To Contact Diagnoses Pain Arm Left Procedures ORS Cast Room Visit Chanell Garcia P.A.-C., M.S. [address] [place] [phone] Phone: tel: fax: [facility] Referral ID Status Reason Start Date Expiration Date Visits Re quested Visits Authorized [id number] Closed 05/11/2024 08/11/2025 1 1 BLEACHER Reason for Visit * Reason Comments Follow-up * Outpatient (Routine) - Closed Specialty Diagnoses / Procedures Referred By Contac t Referred To Contact Diagnoses Pain Arm Left Procedures ORS Cast Room Visit Chanell Garcia P.A.-C., M.S. [address] [place] [address] Phone: tel: fax: [facility] Referral ID Status Reason Start Date Expiration Date Visits Re quested Visits Authorized [id number] Closed 05/11/2024 08/11/2025 1 1 Encounter Details Date Type Department Care Team (Latest Contact Info) Description 05/14/2024 9:06 AM MOSS BLEACHER - 05/14/2024 10:13 AM [facility] Hospital Encounter Department of Orthopedic Surgery in [place], [place] [address] [place] [address] Chanell Garcia P.A.-C., M.S. [address] [place] [address] Fracture Humerus Simple Supracondylar Nondisplaced Closed Initial Left (Primary Dx); Pain Arm Left Discharge Disposition: Home or Self Care Social History Tobacco Use Types Packs/Day Years Used Date Smoking Tobacco: Never Smokeless Tobacco: Never Alcohol Use Standard Drinks/Week Comments Not Currently 0 (1 standard drink = 0.6 oz pur e alcohol) occasional glass of wine [facility] Answer Date Recorded In the past 12 months has e [employer], gas, oil, or water [employer] threatened to shut off services in your [...] often do you attend chur ch or yazidism services? 1 to 4 times per year [...] Answer Date Recorded PHQ-2 Score 0 10/18/2022 [facility] of Occupat ional Health - [...] your living situation today? I have a [facility] place to live 08/20/2023 Education Answer Date Recorded What is the highest level of school you have completed or the highest degree you have received? Bachelor's degree (e.g., BA, AB, BS) 03/05/2019 Comments No Sex and Gender Information Value Date Recorded Sex Assigned at Female 12/15/2020 11:07 AM CDT Legal Sex Female 8:25 AM MOSS BLEACHER Gender Identity Female 03/05/2019 8:17 AM MOSS BLEACHER Sexual Orientation Straight 03/05/2019 8: 17 AM MOSS BLEACHER documented as of this encounter Discharge Instructions * Patient Instructions* Chanell Garcia P.A.-C., M.S. - 05/14/2024 10:00 AM MOSS BLEACHER ORTHOPEDIC RECOMMENDATIONS: --The left arm has been [...] repeat x-rays. --Contact Dr. Vann's team at [phone] with any concerns prior to follow up. BLEACHER documented in this encounter Medications at Time [...] Acute Pain. 12 tablet 05/08/2024 10:10 PM MOSS BLEACHER 05/08/2024 polyethylene glycol (MIRALAX) 17 gram powder [...] The patient is encouraged to continue with [id number] pain medications including Tylenol. May apply ice and elevate for swelling and discomfort as needed. Hygiene: Keep cast dry when bathing Follow Up: We will see the patient back in the cast room in approximately 3 weeks with repeat x-rays. The following written instructions were provided to the [facility]: ORTHOPEDIC RECOMMENDATIONS: --The left arm [...] repeat x-rays. --Contact Dr. Vann's team at [phone] with any concerns prior to follow up. Encouraged the patient to reach out to our team prior to follow-up with any questions or concerns. All questions were answered, patient understands and agrees with the plan. BLEACHER documented in this encounter Plan of Treatment Upcoming Encounters Date Type Department Care Team (Late st Contact Info) Description 06/08/2024 10:00 AM MOSS BLEACHER Appointment Department of Orthopedic Surgery in [address] [phone] Chanell Garcia P.A.-C., M.S. [address] [place] [address] Discharge Disposition: Home or Self Care 08/17/2024 12:00 PM CDT Telemedicine Department of Neurology in [place], [place] [address] [place] [phone] Dot Sultana M.D., M.B.A. [address] [place] [phone] Discharge Disposition: Home or Self Care Scheduled [...] ROOM VISIT Routine 05/14/2024 1 0:00 AM MOSS BLEACHER Pain Arm Left documented in this encounter Results * DX Elbow Left 2 Views (05/14/2024 11:35 AM MOSS BLEACHER) Anatomical Region Laterality Modality Upper Extremity, Elbow, Musc uloskeletal RST LOS, Musculoskeletal ARZ LOS, Muskuloskeletal FLA LOS Left Digit al Radiography Impressions 05/14/2024 11:40 AM MOSS BLEACHER Since 05/08/2024, a cast has been applied, degrading visualization of the bones. Oblique impacted and displaced fracture of the distal left humerus, involving the trochlear articular surface medially and the supracondylar region laterally. Lateral displacement of the distal fragment. No change in alignment since outside CT 05/08/2024. Narrative 05/14/2024 11:40 AM MOSS BLEACHER EXAM: DX ELBOW LEFT 2 VIEWS Procedure [...] Result * PROCEDURE PLACEHOLDER (05/14/2024 10:00 AM MOSS BLEACHER) Narrative MMODAL - 05/14/2024 10:00 AM MOSS BLEACHER Chanell Garcia P.A.-C., M.S. 05/15/2024 9:36 AM [...] documented as of this encounter Care Teams Glove Wrapper Relationship Specialty Start Date End Date Daja Kesy MPAS, PKarina. [address] [place] [phone] PCP - General Family Medicine 07/04/23 documented as of this encounter
--- OUTSIDE RECORDS SUMMARY | 2024-06-01 13:37 | XMS_ITS | Encounter Summary ---
Author Organization [facility] Address [address] [place] [address] Care Team Providers Care Ambulance Dispatcher Name Role Phone Daja Keys, P.A.-C. Primary Care Prov ider Encounter Details Date Type Department Care Team (Late st Contact Info) Description 05/08/2024 5:05 PM MAMMAL CONTROL AGENT Ancillary Procedure Department of Radiology in [place], [place] [address] [place] [address] Tripp Gomez M.D. [address] [place] [phone] Social History Tobacco Use Types Packs/Day Years Used Date Smoking Tobacco: Never Smokeless Tobacco: Never Alcohol Use Standard Drinks/Week Comments Not Currently 0 (1 standard drink = 0.6 oz pur e alcohol) occasional glass of wine [facility] Utilities Answer Date Recorded In the [...] often do you attend chur ch or gnosticist services? 1 to 4 times per year 08/08/2022 Do you belong to any clubs o r organizations such as evangelical groups, unions, fraternal or athletic groups, or [...] Answer Date Recorded PHQ-2 Score 0 10/18/2022 [facility] of Occupat ional Health - Occupational Stress [...] your living situation today? I have a [facility] place to live 08/20/2023 Education Answer Date Recorded What is the highest level of school you have completed or the highest degree you have received? Bachelor's degree (e.g., BA, AB, BS) 03/05/2019 Comments No Sex and Gender Information Value Date Recorded Sex Assigned at Female 12/15/2020 11:07 AM CDT Legal Sex Female 8:25 AM MAMMAL CONTROL AGENT Gender Identity Female 03/05/2019 8:17 AM MAMMAL CONTROL AGENT Sexual Orientation Straight 03/05/2019 8: 17 AM MAMMAL CONTROL AGENT documented as of this encounter Plan of Treatment Upcoming Encounters Date Type Department Care Team (Late st Contact Info) Description 06/08/2024 10:00 AM MAMMAL CONTROL AGENT Appointment Department of Orthopedic Surgery in [place], [place] [address] [place] [address] Chanell Garcia P.A.-C., M.S. [address] [place] [address] Discharge Disposition: Home or Self Care 08/17/2024 12:00 PM CDT Telemedicine Department of Neurology in [place], [place] [address] [place] [phone] Dot Sultana M.D., M.B.A. [address] [place] [address] Discharge Disposition: Home or Self Care documented as of this encounter Procedures Procedure Name Priority Date/Time Associated Diagnosis Comments INTERPRETATION OF OUTSIDE CT HEAD RAD - Routine (most inpatients and all outpatients) 05/08/2024 5:06 PM MAMMAL CONTROL AGENT documented in this encounter Results * Interpretation of Outside CT Head (05/08/2024 5:06 PM MAMMAL CONTROL AGENT) Anatomical Region Laterality Modality Head, Neuroradiology RST LOS , Neuroradiology ARZ LOS, Neuroradiology FLA LOS, Other N/A Computed Tomography Impressions 05/08/2024 7:49 PM MAMMAL CONTROL AGENT No acute intracranial abnormality. Narrative 05/08/2024 7:49 PM MAMMAL CONTROL AGENT EXAM: INTERPRETATION OF OUTSIDE CT HEAD Interpretation of outside CT head without IV contrast performed on 05/08/2024. COMPARISON: [facility] CT head 06/16/2023. HISTORY: Parkinson's, dementia, status [...] head without IV contrast performed on05/08/2024. COMPARISON: [facility] CT head 06/16/2023. HISTORY: Parkinson's, dementia, status [...] documented as of this encounter Care Teams Ambulance Dispatcher Relationship Specialty Start Date End Date Daja Keys MPAS, P.A.-C. [address] [place] [phone] PCP - General Family Medicine 07/04/23 documented as of this encounter
--- OUTSIDE RECORDS SUMMARY | 2024-06-01 13:37 | XMS_ITS | Encounter Summary ---
Author Organization [facility] Address [address] [place] [address] Care Team Providers Care Cardiology Nurse Practitioner Name Role Phone LudmilaDaja, P.A.-C. Primary Care Prov ider Encounter Details Date Type Department Care Team (Late st Contact Info) Description 05/11/2024 Results Follow-Up [facility] [address] [place] [address] Mary Keller, M.S.N., R.N. [address] [place] [address] Extremity Social History Tobacco Use Types Packs/Day Years Used Date Smoking Tobacco: Never Smokeless Tobacco: Never Alcohol Use Standard Drinks/Week Comments Not Currently 0 (1 standard drink = 0.6 oz pur e alcohol) occasional glass of wine [facility] Utilities Answer Date Recorded In [...] any clubs o r organizations such as jainism groups, unions, fraternal or athletic groups, or [...] Answer Date Recorded PHQ-2 Score 0 10/18/2022 [facility] [place] of Occupat ional Health - Occupational Stress [...] your living situation today? I have a [facility] place to live 08/20/2023 Education Answer Date Recorded What is the highest level of school you have completed or the highest degree you have received? Bachelor's degree (e.g., BA, AB, BS) 03/05/2019 Comments No Sex and Gender Information Value Date Recorded Sex Assigned at Female 12/15/2020 11:07 AM CDT Legal Sex Female 8:25 AM HYDRO SPRAYER OPERATOR Gender Identity Female 03/05/2019 8:17 AM HYDRO SPRAYER OPERATOR Sexual Orientation Straight 03/05/2019 8: 17 AM HYDRO SPRAYER OPERATOR documented as of this encounter Plan of Treatment Upcoming Encounters Date Type Department Care Team (Late st Contact Info) Description 06/08/2024 10:00 AM HYDRO SPRAYER OPERATOR Appointment Department of Orthopedic Surgery in [place], [place] [address] [place] [address] Chanell Garcia P.A.-C., M.S. [address] [place] [address] Discharge Disposition: Home or Self Care 08/17/2024 12:00 PM CDT Telemedicine Department of Neurology in [place], [place] [address] [place] [phone] Dot Sultana M.D., M.B.A. [address] [place] [phone] Discharge Disposition: Home or Self Care documented as of this encounter Visit Diagnoses Not on filedocumented in this encounter Additional Health Concerns Assessment Noted Time PHQ-9 Depression Total Score: 9 10/19/19 23 8:25 AM CDT documented as of this encounter Care Teams Cardiology Nurse Practitioner Relationship Specialty Start Date End Date Daja Keys MPAS, P.A.-C. [address] [place] [phone] PCP - General Family Medicine 07/04/23 documented as of this encounter
--- OUTSIDE RECORDS SUMMARY | 2024-06-01 13:37 | XMS_ITS | Encounter Summary ---
Author Organization [facility] Address [address] [place] [address] Care Team Providers Care Food Safety Director Name Role Phone Daja Keys, P.A.-C. Primary Care Prov ider Encounter Details Date Type Department Care Team (Late st Contact Info) Description 05/08/2024 5:05 PM CATERING STAFF MEMBER Ancillary Procedure Department of Radiology in [place], [place] [address] [place] [address] Tripp Gomez M.D. [address] [place] [phone] Social History Tobacco Use Types Packs/Day Years Used Date Smoking Tobacco: Never Smokeless Tobacco: Never Alcohol Use Standard Drinks/Week Comments Not Currently 0 (1 standard drink = 0.6 oz pur e alcohol) occasional glass of wine [facility] Utilities Answer Date Recorded In the past [...] often do you attend chur ch or yazidi services? 1 to 4 times per year 08/08/2022 Do you belong to any clubs o r organizations such as denominational groups, unions, fraternal or athletic groups, or [...] Date Recorded PHQ-2 Score 0 10/18/2022 [facility] of Occupat ional Health - Occupational Stress [...] living situation today? I have a [facility] place to live 08/20/2023 Education Answer Date Recorded What is the highest level of school you have completed or the highest degree you have received? Bachelor's degree (e.g., BA, AB, BS) 03/05/2019 Comments No Sex and Gender Information Value Date Recorded Sex Assigned at Female 12/15/2020 11:07 AM CDT Legal Sex Female 8:25 AM CATERING STAFF MEMBER Gender Identity Female 03/05/2019 8:17 AM CATERING STAFF MEMBER Sexual Orientation Straight 03/05/2019 8: 17 AM CATERING STAFF MEMBER documented as of this encounter Plan of Treatment Upcoming Encounters Date Type Department Care Team (Late st Contact Info) Description 06/08/2024 10:00 AM CATERING STAFF MEMBER Appointment Department of Orthopedic Surgery in [place], [place] [address] [place] [address] Chanell Garcia P.A.-C., M.S. [address] [place] [address] Discharge Disposition: Home or Self Care 08/17/2024 12:00 PM CDT Telemedicine Department of Neurology in [place], [place] [address] [place] [phone] Dot Sultana M.D., M.B.A. [address] [place] [address] Discharge Disposition: Home or Self Care documented as of this encounter Procedures Procedure Name Priority Date/Time Associated Diagnosis Comments INTERPRETATION OF OUTSIDE DX EXTREMITY RAD - Routine (most inpatients and all outpatients) 05/08/2024 5:06 PM CATERING STAFF MEMBER documented in this encounter Results * Interpretation of Outside DX Extremity (05/08/2024 5:06 PM CATERING STAFF MEMBER) Anatomical Region Laterality Modality Musculoskeletal RST LOS, Mus culoskeletal ARZ LOS, Muskuloskeletal FLA LOS, Musculoskeletal, Other N/A Digita l Radiography Impressions 05/08/2024 5:35 PM CATERING STAFF MEMBER Acute, displaced and comminuted condylar/supracondylar fracture of the left humerus. The largest fracture fragment displaced laterally approximately 9 mm. Small to moderate elbow joint effusion. Visualized radial head appears unremarkable. Demineralization. Overlying soft tissue swelling. Narrative 05/08/2024 5:35 PM CATERING STAFF MEMBER EXAM: INTERPRETATION OF OUTSIDE DX EXTREMITY Left [...] documented as of this encounter Care Teams Food Safety Director Relationship Specialty Start Date End Date Daja Keys MPAS, P.A.-C. [address] [place] [phone] PCP - General Family Medicine 07/04/23 documented as of this encounter
[2024-06-01 13:43] LABS: Troponin, Point-of-Care* 0.01 ng/ml (0.01-0.04)
--- NOTE | 2024-06-01 13:43 | CRLHL7_ITS ---
For Patients: As a result of the Century Cures Act, medical imaging exams and procedure reports are released immediately into your electronic medical record. You may view this report before your referring provider. If you have questions, please contact your health care provider. INDICATION: Altered mental status. TECHNIQUE: Chest radiograph, 1 view. COMPARISON: None. FINDINGS: Cardiovascular/Mediastinum: Magnified cardiac silhouette. Unremarkable. Lungs: No focal consolidation. Mild pulmonary vascular congestion and interstitial edema. Hazy ill-defined right infrahilar opacification. Airways: Trachea remains midline. Pleura: No pleural effusions or pneumothorax. Bones: No acute osseous abnormalities. Upper abdomen: Unremarkable. IMPRESSION: Mild pulmonary edema. A superimposed pneumonia of the right infrahilar region should be clinically excluded. Dictated by Pipo Todd MD @ 06/01/2024 2:24:24 PM (Electronically Signed)
[2024-06-01 13:58] LABS: Albumin* 4.1 g/dL (3.3-5.0); Chloride* 100 mmol/L (96-114)
[2024-06-01 13:59] LABS: Potassium* 4.2 mmol/L (3.6-5.1); Sodium* 134 mmol/L (135-149)
[2024-06-01 14:00] LABS: Basophils Absolute Auto 0.03 K/uL (0.00-0.30); Basophils Percent Auto 0.3 % (0.0-3.0); Eosinophils Absolute Auto 0.03 K/uL (0.00-0.50); Eosinophils Percent Auto 0.3 % (0.0-7.0); Hematocrit 40.1 % (33.0-51.0); Immature Granulocytes Abs Auto 0.02 K/uL (0.00-0.30); Immature Granulocytes Pct Auto 0.2 %; Lymphocytes Percent Auto 9.3 % (20-44); Mean Corpuscular HGB Conc 32 gm/dL (32-36); Mean Corpuscular Hemoglobin 31 pg (26-34); Mean Corpuscular Volume 97 fL (80-100); Monocytes Percent Auto 11.4 % (0.0-11.0); Neutrophils Percent Auto 78.5 % (42.0-72.0); Platelet Count* 219 K/uL (140-440); Red Blood Count 4.14 m/uL (4.00-5.20); White Blood Count* 9.89 K/uL (4.50-11.00)
[2024-06-01 14:01] LABS: Bilirubin Total* 0.4 mg/dL (0.1-1.5); Creatinine* 0.7 mg/dL (0.5-1.5); Est. Creatinine Clearance* 31.13; Estimated Glomerular Filt Rate 86 ml/min
[2024-06-01 14:02] LABS: Alkaline Phosphatase* 72 U/L (40-150); Anion Gap 9 mEq/L (7-15); Aspartate Amino Transferase* 17 U/L (12-35); Blood Urea Nitrogen* 19 mg/dL (7-30); Carbon Dioxide* 25 mmol/L (20-32); Glucose* 85 mg/dL (60-115); Total Protein* 6.4 g/dL (6.0-8.3)
[2024-06-01 14:03] LABS: Calcium* 8.8 mg/dL (8.4-10.6)
[2024-06-01 14:05] LABS: C Reactive Protein* 1.6 mg/dL (0.5-1.0)
[2024-06-01 14:10] LABS: Alanine Aminotransferase* < 4 U/L (4-35)
[2024-06-01 14:11] LABS: Slide Review Reflex No
[2024-06-01 14:17] LABS: Troponin I* < 0.01 ng/mL (0.01-0.04)
[2024-06-01 14:42] LABS: Appearance Urine Clear (Clear); Bilirubin Urine Negative (Negative); Blood Urine Negative (Negative); Color Urine Yellow (Yellow); Glucose Urine Negative (Negative); Ketones Urine 1+ (Negative); Leukocyte Esterase Urine Trace (Negative); Nitrite Urine Positive (Negative); Protein Urine Trace (Negative); Urobilinogen Urine 0.2 (0.2-1.0)
[2024-06-01 14:49] LABS: Bacteria Urine Few; RBC Urine 0-2 (0-2); Squamous Epithelial Cell Urine Few (None-Few); WBC Urine 0-2 (0-5)
[2024-06-01] MEDS: cefTRIAXone 1 GM in 0.9 % SODIUM CHLORIDE Mini-bag 100 ML IVPB (15:26)
[2024-06-01 16:12] LABS: PCR FLU A POSITIVE PCR FLU A (Negative); PCR FLU B Negative PCR FLU B (Negative); PCR RSV Negative PCR RSV (Negative); SARS PCR* Negative SARS-CoV-2 (Negative)
[2024-06-01] MEDS: OSELTAMIVIR PHOSPHATE 75 MG CAPSULE PO (17:42)
[2024-06-01 17:55] LABS: Troponin, Point-of-Care* 0.01 ng/ml (0.01-0.04)
--- NOTE | 2024-06-01 18:18 | PM.IMHP1 ---
Hospitalist- H&P: HPI History of Present Illness Date Seen: 06/01/24 Chief complaint: Unresponsive episode Narrative: Sandra Medrano is a 84 year old woman with major neurocognitive disorder and association with Lewy body dementia with underlying Parkinson's disease presents with a 2 day history of 2 episodes of decreased responsiveness and interaction with those around her. It is unclear exactly how long these episodes last but today's episode lasted about 2 hours, from about noon until 2:00 p.m.. Yesterday's episode may have lasted for about 1 hour. Patient was sitting in a chair. Was awake. Stared off and not interacting. No shaking or tremors other than her usual Parkinson's tremor. No difficulties with breathing. No bowel or bladder incontinence. No biting herself on the inside of her mouth or tongue. No lip-smacking. When EMS arrived today the systolic blood pressure was 60. She was able to make sounds like uh-huh in response to questions. No prior history of seizures. Has had Parkinson's disease for some time. Review of Systems Status of ROS: Reports: 6 or more systems reviewed and unremarkable except as noted in History and below Narrative: Baseline level of cognition and motor function lately. Family does indicates she wonders about at night quite a bit. indicates she has had a dry hacky cough intermittently for the past 7 days. Lives in a memory care unit at the [place], [place]. Tends to have an unsteady gait. History of fractured left elbow as recently as 3 weeks ago with rigid cast still in place. Has designated her daughter, Rafaela Salcedo, as her primary power of trademark attorney for health, . Has designated her son, Salvador Walton, as her secondary power of trademark attorney for health, . Has also designated her , Jose Manuel Medrano, as a power of trademark attorney for health, . Requests DNR DNI resuscitation status. [facility] Medical History (Updated 06/01/24 @ 18:38 by Yovany Daugherty MD) Lewy body dementia ?G31.83 - Neurocognitive disorder with Lewy bodies (ICD-10) ?F02.80 - Dementia in other diseases classified elsewhere, unspecified severity, without behavioral disturbance, psychotic disturbance, mood disturbance, and anxiety (ICD-10) Multinodular goiter ?E04.2 - Nontoxic multinodular goiter (ICD-10) Glaucoma ?H40.9 - Unspecified glaucoma (ICD-10) Ischemic cardiomyopathy ?I25.5 - Ischemic cardiomyopathy (ICD-10) Parkinson's disease with dyskinesia, with fluctuations (03/09/19) ?G20.B2 - Parkinson's disease with dyskinesia, with fluctuations (ICD-10) Postmenopausal atrophic vaginitis (10/14/12) ?N95.2 - Postmenopausal atrophic vaginitis (ICD-10) Peripheral vascular disease (06/20/23) ?I73.9 - Peripheral vascular disease, unspecified (ICD-10) Osteopenia (05/16/20) ?M85.80 - Other specified disorders of bone density and structure, unspecified site (ICD-10) Hyperlipidemia (05/16/20) ?E78.5 - Hyperlipidemia, unspecified (ICD-10) Chronic diastolic (congestive) heart failure (05/05/20) ?I50.32 - Chronic diastolic (congestive) heart failure (ICD-10) Multiple falls ?R29.6 - Repeated falls (ICD-10) Unsteady gait ?R26.81 - Unsteadiness on feet (ICD-10) Fall ?W19.XXXA - Unspecified fall, initial encounter (ICD-10) Proximal humerus fracture (07/14/23) ?S42.209A - Unspecified fracture of upper end of unspecified humerus, initial encounter for closed fracture (ICD-10) Frailty syndrome in geriatric patient ?R54 - Age-related physical debility (ICD-10) Cognitive impairment ?R41.89 - Other symptoms and signs involving cognitive functions and awareness (ICD-10) Melanoma ?C43.9 - Malignant melanoma of skin, unspecified (ICD-10) Heart failure with reduced ejection fraction ?I50.20 - Unspecified systolic (congestive) heart failure (ICD-10) Coronary artery disease ?I25.10 - Atherosclerotic heart disease of [place] coronary artery without angina pectoris (ICD-10) Parkinsons disease ?G20.A1 - Parkinson's disease without dyskinesia, without mention of fluctuations (ICD-10) Surgical History History of breast biopsy ?Z98.890 - Other specified postprocedural states (ICD-10) History of colonoscopy ?Z98.890 - Other specified postprocedural states (ICD-10) History of tonsillectomy ?Z90.89 - Acquired absence of other organs (ICD-10) History of hysterectomy ?Z90.710 - Acquired absence of both cervix and uterus (ICD-10) Hx of cataract surgery ?Z98.49 - Cataract extraction status, unspecified eye (ICD-10) Family History Brother Cardiovascular disease Father Cardiovascular disease Social History Narrative: She lives with her , Jeison, at [facility]. Her is healthcare power of trademark attorney. Code status is DNR. Previously lived in [facility] and in [facility]. She is a nonsmoker. Rarely drinks alcohol. What is your current living situation?: I presently have a place to live Problems where you live: no known problems Problems where you live details: None known In the past 12 months, utilities in danger of being shut off: no In past 12 months, lack of transportation kept you from medical appts, meetings, work, or getting things needed for daily living: no In the past 12 mos, have been you worried that your food would run out before you had money to buy more?: never true In the past 12 mos, the food you bought just didn't last and you didn't have money to buy more?: never true Smoking Status: Never smoker How often do you have a drink containing alcohol: never AUDIT-C Alcohol total score: 0 Non-prescribed substance use: denies use Caffeine: No How often does anyone, including family, friends and others, physically hurt you: never How often does anyone, including family, friends and others, insult or talk down to you: never How often does anyone, including family, friends and others, threaten you with harm: never How often does anyone, including family, friends and others, scream or curse at you: never service: No Meds Home Medications and Allergies Home Medications ?Medication ?Instructions ?Recorded ?Confirmed ?Type aspirin 81 mg tablet,delayed 81 mg PO MOWEFR 07/13/23 06/01/24 History release (Adult Aspirin Regimen) carbidopa 25 mg-levodopa 100 mg 2.5 tab PO .TIDAC 07/13/23 06/01/24 History tablet carbidopa ER 50 mg-levodopa 200 mg 1 tab PO HS 07/13/23 06/01/24 History tablet,extended release donepezil 10 mg tablet 10 mg PO HS 07/13/23 06/01/24 History lisinopril 5 mg tablet 5 mg PO DAILY 07/13/23 06/01/24 History nitroglycerin 0.4 mg sublingual 0.4 mg sublingual Q5M PRN 07/13/23 06/01/24 History tablet polyethylene glycol 3350 17 17 g PO DAILY 07/13/23 06/01/24 History gram/dose oral powder (ClearLax) rosuvastatin 20 mg tablet 20 mg PO DAILY 07/13/23 06/01/24 History acetaminophen 500 mg tablet 1,000 mg PO TID 06/01/24 06/01/24 History (Acetaminophen Pain Relief) calcium 500 mg (as carbonate)-vit 1 tab PO DAILY 06/01/24 06/01/24 History D3 10 mcg (400 unit) chewable tablet (Calcium 500 + D) gabapentin 100 mg capsule 100 mg PO HS 06/01/24 06/01/24 History melatonin 3 mg tablet 3 mg PO HS 06/01/24 06/01/24 History oxycodone 5 mg tablet 5 mg PO Q4H PRN 06/01/24 06/01/24 History sodium chloride 1 gram tablet 1,000 mg PO DAILY 06/01/24 06/01/24 History Allergies Allergy/AdvReac Type Severity Reaction Status Date / Time pollen extracts Allergy Unknown Verified 06/01/24 14:02 Exam Narrative: Exam Narrative: Examined patient the emergency department. Appears comfortable no acute distress. Awake and interactive. and daughter who are present with her indicates she is back to baseline. Patient has no recall about how she arrived here or why she is here. Ordinarily patient requires a lot of attention in the home. Masked feces of Parkinson's disease. Slow to respond to questions. Oriented to self, not so much to place, time, or situation. This is baseline according to family members present, and daughter. Resting tremor left greater than right, upper extremity and lower extremities. External auditory canals are clear. Tympanic membranes normal. Midline nasal septum. Dry buccal mucosa. Dentition fair repair. Conjugate gaze. No icterus. Midline trachea. No head neck lymphadenopathy. Neck supple. Lungs clear to auscultation without wheezing, rhonchi, rales. Chest wall excursions are full. Heart tones with regular rhythm, normal S1-S2, without murmur, gallop, rub. Abdomen is active bowel sounds, soft, nontender. Palpable pulses upper and lower extremities. No lower extremity edema. Skin is intact. Const: Vital Signs, click to edit/add: Vital Signs - 24 hr 06/01/24 13:04 06/01/24 13:08 06/01/24 13:11 Temperature 6.9 F L Pulse Rate 66 69 Pulse Rate [Pulse Oximeter] 66 Respiratory Rate 16 Blood Pressure 107/56 L Blood Pressure [Ri ght Upper Arm] 102/51 L Pulse Oximetry 95 96 95 Oxygen Delivery Me thod Room Air 06/01/24 13:15 06/01/24 13:16 06/01/24 13:17 Temperature Pulse Rate 63 63 66 Pulse Rate [Pulse Oximeter] Respiratory Rate Blood Pressure 110/59 L Blood Pressure [Ri ght Upper Arm] Pulse Oximetry 96 96 96 Oxygen Delivery Me thod 06/01/24 13:30 06/01/24 13:31 06/01/24 13:45 Temperature Pulse Rate 63 66 Pulse Rate [Pulse Oximeter] Respiratory Rate 19 18 21 Blood Pressure 108/62 Blood Pressure [Ri ght Upper Arm] Pulse Oximetry 97 98 Oxygen Delivery Me thod 06/01/24 13:46 06/01/24 13:47 06/01/24 14:11 Temperature Pulse Rate 81 Pulse Rate [Pulse Oximeter] Respiratory Rate 23 20 Blood Pressure 117/66 Blood Pressure [Ri ght Upper Arm] Pulse Oximetry 97 Oxygen Delivery Me thod 06/01/24 14:15 06/01/24 14:19 06/01/24 14:30 Temperature Pulse Rate 80 81 93 Pulse Rate [Pulse Oximeter] Respiratory Rate 16 18 18 Blood Pressure Blood Pressure [Ri ght Upper Arm] Pulse Oximetry 97 98 97 Oxygen Delivery Me thod 06/01/24 14:34 06/01/24 14:40 06/01/24 14:45 Temperature Pulse Rate 88 85 Pulse Rate [Pulse Oximeter] Respiratory Rate 15 11 L 14 Blood Pressure 146/71 H Blood Pressure [Ri ght Upper Arm] Pulse Oximetry 100 92 Oxygen Delivery Nv thod 06/01/24 14:46 06/01/24 14:47 06/01/24 15:00 Temperature Pulse Rate Pulse Rate [Pulse Oximeter] Respiratory Rate 6 L 12 18 Blood Pressure 145/77 H Blood Pressure [Ri ght Upper Arm] Pulse Oximetry Oxygen Delivery Nv thod 06/01/24 15:02 06/01/24 15:03 06/01/24 15:15 Temperature Pulse Rate 91 95 Pulse Rate [Pulse Oximeter] Respiratory Rate 20 8 L 17 Blood Pressure 145/75 H Blood Pressure [Ri ght Upper Arm] Pulse Oximetry 96 97 [facility] 15:17 06/01/24 15:30 06/01/24 15:31 Temperature Pulse Rate 84 88 Pulse Rate [Pulse Oximeter] Respiratory Rate 22 14 Blood Pressure 145/79 H 151/78 H Blood Pressure [Ri ght Upper Arm] Pulse Oximetry 96 95 [facility] 06/01/24 15:45 06/01/24 15:46 06/01/24 16:00 Temperature Pulse Rate 90 93 97 Pulse Rate [Pulse Oximeter] Respiratory Rate 20 Blood Pressure 145/79 H 164/81 H Blood Pressure [Ri ght Upper Arm] Pulse Oximetry 95 95 97 [facility] 06/01/24 16:01 06/01/24 16:02 06/01/24 16:03 Temperature Pulse Rate 96 95 Pulse Rate [Pulse Oximeter] Respiratory Rate 25 H 22 Blood Pressure 155/90 H Blood Pressure [Ri ght Upper Arm] Pulse Oximetry 97 87 L [facility] 06/01/24 16:15 06/01/24 16:16 06/01/24 16:30 Temperature Pulse Rate Pulse Rate [Pulse Oximeter] Respiratory Rate 19 21 20 Blood Pressure 168/85 H Blood Pressure [Ri ght Upper Arm] Pulse Oximetry [facility] 06/01/24 16:31 06/01/24 16:32 06/01/24 16:45 Temperature Pulse Rate Pulse Rate [Pulse Oximeter] Respiratory Rate 21 20 22 Blood Pressure 137/84 Blood Pressure [Ri ght Upper Arm] Pulse Oximetry [facility] 06/01/24 16:46 06/01/24 17:00 06/01/24 17:01 Temperature Pulse Rate Pulse Rate [Pulse Oximeter] Respiratory Rate 12 20 7 L Blood Pressure 148/79 H 148/87 H Blood Pressure [Ri ght Upper Arm] Pulse Oximetry [facility] 06/01/24 17:15 06/01/24 17:17 06/01/24 17:30 Temperature Pulse Rate Pulse Rate [Pulse Oximeter] Respiratory Rate 17 0 L 7 L Blood Pressure 152/88 H Blood Pressure [Ri ght Upper Arm] Pulse Oximetry Oxygen Delivery [facility] 06/01/24 17:45 06/01/24 18:00 06/01/24 18:02 Temperature Pulse Rate 86 84 84 Pulse Rate [Pulse Oximeter] Respiratory Rate Blood Pressure 151/86 H Blood Pressure [Ri ght Upper Arm] Pulse Oximetry 96 95 95 Oxygen Delivery [facility] Hospitalist - H&P: Result Labs Labs: Short CBC 06/01/24 Range/Units 13:15 WBC 9.89 (4.50-11.00) K/uL Hgb 13.0 (12.0-16.0) gm/dL Hct 40.1 (33.0-51.0) % Plt Count 219 (140-440) K/uL BMP 06/01/24 13:15 Sodium 134 L Potassium 4.2 Chloride 100 Carbon Dioxide 25 BUN 19 Creatinine 0.7 Glucose 85 Calcium 8.8 Cardiac Enzymes 06/01/24 Range/Units 13:15 Troponin I < 0.01 L (0.01-0.04) ng/mL Liver Function 06/01/24 Range/Units 13:15 Total Bilirubin 0.4 (0.1-1.5) mg/dL AST 17 (12-35) U/L ALT < 4 L (4-35) U/L Alkaline Phosphatase 72 (40-150) U/L Albumin 4.1 (3.3-5.0) g/dL Urine 06/01/24 Range/Units 14:32 Urine Color Yellow (Yellow) Urine Appearance Clear (Clear) Urine pH 6.0 (5.0-8.5) Ur Specific [place] 1.010 (1.000-1.030) Urine Protein Trace A (Negative) Urine Glucose (UA) Negative (Negative) Imaging CT scan - head: Radiologist's impression: Impression: Stable age-related and chronic small vessel disease changes of the brain without acute intracranial abnormality. CT angiogram head and neck : Radiologist's impression: IMPRESSION: Patent proximal intracranial vasculature without intracranial aneurysms. Patent cervical vessels. Chest x-ray: Attestation: I have reviewed the pertinent imaging results. Radiologist's impression: FINDINGS: Cardiovascular/Mediastinum: Magnified cardiac silhouette. Unremarkable. Lungs: No focal consolidation. Mild pulmonary vascular congestion and interstitial edema. Hazy ill-defined right infrahilar opacification. Airways: Trachea remains midline. Pleura: No pleural effusions or pneumothorax. Bones: No acute osseous abnormalities. Upper abdomen: Unremarkable. IMPRESSION: Mild pulmonary edema. A superimposed pneumonia of the right infrahilar region should be clinically excluded. Assessment and Plan Assessment and plan (1) Influenza A: Problem comment: -tested positive on 06/01/2024 -initiate oseltamivir renally dosed -chest x-ray 06/01/2024 suggests possible infiltrate, for which for now we will treat with ceftriaxone and doxycycline Status: Acute (2) UTI (urinary tract infection): Problem comment: -urinalysis on 06/01/2024 positive for nitrates. Treat with ceftriaxone and doxycycline for now. Await urine culture. Status: Acute (3) Altered mental status: Problem comment: -multifactorial including from baseline underlying Parkinson's associated dementia, plus possible acute dysautonomia from acute illness and underlying Parkinson's disease -monitor in hospital Status: Acute (4) Episode of transient neurologic symptoms: Problem comment: -most likely acute dysautonomia in association with Parkinson's disease. Did discuss with neurologist. Consider outpatient assessment with EEG if warranted Status: Acute (5) Parkinson's disease with dyskinesia, with fluctuations: Problem comment: -continue with supportive efforts Status: Acute (6) Lewy body dementia: Problem comment: -continue with supportive efforts Status: Acute (7) Left elbow fracture: Problem comment: -status post fall about 3 weeks ago with rigid cast still in place as of 06/01/2024 Status: Acute Plan 1. Reviewed impression and plans with patient, , and daughter 2. Answered their questions 3. They are agreeable with above stated plans and recommendations Total Time Spent Total Time Spent: 65 minutes
[2024-06-01] MEDS: ASPIRIN 81 MG TABLET EC PO (20:11)
[2024-06-01] MEDS: OXYCODONE 5 MG TABLET 2.5 MG PO (20:12)
[2024-06-01] MEDS: CARBIDOPA-LEVODOPA 25-100 TABLET 2.5 TAB PO (20:12)
[2024-06-01] MEDS: GABAPENTIN 100 MG CAPSULE PO (21:12)
[2024-06-01] MEDS: DOXYCYCLINE HYCLATE 100 MG PO (21:12)
[2024-06-01] MEDS: OSELTAMIVIR 30 MG CAPSULE PO (21:12)
[2024-06-01] MEDS: SENNOSIDES/DOCUSATE TABLET 1 TAB PO (21:13)
[2024-06-01] MEDS: DOCUSATE SODIUM 100 MG CAPSULE PO (21:13)
[2024-06-01] MEDS: ACETAMINOPHEN 500 MG TABLET 1000 MG PO (21:13)
[2024-06-01] MEDS: DONEPEZIL 10 MG TABLET PO (21:13)
[2024-06-01] MEDS: ROSUVASTATIN CALCIUM 10 MG TABLET 20 MG PO (21:13)
[2024-06-01] MEDS: MELATONIN 3 MG TABLET PO (21:13)
[2024-06-01] MEDS: SODIUM CHLORIDE 0.9 % (FLUSH) 10 ML SYRINGE 5 ML IVF (21:20)
[2024-06-02] VITALS (8 sets, daily range): BP systolic 93–139; BP diastolic 49–79; PULSE 60–83; RESP 16–20; TEMP 36.1–37.4; O2SAT 91–100
--- NOTE | 2024-06-02 05:47 | PC.NURSE ---
End of shift report: Cooperative with cares. Pain to left arm reported, pain well managed with current regimen. Patient oriented to self and date but unsure as to day, month or year. Patient has involuntary tremors to NOELLE and BUE, parkinson's diagnosis and family reporting that she did not receive any of her carbidopa/levodopa doses prior to coming to the ED. Patient's tremors improved after receiving scheduled medications. Denies any shortness of breath, lung sounds clear bilaterally. Intermittent, dry, hacking cough. No observed periods of unresponsiveness or hypotension. Patient impulsive and will wander at night per family report, patient did have several periods of getting up out of bed without calling for assistance, bed alarm utilized. SBA for transfers and ambulation. Plaster cast to left arm, family reports that patient had a fall that resulted in humerus fx, CMS to fingers intact, patient able to wiggle fingers and cap refill <3 seconds.
[2024-06-02 07:02] LABS: Lactate* 0.5 mmol/L (0.5-1.9)
[2024-06-02 07:18] LABS: Hematocrit 38.5 % (33.0-51.0); Hemoglobin* 12.6 gm/dL (12.0-16.0); Mean Corpuscular HGB Conc 33 gm/dL (32-36); Mean Corpuscular Hemoglobin 31 pg (26-34); Mean Corpuscular Volume 96 fL (80-100); Platelet Count* 182 K/uL (140-440); Red Blood Count 4.02 m/uL (4.00-5.20); White Blood Count* 7.72 K/uL (4.50-11.00)
[2024-06-02 07:21] LABS: Slide Review Reflex No
[2024-06-02 07:32] LABS: Chloride* 102 mmol/L (96-114); Sodium* 133 mmol/L (135-149)
[2024-06-02 07:35] LABS: Creatinine* 0.5 mg/dL (0.5-1.5); Est. Creatinine Clearance* 29.94; Estimated Glomerular Filt Rate 93 ml/min
[2024-06-02 07:36] LABS: Anion Gap 7 mEq/L (7-15); Blood Urea Nitrogen* 19 mg/dL (7-30); Calcium* 8.7 mg/dL (8.4-10.6); Carbon Dioxide* 24 mmol/L (20-32); Glucose* 90 mg/dL (60-115)
[2024-06-02 07:38] LABS: C Reactive Protein* 1.9 mg/dL (0.5-1.0)
[2024-06-02 07:52] LABS: Procalcitonin* 0.08 ng/mL (<0.50)
[2024-06-02] MEDS: polyethylene glycoL 3350 17 GM PACK PO (09:12)
[2024-06-02] MEDS: ACETAMINOPHEN 500 MG TABLET 1000 MG PO ×3 (09:14→20:42)
[2024-06-02] MEDS: CARBIDOPA-LEVODOPA 25-100 TABLET 2.5 TAB PO ×3 (09:14→17:58)
[2024-06-02] MEDS: DOCUSATE SODIUM 100 MG CAPSULE PO ×2 (09:14→20:42)
[2024-06-02] MEDS: OSELTAMIVIR 30 MG CAPSULE PO ×2 (09:14→20:41)
[2024-06-02] MEDS: DOXYCYCLINE HYCLATE 100 MG PO ×2 (09:15→20:41)
[2024-06-02] MEDS: SENNOSIDES/DOCUSATE TABLET 1 TAB PO (09:15)
[2024-06-02] MEDS: SODIUM CHLORIDE 1 GM TABLET 1000 GM PO (09:15)
[2024-06-02] MEDS: lisinopriL 5 MG TABLET PO (09:16)
[2024-06-02] MEDS: NAPROXEN 250 MG TABLET PO (09:16)
--- NOTE | 2024-06-02 09:21 | NUTR.NU ---
RDN with nutrition screen related to BMI. Patient admitted for influenza A+, pneumonia, and UTI+. She lives at an assisted living memory care facility. Current BMI 18.3 kg/m2. Per weight records, patient's weight has been stable within 180 days. Patient's current weight seems to be around her usual boy weight. Current diet is Regular. 50% intake since admit which is adequate. No nutrition concerns at this time. RDN will continue to monitor and follow-up prn.
[2024-06-02] MEDS: cefTRIAXone 1 GM in 0.9 % SODIUM CHLORIDE Mini-bag 100 ML IVPB (15:33)
--- NOTE | 2024-06-02 16:57 | P.IMPN_ITS ---
Progress Note: A&P Assessment and plan (1) Influenza A: Problem details: -tested positive on 06/01/2024 -continue oseltamivir renally dosed -chest x-ray 06/01/2024 suggests possible infiltrate, for which for now we will treat with ceftriaxone and doxycycline Status: Acute (2) Influenza and pneumonia: Problem details: as above Status: Acute (3) UTI (urinary tract infection): Problem details: -urinalysis on 06/01/2024 positive for nitrates. Treat with ceftriaxone and doxycycline for now. Await urine culture. - 06/02 UC gram neg philomena, continue ceftriaxone. Await final culture, sensitivities. Status: Acute (4) Altered mental status: Problem details: -multifactorial including from baseline underlying Parkinson's associated dementia, plus possible acute dysautonomia from acute illness and underlying P arkinson's disease -monitor in hospital Status: Acute (5) Episode of transient neurologic symptoms: Problem details: -most likely acute dysautonomia in association with Parkinson's disease. Did discuss with neurologist. Consider outpatient assessment with EEG if warranted Status: Acute (6) Parkinson's disease with dyskinesia, with fluctuations: Problem details: -continue with supportive efforts Status: Chronic (7) Lewy body dementia: Problem details: -continue with supportive efforts Status: Acute (8) Left elbow fracture: Problem details: -status post fall about 3 weeks ago with rigid cast still in place as of 06/01/2024 Status: Acute Plan Continue in hospital for management of influenza A, pneumonia, AMS, UTI. Awaiting UC. Continue PT/OT as able. Subjective Time Seen by Provider: 12:15 Date Seen: 06/02/24 Interval history: Sandra's and daughter were there with her today. She was able to ambulate with her walker with therapy, but it wore her out completely and she is already sleeping, barely able to wake to eat lunch. She has soft BPs this afternoon. She lives in memory care. Exam Narrative: Exam Narrative: General: No acute distress. Sleeping, bobbing her head forward while in her chair, briefly awakes when I say her name and then falls right back to sleep. N o pallor. No jaundice. Oropharynx: Clear. Mucous membranes dry. Cardiovascular: Regular rate and rhythm. No murmurs, gallops, or rubs. Respiratory: Clear to auscultation bilaterally. No wheezes or crackles. Abdomen: Bowel sounds present. Soft, nondistended, nontender. Extremities: No lower extremity edema. Const: Vital Signs, click to edit/add: Vital Signs - 24 hr 06/01/24 17:00 06/01/24 17:01 06/01/24 17:15 Temperature Pulse Rate Pulse Rate [Pulse Oximeter] Respiratory Rate 20 7 L 17 Blood Pressure 148/87 H Blood Pressure [Ri ght Arm] Pulse Oximetry Oxygen Delivery Me thod 06/01/24 17:17 06/01/24 17:30 06/01/24 17:45 Temperature Pulse Rate 86 Pulse Rate [Pulse Oximeter] Respiratory Rate 0 L 7 L Blood Pressure 152/88 H Blood Pressure [Ri ght Arm] Pulse Oximetry 96 Oxygen Delivery Me thod 06/01/24 18:00 06/01/24 18:02 06/01/24 18:03 Temperature Pulse Rate 84 84 84 Pulse Rate [Pulse Oximeter] Respiratory Rate Blood Pressure 151/86 H Blood Pressure [Ri ght Arm] Pulse Oximetry 95 95 95 Oxygen Delivery Me thod 06/01/24 18:35 06/01/24 18:35 06/01/24 19:00 Temperature 99.1 F 98.3 F Pulse Rate Pulse Rate [Pulse Oximeter] 85 89 Respiratory Rate 16 18 18 Blood Pressure Blood Pressure [Ri ght Arm] 166/85 H 152/80 H Pulse Oximetry 95 94 94 Oxygen Delivery Me thod Room Air Room Air Room Air 06/01/24 23:00 06/01/24 23:00 06/01/24 23:00 Temperature Pulse Rate 67 Pulse Rate [Pulse Oximeter] 88 Respiratory Rate 18 16 Blood Pressure Blood Pressure [Ri ght Arm] Pulse Oximetry 95 Oxygen Delivery Me thod Room Air 06/01/24 23:00 06/02/24 03:00 06/02/24 07:00 Temperature 98.1 F 98.1 F 99.3 F Pulse Rate Pulse Rate [Pulse Oximeter] 88 64 83 Respiratory Rate 16 18 18 Blood Pressure Blood Pressure [Ri ght Arm] 113/46 L 138/79 120/63 Pulse Oximetry 95 96 93 Oxygen Delivery Me thod Room Air Room Air Room Air 06/02/24 07:00 06/02/24 07:00 06/02/24 10:00 Temperature Pulse Rate 76 Pulse Rate [Pulse Oximeter] 83 Respiratory Rate 18 18 Blood Pressure Blood Pressure [Ri ght Arm] Pulse Oximetry 93 Oxygen Delivery Me thod Room Air 06/02/24 11:00 06/02/24 15:00 06/02/24 15:00 Temperature 98.6 F 98.7 F Pulse Rate Pulse Rate [Pulse Oximeter] 69 62 Respiratory Rate 20 18 18 Blood Pressure Blood Pressure [Ri ght Arm] 99/49 L 93/53 L Pulse Oximetry 94 91 91 Oxygen Delivery Ak thod Room Air Room Air Room Air Labs Labs: Laboratory Results - last 24 hr 06/01/24 06/02/24 16:57 06:14 WBC 7.72 RBC 4.02 Hgb 12.6 Hct 38.5 MCV 96 MCH 31 MCHC 33 Plt Count 182 Sodium 133 L Potassium 4.0 Chloride 102 Carbon Dioxide 24 Anion Gap 7 BUN 19 Creatinine 0.5 Estimated Creat Clear 29.94 Estimated GFR 93 Glucose 90 Lactate 0.5 Calcium 8.7 C-Reactive Protein 1.9 H Procalcitonin 0.08 POC Troponin I 0.01
--- NOTE | 2024-06-02 18:54 | PC.NURSE ---
End of shift-- Pt pleasant and cooperative. Oriented to person only as per baseline dementia. VSS and pt is afebrile. SpO2 >90% on RA. She denied any pain. LS coarse throughout and pt has a frequent non-productive cough. Telemetry shows NSR. She was up to the BR and chair today, and ambulated in hallway with PT with assist of 1, belt and walker and tolerated it well. Report to oncoming shift.
[2024-06-02] MEDS: ROSUVASTATIN CALCIUM 10 MG TABLET 20 MG PO (20:41)
[2024-06-02] MEDS: GABAPENTIN 100 MG CAPSULE PO (20:41)
[2024-06-02] MEDS: DONEPEZIL 10 MG TABLET PO (20:41)
[2024-06-02] MEDS: MELATONIN 3 MG TABLET PO (20:41)
[2024-06-02] MEDS: SODIUM CHLORIDE 0.9 % (FLUSH) 10 ML SYRINGE 5 ML IVF (20:42)
[2024-06-03 03:00] VITALS: BP 158/80; PULSE 80; RESP 16; TEMP 37.1; O2SAT 92
--- NOTE | 2024-06-03 06:49 | PC.NURSE ---
End of shift: Pt slept for the majority of the night. Pt oriented to self and as per baseline dementia. Pt denies pain. Non-productive cough is still active. Pt does not use call light, bed alarm put in place at all times. Sets alarm off frequently. SBA with continent/incontinent episodes of the bladder. Pt appears resting in bed with call light in reach. ?
[2024-06-03 07:00] VITALS: BP 160/87; PULSE 73; PULSE 84; RESP 18; TEMP 37.1; O2SAT 93
[2024-06-03] MEDS: OSELTAMIVIR 30 MG CAPSULE PO (09:25)
[2024-06-03] MEDS: DOCUSATE SODIUM 100 MG CAPSULE PO (09:25)
[2024-06-03] MEDS: CARBIDOPA-LEVODOPA 25-100 TABLET 2.5 TAB PO ×2 (09:28→12:56)
[2024-06-03] MEDS: SENNOSIDES/DOCUSATE TABLET 1 TAB PO (09:29)
[2024-06-03] MEDS: lisinopriL 5 MG TABLET PO (09:29)
[2024-06-03] MEDS: DOXYCYCLINE HYCLATE 100 MG PO (09:29)
[2024-06-03] MEDS: NAPROXEN 250 MG TABLET PO (09:29)
[2024-06-03] MEDS: ACETAMINOPHEN 500 MG TABLET 1000 MG PO ×2 (09:30→14:36)
[2024-06-03] MEDS: SODIUM CHLORIDE 0.9 % (FLUSH) 10 ML SYRINGE 5 ML IVF (09:30)
[2024-06-03] MEDS: SODIUM CHLORIDE 1 GM TABLET PO (09:57)
--- NOTE | 2024-06-03 10:39 | PC.SOCIAL ---
Discharge planning: Met with pt and family in room regarding d/c plan. Family confirmed pt lives at [facility] and they would like her to return at discharge. Family requested information and coordination of discharge be arranged with nursing at [facility]. Dtr states she is concerned about getting pt in and out of her own vehicle for transport and is aware and agrees to pay privately for the non-emergency EMS for transport with the estimated cost of about $100. Called and spoke with Josie, nurse at [facility], and faxed requested information to her for confirmation of their ability to accept pt back today. Awaiting decision from nursing at [facility]. 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
[2024-06-03 11:00] VITALS: BP 100/56; PULSE 69; RESP 18; TEMP 36.9; O2SAT 97
--- NOTE | 2024-06-03 13:26 | PM.DS1 ---
DS: Providers Provider Date Seen: 06/03/24 Date of admission: 06/02/24 13:28 Primary care physician: Della Franks MD Admitting Clinician: Yovany Daugherty MD Consults: 06/01/24 18:34 Consult to Occupational Therapy [CONS] Routine Comment: Reason(s) for OT Consult:: Evaluate and Treat Any Restrictions?:: No Restrictions Consult to Physical Therapy [CONS] Routine Comment: Reason(s) for PT Consult:: Evaluate and Treat Any Restrictions?:: No Restrictions Consult to Switchboard Troubleshooter [CONS] Routine Comment: Reason for Consult:: Discharge Planning Needs Attending Physician on discharge: Joan Alberts [facility], [facility]: 06/03/24 DS: Diagnosis Discharge Diagnosis (1) Influenza A: Status: Acute Problem details: -tested positive on 06/01/2024 -no hypoxia or dyspnea -continue oseltamivir renally dosed -chest x-ray 06/01/2024 suggests possible infiltrate, for which for now we will treat with ceftriaxone and doxycycline On discharge, will continue Tamiflu to complete 5 day course. Continue symptomatic cares as needed. (2) Pneumonia: Status: Acute Problem details: -CXR shows superimposed pneumonia of the right infrahilar region should be clinically excluded -blood culture negative, MRSA negative -continue ceftriaxone and doxycycline On discharge, transition to oral cefpodoxime to complete 5 day course of antibiotic therapy for community-acquired pneumonia and UTI. (3) UTI (urinary tract infection): Status: Acute Problem details: -urinalysis on 06/01/2024 positive for nitrates. Treat with ceftriaxone and doxycycline for now - 06/02 UC gram neg philomena, E coli. Sensitive to ceftriaxone On discharge, transition to oral cefpodoxime to complete 5 day course of antibiotic therapy for UTI and community-acquired pneumonia (4) Altered mental status: Status: Acute Problem details: -multifactorial including from baseline underlying Parkinson's associated dementia, plus possible acute dysautonomia from acute illness and underlying Parkinson's disease Appears to be at baseline prior to discharge. Return to Memory Care at [facility]. (5) Episode of transient neurologic symptoms: Status: Acute Problem details: -most likely acute dysautonomia in association with Parkinson's disease. Did discuss with neurologist. Outpatient follow-up with PCP and consideration for referral to Neurology with EEG if warranted (6) Parkinson's disease with dyskinesia, with fluctuations: Status: Chronic Problem details: -continue with supportive efforts (7) Lewy body dementia: Status: Acute Problem details: -continue with supportive efforts (8) Left elbow fracture: Status: Acute Problem details: -status post fall about 3 weeks ago with rigid cast still in place as of 06/01/2024 -continue therapies during hospital course and upon return to [facility] Return to [facility] and resume physical therapy as previously ordered DS: Summary Hospital Course Hospital Course: [age] year old female was admitted to the medical floor for management acute influenza a with secondary pneumonia. Patient was started on Tamiflu and will continue this at time of discharge to complete 5 day course. Patient was initiated on IV antibiotics, transitioned to oral cefpodoxime at discharge to complete antibiotic therapy for community-acquired pneumonia. Urine culture grew E coli, sensitive to cephalosporin as well. Close outpatient follow-up with PCP and consideration for referral to Neurology for further workup, consideration of EEG. Course of care and details as noted above. Remainder of chronic medical comorbidities were monitored and managed with home medications. Status at Discharge Functional status at discharge: uses cane/walker Overall status at discharge: patient is progressing back to baseline Time Spent with Patient Time attestation: Total time spent providing and/or coordinating discharge services: Time spent: Greater than 30 minutes Exam Narrative: Exam Narrative: PHYSICAL EXAM General: Pleasant, conversant, NAD Cardiovascular: RRR Pulmonary: No dyspnea Neurological: Alert, answering questions appropriately at this time Skin: Warm, dry. Const: Vital Signs, click to edit/add: Vital Signs - 24 hr 06/02/24 15:00 06/02/24 15:00 06/02/24 15:00 Temperature 98.7 F Pulse Rate Pulse Rate [Pulse Oximeter] 62 62 Respiratory Rate 18 18 18 Blood Pressure [Ri ght Arm] 93/53 L Pulse Oximetry 91 91 Oxygen Delivery Me thod Room Air Room Air 06/02/24 16:59 06/02/24 19:00 06/02/24 23:00 Temperature 97.0 F L Pulse Rate 69 60 Pulse Rate [Pulse Oximeter] 79 Respiratory Rate 16 Blood Pressure [Ri ght Arm] 139/59 L Pulse Oximetry 100 Oxygen Delivery Me thod Room Air 06/02/24 23:00 06/03/24 03:00 06/03/24 03:00 Temperature 98.8 F Pulse Rate Pulse Rate [Pulse Oximeter] 80 Respiratory Rate 16 16 16 Blood Pressure [Ri ght Arm] 158/80 H Pulse Oximetry 92 92 Oxygen Delivery Me thod Room Air Room Air 06/03/24 07:00 06/03/24 07:00 06/03/24 07:00 Temperature 98.8 F Pulse Rate 84 Pulse Rate [Pulse Oximeter] 73 Respiratory Rate 18 Blood Pressure [Ri ght Arm] 160/87 H Pulse Oximetry 93 93 Oxygen Delivery Me thod Room Air Room Air 06/03/24 07:00 06/03/24 11:00 Temperature 98.4 F Pulse Rate Pulse Rate [Pulse Oximeter] 73 69 Respiratory Rate 18 18 Blood Pressure [Ri ght Arm] 100/56 L Pulse Oximetry 97 Oxygen Delivery Me thod DS: Data Data Completed and Pending Labs on day of discharge: Preliminary micro results at discharge 06/01/24 13:48 Blood Culture - Preliminary Blood NO GROWTH AFTER [address] scan - head: Attestation: I have reviewed the pertinent imaging results. Radiologist's impression: There is no intra-axial or extra-axial fluid collection. There is no mass effect or midline shift. There is age-related cortical atrophy with mild sulcal widening and ex vacuo dilatation of the lateral ventricles. There are chronic small vessel disease changes in the subcortical and periventricular white matter without lost jay-white differentiation. The orbits and their contents are grossly within normal limits. The bony calvarium is grossly intact. The paranasal sinuses are clear. The mastoid air cells are well aerated. Impression: Stable age-related and chronic small vessel disease changes of the brain without acute intracranial abnormality. CTA head: Attestation: I have reviewed the pertinent imaging results. Radiologist's impression: There is no cerebral aneurysm or large vessel occlusion. The right internal carotid artery is normal. The right middle cerebral artery and its branches are normal. The right anterior cerebral artery and its branches are normal. The left internal carotid artery is normal. The left middle cerebral artery and its branches are normal. The left anterior cerebral artery and its branches are normal. The anterior communicating artery is well visualized and appears normal. The right vertebral artery and PICA are normal. The left vertebral artery and PICA are normal. The vertebral arteries are codominant. The basilar artery is patent and appears normal. The right posterior cerebral artery is normal. The left posterior cerebral artery is normal. The visualized venous structures are patent. IMPRESSION: Patent proximal intracranial vasculature without intracranial aneurysms. CTA neck: Attestation: I have reviewed the pertinent imaging results. Radiologist's impression: The origins of the great vessels from the aortic arch are patent. The origin of the right vertebral artery is patent. The origin of the left vertebral artery is patent. The common carotid arteries are patent. There is no stenosis at the origin of the right internal carotid artery. There is no stenosis at the origin of the left internal carotid artery. The rest of the cervical segments of the internal carotid arteries are patent up to the skull base. The vertebral arteries are codominant. The cervical segments of the vertebral arteries are patent up to the skull base. The visualized lung apices are unremarkable. The thyroid gland demonstrates a goiter. The soft tissues of the neck are unremarkable. There are degenerative changes in the cervical spine. IMPRESSION: Patent cervical vasculature. Chest x-ray: Attestation: I have reviewed the pertinent imaging results. Radiologist's impression: Cardiovascular/Mediastinum: Magnified cardiac silhouette. Unremarkable. Lungs: No focal consolidation. Mild pulmonary vascular congestion and interstitial edema. Hazy ill-defined right infrahilar opacification. Airways: Trachea remains midline. Pleura: No pleural effusions or pneumothorax. Bones: No acute osseous abnormalities. Upper abdomen: Unremarkable. IMPRESSION: Mild pulmonary edema. A superimposed pneumonia of the right infrahilar region should be clinically excluded. Discharge Plan Discharge Disposition: [facility] Discharge Location: [facility] Date of Admission: 06/02/24 13:28 Attending Provider on Discharge: Joan Alberts Primary Care Provider: Della Franks Condition: Improved Anticipated Discharge Date/Time: 06/03/24 13:35 Discharge Medications: New oseltamivir 30 mg Capsule 30 mg PO BID Qty: 6 0RF cefpodoxime 200 mg tablet 200 mg PO BID Qty: 6 0RF Rx Instructions: must administer with a meal/food Continued aspirin [Adult Aspirin Regimen] 81 mg tablet,delayed release (DR/EC) 81 mg PO MOWEFR Rx Instructions: MON,WED,FRI carbidopa-levodopa 50-200 mg tablet extended release 1 tab PO HS donepezil 10 mg tablet 10 mg PO HS lisinopril 5 mg tablet 5 mg PO DAILY polyethylene glycol 3350 [ClearLax] 17 gram/dose powder 17 g PO DAILY rosuvastatin 20 mg tablet 20 mg PO HS carbidopa-levodopa 25-100 mg tablet 2.5 tab PO .TIDAC nitroglycerin 0.4 mg tablet, sublingual 0.4 mg sublingual Q5M PRN docusate sodium 100 mg capsule 100 mg PO BID Qty: 10 0RF magnesium citrate Solution See Rx Instructions .ROUTE .COMPLEX PRN (Reason: constipation) Qty: 296 0RF Rx Instructions: Take 10 oz bottle at once acetaminophen [Acetaminophen Pain Relief] 500 mg tablet 1,000 mg PO TID calcium carbonate-vitamin D3 [Calcium 500 + D] 500 mg-10 mcg (400 unit) tablet,chewable 1 tab PO DAILY gabapentin 100 mg capsule 100 mg PO HS melatonin 3 mg tablet 3 mg PO HS sodium chloride 1 gram tablet 1,000 mg PO DAILY oxycodone 5 mg Tablet 5 mg PO Q6H PRN senna 8.6 mg capsule 17.2 mg PO BID Discharge Orders: Discharge Order (Routine); Ordered 06/03/24 Ordered By: Joan Alberts Additional Instructions: Continue Tamiflu for influenza A Continue cefpodoxime for pneumonia and urinary tract infection RESUME PHYSICAL THERAPY PREVIOUSLY ORDERED Outpatient follow-up with PCP, consideration for referral to Neurology for EEG given episode of transient neurological symptoms, acute dysautonomia. Activity Level: Activity as Tolerated Discharge Diet: Regular Follow Up Appointments: Della Franks MD [Primary Care Provider] - (Post hospital follow-up 3-5 days) [facility] Discharge Comments: Return to [facility]. Resume physical therapy as previously ordered Admit to: return to Memory Care Discharge Potential: Poor Length of Stay: >90 days Can use facility standing orders?: Yes Code Status: DNR/DNI Rehab Potential: Good Therapy: Physical Therapy Therapy Orders: Evaluate and Treat Oxygen: No Urinary Catheter: No Orders are good >30 days: No Signature: Joan Alberts [facility], [facility]ist
--- NOTE | 2024-06-03 13:29 | P.IMPN_ITS ---
Progress Note: A&P Assessment and plan (1) Influenza A: Problem details: -tested positive on 06/01/2024 -no hypoxia or dyspnea -continue oseltamivir renally dosed -chest x-ray 06/01/2024 suggests possible infiltrate, for which for now we will treat with ceftriaxone and doxycycline Status: Acute (2) Pneumonia: Problem details: -CXR shows superimposed pneumonia of the right infrahilar region should be clinically excluded -blood culture negative, MRSA negative -continue ceftriaxone and doxycycline Status: Acute (3) UTI (urinary tract infection): Problem details: -urinalysis on 06/01/2024 positive for nitrates. Treat with ceftriaxone and doxycycline for now - 06/02 UC gram neg philomena, E coli. Sensitive to ceftriaxone Status: Acute (4) Altered mental status: Problem details: -multifactorial including from baseline underlying Parkinson's associated dementia, plus possible acute dysautonomia from acute illness and underlying Parkinson's disease -monitor in hospital Status: Acute (5) Episode of transient neurologic symptoms: Problem details: -most likely acute dysautonomia in association with Parkinson's disease. Did discuss with neurologist. Consider outpatient assessment with EEG if warranted Status: Acute (6) Parkinson's disease with dyskinesia, with fluctuations: Problem details: -continue with supportive efforts Status: Chronic (7) Lewy body dementia: Problem details: -continue with supportive efforts Status: Acute (8) Left elbow fracture: Problem details: -status post fall about 3 weeks ago with rigid cast still in place as of 06/01/2024 -continue therapies during hospital course and upon return to [facility] Status: Acute Plan Patient will return to [facility] with ongoing therapies Time Spent With Patient Total time spent: Today I spent 45 minutes seeing the patient, discussing the patient with ER staff, reviewing Expanse and Epic notes/diagnostics, discussing the care plan with our team that includes social work, PT/OT, pharmacy, RT, long-term and documenting my impressions and plan in the medical record. Subjective Date Seen: 06/03/24 Interval history: Patient is seen sitting up in a chair this morning. Eating breakfast. Denies headache or dizziness. No chest pain or shortness of breath. Remains afebrile. Has no concerns or complaints this morning. Exam Narrative: Exam Narrative: PHYSICAL EXAM General: Pleasant, conversant, NAD HEENT: Normocephalic, atraumatic, sclera white, EOMI, oral mucosa moist Cardiovascular: RRR Pulmonary: CTA bilaterally without rhonchi, rales, expiratory wheezes. No dyspnea Neurological: Alert, answering questions appropriately at this time, cranial nerves intact, no focal findings Extremities: No gross joint deformity or swelling. AROMI. Neurovascularly intact Skin: Warm, dry. Const: Vital Signs, click to edit/add: Vital Signs - 24 hr 06/02/24 15:00 06/02/24 15:00 06/02/24 15:00 Temperature 98.7 F Pulse Rate Pulse Rate [Pulse Oximeter] 62 62 Respiratory Rate 18 18 18 Blood Pressure [Ri ght Arm] 93/53 L Pulse Oximetry 91 91 Oxygen Delivery Me thod Room Air Room Air 06/02/24 16:59 06/02/24 19:00 06/02/24 23:00 Temperature 97.0 F L Pulse Rate 69 60 Pulse Rate [Pulse Oximeter] 79 Respiratory Rate 16 Blood Pressure [Ri ght Arm] 139/59 L Pulse Oximetry 100 Oxygen Delivery Pa thod Room Air 06/02/24 23:00 06/03/24 03:00 06/03/24 03:00 Temperature 98.8 F Pulse Rate Pulse Rate [Pulse Oximeter] 80 Respiratory Rate 16 16 16 Blood Pressure [Ri ght Arm] 158/80 H Pulse Oximetry 92 92 [facility] 06/03/24 07:00 06/03/24 07:00 06/03/24 07:00 Temperature 98.8 F Pulse Rate 84 Pulse Rate [Pulse Oximeter] 73 Respiratory Rate 18 Blood Pressure [Ri ght Arm] 160/87 H Pulse Oximetry 93 93 Oxygen Delivery Pa thod Room Air Room Air 06/03/24 07:00 06/03/24 11:00 Temperature 98.4 F Pulse Rate Pulse Rate [Pulse Oximeter] 73 69 Respiratory Rate 18 18 Blood Pressure [Ri ght Arm] 100/56 L Pulse Oximetry 97 Oxygen Delivery Pa thod
--- NOTE | 2024-06-03 13:57 | PC.SOCIAL ---
Discharge planning: Spoke with Josie, nurse at [facility], who confirmed they will accept pt back today. EMS arranged for 3:00. Spoke with Jeison, who is aware and agrees to discharge back [facility] today and agrees to pay privately for this with estimate of $100 EMS charge. Discharge orders to be sent to [facility] in advance of her return.
--- NOTE | 2024-06-03 15:31 | PC.NURSE ---
DC: Pt alert, oriented to self and vitally stable. Nurse to nurse given to Josie at [facility]. IV removed, tip intact. Pt SBA. Pt dc to [facility] via ems at 1515.
== END 2024-06-03 15:15 | DRG 194 ==
LOC: ED 18:20 → MEDSURG 18:25
PROVIDERS: Admitting Provider Family Medicine; Emergency Provider Family Medicine; PCP Family Medicine; Visit Provider Internal Medicine
DX: J10.00 Influenza due to other identified influenza virus with unspecified type of pneumonia (principal); I47.10 Supraventricular tachycardia, unspecified; N39.0 Urinary tract infection, site not specified; Z68.1 Body mass index [BMI] 19.9 or less, adult; I50.42 Chronic combined systolic (congestive) and diastolic (congestive) heart failure; J18.9 Pneumonia, unspecified organism; B96.20 Unspecified Escherichia coli [E. coli] as the cause of diseases classified elsewhere; G20.B2 Parkinson's disease with dyskinesia, with fluctuations; G31.83 Neurocognitive disorder with Lewy bodies; G90.4 Autonomic dysreflexia; F02.80 Dementia in other diseases classified elsewhere, unspecified severity, without behavioral disturbance, psychotic disturbance, mood disturbance, and anxiety; R54 Age-related physical debility; I25.5 Ischemic cardiomyopathy; I25.10 Atherosclerotic heart disease of native coronary artery without angina pectoris; Z79.82 Long term (current) use of aspirin; S42.402D Unspecified fracture of lower end of left humerus, subsequent encounter for fracture with routine healing; E04.2 Nontoxic multinodular goiter
CPT/HCPCS: 36415; 70450; 70496; 70498; 71045; 80048; 80053; 81001; 83605; 84145; 84484; 85025; 85027; 86140; 87040; 87081; 87086; 87631; 97116; 97162; 97165; 97530; 97535; 99284; 99285; A9270; G0378; J0696; Q9967

== ENCOUNTER 2024-06-03 15:18 | Outpatient (CLI) | payer MEDICARE, BC, SELFPAY | END 2024-06-03 15:19 | disposition home or self-care (01) | PROVIDERS: PCP Family Medicine; Visit Provider Family Medicine | DX: M25.512 Pain in left shoulder (principal); Z99.3 Dependence on wheelchair | CPT/HCPCS: A0425; A0428 ==

== ENCOUNTER 2024-09-22 12:38 | Outpatient (REF) | payer MEDICARE, SELFPAY ==
[2024-09-22 13:03] LABS: Iron* 105 ug/dL (37-170)
[2024-09-22 13:40] LABS: Ferritin* 15.7 ng/mL (11.1-264.0)
== END 2024-09-22 12:39 | disposition home or self-care (01) ==
LOC: NPINS 12:38
PROVIDERS: PCP Family Medicine; Visit Provider Nurse Practitioner Gerontology
DX: G25.81 Restless legs syndrome (principal)
CPT/HCPCS: 82728; 83540

== ENCOUNTER 2024-11-10 12:17 | Outpatient (REF) | payer MEDICARE, SELFPAY ==
[2024-11-10 13:48] LABS: Chloride* 97 mmol/L (96-114); Potassium* 3.8 mmol/L (3.6-5.1); Sodium* 134 mmol/L (135-149)
[2024-11-10 13:51] LABS: Anion Gap 7 mEq/L (7-15); Blood Urea Nitrogen* 15 mg/dL (7-30); Calcium* 9.6 mg/dL (8.4-10.6); Carbon Dioxide* 30 mmol/L (20-32); Creatinine* 0.6 mg/dL (0.5-1.5); Estimated Glomerular Filt Rate 89 ml/min; Glucose* 166 mg/dL (60-115)
[2024-11-10 14:00] LABS: Hematocrit 43.6 % (33.0-51.0); Hemoglobin* 14.1 gm/dL (12.0-16.0); Immature Granulocytes Abs Auto 0.02 K/uL (0.00-0.30); Immature Granulocytes Pct Auto 0.2 %; Mean Corpuscular HGB Conc 32 gm/dL (32-36); Mean Corpuscular Hemoglobin 32 pg (26-34); Mean Corpuscular Volume 99 fL (80-100); RDW Coefficient of Variation % 11.9 % (11.5-15.5); Red Blood Count 4.41 m/uL (4.00-5.20); White Blood Count* 10.68 K/uL (4.50-11.00)
[2024-11-10 14:07] LABS: Lymphocytes Absolute Auto 1.90 K/uL (0.90-2.90); Slide Review Reflex No
== END 2024-11-10 12:18 | disposition home or self-care (01) ==
LOC: NPINS 12:17
PROVIDERS: PCP Family Medicine; Visit Provider Family Medicine
DX: R68.0 Hypothermia, not associated with low environmental temperature (principal)
CPT/HCPCS: 80048; 85025

== ENCOUNTER 2024-11-17 09:59 | Outpatient (REF) | payer MEDICARE, SELFPAY ==
--- OUTSIDE RECORDS SUMMARY | 2024-11-03 09:07 | XMS_ITS | Encounter Summary ---
Author Organization [facility] Address [address] [place] [address] Care Team Providers Care Snap Shearer Name Role Phone Daja Keys P.A.-C. Primary Care Prov ider Reason for Referral * Outpatient (Routine) - Closed Specialty Diagnoses / Procedures Referred By Cinthya salas Referred To Contact Diagnoses Fracture Humerus Simple Supracondylar Nondisplaced Closed Initial Left Procedures DX Elbow Left 2 Views Chanell Garcia P.A.-C., M.S. [address] [place] [address] Phone: tel: fax: [facility] Referral ID Status Reason Start Date Expiration Date Visits Re quested Visits Authorized [id number] Closed 07/31/2024 10/31/2025 1 1 Reason for Visit * Outpatient (Routine) - Closed Specialty Diagnoses / Procedures Referred By Cinthya salas Referred To Contact Diagnoses Fracture Humerus Simple Supracondylar Nondisplaced Closed Initial Left Procedures DX Elbow Left 2 Views Chanell Garcia P.A.-C., M.S. [address] [place] [address] Phone: tel: fax: [facility] Referral ID Status Reason Start Date Expiration Date Visits Re quested Visits Authorized [id number] Closed 07/31/2024 10/31/2025 1 1 Encounter Details Date Type Department Care Team (Latest Contact Info) Description 11/03/2024 9:07 AM CDT - 11/03/2024 11:59 PM CDT Hospital Encounter Department of Radiology, [facility] in [place], [place] [address] [place] [address] Chanell Garcia P.A.-C., M.S. [address] [place] [address] Fracture Humerus Simple Supracondylar Nondisplaced Closed Initial Left Discharge Disposition: Home or Self Care Social History Tobacco Use Types Packs/Day Years Used Date Smoking Tobacco: Never Smokeless Tobacco: Never Alcohol Use Standard Drinks/Week Comments Not Currently 0 (1 standard drink = 0.6 oz pur e alcohol) occasional glass of wine Humiliation, Afraid, Rape, and Kick questionnair e [...] by your partner or ex-partner? No 06/16/2023 Hunger Vital Sign Answer Date Recorded Within the past 12 months, y ou worried that your food would run out before you got the money to buy more. Never true 11/04/19 25 Within the past 12 months, t he food you bought just didn't last and you didn't have money to get more. Never true 11/03/2024 PRAPARE - Transportation Answer Date Re corded In the past 12 months, has l ack of transportation kept you from medical appointments or from getting medications? No 10/14 In the past 12 months, has l ack of transportation kept you from meetings, work, or from getting things needed for daily living? No 11/03/2024 [facility] Utilities Answer Date Recorded In the past 12 months has th e electric, gas, oil, or water company threatened to shut off services in your home? No 11/03/2024 Depression Answer Date Recor ded PHQ-9 Total Score (max 27) 9 10/18 Housing Stability Answer Date Recorded What is your living situation today? I have a [facility] place to live 11/03/2024 Education Answer Date Recorded What is the highest level of school you have completed or the highest degree you have received? Bachelor's degree (e.g., BA, AB, BS) 03/05/2019 Comments No Sex and Gender Information Value Date Recorded Sex Assigned at Female 12/15/2020 11:07 AM CDT Legal Sex Female 8:25 AM [employer]ALE TRAIN[employer] Gender Identity Female 03/05/2019 8:17 AM [employer]ALE TRAINER Sexual Orientation Straight 03/05/2019 8: 17 AM WHALE TRAINER documented as of this encounter Medications at [...] to HS dose) 225 tablet 2 07/04/2023 gabapentin (Neurontin) 100 mg capsule 07/23/2024 lisinopriL 5 mg tablet 07/25/2024 oxyCODONE (Roxicodone) 5 mg immediate release tabletIndications :Acute Pain Take 1 tablet (5 mg total) by mouth every 6 (six) hours as needed for severe pain or score 7-10 of 10 Indication: Acute Pain. 12 tablet 05/08/2024 10:10 PM WHALE TRAINER 05/08/2024 pramipexole (Mirapex) 0.25 mg tabletIndications :Restless Leg Syndrome Take 1 tablet (0.25 mg total) by mouth at bedtime. 30 tablet 5 08/17/2024 sennosides-docusa te sodium (Senna with Docusate Sodium) 8.6-50 mg per tablet Take 1 tablet by mouth at bedtime as needed for constipation for up to 30 doses. 30 tablet 06/25/2023 documented as of this encounter Plan of Treatment Not on file documented as of this encounter Procedures Procedure Name Priority Date/Time Associated Diagnosis Comments DX ELBOW LEFT 2 VIEWS RAD - Routine (most inpatients and all outpatients) 11/03/2024 9:33 AM CDT Fracture Humerus Simple Supracondylar Nondisplaced Closed Initial Left documented in this encounter Results * DX Elbow Left 2 Views (11/03/2024 9:33 AM CDT) Anatomical Region Laterality Modality Upper Extremity, Elbow, Musc uloskeletal RST LOS, Musculoskeletal ARZ LOS, Muskuloskeletal FLA LOS Left Digit al Radiography Impressions 11/03/2024 10:09 AM CDT Healing, impacted, displaced, oblique transcondylar of the distal left humerus is unchanged in alignment since 07/31/2024. There has been some continued interval callus maturation. Left elbow effusion. Narrative 11/03/2024 10:09 AM CDT EXAM: DX ELBOW LEFT 2 VIEWS Procedure Note Yannick Noguera M.D. - 11/03/2024 EXAM: DX ELBOW LEFT 2 VIEWS IMPRESSION: Healing, impacted, displaced, oblique transcondylar of the distal lefthumerus is unchanged in alignment since 07/31/2024. There has been somecontinued interval callus maturation. Left elbow effusion. Chanell Garcia P.A.-C., M.S. IMG DIAGNOSTIC IM AGING PROCEDURES Final Result documented in this encounter Visit Diagnoses Diagnosis Fracture Humerus Simple Supracondylar Nondisplaced Closed Initial Left documented in this encounter Additional Health Concerns Assessment Noted Time PHQ-9 Depression Total Score: 9 10/19/19 23 8:25 AM CDT documented as of this encounter Care Teams Snap Shearer Relationship Specialty Start Date End Date Daja Keys MPAS, P.A.-C. [address] [place] [id number] PCP - General Family Medicine 07/04/23 documented as of this encounter
--- OUTSIDE RECORDS SUMMARY | 2024-11-03 10:30 | XMS_ITS | Encounter Summary ---
Author Organization [facility] Address [address] [place] [address] Care Team Providers Care Budder Name Role Phone Daja Keys P.A.-C. Primary Care Prov ider Reason for Referral * Outpatient (Routine) - Closed Specialty Diagnoses / Procedures Referred By Cinthya salas Referred To Contact Endocrinology Diagnoses Fracture Humerus Simple Supracondylar Nondisplaced Closed Initial Left Chanell Garcia P.A.-C., M.S. [address] [place] [address] Phone: tel: fax: Health System Referral ID Status Reason Start Date Expiration Date Visits Re quested Visits Authorized [id number] Closed 10/29/2024 04/30/2026 1 1 Reason for Visit * Reason Comments Follow-up * Outpatient (Routine) - Closed Specialty Diagnoses / Procedures Referred By Cinthya salas Referred To Contact Orthopedic Surgery Chanell Garcia P.A.-C., M.S. [address] [place] [address] Phone: tel: fax: Health System Referral ID Status Reason Start Date Expiration Date Visits Re quested Visits Authorized [id number] Closed 07/31/2024 01/30/2026 1 1 Encounter Details Date Type Department Care Team (Latest Contact Info) Description 11/03/2024 10:30 AM CDT Office Visit Department of Orthopedic Surgery in [place], [place] [address] [place] [address] [phone] Chanell Garcia P.A.-C., M.S. [address] [place] [address] [phone] Fracture Humerus Simple Supracondylar Nondisplaced Closed Initial Left (Primary Dx) Social History Tobacco Use [...] things needed for daily living? No 11/03/2024 [facility] Utilities Answer Date Recorded In the past 12 months has th e electric, gas, oil, or water company threatened to shut off services in your home? No 11/03/2024 Depression Answer Date Recor ded PHQ-9 Total Score (max 27) 9 10/18 Housing Stability Answer Date Recorded What is your living situation today? I have a [facility] place to live 11/03/2024 Education Answer Date Recorded What is the highest level of school you have completed or the highest degree you have received? Bachelor's degree (e.g., BA, AB, BS) 03/05/2019 Comments No Sex and Gender Information Value Date Recorded Sex Assigned at Female 12/15/2020 11:07 AM CDT Legal Sex Female 8:25 AM REVIEW MANAGER Gender Identity Female 03/05/2019 8:17 AM REVIEW MANAGER Sexual Orientation Straight 03/05/2019 8: 17 AM REVIEW MANAGER documented as of this encounter Progress Notes * Chanell Garcia P.A.-C., M.S. - 11/03/2024 10:30 AM CDT Images from the original note were not included. Involved Side: Left Date of Injury: 05/08/2024 Description of surgery/injury: Nonoperative management supracondylar humerus fracture SUBJECTIVE: Reason for Visit: Follow-up of the Left Elbow History of Present Illness Ms. Medrano returns for follow up of her elbow injury as outlined above. She is accompanied by her family members today. The patient reports that she is doing well. She hassome mild discomfort in the elbow with full flexion, but otherwise her pain is mild. Patient's family notes that she continues to wear the brace for sleep because she is high risk for falling in the morning especially as she gets out of bed unassisted due to memory issues. She is not bothered at all by the brace. She does not use the brace during the day time. Brace is causing no skin breakdown. She has been mobilizing well with the assistance of a walker. Sandra is right-hand dominant. OBJECTIVE: vitals were not taken for this visit. Physical Exam: GENERAL: The patient is alert and oriented. NEURO: Sensation intact to light touch in the axillary, radial, ulnar, and median nerve distributions. Active firing of the EPL, FPL, 1st dorsal interosseus, wrist extensors, biceps, triceps, and posterior deltoid in the involved extremity. SKIN: No ecchymosis, no swelling, skin intact with no rashes or open sores/wounds VESSELS: Well-perfused appearing left upper extremity MSK: Active assisted elbow range of motion is from 140 degrees in flexion to 20 degrees from full extension limited by mild discomfort and stiffness. Pronation and supination to 90 degrees, supination to 90 degrees. Able to flex and extend at the wrist, perform a thumbs up and make a fist. ASSESSMENT/PLAN: Radiographs: Xrays of the involved extremity were reviewed personally by me and demonstrate stable healing distal humerus fracture with unchanged alignment. Plan: We reviewed interval progress, radiographs, and plan for Ms. Medrano. Overall she is doing well. Her pain has been minimal. Has been tolerating the brace. We discussed that it would be ok to discontinue the brace whenever she desires, but patient's family finds it reassuring for her to continue at night and it is not bothersome to the patient per her report. Activity: Weightbearing as tolerated, range of motion as tolerated to left upper extremity. Encouraged continuation of therapy exercises to optimize range of motion and strength to the left arm. No restrictions. Immobilization: As noted above, okay to utilize brace during sleep and in the morning hours when patient is at greatest risk for fall. Brace should be removed when dressing the patient in the morningand remain off for the duration of the day until she is ready to go to bed at night. Ok to fully discontinue brace whenever patient/family desire. Pain: Encourage continuation of over the counter pain medication, ice and elevation as needed. Wound Care: None DVT Prophylaxis: None indicated Follow Up: As needed Patient encouraged to contact Dr. Vann's team with any questions or concerns prior to follow up visit. CLINICAL OUTCOME ASSESSMENTS: 07/31/2024 11/03/2024 Sports Medicine PROMIS-CAT: Pain interference 54 (within normal limits) 57 (mild) PROMIS-CAT: Physical function 32 (moderate dysfunction) 25 (severe dysfunction) LMP (LMP Unknown) Pain assessment: 05/25; Location:Left Arm documented in this encounter Plan of Treatment Scheduled Referrals Name Type Priority Associated Diagnoses Orde r Schedule Endocrinology - Fragility fracture consult (clinic) Outpatient Referral Routine Fracture Humerus Simple Supracondylar Nondisplaced Closed Initial Left Expected: 11/03/2024, Expires: 01/29/2026 documented as of this encounter Visit Diagnoses Diagnosis Fracture Humerus Simple Supracondylar Nondisplaced Closed Initial Left- Primary documented in this encounter Additional Health Concerns Assessment Noted Time PHQ-9 Depression Total Score: 9 10/19/19 23 8:25 AM CDT documented as of this encounter Care Teams Budder Relationship Specialty Start Date End Date Daja Keys MPAS, P.Oneyda-Robert. [address] [place] [phone] PCP - General Family Medicine 07/04/23 documented as of this encounter
--- OUTSIDE RECORDS SUMMARY | 2024-11-03 11:30 | XMS_ITS | Encounter Summary ---
Author Organization [facility] Address [address] [place] [address] Care Team Providers Care Composer Teaching Artist Name Role Phone Daja Keys PLakishaALakisha-C. Primary Care Prov ider Reason for Visit * Reason Comments Consult * Outpatient (Routine) - Closed Specialty Diagnoses / Procedures Referred By Cinthya salas Referred To Contact Endocrinology Diagnoses Fracture Humerus Simple Supracondylar Nondisplaced Closed Initial Left Chanell Garcia P.A.-C., M.S. [address] [place] [address] Phone: tel: fax: [facility] Referral ID Status Reason Start Date Expiration Date Visits Re quested Visits Authorized [id number] Closed 10/29/2024 04/30/2026 1 1 Encounter Details Date Type Department Care Team (Latest Contact Info) Description 11/03/2024 11:30 AM CDT Comprehensive Visit Division of Endocrinology in [place], [place] [address] [place] [phone] Chanell Garcia P.A.-C., M.S. [address] [place] [address] Corky Prasad P.A.-C. [address] [place] [address] Fracture Humerus Comminuted Supracondylar Displaced Closed Initial Left (Primary Dx) Social History [...] things needed for daily living? No 11/03/[address] [facility] Utilities Answer Date Recorded In the past 12 months has [facility] electric, gas, oil, or water company threatened to shut off services in your home? No 11/03/2024 Depression Answer Date Recor ded PHQ-9 Total Score (max 27) 9 10/18 Housing Stability Answer Date Recorded What is your living situation today? I have a [facility] place to live 11/03/2024 Education Answer Date Recorded What is the highest level of school you have completed or the highest degree you have received? Bachelor's degree (e.g., BA, AB, BS) 03/05/2019 Comments No Sex and Gender Information Value Date Recorded Sex Assigned at Female 12/15/2020 11:07 AM CDT Legal Sex Female 8:25 AM JOB COACHING Gender Identity Female 03/05/2019 8:17 AM JOB COACHING Sexual Orientation Straight 03/05/2019 8: 17 AM JOB COACHING documented as of this encounter Patient Instructions * Patient Instructions* Corky Prasad P.A.-C. - 11/03/2024 11:30 AM CDT Osteoporosis Recommendations: 1. Calcium: Adequate calcium intake should be a total of 1200 mg per day, either through the diet or as supplements to be taken at mealtimes. Calcium carbonate is the preferred form of calcium, unless acid reducers are used, in which case I recommend calcium citrate. Please review the Sources of Calcium [facility] brochure for additional information. 2. Vitamin D: Adequate Vitamin D intake should be around 800 -1000 IU per day, including all sources of daily vitamins. Sources of vitamin D in the diet are limited. Most people rely on supplements to reach their daily goals. Blood levels of Vitamin D levels should be maintained between 30 - 50 ng/mL. 3. Exercise: Weight-bearing exercise is recommended to optimize bone health and decrease the risk of fracture. Avoid heavy lifting, high-impact exercise or risk-taking sports. 4. Preventing Falls: Safety First! Apply safety at home to prevent falls. Soddy Daisy rugs, minimize clutter, remove loose wires, use nonskid mats, install handrails in bathrooms, halls, and long stairways, light hallways, stairwells, and entrances. Encourage patient to wear sturdy, low-heeled shoes 5. Other recommendations: Continue regular dental check up and maintain good mouth (oral) hygiene. Alendronate (Fosamax) Alendronate (Fosamax) is bisphosphonate taken by mouth once per week to reduce the risk of fractures. Alendronate is typically used for five years at which point the need to continue or stop should be assessed. Alendronate must be taken with a glass (8 oz.) of water on an empty stomach in the morning after which one should not bend over or lie down for 30 minutes. Good dental hygiene and routine preventative dental care are recommended while receiving alendronate. Zoledronic acid (Reclast) Zoledronic acid (Reclast) is a bisphosphonate given through the vein (IV) once a year for three years to reduce the risk for fractures due to osteoporosis. Zoledronic acid may be continued or stoppedafter three years depending on risk of fracture. It is important to be well hydrated on the day of the infusion. Patients receiving Zoledronic acid for the first time may experience flu-like symptoms for up to 72 hours after the infusion is received. These symptoms could include low grade fever, headache, chills, muscle and joints aches. TakingTylenol (acetaminophen) 500 mg every 6-8 hours can minimize these symptoms. This side effect is less likely to occur with future zoledronic acid treatments. Good dental hygiene and routine preventative dental care are recommended when taking bisphosphonate medications. documented in this encounter Consult Notes * Corky Prasad P.A.-C. - 11/03/2024 11:30 AM CDT SUBJECTIVE Referring Provider: Chanell Garcia P.A.-C., M.S. Chief Complaint: Patient seen in the Fragility Fracture Clinic in conjunction with orthopedic surgery, Dr. Jaylin Vann. History of Present Illness: Sandra Medrano is a 84 y.o. female who presents for bone health evaluation. Sandra Medrano is a pleasant 84-year-old female who resides in a memory care unit ([facility]) . On May 08, 2024 she was found on the ground for an unknown period of time. She was found to have a left elbow fracture. Imaging revealed a closed left supracondylar humerus fracture. Current fracture is being treated nonoperatively Comorbidities: Parkinson's disease, CAD, Lewy body dementia, hypertension, falls,. History of proximal humerus fracture that has been managed nonoperatively. Hyperlipidemia, on a systolic and diastolic heart failure Past BMD/therapies: Alendronate [id number], resumed after drug holiday [id number], currently off alendronate. Bone mineral density: Date: 06/01/2022 Results: EXAM: BMD BONE DENSITY SPINE HIPS Bone Mineral Density (BMD) analysis performed on [employer] with serial number [id number]. FINDINGS: Left Hip: Femur Neck: T-score = -2.1 Z-score = 0.1 Total Hip: T-score = -2.0 Z-score = 0.0 Right Hip: Femur Neck: T-score = -2.5 Z-score = -0.3 Total Hip: T-score = -2.2 Z-score = -0.1 Lumbar Spine: Total Lumbar Spine T-score = -2.2 Z-score = -0.3 Trabecular Bone Score: L1-L4: TBS = 1.295 (Borderline 1.23 -1.31:) Degenerative changes are present which may spuriously elevate the spine BMD measurement. IMPRESSION: Osteoporosis DualFemur (region: Neck Right) Fractures history: April 2024: Index Fracture 2023: Left proximal humerus fracture 02/02/2023 T12 Burst fracture seen on CT. (Chronic-appearing although technically age indeterminatesevere T12 burst fracture with approximately 5 to 6 mm of osseous retropulsion. Risk Factors: Low bone density risk factors include: Postmenopausal Fall Risk: Falls in the past year: Yes Risk factors for falls include: Parkinson's disease Dementia Calcium/vitamin D intake: Dietary calcium: Reports that she drinks milk with every meal. Calcium supplementation: Calcium citrate/D3 315-200 mg-unit 1 tablet daily. Vitamin-D supplementation: Family history of fragility fracture none Plans for invasive dental procedures: None. Last year had a tooth removed. Alcohol use seldom Tobacco use none The following portions of the patient's history were also reviewed and updated as appropriate: active problem list, current medications, allergies, family history, social history, lab results, imaging, and medical history. OBJECTIVE Physical Exam: GENERAL: Alert. No acute distress. HEENT: Normocephalic, atraumatic. Teeth in good repair. MENTAL STATUS: Grossly oriented with appropriate mood and affect. Labs: Lab Results Component Value Date CALCIUM 8.9 05/08/2024 ALKPHOS 49 11/22/2022 CREATININE 0.55 (L) 05/08/2024 EGFR >90 05/08/2024 MG 2.2 05/08/2024 TSH 1.5 01/08/2023 FREET4 1.1 01/08/2023 [id number] 34 03/14/2022 ASSESSMENT / PLAN Mrs. Medrano is a 84 y.o. year-old female who presents with her (Jose Manuel) and niece (Rafaela) for evaluation of her bone health. Mrs. Medrano sustained a ground level fall approximately a year ago that resulted in a left proximal humerus fracture. Most recently in April of this year sustained a fall that resulted in a left supracondylar humerus fracture. Both fractures currently being treated nonoperatively. Her fracturesoccur in the background of osteoporosis and prior use of alendronate ([id number] and 2006- 2011). [id number] Right Femur Neck T-score -2.5. Discussed pathophysiology of osteoporosis. Discussed calcium intake aiming for 1200 milligrams daily, and vitamin-D supplementation. Provided educational pamphlet for calcium sources. Reviewed mitigation factors to reduce risk of falls, and weight-bearing exercise to promote bone health. Patient residing in a memory care unit and does have assistance. Unfortunately they are times that she may getup without the assistance or use of a walker in placing her risk for fall. Discussed pharmacological therapy for treatment for osteoporosis to include oral bisphosphonate therapy and IV bisphosphonates. Reviewed adverse effects to include avascular necrosis of the jaw, atypical femur fracture, and flu-like symptoms that can be observed with the 1st infusion of IV bisphosphonate. believes that if he is there he would be able to tell for with taking weekly oral bisphosphonate therapy but if he is not there he unsure if staff at would be able to assist patient. I provided multiple options to the family. They are unsure at this time how much they want to put Mrs. Medrano though with all her comorbidities etc. Recommend that we could start with a bone mineral density scan to see if there has been a marked decline in bone mineral content. If there has been a marked declined in her bone mineral density then would consider treatment for osteoporosis. I would defer treatment with alendronate as I feel patient may not be able to compliant with instructions on how to take medication. Therefore would consider IV zoledronic acid annually for 3 years, and then proceeding with holiday. I against emphasized the importance of adequate calcium intake while on bi sphosphonate therapy. In addition to this it will be important that she has appropriate assistance at her memory care unit when she is up and about, in order to reduce the risk of falls. Plan: Family plans to review our recommendations and discuss amongst each other. Patient's niece believesthat potential 1st step would be to obtain a bone mineral density test to see if there has been a marked difference from prior study. And based on that could potentially discuss with primary care provider treatment options. Patient's niece can either contact me via the portal or her primary care doctor once a decision has been made on how they would like to proceed. Tasks for PCP management: 1. Assess fall risk and institute mitigation strategies as appropriate. 2. Reinforce adherence to medication, assess tolerability of medication, renew medication. 3. Reinforce lifestyle measures (diet, and supplements, and if appropriate tobacco cessation and limit alcohol) and need for good oral hygiene i.e. routine visits to dentist at standard intervals. 4. Family plans to discuss option for evaluation / management of osteoporosis and will contact PCP or endocrinology once a decision has been made. 5. Consider obtaining 25 hydroxy vitamin-D total level with next lab draw. #1 Fracture Humerus Comminuted Supracondylar Displaced Closed Initial Left #2 Left Proximal humerus fracture 2023 Other orders - Endocrinology - Fragility fracture consult (clinic) Follow-up of bone health should be with this patient's primary care provider. If the primary care provider determines that a new or worsening bone health concern further input from a bone health specialist, they may request an eConsult or new in-person consult in the Division of Endocrinology. Counseling was provided [id number]. I personally spent over half of a total of 35 minutes in counseling and coordination of care. All questions were answered to the best of my ability. documented in this encounter Plan of Treatment Not on file documented as of this encounter Visit Diagnoses Diagnosis Fracture Humerus Comminuted Supracondylar Displaced Closed Initial Left- Primary documented in this encounter Additional Health Concerns Assessment Noted Time PHQ-9 Depression Total Score: 9 10/19/19 23 8:25 AM CDT documented as of this encounter Care Teams Composer Teaching Artist Relationship Specialty Start Date End Date Daja Keys MPAS, P.A.-C. [address] [place] [phone] PCP - General Family Medicine 07/04/23 documented as of this encounter
[2024-11-17 13:05] LABS: Chloride* 100 mmol/L (96-114); Sodium* 137 mmol/L (135-149)
[2024-11-17 13:06] LABS: Potassium* 3.7 mmol/L (3.6-5.1)
[2024-11-17 13:08] LABS: Blood Urea Nitrogen* 15 mg/dL (7-30); Creatinine* 0.6 mg/dL (0.5-1.5); Estimated Glomerular Filt Rate 89 ml/min
[2024-11-17 13:09] LABS: Anion Gap 9 mEq/L (7-15); Calcium* 9.1 mg/dL (8.4-10.6); Carbon Dioxide* 28 mmol/L (20-32); Glucose* 106 mg/dL (60-115)
[2024-11-17 13:35] LABS: Iron* 135 ug/dL (37-170)
[2024-11-17 13:45] LABS: Percent Iron Saturation 43 % (20-50); Total Iron Binding Capacity 314 ug/dL (265-497)
--- OUTSIDE RECORDS SUMMARY | 2024-11-18 00:15 | XMS_ITS | Encounter Summary ---
Author Organization [facility] Address [address] [place] [address] Care Team Providers Care Metal Handler Name Role Phone foreign Daja AGUIRRE, P.A.-C. Primary Care Prov ider Encounter Details [...] things needed for daily living? No 11/03/2024 [facility] Utilities Answer Date Recorded In the past 12 months has th e electric, gas, oil, or water company threatened to shut off services in your home? No 11/03/2024 Depression Answer Date Recor ded PHQ-9 Total Score (max 27) 9 10/18 Housing Stability Answer Date Recorded What is your living situation today? I have a [facility] place to live 11/03/2024 Education Answer Date Recorded What is the highest level of school you have completed or the highest degree you have received? Bachelor's degree (e.g., BA, AB, BS) 03/05/2019 Comments No Sex and Gender Information Value Date Recorded Sex Assigned at Female 12/15/2020 11:07 AM CDT Legal Sex Female 8:25 AM DROSOPHERE OPERATOR Gender Identity Female 03/05/2019 8:17 AM DROSOPHERE OPERATOR Sexual Orientation Straight 03/05/2019 8: 17 AM DROSOPHERE OPERATOR documented as of this encounter Plan of Treatment Not on file documented as of this encounter Visit Diagnoses Not on filedocumented in this encounter Additional Health Concerns Assessment Noted Time PHQ-9 Depression Total Score: 9 10/19/19 23 8:25 AM CDT documented as of this encounter Care Teams Metal Handler Relationship Specialty Start Date End Date Daja Keys MPAS, P.A.-C. [address] [place] [phone] PCP - General Family Medicine 07/04/23 documented as of this encounter
--- OUTSIDE RECORDS SUMMARY | 2024-11-18 00:15 | XMS_ITS | Clinical Summary ---
Author Organization [facility] Address [address] [place] [address] Care Team Providers Care Upholstery Sewer Name Role Phone foreign Daja AGUIRRE, P.A.-C. Primary Care Prov ider Source Comments Patient records contain information from all sites at [facility]. For routine questions regarding patient records, call [phone] during business hours, M-F 8:00 AM - 5:00 PM Central Time. Record requests for emergency care only can be directed to [phone] at any time.[facility] Allergies Active Allergy Reactions Criticality Noted Date Comments [place] Pollen Itching Medium 10/14/2012 Seasonal Allergies: Allergic [...] mouth at bedtime. 90 tablet 3 4 Active sennosides-docus ate sodium (Senna with Docusate [...] Acute Pain. 12 tablet 05/08/2024 10:10 PM VICE PRESIDENT PHARMACY 5 Active Additional Information Patient not taking.Reported on 07/31/2024 gabapentin (Neurontin) 100 mg capsule 5 Active lisinopriL 5 mg tablet 5 Active pramipexole (Mirapex) 0.25 mg tabletIndication s:Restless Leg Syndrome Take 1 tablet (0.25 mg total) by mouth at bedtime. 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 Assessment & Plan (06/20/2023 11:01 AM VICE PRESIDENT PHARMACY): She is wandering 24/7. She needs a locked memory care to allow her to move freely but not get lost. Sp[facility] directly to [facility] and JANNY at [facility] to help with this transition. [...] Encounters Date Type Department Care Team Description 11/03/2024 11:30 AM CDT Comprehensive Visit Division of Endocrinology in [address] [phone] Chanell Garcia P.A.-C., M.S. Corky Prasad P.A.-C. Fracture Humerus Comminuted Supracondylar Displaced Closed Initial Left (Primary Dx) 11/03/2024 10:30 AM CDT Office Visit Department of Orthopedic Surgery in [address] [phone] Chanell Garcia P.A.-C., M.S. Fracture Humerus Simple Supracondylar Nondisplaced Closed Initial Left (Primary Dx) 11/03/2024 9:07 AM CDT - 11/03/2024 11:59 PM CDT Hospital Encounter Department of Radiology, [facility] in [address] [phone] Chanell Garcia P.A.-C., M.S. Fracture Humerus Simple Supracondylar Nondisplaced Closed Initial Left Discharge Disposition: Home or Self Care 09/15/2024 Orders Only [facility] Daja Keys MPAS, PJoan-C. 08/27/2024 Clinical Communication Department of Orthopedic Surgery in [address] [phone] Parveen Vann M.D. Phone Contact from Last 3 Months Immunizations Immunization Administration [...] Brother Ivan Quispe Bypa ss Breast cancer Maternal Grandmother Bri Pham Breast cancer Mother's Sister Sandor Sandovaln Relation Name Status Comments Brothlilia Quispe Maternal Grandmother Bri Pham Mother's Sister Edgarsalina Sandovaln Social History Tobacco Use Types Packs/Day Years [...] money to buy more. Never true 11/04/19 Within the past 12 months, t he [...] things needed for daily living? No 11/03/2024 [facility] Utilities Answer Date Recorded In the past 12 months has e electric, gas, oil, or water company threatened to shut off services in your home? No 11/03/2024 Depression Answer Date Recor ded PHQ-9 Total Score (max 27) 9 10/18 Housing Stability Answer Date Recorded What is your living situation today? I have a [facility] place to live 11/03/2024 Education Answer Date Recorded What is the highest level of school you have completed or the highest degree you have received? Bachelor's degree (e.g., BA, AB, BS) 03/05/2019 Comments No Sex and Gender Information Value Date Recorded Sex Assigned at Female 12/15/2020 11:07 AM CDT Legal Sex Female 8:25 AM VICE PRESIDENT PHARMACY Gender Identity Female 03/05/2019 8:17 AM VICE PRESIDENT PHARMACY Sexual Orientation Straight 03/05/2019 8: 17 AM VICE PRESIDENT PHARMACY Last Filed Vital Signs Vital Sign Reading Time Taken Comments Blood Pressure 151/86 05/08/2024 8:00 PM VICE PRESIDENT PHARMACY Pulse 93 05/08/2024 7:00 PM VICE PRESIDENT PHARMACY Temperature 36.7 C (98.1 F) 05/08/2024 4:35 PM VICE PRESIDENT PHARMACY Respiratory Rate 14 05/08/2024 4:35 PM VICE PRESIDENT PHARMACY Oxygen Saturation 95% 05/08/2024 7:00 PM VICE PRESIDENT PHARMACY Inhaled Oxygen Concentration - - Weight 43.4 kg (95 lb 9.6 oz) 06/25/2023 9:43 AM CDT Height 154.9 cm (5' 1) 06/16/2023 2:45 PM VICE PRESIDENT PHARMACY Body Mass Index 18.06 06/16/2023 2:45 PM VICE PRESIDENT PHARMACY Plan of Treatment Health Maintenance Due Date Last Done Comments Visit: Medicare Annual Wellness 10/20/2023 10/18/2022 Visit: Annual, age 65+ (or Medicare and <65) 01/15/2024 01/14/2023 Fall Risk Screen (Annual) 04/15/2024 Office Visit for Blood Pressure Check / Re-check 06/24/2024 06/25/2023 COVID-19 Vaccine ( season) 2024 01/09/2024, 01/21/2023, 01/15/2022, Additional history exists DTaP,Tdap,and Td Vaccines (4 - Td or Tdap) 12/15/2024 12/15/2014, 09/19/2004, 09/17/2004 Influenza Vaccine (#1) 2025 , 01/15/2022, 01/12/2021, Additional history exists Creatinine Level (Kidney Function Test) 05/08/2025 05/08/2024, 06/17/2023, 06/16/2023, Additional history exists Potassium Level 05/08/2025 05/08/2024, 03/0 07/2023, 06/16/2023, Additional history exists Sodium Level 05/08/2025 05/08/2024, 03/0 07/2023, 06/16/2023, Additional history exists Pneumococcal vaccine (50+ years) Completed 12/15/2014, 07/10/2006 Zoster Vaccines Completed 02/24/2020, 04/3 , 11/09/2009 RSV vaccine - (32-36 weeks) or 60+ years Completed 01/11/2023 IPV Vaccines Aged Out No longer eligi ble based on patient's age to complete this topic Procedures Procedure Name Priority Date/Time Associated Diagnosis Comments DX ELBOW LEFT 2 VIEWS RAD - Routine (most inpatients and all outpatients) 11/03/2024 9:33 AM CDT Fracture Humerus Simple Supracondylar Nondisplaced Closed Initial Left BASIC METABOLIC PANEL, S/P STAT 05/08/2024 5:43 PM VICE PRESIDENT PHARMACY from Last 3 Months or Most Recently Relevant to Health Maintenance Results * DX Elbow Left 2 Views [...] DIAGNOSTIC IM AGING PROCEDURES Final Result * (ABNORMAL) Basic Metabolic Panel (05/08/2024 5:43 PM VICE PRESIDENT PHARMACY) Potassium, P 3.7 3.6 - 5.2 mmol/L 05/08/2024 6:14 PM VICE PRESIDENT PHARMACY STMA Sodium, P 135 135 - 145 mmol/L 05/08/2024 6:14 PM VICE PRESIDENT PHARMACY STMA Chloride, P 98 98 - 107 mmol/L 05/08/2024 6:14 PM VICE PRESIDENT PHARMACY STMA Bicarbonate, P 24 22 - 29 mmol/L 05/08/2024 6:14 PM VICE PRESIDENT PHARMACY STMA Anion Gap, P 13 7 - 15 05/08/2024 6:14 PM VICE PRESIDENT PHARMACY STMA BUN (Blood Urea Nitrogen), P 12 6 - 21 mg/dL 05/08/2024 6:14 PM VICE PRESIDENT PHARMACY STMA Creatinine 0.55(L) 0.59 - 1.04 mg/dL 05/08/2024 6:14 PM VICE PRESIDENT PHARMACY STMA Estimated GFR (eGFR) >90 >=60 mL/min/BSA 05/08/2024 6:14 PM VICE PRESIDENT PHARMACY STMA Comment: Estimated GFR calculated using the 2020 CKD_EPI creatinine equation. Calcium, Total, P 8.9 8.8 - 10.2 mg/dL 05/08/2024 6:14 PM VICE PRESIDENT PHARMACY STMA Glucose, P 139 70 - 140 mg/dL 05/08/2024 6:14 PM VICE PRESIDENT PHARMACY STMA Blood (Blood, Venous) 05/08/2024 5:43 PM VICE PRESIDENT PHARMACY 05/08/2024 5:49 PM VICE PRESIDENT PHARMACY Fara Rojas M.D. LAB BLOOD ADD-ON Final Resu lt [facility] [address] [place] [address], [facility] STMA [facility] [address] [place] [address] from Last 3 Months or Most Recently Relevant to Health Maintenance Insurance [address] [address] MEDICARE Advance Directives For more information, please contact: [phone] Documents on File Type Date Recorded Patient Nursing Teacher Expl anation Advance Directives 10/25/2022 2:10 PM Jose Manuel Hilario (Sulaiman james) MitchellSalvadortata FranceStephanie Eduardo HCPOA/ADVOCATE/AGENT/ LIFE EDUCATOR/SURROG ATE Advance Directives 06/14/2021 7:48 AM HCPOA /ADVOCATE/AGENT/ LIFE EDUCATOR/SURROG ATE * DNR/DNI (Latest Code Status on File) Date Activated Date Inactivated Comments 06/16/2023 3:58 PM 06/18/2023 3:45 PM Healthcare Agents on File Name Relationship Healthcare Agent Relationship Communication Jose Manuel Hilario (Jeison) Edilmakayley Spouse Health Care Agent [email or web address] [place] Edilmakayley Relative Health Care Agent Rafaela Eduardo Relative Health Care Agent [email or web address] Care Teams Upholstery Sewer Relationship Specialty Start Date End Date Daja Keys MPAS, P.A.-C. [address] [place], [place] [address] PCP - General Family Medicine 07/04/23
== END 2024-11-17 10:00 | disposition home or self-care (01) ==
LOC: NPINS 09:59
PROVIDERS: PCP Family Medicine; Referring Provider Family Medicine; Visit Provider Family Medicine
DX: E87.1 Hypo-osmolality and hyponatremia (principal); G25.81 Restless legs syndrome; I50.32 Chronic diastolic (congestive) heart failure
CPT/HCPCS: 80048; 82728; 83540; 83550

== ENCOUNTER 2024-12-20 15:50 | Outpatient (CLI) | payer MEDICARE, SELFPAY | END 2024-12-20 15:51 | disposition home or self-care (01) | LOC: AMB 12-24 10:33 | PROVIDERS: PCP Family Medicine; Visit Provider Family Medicine | DX: R41.82 Altered mental status, unspecified (principal) | CPT/HCPCS: A0425; A0429 ==

== ENCOUNTER 2024-12-20 16:12 | Emergency (ER) | payer MEDICARE, SELFPAY ==
[2024-12-20] VITALS (8 sets, daily range): BP systolic 151–182; BP diastolic 73–118; PULSE 77–98; RESP 16; TEMP 37; O2SAT 92–96; BMI 20.2
--- OUTSIDE RECORDS SUMMARY | 2024-12-20 16:15 | XMS_ITS | Clinical Summary ---
Author Organization [facility] Address [address] [place] [address] Care Team Providers Care Clinical Educator Name Role Phone foreign Daja AGUIRRE, P.A.-C. Primary Care Prov ider Source Comments Patient records contain information from all sites at [facility]. For routine questions regarding patient records, call [phone] during business hours, M-F 8:00 AM - 5:00 PM Central Time. Record requests for emergency care only can be directed to [phone] at any time.[facility] Allergies Active Allergy Reactions Criticality Noted Date Comments [place] Pollen Itching Medium 10/14/2012 Seasonal Allergies: Allergic [...] Acute Pain. 12 tablet 05/08/2024 10:10 PM DATA PROCESSING EQUIPMENT REPAIRER 5 Active Additional Information Patient not taking.Reported [...] kg Assessment & Plan (06/20/2023 7:48 AM DATA PROCESSING EQUIPMENT REPAIRER): Euvolemic. 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 Assessment & Plan (06/20/2023 11:01 AM DATA PROCESSING EQUIPMENT REPAIRER): She is wandering 24/7. She needs a [...] CDT Comprehensive Visit Division of Endocrinology in [address] [phone] Chanell Garcia P.A.-C., M.S. Corky Prasad P.A.-C. Fracture Humerus Comminuted Supracondylar Displaced Closed Initial Left (Primary Dx) 11/03/2024 10:30 AM CDT Office Visit Department of Orthopedic Surgery in [address] [phone] Chanell Garcia P.A.-C., M.S. Fracture Humerus Simple Supracondylar Nondisplaced Closed Initial Left (Primary Dx) 11/03/2024 9:07 AM CDT - 11/03/2024 11:59 PM CDT Hospital Encounter Department of Radiology, [facility] in [address] [phone] Chanell Garcia P.A.-C., M.S. Fracture Humerus Simple Supracondylar Nondisplaced Closed Initial Left Discharge Disposition: Home or Self Care from Last 3 Months Immunizations Immunization Administration [...] Bri Pham Breast cancer Mother's Sister Sandor Ng Relation Name Status Comments Brother Ivan [...] things needed for daily living? No 11/03/2024 [facility] Utilities Answer Date Recorded In the past 12 months has th e electric, gas, oil, or water company threatened to shut off services in your home? No 11/03/2024 Depression Answer Date Recor ded PHQ-9 Total Score (max 27) 9 10/18 Housing Stability Answer Date Recorded What is your living situation today? I have a [facility] place to live 11/03/2024 Education Answer Date Recorded What is the highest level of school you have completed or the highest degree you have received? Bachelor's degree (e.g., BA, AB, BS) 03/05/2019 Comments No Sex and Gender Information Value Date Recorded Sex Assigned at Female 12/15/2020 11:07 AM CDT Legal Sex Female 8:25 AM DATA PROCESSING EQUIPMENT REPAIRER Gender Identity Female 03/05/2019 8:17 AM DATA PROCESSING EQUIPMENT REPAIRER Sexual Orientation Straight 03/05/2019 8: 17 AM DATA PROCESSING EQUIPMENT REPAIRER Last Filed Vital Signs Vital Sign Reading Time Taken Comments Blood Pressure 151/86 05/08/2024 8:00 PM DATA PROCESSING EQUIPMENT REPAIRER Pulse 93 05/08/2024 7:00 PM DATA PROCESSING EQUIPMENT REPAIRER Temperature 36.7 C (98.1 F) 05/08/2024 4:35 PM DATA PROCESSING EQUIPMENT REPAIRER Respiratory Rate 14 05/08/2024 4:35 PM DATA PROCESSING EQUIPMENT REPAIRER Oxygen Saturation 95% 05/08/2024 7:00 PM DATA PROCESSING EQUIPMENT REPAIRER Inhaled Oxygen Concentration - - Weight 43.4 kg (95 lb 9.6 oz) 06/25/2023 9:43 AM CDT Height 154.9 cm (5' 1) 06/16/2023 2:45 PM DATA PROCESSING EQUIPMENT REPAIRER Body Mass Index 18.06 06/16/2023 2:45 PM DATA PROCESSING EQUIPMENT REPAIRER Plan of Treatment Health Maintenance Due Date Last Done Comments Visit: Medicare Annual Wellness 10/20/2023 10/18/2022 Fall Risk Screen (Annual) 04/15/2024 Office Visit for Blood Pressure Check / Re-check 06/24/2024 06/25/2023 Visit: Annual, age 65+ (or Medicare and <65) 07/02/2024 07/03/2023 COVID-19 Vaccine ( season) 2024 01/09/2024, 01/21/2023, 01/15/2022, Additional history exists Influenza Vaccine (#1) 2024 , 01/15/2022, 01/12/2021, Additional history exists DTaP,Tdap,and Td Vaccines (4 - Td or Tdap) 12/15/2024 12/15/2014, 09/19/2004, 09/17/2004 Creatinine Level (Kidney Function Test) 05/08/2025 05/08/2024, [...] METABOLIC PANEL, S/P STAT 05/08/2024 5:43 PM DATA PROCESSING EQUIPMENT REPAIRER from Last 3 Months or Most Recently [...] (ABNORMAL) Basic Metabolic Panel (05/08/2024 5:43 PM DATA PROCESSING EQUIPMENT REPAIRER) Potassium, P 3.7 3.6 - 5.2 mmol/L 05/08/2024 6:14 PM DATA PROCESSING EQUIPMENT REPAIRER STMA Sodium, P 135 135 - 145 mmol/L 05/08/2024 6:14 PM DATA PROCESSING EQUIPMENT REPAIRER STMA Chloride, P 98 98 - 107 mmol/L 05/08/2024 6:14 PM DATA PROCESSING EQUIPMENT REPAIRER STMA Bicarbonate, P 24 22 - 29 mmol/L 05/08/2024 6:14 PM DATA PROCESSING EQUIPMENT REPAIRER STMA Anion Gap, P 13 7 - 15 05/08/2024 6:14 PM DATA PROCESSING EQUIPMENT REPAIRER STMA BUN (Blood Urea Nitrogen), P 12 6 - 21 mg/dL 05/08/2024 6:14 PM DATA PROCESSING EQUIPMENT REPAIRER STMA Creatinine 0.55(L) 0.59 - 1.04 mg/dL 05/08/2024 6:14 PM DATA PROCESSING EQUIPMENT REPAIRER STMA Estimated GFR (eGFR) >90 >=60 mL/min/BSA 05/08/2024 6:14 PM DATA PROCESSING EQUIPMENT REPAIRER STMA Comment: Estimated GFR calculated using the 2020 CKD_EPI creatinine equation. Calcium, Total, P 8.9 8.8 - 10.2 mg/dL 05/08/2024 6:14 PM DATA PROCESSING EQUIPMENT REPAIRER STMA Glucose, P 139 70 - 140 mg/dL 05/08/2024 6:14 PM DATA PROCESSING EQUIPMENT REPAIRER STMA Blood (Blood, Venous) 05/08/2024 5:43 PM DATA PROCESSING EQUIPMENT REPAIRER 05/08/2024 5:49 PM DATA PROCESSING EQUIPMENT REPAIRER Fara Rojas M.D. LAB BLOOD ADD-ON Final Resu lt [facility] [address] [place] [address], [facility] STMA [facility] [address] [place] [address] from Last 3 Months or Most Recently Relevant to Health Maintenance Insurance MEDICARE Advance Directives For more information, please contact: [phone] Documents on File Type Date Recorded Patient Shipping/Receiving Clerk Expl anation Advance Directives 10/25/2022 2:10 PM Jose Manuel Eduardo (D ell) HCPOA/ADVOCATE/AGENT/ ELECTRICAL ACCESSORIES ASSEMBLER/SURROG ATE Advance Directives 06/14/2021 7:48 AM HCPOA /ADVOCATE/AGENT/ ELECTRICAL ACCESSORIES ASSEMBLER/SURROG ATE * DNR/DNI (Latest Code Status on File) Date Activated Date Inactivated Comments 06/16/2023 3:58 PM 06/18/2023 3:45 PM Healthcare Agents on File Name Relationship Healthcare Agent Relationship Communication Jose Manuel Garay) Mitchell Spouse Health Care Agent [email or web address] [place] Relative Health Care Agent Rafaela Eduardo Relative Health Care Agent [email or web address] Care Teams Clinical Educator Relationship Specialty Start Date End Date Daja Keys MPAS, P.A.-C. [address] [place], [place] [phone] PCP - General Family Medicine 07/04/23
--- OUTSIDE RECORDS SUMMARY | 2024-12-20 16:15 | XMS_ITS | Encounter Summary ---
Author Organization [facility] Address [address] [place] [address] Care Team Providers Care Honing Job Setter Name Role Phone foreign Daja AGUIRRE, P.A.-C. [...] things needed for daily living? No 11/03/2024 [place] Utilities Answer Date Recorded In the past 12 months has th e electric, gas, oil, or water company threatened to shut off services in your home? No 11/03/2024 Depression Answer Date Recor ded PHQ-9 Total Score (max 27) 9 10/18 Housing Stability Answer Date Recorded What is your living situation today? I have a [facility] place to live 11/03/2024 Education Answer Date Recorded What is the highest level of school you have completed or the highest degree you have received? Bachelor's degree (e.g., BA, AB, BS) 03/05/2019 Comments No Sex and Gender Information Value Date Recorded Sex Assigned at Female 12/15/2020 11:07 AM CDT Legal Sex Female 8:25 AM CORE DRILLING SUPERVISOR Gender Identity Female 03/05/2019 8:17 AM CORE DRILLING SUPERVISOR Sexual Orientation Straight 03/05/2019 8: 17 AM CORE DRILLING SUPERVISOR documented as of this encounter Plan of Treatment Not on file documented as of this encounter Visit Diagnoses Not on filedocumented in this encounter Additional Health Concerns Assessment Noted Time PHQ-9 Depression Total Score: 9 10/19/19 23 8:25 AM CDT documented as of this encounter Care Teams Honing Job Setter Relationship Specialty Start Date End Date Daja Keys MPAS, P.A.-C. [address] [place] [phone] PCP - General Family Medicine 07/04/23 documented as of this encounter
--- NOTE | 2024-12-20 16:37 | ED.GENADULT ---
HPI - General Adult General Date Seen: 12/20/24 Chief complaint: Unspecified Complaint, Adult Stated complaint: Altered State of Coconscious Time Seen by Provider: 12/20/24 16:28 History of Present Illness HPI narrative: 84-year-old female brought to the ER today by EMS from her assisted living at [facility]. EMS was called today because her , who lives with her, noted that she was much more anxious than normal. She does get anxious sometimes when she has tremors from Parkinson's but has never been so anxious as she was today. History from the patient's is that she was very anxious today. Unclear why. She has not had any recent changes in her life. No upcoming changes. No recent medication changes. She has not missed any med doses. No recent illnesses. No fevers. No vomiting or diarrhea. No abdominal pain. No chest pain. No cough or trouble breathing. She was just more anxious than she normally is. does confirm that she does have some dementia. He asked me to look in the record to see the details of her dementia. He is not able to tell me her med list other than she takes carbidopa / levodopa 3 times a day and at bedtime. She is due for her dose now history from the patient is similar. she denies any symptoms. She is really not able to explain why she is here in the ER. She does note she ate for lunch but that is her baseline. history from paramedics who brought her over is that she was more anxious than normal. No other symptoms. She was hypertensive about 170s over 90. Related Data Home Medications ?Medication ?Instructions ?Recorded ?Confirmed aspirin 81 mg tablet,delayed 81 mg PO MOWEFR 07/13/23 06/01/24 release (Adult Aspirin Regimen) carbidopa 25 mg-levodopa 100 mg 2.5 tab PO .TIDAC 07/13/23 06/01/24 tablet carbidopa ER 50 mg-levodopa 200 mg 1 tab PO HS 07/13/23 06/01/24 tablet,extended release donepezil 10 mg tablet 10 mg PO HS 07/13/23 06/01/24 lisinopril 5 mg tablet 5 mg PO DAILY 07/13/23 06/01/24 nitroglycerin 0.4 mg sublingual 0.4 mg sublingual Q5M PRN 07/13/23 06/01/24 tablet polyethylene glycol 3350 17 17 g PO DAILY 07/13/23 06/01/24 gram/dose oral powder (ClearLax) rosuvastatin 20 mg tablet 20 mg PO HS 07/13/23 06/02/24 acetaminophen 500 mg tablet 1,000 mg PO TID 06/01/24 06/01/24 (Acetaminophen Pain Relief) calcium 500 mg (as carbonate)-vit 1 tab PO DAILY 06/01/24 06/01/24 D3 10 mcg (400 unit) chewable tablet (Calcium 500 + D) gabapentin 100 mg capsule 100 mg PO HS 06/01/24 06/01/24 melatonin 3 mg tablet 3 mg PO HS 06/01/24 06/01/24 oxycodone 5 mg tablet 5 mg PO Q6H PRN 06/01/24 06/02/24 sodium chloride 1 gram tablet 1,000 mg PO DAILY 06/01/24 06/01/24 sennosides 8.6 mg capsule (senna) 17.2 mg PO BID 06/02/24 06/02/24 Previous Rx's ?Medication ?Instructions ?Recorded docusate sodium 100 mg capsule 100 mg PO BID #10 caps 02/01/24 magnesium citrate See Rx Instructions .Route 02/01/24 .COMPLEX PRN constipation #296 mL cefpodoxime 200 mg tablet 200 mg PO BID #6 tabs 06/03/24 oseltamivir 30 mg capsule 30 mg PO BID #6 caps 06/03/24 Allergies Allergy/AdvReac Type Severity Reaction Status Date / Time pollen extracts Allergy Unknown Verified 06/01/24 14:02 [facility] Medical History (Updated 12/20/24 @ 18:24 by René Keller MD) Lewy body dementia ?G31.83 - Neurocognitive disorder with Lewy bodies (ICD-10) ?F02.80 - Dementia in other diseases classified elsewhere, unspecified severity, without behavioral disturbance, psychotic disturbance, mood disturbance, and anxiety (ICD-10) Multinodular goiter ?E04.2 - Nontoxic multinodular goiter (ICD-10) Glaucoma ?H40.9 - Unspecified glaucoma (ICD-10) Ischemic cardiomyopathy ?I25.5 - Ischemic cardiomyopathy (ICD-10) Parkinson's disease with dyskinesia, with fluctuations (03/09/19) ?G20.B2 - Parkinson's disease with dyskinesia, with fluctuations (ICD-10) Postmenopausal atrophic vaginitis (10/14/12) ?N95.2 - Postmenopausal atrophic vaginitis (ICD-10) Peripheral vascular disease (06/20/23) ?I73.9 - Peripheral vascular disease, unspecified (ICD-10) Osteopenia (05/16/20) ?M85.80 - Other specified disorders of bone density and structure, unspecified site (ICD-10) Hyperlipidemia (05/16/20) ?E78.5 - Hyperlipidemia, unspecified (ICD-10) Chronic diastolic (congestive) heart failure (05/05/20) ?I50.32 - Chronic diastolic (congestive) heart failure (ICD-10) Multiple falls ?R29.6 - Repeated falls (ICD-10) Unsteady gait ?R26.81 - Unsteadiness on feet (ICD-10) Fall ?W19.XXXA - Unspecified fall, initial encounter (ICD-10) Proximal humerus fracture (07/14/23) ?S42.209A - Unspecified fracture of upper end of unspecified humerus, initial encounter for closed fracture (ICD-10) Frailty syndrome in geriatric patient ?R54 - Age-related physical debility (ICD-10) Cognitive impairment ?R41.89 - Other symptoms and signs involving cognitive functions and awareness (ICD-10) Melanoma ?C43.9 - Malignant melanoma of skin, unspecified (ICD-10) Heart failure with reduced ejection fraction ?I50.20 - Unspecified systolic (congestive) heart failure (ICD-10) Coronary artery disease ?I25.10 - Atherosclerotic heart disease of [place] coronary artery without angina pectoris (ICD-10) Parkinsons disease ?G20.A1 - Parkinson's disease without dyskinesia, without mention of fluctuations (ICD-10) Surgical History History of breast biopsy ?Z98.890 - Other specified postprocedural states (ICD-10) History of colonoscopy ?Z98.890 - Other specified postprocedural states (ICD-10) History of tonsillectomy ?Z90.89 - Acquired absence of other organs (ICD-10) History of hysterectomy ?Z90.710 - Acquired absence of both cervix and uterus (ICD-10) Hx of cataract surgery ?Z98.49 - Cataract extraction status, unspecified eye (ICD-10) Family History Brother Cardiovascular disease Father Cardiovascular disease Social History Narrative: She lives with her , Linda, at [facility]. Her is healthcare power of corporate attorney. Code status is DNR. Previously lived in [facility] and in [facility]. She is a nonsmoker. Rarely drinks alcohol. What is your current living situation?: I presently have a place to live Problems where you live: no known problems Problems where you live details: N/A In the past 12 months, utilities in danger of being shut off: no In past 12 months, lack of transportation kept you from medical appts, meetings, work, or getting things needed for daily living: no In the past 12 mos, have been you worried that your food would run out before you had money to buy more?: never true In the past 12 mos, the food you bought just didn't last and you didn't have money to buy more?: never true Smoking Status: Never smoker How often do you have a drink containing alcohol: never AUDIT-C Alcohol total score: 0 Non-prescribed substance use: denies use Caffeine: Yes How often does anyone, including family, friends and others, physically hurt you: unable to answer How often does anyone, including family, friends and others, insult or talk down to you: unable to answer How often does anyone, including family, friends and others, threaten you with harm: unable to answer How often does anyone, including family, friends and others, scream or curse at you: unable to answer service: No Exam Narrative: Exam Narrative: Constitutional: Appears well-developed and well-nourished. Alert. Conversant But not a reliable historian. Non toxic. she is able to get out of bed with assist of 1 and walk in the hallway to the bathroom and back. She has a slow gait with very short steps. She does have a resting a symmetric bilateral tremor. HENT: Head: Atraumatic. Nose: Nose normal. Mouth/Throat: Oral mucosa is clear and moist. no trismus. Pharynx normal. Tonsils symmetric. No tonsillar enlargement, erythema, or exudate. Eyes: Conjunctivae normal. EOM normal. Pupils equal, round, and reactive to light. No scleral icterus. Neck: Normal range of motion. Neck supple. No tracheal deviation present. Cardiovascular: Normal rate, regular rhythm. No gallop. No friction rub. No murmur heard. Symmetric radial and PTartery pulses Pulmonary/Chest: Effort normal. No stridor. No respiratory distress. No wheezes. No rales. No rhonchi . No tenderness. Abdominal: Soft. Bowel sounds normal. No distension. No mass. No tenderness. No rebound. No guarding. No CVA tenderness. Musculoskeletal: RUE: Normal range of motion. No tenderness. No deformity LUE: Normal range of motion. No tenderness. No deformity RLE: Normal range of motion. No edema. No tenderness. No deformity LLE: Normal range of motion. No edema. No tenderness. No deformity Neurological: Alert and oriented to person, place, But not date. This is her baseline for with her dementia. Normal strength. CN II-VII intact. No sensory deficit. GCS eye subscore is 4. GCS verbal subscore is 5. GCS motor subscore is 6. Normal coordination Skin: Skin is warm and dry. No rash noted. No pallor. Normal capillary refill. Psychiatric: Normal mood. Normal affect. she is cooperative here. She does have a mild tremor which I think is due to parkinsonism rather than anxiety. She is not displaying active signs of anxiety here. She is able to converse a little bit with her , linda. She denies any stressors. She does not feel anxious currently. Const: Vital Signs, click to edit/add: Vital Signs - 24 hr 12/20/24 16:25 Temperature 98.6 F Pulse Rate [Pulse Oximeter] 91 Respiratory Rate 16 Blood Pressure [Ri ght Upper Arm] 182/118 H Pulse Oximetry 96 Oxygen Delivery Me thod Room Air Course Course ED Course: Recheck-watching television with her . He notes that she is much calmer since she has been here and she is doing well. He wonders how much longer we can be before they can get back home again. We discussed that so far her blood work looks good. Urinalysis shows microscopic hematuria which is of uncertain significance. I recheck the patient as she is not having any back pain flank pain or flank tenderness. No abdominal pain. She does not recall having had any back pain or flank pain today. At this point with no clear symptoms to suggest kidney stone would hold off on a stone protocol CT. She did receive her typical dinnertime dose of carbidopa/levodopa here and tremor is improved. Vital Signs Vital signs: Initial Vital Signs Temperature 98.6 F 12/20/24 16:25 Temperature Source Temporal Artery Scan 12/20/24 16:25 Pulse Rate 91 12/20/24 16:25 Respiratory Rate 16 12/20/24 16:25 Blood Pressure 182/118 H 12/20/24 16:25 Blood Pressure Mean 139 H 12/20/24 16:25 Pulse Oximetry 96 12/20/24 16:25 Oxygen Delivery Method Room Air 12/20/24 16:25 Vital Signs Temperature 98.6 F 12/20/24 16:25 Pulse Rate 91 12/20/24 16:25 Respiratory Rate 16 12/20/24 16:25 Blood Pressure 182/118 H 12/20/24 16:25 Pulse Oximetry 96 12/20/24 16:25 Oxygen Delivery Method Room Air 12/20/24 16:25 Temperature 98.6 F 12/20/24 16:25 Pulse Rate 91 12/20/24 16:25 Respiratory Rate 16 12/20/24 16:25 Blood Pressure 182/118 H 12/20/24 16:25 Pulse Oximetry 96 12/20/24 16:25 Oxygen Delivery Method Room Air 12/20/24 16:25 Medications Administered Medications: Discontinued Medications Generic Name Dose Route Start Last Admin Trade Name Girishq PRN Reason Stop Dose Admin Carbidopa/Levodopa 2.5 tab 12/20/24 16:37 12/20/24 17:18 Carbidopa-Levodopa 25-100 Tablet PO 12/20/24 16:38 2.5 tab ONCE ONE Administration Medical Decision Making MDM Narrative Medical decision making narrative: Pleasant 84-year-old lady with history of Parkinson's and Lewy body dementia brought to the ER today by EMS from her assisted living where she resides with her . She was brought in because she had nonfocal anxiety and restlessness without any other clear symptoms. She was noted to be hypertensive by EMS. Unclear if hypertension with because the anxiety, or, more likely, a result of the anxiety. We did do a workup with EKG and lab tests look for any signs of hypertensive crisis or hypertensive emergency. At this point there is no evidence for any end-organ damage. The She is not having headache. No stroke symptoms. She is not anticoagulated and has no recent fall so would be very low risk for intracranial hemorrhage. Blood pressure came down spontaneously to 150/89 when the patient was calmer. Consider possible metabolic or infectious cause that might be causing pain which she may be unable to describe. Workup for that so far is reassuring. She is not febrile. White count is normal. Urinalysis shows a scant amount of hematuria but she denies any flank pain to suggest kidney stone. No evidence for active UTI. Patient's anxiety has resolved now that she is here in the ER and she is back to her normal neurologic baseline. She is comfortable discharging home with her . He is requesting discharge. I would recommend close outpatient follow-up with PCP to discuss this anxiety. It may be that she needs a p.r.n. medication to use when she gets anxious. It is possible this is a symptom of progressing dementia. Also recommend follow-up with PCP to reassess her hematuria. Discussed precautions for return to the ER. Patient's and the patient are agreeable. They are your for discharge. Lab Data Labs: Lab Results 12/20/24 Range/Units 16:34 WBC 8.55 (4.50-11.00) K/uL RBC 4.51 (4.00-5.20) m/uL Hgb 14.5 (12.0-16.0) gm/dL Hct 44.0 (33.0-51.0) % MCV 98 (80-100) fL MCH 32 (26-34) pg MCHC 33 (32-36) gm/dL RDW Coeff of [place] 11.9 (11.5-15.5) % Plt Count 211 (140-440) K/uL Neut % (Auto) 70.7 (42.0-72.0) % Lymph % (Auto) 20.0 (20-44) % [place] % (Auto) 8.1 (0.0-11.0) % Eos % (Auto) 0.9 (0.0-7.0) % Baso % (Auto) 0.2 (0.0-3.0) % Neut # (Auto) 6.04 (1.7-7.0) K/uL Lymph # (Auto) 1.71 (0.90-2.90) K/uL [place] # (Auto) 0.70 (0.00-0.90) K/UL Eos # (Auto) 0.08 (0.00-0.50) K/uL Baso # (Auto) 0.02 (0.00-0.30) K/uL Abs Immat Gran (auto) 0.01 (0.00-0.30) K/uL Imm/Tot Granulo (auto) 0.1 % Sodium 136 (135-149) mmol/L Potassium 4.0 (3.6-5.1) mmol/L Chloride 101 (96-114) mmol/L Carbon Dioxide 27 (20-32) mmol/L Anion Gap 8 (7-15) mEq/L BUN 18 (7-30) mg/dL Creatinine 0.6 (0.5-1.5) mg/dL Estimated Creat Clear 38.15 Estimated GFR 89 ml/min Glucose 114 (60-115) mg/dL Lactate 0.9 (0.5-1.9) mmol/L Calcium 9.2 (8.4-10.6) mg/dL Troponin I < 0.01 (0.01-0.04) ng/mL TSH 2.100 (0.270-4.200) uIU/mL Urine Color Yellow (Yellow) Urine Appearance Clear (Clear) Urine pH 7.5 (5.0-8.5) Ur Specific [place] 1.015 (1.000-1.030) Urine Protein Negative (Negative) Urine Glucose (UA) Negative (Negative) Urine Ketones Negative (Negative) Urine Blood Trace-intact A (Negative) Urine Nitrite Negative (Negative) Urine Bilirubin Negative (Negative) Urine Urobilinogen 0.2 (0.2-1.0) Ur Leukocyte Esterase Negative (Negative) Urine RBC 5-10 A (0-2) Urine WBC 0-2 (0-5) Ur Squamous Epith Cells None (None-Few) Urine Bacteria None (None) ECG Data Attestation: I personally reviewed and interpreted this ECG as follows: Interpretation: normal sinus rhythm with sinus arrhythmia rate 88 WA interval 132 normal QRS axis. Q-waves in leads V1 and V2 no acute ST segment elevation or depression. No signs of acute ischemia. QT 364, QTC 440 Discharge Plan Discharge Clinical Impression: Anxiety, Asymptomatic microscopic hematuria Patient Disposition: Home, Self-Care Condition: Stable Instructions: Hematuria (ED), Anxiety (ED) Additional Instructions: Please follow up with your regular doctor within 3-5 days for a checkup. You can ask your doctor about her dementia and anxiety. Her doctor may want to prescribe is a new medication that you can use when needed to help her calm down. Her blood tests look normal today. Her urinalysis shows a tiny amount of blood in her urine. Because of this is not clear. Discussed this with your regular doctor your follow-up. Prescriptions: No Action aspirin [Adult Aspirin Regimen] 81 mg tablet,delayed release (DR/EC) 81 mg PO MOWEFR Rx Instructions: MON,WED,FRI carbidopa-levodopa 50-200 mg tablet extended release 1 tab PO HS donepezil 10 mg tablet 10 mg PO HS lisinopril 5 mg tablet 5 mg PO DAILY polyethylene glycol 3350 [ClearLax] 17 gram/dose powder 17 g PO DAILY rosuvastatin 20 mg tablet 20 mg PO HS carbidopa-levodopa 25-100 mg tablet 2.5 tab PO .TIDAC nitroglycerin 0.4 mg tablet, sublingual 0.4 mg sublingual Q5M PRN docusate sodium 100 mg capsule 100 mg PO BID Qty: 10 0RF magnesium citrate Solution See Rx Instructions .ROUTE .COMPLEX PRN (Reason: constipation) Qty: 296 0RF Rx Instructions: Take 10 oz bottle at once acetaminophen [Acetaminophen Pain Relief] 500 mg tablet 1,000 mg PO TID calcium carbonate-vitamin D3 [Calcium 500 + D] 500 mg-10 mcg (400 unit) tablet,chewable 1 tab PO DAILY gabapentin 100 mg capsule 100 mg PO HS melatonin 3 mg tablet 3 mg PO HS sodium chloride 1 gram tablet 1,000 mg PO DAILY oxycodone 5 mg Tablet 5 mg PO Q6H PRN senna 8.6 mg capsule 17.2 mg PO BID oseltamivir 30 mg Capsule 30 mg PO BID Qty: 6 0RF cefpodoxime 200 mg tablet 200 mg PO BID Qty: 6 0RF Rx Instructions: must administer with a meal/food Follow Up/Referrals: Della Franks MD [Primary Care Provider, Family Practice] Stand Alone Forms: Spotbro[employer] Info Instructions
[2024-12-20 16:47] LABS: Appearance Urine Clear (Clear)
[2024-12-20 17:12] LABS: Lactate* 0.9 mmol/L (0.5-1.9)
[2024-12-20 17:16] LABS: Hematocrit 44.0 % (33.0-51.0); Hemoglobin* 14.5 gm/dL (12.0-16.0); Immature Granulocytes Abs Auto 0.01 K/uL (0.00-0.30); Immature Granulocytes Pct Auto 0.1 %; Lymphocytes Absolute Auto 1.71 K/uL (0.90-2.90); Mean Corpuscular HGB Conc 33 gm/dL (32-36); Mean Corpuscular Hemoglobin 32 pg (26-34); Mean Corpuscular Volume 98 fL (80-100); RDW Coefficient of Variation % 11.9 % (11.5-15.5); Red Blood Count 4.51 m/uL (4.00-5.20); White Blood Count* 8.55 K/uL (4.50-11.00)
[2024-12-20] MEDS: CARBIDOPA-LEVODOPA 25-100 TABLET 2.5 TAB PO (17:18)
[2024-12-20 17:19] LABS: Slide Review Reflex No
[2024-12-20 17:28] LABS: Chloride* 101 mmol/L (96-114); Potassium* 4.0 mmol/L (3.6-5.1); Sodium* 136 mmol/L (135-149)
[2024-12-20 17:31] LABS: Anion Gap 8 mEq/L (7-15); Blood Urea Nitrogen* 18 mg/dL (7-30); Carbon Dioxide* 27 mmol/L (20-32); Creatinine* 0.6 mg/dL (0.5-1.5); Est. Creatinine Clearance* 38.15; Estimated Glomerular Filt Rate 89 ml/min
[2024-12-20 17:32] LABS: Calcium* 9.2 mg/dL (8.4-10.6); Glucose* 114 mg/dL (60-115)
[2024-12-20 18:02] LABS: TSH With Reflex to FT4* 2.100 uIU/mL (0.270-4.200)
== END 2024-12-20 20:15 | disposition home or self-care (01) ==
PROVIDERS: Emergency Provider Emergency Medicine; PCP Family Medicine
DX: R31.21 Asymptomatic microscopic hematuria (principal); F41.9 Anxiety disorder, unspecified
CPT/HCPCS: 36415; 80048; 81001; 83605; 84443; 84484; 85025; 93005; 99283; 99284; A9270

== ENCOUNTER 2024-12-20 20:02 | Outpatient (CLI) | payer MEDICARE, SELFPAY | END 2024-12-20 20:03 | disposition home or self-care (01) | LOC: AMB 12-24 10:38 | PROVIDERS: PCP Family Medicine; Visit Provider Emergency Medicine | DX: G20.A1 Parkinson's disease without dyskinesia, without mention of fluctuations (principal); F02.80 Dementia in other diseases classified elsewhere, unspecified severity, without behavioral disturbance, psychotic disturbance, mood disturbance, and anxiety | CPT/HCPCS: A0425; A0428 ==

== ENCOUNTER 2025-02-28 08:33 | Outpatient (CLI) | payer MEDICARE, BC, SELFPAY | END 2025-02-28 08:34 | disposition home or self-care (01) | LOC: AMB 03-04 11:56 | PROVIDERS: PCP Family Medicine; Visit Provider Internal Medicine | DX: S09.90XA Unspecified injury of head, initial encounter (principal); S59.901A Unspecified injury of right elbow, initial encounter; W18.30XA Fall on same level, unspecified, initial encounter; Y92.039 Unspecified place in apartment as the place of occurrence of the external cause | CPT/HCPCS: A0425; A0427 ==

== ENCOUNTER 2025-02-28 08:50 | Emergency (ER) | payer MEDICARE, BC, SELFPAY ==
--- OUTSIDE RECORDS SUMMARY | 2025-02-28 08:52 | XMS_ITS | Clinical Summary ---
Author Organization [facility] Address [address] [place] [address] Care Team Providers Care Assignment Desk Assistant Name Role Phone Daja Keys P.A.-C. Primary Care Provider + Source Comments Patient records contain information from all sites at [facility]. For routine questions regarding patient records, call [phone] during business hours, M-F 8:00 AM - 5:00 PM Central Time. Record requests for emergency care only can be directed to [phone] at any time.[facility] Allergies Active Allergy Reactions Criticality Noted Date Comments [place] Pollen Itching Medium 10/14/2012 Seasonal Allergies: Allergic [...] Acute Pain. 12 tablet 05/08/2024 10:10 PM NEWS INTERN 5 Active Additional Information Patient not taking.Reported [...] kg Assessment & Plan (06/20/2023 7:48 AM NEWS INTERN): Euvolemic. 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 Assessment & Plan (06/20/2023 11:01 AM NEWS INTERN): She is wandering 24/7. She needs a [...] once she has been taking it at [facility] in a more controled way. 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 0 10/29/2012 Postmenopausal Atrophic Vaginitis 10/14/2012 Resolved Problems Problem Noted Date Diagnosed Date Resolved Date Tremor Essential 06/16/2023 06/25/2023 Goiter 03/09/2019 05/16/2020 Vertigo 03/09/2019 05/16/2020 Infection Urinary Tract Personal History 10/14/2012 05/16/2020 Immunizations Immunization Administration Dates Next Due DT, [...] Brother Ivan Quispe Bypa ss Breast cancer (in one breast) Maternal Grandmother Hayley jewels JarrettVero Breast cancer (in one breast) Mother's Sister Sandor willard Relation Name Status Comments Brother Ivan Quispe [...] things needed for daily living? No 11/03/2024 [facility] Utilities Answer Date Recorded In the past 12 months has [facility] electric, gas, oil, or water company threatened to shut off services in your home? No 11/03/2024 Depression Answer Date Recor ded PHQ-9 Total Score (max 27) 9 10/18 Housing Stability Answer Date Recorded What is your living situation today? I have a [facility] place to live 11/03/2024 Education Answer Date Recorded What is the highest level of school you have completed or the highest degree you have received? Bachelor's degree (e.g., BA, AB, BS) 03/05/2019 Comments No Sex and Gender Information Value Date Recorded Sex Assigned at Female 12/15/2020 11:07 AM CDT Legal Sex Female 8:25 AM NEWS INTERN Gender Identity Female 03/05/2019 8:17 AM NEWS INTERN Sexual Orientation Straight 03/05/2019 8: 17 AM NEWS INTERN Last Filed Vital Signs Vital Sign Reading Time Taken Comments Blood Pressure 151/86 05/08/2024 8:00 PM NEWS INTERN Pulse 93 05/08/2024 7:00 PM NEWS INTERN Temperature 36.7 C (98.1 F) 05/08/2024 4:35 PM NEWS INTERN Respiratory Rate 14 05/08/2024 4:35 PM NEWS INTERN Oxygen Saturation 95% 05/08/2024 7:00 PM NEWS INTERN Inhaled Oxygen Concentration - - Weight 43.4 kg (95 lb 9.6 oz) 06/25/2023 9:43 AM CDT Height 154.9 cm (5' 1) 06/16/2023 2:45 PM NEWS INTERN Body Mass Index 18.06 06/16/2023 2:45 PM NEWS INTERN Plan of Treatment Health Maintenance Due Date [...] Completed 12/15/2014, 07/10/2006 Zoster Vaccines Completed 02/24/2020, /3 , 11/09/2009 RSV vaccine - (32-36 weeks) or 50+ years Completed 01/11/2023 IPV Vaccines Aged Out No longer eligi ble based on patient's age to complete this topic Procedures Procedure Name Priority Date/Time Associated Diagnosis Comments BASIC METABOLIC PANEL, S/P STAT 05/08/2024 5:43 PM NEWS INTERN from Last 3 Months or Most Recently Relevant to Health Maintenance Results * (ABNORMAL) Basic Metabolic Panel (05/08/2024 5:43 PM NEWS INTERN) Potassium, P 3.7 3.6 - 5.2 mmol/L 05/08/2024 6:14 PM NEWS INTERN [facility] Sodium, P 135 135 - 145 mmol/L 05/08/2024 6:14 PM NEWS INTERN ST[facility] Chloride, P 98 98 - 107 mmol/L 05/08/2024 6:14 PM NEWS INTERN ST[facility] Bicarbonate, P 24 22 - 29 mmol/L 05/08/2024 6:14 PM NEWS INTERN [facility] Anion Gap, P 13 7 - 15 05/08/2024 6:14 PM NEWS INTERN [facility] BUN (Blood Urea Nitrogen), P 12 6 - 21 mg/dL 05/08/2024 6:14 PM NEWS INTERN [facility] Creatinine 0.55(L) 0.59 - 1.04 mg/dL 05/08/2024 6:14 PM NEWS INTERN [facility] Estimated GFR (eGFR) >90 >=60 mL/min/BSA 05/08/2024 6:14 PM NEWS INTERN [facility] Comment: Estimated GFR calculated using the 2020 CKD_EPI creatinine equation. Calcium, Total, P 8.9 8.8 - 10.2 mg/dL 05/08/2024 6:14 PM NEWS INTERN STMA Glucose, P 139 70 - 140 mg/dL 05/08/2024 6:14 PM NEWS INTERN [facility] Blood (Blood, Venous) 05/08/2024 5:43 PM NEWS INTERN 05/08/2024 5:49 PM NEWS INTERN Fara Rojas M.D. LAB BLOOD ADD-ON Final Resu lt [facility] [place] [address] [place] [address], [facility] [address] [place] [address] from Last 3 Months or Most Recently Relevant to Health Maintenance Insurance MEDICARE Advance Directives For more information, please contact: [phone] Documents on File Type Date Recorded Patient Sanitor Expl anation Advance Directives 10/25/2022 2:10 PM Jose Manuel james) Rahel Eduardo HCPOA/ADVOCATE/AGENT/ CHILD SPECIALIST/SURROG ATE Advance Directives 06/14/2021 7:48 AM HCPOA /ADVOCATE/AGENT/ CHILD SPECIALIST/SURROG ATE * DNR/DNI (Latest Code Status on File) Date Activated Date Inactivated Comments 06/16/2023 3:58 PM 06/18/2023 3:45 PM Healthcare Agents on File Name Relationship Healthcare Agent Relationship Communication Jose Manuel Medrano ([place]) Spouse Health Care Agent .[employer] [place] Medrano Relative Health Care Agent Rafaela Alesha Relative Health Care Agent [email or web address] Care Teams Assignment Desk Assistant Relationship Specialty Start Date End Date Daja Keys P.A.-C. [address] [place] [phone] PCP - General Family Medicine 07/04/23
[2025-02-28 08:59] VITALS: BP 130/64; PULSE 63; RESP 16; TEMP 36.3; O2SAT 95
--- NOTE | 2025-02-28 09:07 | CRLHL7_ITS ---
For Patients: As a result of the Century Cures Act, medical imaging exams and procedure reports are released immediately into your electronic medical record. You may view this report before your referring provider. If you have questions, please contact your health care provider. INDICATION: Fall. Pain. FINDINGS: There is an intra-articular fracture of the olecranon process with approximately 1 cm of proximal distraction of the main fracture fragment. There is very abundant soft tissue swelling overlying the proximal ulna. There is an elbow joint effusion. No other bone, joint or soft tissue abnormality is identified. Dictated by Mike Gonzalez MD @ 02/28/2025 10:08:04 AM (Electronically Signed)
--- NOTE | 2025-02-28 09:07 | CRLHL7_ITS ---
For Patients: As a result of the Century Cures Act, medical imaging exams and procedure reports are released immediately into your electronic medical record. You may view this report before your referring provider. If you have questions, please contact your health care provider. INDICATION: Headaches. Trauma TECHNIQUE: Noncontrast axial CT of the head is submitted. COMPARISON: Compared to prior study from June 01, 2024 FINDINGS: Moderate cerebral atrophy. The ventricles, sulci and gyri are of normal size, shape and contour for age and degree of atrophy. Midline structures are centrally located. No convincing evidence of suspicious intra- or extra-axial fluid collections. Mild patchy regions of decreased attenuation within the periventricular and subcortical white matter of both cerebral hemispheres. IMPRESSION: 1. No radiographic evidence of acute intracranial abnormalities. 2. Moderate cerebral atrophy. 3. Mild supratentorial white matter changes that are non-specific, but statistically most likely related to chronic small vessel ischemic disease. Please note that all CT scans at this facility use dose modulation, iterative reconstruction, and/or weight-based dosing when appropriate to reduce radiation dose to as low as reasonably achievable. Dictated by Jean Castaneda MD @ 02/28/2025 9:56:36 AM (Electronically Signed)
--- NOTE | 2025-02-28 09:07 | CRLHL7_ITS ---
For Patients: As a result of the Century Cures Act, medical imaging exams and procedure reports are released immediately into your electronic medical record. You may view this report before your referring provider. If you have questions, please contact your health care provider. Indication: Neck pain. Trauma. Technique: Noncontrast axial CT of the cervical spine with coronal and sagittal reformats are provided. Compared to prior study from May 08, 2024 Findings: The overall stature, alignment of the cervical spine is within normal limits. No convincing evidence of suspicious bony fragments narrowing the central canal or neural foramina. Prevertebral soft tissues, cervical airway, dens and lateral masses are within normal limits. Mild scattered degenerative changes of the cervical spine. Stable moderate fullness of both lobes of the thyroid gland that may represent underlying goiter. Impression: 1. No convincing radiographic evidence of acute osseous injury. 2. Mild scattered degenerative changes of the cervical spine. Please note that all CT scans at this facility use dose modulation, iterative reconstruction, and/or weight-based dosing when appropriate to reduce radiation dose to as low as reasonably achievable. Dictated by Jean Castaneda MD @ 02/28/2025 9:58:32 AM (Electronically Signed)
--- NOTE | 2025-02-28 09:08 | ED.GENADULT ---
HPI - General Adult General Chief complaint: Extremity Pain/Injury, Upper Stated complaint: fall Time Seen by Provider: 02/28/25 09:04 History of Present Illness HPI narrative: Patient is 85-year-old woman with significant dementia who has fallen twice today at the [facility]. She has had no other recent changes to her health per staff. Patient is unable to tell me anything other than her right elbow hurts. She may have struck her head but has no obvious swelling or bruising. She is in her normal in cognitive state. No other history is available. Is not on any anticoagulants but has had multiple fractures from falls over the last several years. Related Data Home Medications ?Medication ?Instructions ?Recorded ?Confirmed aspirin 81 mg tablet,delayed 81 mg PO MOWEFR 07/13/23 06/01/24 release (Adult Aspirin Regimen) carbidopa 25 mg-levodopa 100 mg 2.5 tab PO .TIDAC 07/13/23 06/01/24 tablet carbidopa ER 50 mg-levodopa 200 mg 1 tab PO HS 07/13/23 06/01/24 tablet,extended release donepezil 10 mg tablet 10 mg PO HS 07/13/23 06/01/24 lisinopril 5 mg tablet 5 mg PO DAILY 07/13/23 06/01/24 nitroglycerin 0.4 mg sublingual 0.4 mg sublingual Q5M PRN 07/13/23 06/01/24 tablet polyethylene glycol 3350 17 17 g PO DAILY 07/13/23 06/01/24 gram/dose oral powder (ClearLax) rosuvastatin 20 mg tablet 20 mg PO HS 07/13/23 06/02/24 acetaminophen 500 mg tablet 1,000 mg PO TID 06/01/24 06/01/24 (Acetaminophen Pain Relief) calcium 500 mg (as carbonate)-vit 1 tab PO DAILY 06/01/24 06/01/24 D3 10 mcg (400 unit) chewable tablet (Calcium 500 + D) gabapentin 100 mg capsule 100 mg PO HS 06/01/24 06/01/24 melatonin 3 mg tablet 3 mg PO HS 06/01/24 06/01/24 oxycodone 5 mg tablet 5 mg PO Q6H PRN 06/01/24 06/02/24 sodium chloride 1 gram tablet 1,000 mg PO DAILY 06/01/24 06/01/24 sennosides 8.6 mg capsule (senna) 17.2 mg PO BID 06/02/24 06/02/24 Previous Rx's ?Medication ?Instructions ?Recorded docusate sodium 100 mg capsule 100 mg PO BID #10 caps 02/01/24 magnesium citrate See Rx Instructions .Route 02/01/24 .COMPLEX PRN constipation #296 mL cefpodoxime 200 mg tablet 200 mg PO BID #6 tabs 06/03/24 oseltamivir 30 mg capsule 30 mg PO BID #6 caps 06/03/24 Allergies Allergy/AdvReac Type Severity Reaction Status Date / Time pollen extracts Allergy Unknown Verified 02/28/25 08:59 Review of Systems Status of ROS: Reports: 10 or more systems reviewed and unremarkable except as noted in History and below [facility] Medical History Lewy body dementia ?G31.83 - Neurocognitive disorder with Lewy bodies (ICD-10) ?F02.80 - Dementia in other diseases classified elsewhere, unspecified severity, without behavioral disturbance, psychotic disturbance, mood disturbance, and anxiety (ICD-10) Multinodular goiter ?E04.2 - Nontoxic multinodular goiter (ICD-10) Glaucoma ?H40.9 - Unspecified glaucoma (ICD-10) Ischemic cardiomyopathy ?I25.5 - Ischemic cardiomyopathy (ICD-10) Parkinson's disease with dyskinesia, with fluctuations (03/09/19) ?G20.B2 - Parkinson's disease with dyskinesia, with fluctuations (ICD-10) Postmenopausal atrophic vaginitis (10/14/12) ?N95.2 - Postmenopausal atrophic vaginitis (ICD-10) Peripheral vascular disease (06/20/23) ?I73.9 - Peripheral vascular disease, unspecified (ICD-10) Osteopenia (05/16/20) ?M85.80 - Other specified disorders of bone density and structure, unspecified site (ICD-10) Hyperlipidemia (05/16/20) ?E78.5 - Hyperlipidemia, unspecified (ICD-10) Chronic diastolic (congestive) heart failure (05/05/20) ?I50.32 - Chronic diastolic (congestive) heart failure (ICD-10) Multiple falls ?R29.6 - Repeated falls (ICD-10) Unsteady gait ?R26.81 - Unsteadiness on feet (ICD-10) Fall ?W19.XXXA - Unspecified fall, initial encounter (ICD-10) Proximal humerus fracture (07/14/23) ?S42.209A - Unspecified fracture of upper end of unspecified humerus, initial encounter for closed fracture (ICD-10) Frailty syndrome in geriatric patient ?R54 - Age-related physical debility (ICD-10) Cognitive impairment ?R41.89 - Other symptoms and signs involving cognitive functions and awareness (ICD-10) Melanoma ?C43.9 - Malignant melanoma of skin, unspecified (ICD-10) Heart failure with reduced ejection fraction ?I50.20 - Unspecified systolic (congestive) heart failure (ICD-10) Coronary artery disease ?I25.10 - Atherosclerotic heart disease of [place] coronary artery without angina pectoris (ICD-10) Parkinsons disease ?G20.A1 - Parkinson's disease without dyskinesia, without mention of fluctuations (ICD-10) Surgical History History of breast biopsy ?Z98.890 - Other specified postprocedural states (ICD-10) History of colonoscopy ?Z98.890 - Other specified postprocedural states (ICD-10) History of tonsillectomy ?Z90.89 - Acquired absence of other organs (ICD-10) History of hysterectomy ?Z90.710 - Acquired absence of both cervix and uterus (ICD-10) Hx of cataract surgery ?Z98.49 - Cataract extraction status, unspecified eye (ICD-10) Family History Brother Cardiovascular disease Father Cardiovascular disease Social History Narrative: She lives with her , Jeison, at [facility]. Her is healthcare power of senior trial attorney. Code status is DNR. Previously lived in [facility] and in [facility]. She is a nonsmoker. Rarely drinks alcohol. What is your current living situation?: I presently have a place to live Problems where you live: no known problems Problems where you live details: N/A In the past 12 months, utilities in danger of being shut off: no In past 12 months, lack of transportation kept you from medical appts, meetings, work, or getting things needed for daily living: no In the past 12 mos, have been you worried that your food would run out before you had money to buy more?: never true In the past 12 mos, the food you bought just didn't last and you didn't have money to buy more?: never true Smoking Status: Never smoker How often do you have a drink containing alcohol: never AUDIT-C Alcohol total score: 0 Non-prescribed substance use: denies use Caffeine: Yes How often does anyone, including family, friends and others, physically hurt you: unable to answer How often does anyone, including family, friends and others, insult or talk down to you: unable to answer How often does anyone, including family, friends and others, threaten you with harm: unable to answer How often does anyone, including family, friends and others, scream or curse at you: unable to answer service: No Exam Narrative: Exam Narrative: EXAM GENERAL: Patient appears comfortable and well holding her right elbow. EYES: No scleral icterus. LYMPH: No supraclavicular or cervical lymphadenopathy. SKIN: Visible skin seen during exam normal or with benign process only. EXT: No dependent lower extremity pedal edema. Significant swelling of the right elbow posteriorly. HEART: Regular rate and rhythm with no murmurs, rubs, or gallops. LUNGS: Clear to auscultation bilaterally with no crackles or wheezes. ABD: Soft, non tender, non distended. PSYCH: Good eye contact, speech is not pressured. Neurologic cranial nerves 2-12 grossly intact. Patient has obvious dimension has difficult time following the conversation. Const: Vital Signs, click to edit/add: Vital Signs - 24 hr 02/28/25 08:59 Temperature 97.3 F L Pulse Rate [Pulse Oximeter] 63 Respiratory Rate 16 Blood Pressure [Ri ght Upper Arm] 130/64 Pulse Oximetry 95 Oxygen Delivery Me thod Room Air Course Course ED Course: Patient seen examined. CT of the head and neck pending x-ray right elbow pending. Vital Signs Vital signs: Initial Vital Signs Temperature 97.3 F L 02/28/25 08:59 Temperature Source Temporal Artery Scan 02/28/25 08:59 Pulse Rate 63 02/28/25 08:59 Respiratory Rate 16 02/28/25 08:59 Blood Pressure 130/64 02/28/25 08:59 Blood Pressure Mean 86 02/28/25 08:59 Pulse Oximetry 95 02/28/25 08:59 Oxygen Delivery Method Room Air 02/28/25 08:59 Vital Signs Temperature 97.3 F L 02/28/25 08:59 Pulse Rate 63 02/28/25 08:59 Respiratory Rate 16 02/28/25 08:59 Blood Pressure 130/64 02/28/25 08:59 Pulse Oximetry 95 02/28/25 08:59 Oxygen Delivery Method Room Air 02/28/25 08:59 Temperature 97.3 F L 02/28/25 08:59 Pulse Rate 63 02/28/25 08:59 Respiratory Rate 16 02/28/25 08:59 Blood Pressure 130/64 02/28/25 08:59 Pulse Oximetry 95 02/28/25 08:59 Oxygen Delivery Method Room Air 02/28/25 08:59 Medical Decision Making MDM Narrative Medical decision making narrative: Patient is a 85-year-old woman who presents with frequent falls. She lives at [facility] in a memory care unit. Patient fell twice today striking her head and right elbow. Head CT and cervical spine CT are without abnormality. She does have obvious swelling of her right elbow. No other palpable abnormalities. Elbow x-ray shows intra-articular fracture. Patient has limited range of motion in significant swelling. Her function is limited as well. At this time I did place her in a 90 degree splint with a sling. Will keep her pain under control and get her back to her memory care unit. Do think she will need orthopedic follow-up this week although given her comorbidities I am not certain any intervention needs to be done. Discharge Plan Discharge Clinical Impression: Elbow fracture, right Patient Disposition: Home w/ Parent or Adult Condition: Stable Instructions: Elbow Fracture (ED) Additional Instructions: Tylenol Motrin Ice Continue splint Follow-up with orthopedics mid week. Activity Level: No Restrictions Discharge Diet: Regular Prescriptions: No Action aspirin [Adult Aspirin Regimen] 81 mg tablet,delayed release (DR/EC) 81 mg PO MOWEFR Rx Instructions: MON,WED,FRI carbidopa-levodopa 50-200 mg tablet extended release 1 tab PO HS donepezil 10 mg tablet 10 mg PO HS lisinopril 5 mg tablet 5 mg PO DAILY polyethylene glycol 3350 [ClearLax] 17 gram/dose powder 17 g PO DAILY rosuvastatin 20 mg tablet 20 mg PO HS carbidopa-levodopa 25-100 mg tablet 2.5 tab PO .TIDAC nitroglycerin 0.4 mg tablet, sublingual 0.4 mg sublingual Q5M PRN docusate sodium 100 mg capsule 100 mg PO BID Qty: 10 0RF magnesium citrate Solution See Rx Instructions .ROUTE .COMPLEX PRN (Reason: constipation) Qty: 296 0RF Rx Instructions: Take 10 oz bottle at once acetaminophen [Acetaminophen Pain Relief] 500 mg tablet 1,000 mg PO TID calcium carbonate-vitamin D3 [Calcium 500 + D] 500 mg-10 mcg (400 unit) tablet,chewable 1 tab PO DAILY gabapentin 100 mg capsule 100 mg PO HS melatonin 3 mg tablet 3 mg PO HS sodium chloride 1 gram tablet 1,000 mg PO DAILY oxycodone 5 mg Tablet 5 mg PO Q6H PRN senna 8.6 mg capsule 17.2 mg PO BID oseltamivir 30 mg Capsule 30 mg PO BID Qty: 6 0RF cefpodoxime 200 mg tablet 200 mg PO BID Qty: 6 0RF Rx Instructions: must administer with a meal/food Follow Up/Referrals: Della Franks MD [Primary Care Provider, Family Practice] Stand Alone Forms: [facility] Info Instructions
[2025-02-28 12:48] VITALS: BP 124/74; PULSE 66; RESP 16; TEMP 36.3
== END 2025-02-28 10:50 | disposition home or self-care (01) ==
PROVIDERS: Emergency Provider Internal Medicine; PCP Family Medicine
DX: S52.031A Displaced fracture of olecranon process with intraarticular extension of right ulna, initial encounter for closed fracture (principal); R29.6 Repeated falls; Z79.82 Long term (current) use of aspirin; W19.XXXA Unspecified fall, initial encounter; Y92.099 Unspecified place in other non-institutional residence as the place of occurrence of the external cause
CPT/HCPCS: 70450; 72125; 73070; 99283; 99284; 99285

== ENCOUNTER 2025-03-09 08:44 | Day surgery (SDC) | payer MEDICARE, BC, SELFPAY ==
[2025-03-09] VITALS (14 sets, daily range): BP systolic 129–167; BP diastolic 71–122; PULSE 73–102; RESP 16–20; TEMP 36.2–36.5; O2SAT 92–100; BMI 18.6
[2025-03-09] MEDS: SODIUM CHLORIDE 0.9 % (FLUSH) 10 ML SYRINGE IVF (09:25)
[2025-03-09] MEDS: LACTATED RINGERS 1000 ML 1,000 ML 100 ML IV (09:25)
[2025-03-09] MEDS: MIDAZOLAM HCL 1 MG/ML inj IVP (09:40)
--- NOTE | 2025-03-09 09:49 | P.ORPRC_ITS ---
Procedure Note Date of procedure: 03/09/25 Procedure: PREOPERATIVE DIAGNOSIS: 1. Right olecranon fracture, closed, displaced POSTOPERATIVE DIAGNOSIS: 1. Right olecranon fracture, closed, displaced PROCEDURE: 1. Right olecranon open reduction internal fixation SURGEON: Zafar Hernandez MD. PARKS WORKER: Nena Singer P.A.-C. - Of note, an quality assurance assistant was critical for this case to aid in patient positioning, tissue retraction, limb manipulation/positioning, and wound closure. ANESTHESIA: General anesthetic supraclavicular nerve block IMPLANTS: Arthrex dorsal olecranon plate (short, 2 hole) with 2.7 mm locking screws, 3.5 mm locking screws, and a 3.5 mm nonlocking screw. TOURNIQUET: 51 minutes at 200 mm Hg ESTIMATED BLOOD LOSS: 25 mL COMPLICATIONS: None INDICATIONS: The patient is a 85-year-old female with dementia who sustained a closed, displaced right olecranon fracture following a ground level fall. Patient subsequent made for surgical intervention consisting of right olecranon open reduction internal fixation to allow fracture to heal in anatomic position. Prior to surgery, the risks and benefits of the procedure were discussed with the patient's niece, all questions were answered, and informed consent was obtained. FINDINGS: Closed, displaced, mildly comminuted, intra-articular olecranon fracture. DESCRIPTION OF PROCEDURE: Patient was seen preoperatively and operative site was marked. A supraclavicular nerve block was then performed by anesthesia staff. The patient was brought to the operating room and placed supine on the operating table. Induction of anesthesia was undertaken in she was given 2 g IV Ancef preoperatively for prophylaxis. Patient is then rotated into the left lateral decubitus position and held in place with a beanbag. All bony prominences were well padded. A tourniquet was placed in the patient's right upper arm. Right upper extremity some prepped and draped in usual sterile fashion using ChloraPrep. A surgical time-out was then performed confirming patient identity, surgical site, and surgical procedure. Right upper extremity was then elevated and exsanguinated Esmarch and tourniquet inflated 200 mmHg. A longitudinal incision was then made over the proximal border of the olecranon and curved laterally around the tip of the olecranon. After making skin incision, blunt dissection was used to dissect through the subcutaneous tissues. Full-thickness skin flaps were made exposing proximal ulna. Fracture was readily identified. Fracture was cleared of fracture hematoma and irrigated with normal saline. Fracture ends were cleared of soft tissue proximally and laterally. Fracture was then reduced and held in position with a pointed reduction clamp. A short Arthrex dorsal olecranon plate was then selected and provisionally fixed with K-wire and BB Ye. Prior to this, the distal triceps was split midline to allow for the the plate to sit against the bone. Fluoroscopic images were obtained which showed anatomic reduction of the fracture and good placement of the plate. The plate was then fixed distally with a 3.5 mm nonlocking screw through the oblong hole. It was then fixed proximally with 2.7 mm long locking screw into the coronoid. K-wire and BB tack were then removed. A 2nd long locking 2.7 mm home run screw was then placed followed by 2 additional unicortical locking 2.7 mm screws proximally. Fluoroscopic images confirmed that the screws did not penetrate the articular surface. Plate was then fixed distally with 2 additional bicortical 3.5 mm locking screws. Final fluoroscopic images were obtained in multiple planes confirming near anatomic reduction of the fracture and good placement of the plate and screws. Elbow was ranged and fracture was confirmed to be stable. Tourniquet was then released total tourniquet time was 51 minutes. Wound was irrigated normal saline and hemostasis was achieved. The distal triceps tendon was reapproximated with 0 Vicryl [id number] interrupted sutures. Skin was then closed with 2-0 Vicryl inverted interrupted subcutaneous stitches followed by running 3-0 Monocryl subcuticular stitch and Dermabond. Sterile dressings were applied followed by the application of a well-padded long-arm splint. Patient was awoken from anesthesia and transferred the PACU in stable condition. PLAN: 1. Nonweightbearing right upper extremity. Keep splint clean and dry. Sling as needed for comfort. 2. Ice and elevation to help control pain and swelling. 3. Tylenol and oxycodone as needed for pain control. 4. Follow-up in Orthopedic Clinic in 2 weeks for wound check. -remove splint and convert to posterior elbow orthoses or hinged elbow brace. 5. Follow-up Dr. Hernandez in orthopedic clinic 6 weeks postop..
--- NOTE | 2025-03-09 09:49 | W.PM.H&PU ---
History & Physical Update History & Physical Update H&P Reviewed and patient assessed: No changes noted
--- NOTE | 2025-03-09 09:56 | SUR.PREOP ---
TIME?OUT:?0938 PT/RN/MDA?VERIFICATION?OF?SURGICAL?SITE-RIGHT ELBOW, NERVE BLOCK, ?PROCEDURE,?AND?CONSENT OBTAINED?PRIOR?TO?INVASIVE?PROCEDURE.
--- NOTE | 2025-03-09 10:34 | SUR.OPER ---
PATIENT/FAMILY/P.O.A. QUESTIONS ANSWERED SATISFACTORILY PREOPERATIVELY. PATIENT BROUGHT TO OR #1 PER CART FOLLOWING THE BLOCK. Patient positioned supine on OR #1 bed for the intubation.? Perioperative team turned the patient into a lateral left position for the porcedure.? Right arm elevated on an IV pole in a padded strap for the prep. Final approval of positioning by surgeon.
--- NOTE | 2025-03-09 11:44 | W.PM.NB ---
Nerve Block Nerve Block Time Seen by Provider: 09:40 Date Seen: 03/09/25 Type of block requested by surgeon for post-operative analgesia: supraclavicular Side: right Time out performed: Yes Verification of patient name: Yes Verification of date of : Yes Site marking: site marked Name of person performing procedure: Luis A Continuous monitoring Was continuous monitoring of O2 sat, B/P, quality assurance monitor body, recorded every 15 minutes?: Yes Procedure Checklist: sterile prep, needles and gloves Ultrasound guided. Images saved: Yes Medications given in 5ml increments after negative aspiration: Ropivicaine %: 0.5 mL: 20 Needle gauge: 22 Patient tolerated procedure well: Yes Block Charges Block Charge (with Pro Fee): Brachial Plexus Use of Ultrasound Machine for Block: Yes- US Guidance/pain block
--- NOTE | 2025-03-09 11:45 | CRLHL7_ITS ---
For Patients: As a result of the Cures Act, medical imaging exams and procedure reports are released immediately into your electronic medical record. You may view this report before your referring provider. If you have questions, please contact your health care provider. INDICATION: Right olecranon fracture ORIF TECHNIQUE: C-arm fluoroscopy for right olecranon fracture ORIF. AP and lateral C-arm spot images were obtained. Fluoroscopy time was 54.5 seconds. COMPARISON: 02/28/2025 FINDINGS: C-arm fluoroscopy for right olecranon fracture ORIF. Fracture fragments and hardware good alignment on the images provided. IMPRESSION: C-arm fluoroscopy for right olecranon fracture ORIF. Dictated by John Ma MD @ 03/10/2025 10:58:28 AM (Electronically Signed)
--- NOTE | 2025-03-09 11:45 | P.ANES_ITS ---
Anesthesia Charges Start Date/Time Anesthesia Start Date: 03/09/25 Anesthesia Start Time: 09:51 Stop Date/Time Anesthesia Stop Date: 03/09/25 Anesthesia Stop Time: 12:27 Summary Extremes of Age - Over 70 or under 1: MDA Coding CPT Codes CPT Codes: ANESTH UPPER ARM SURGERY - 82831 ([id number]) P3 - PATIENT W/SEVERE SYS DISEASE, QK - FORGING DIES FINAL FINISHER 2-4 CNCRNT ANES PROC, QX - BIBLIOGRAPHIC SERVICES SPECIALIST SVC W/ MD MED DIRECTION Additional Codes: Summary - Extremes of Age - Over 70 or under 1: MDA ([id number])
--- NOTE | 2025-03-09 11:45 | W.ANESCHARGE ---
Anesthesia Charges Start Date/Time Anesthesia Start Date: 03/09/25 Anesthesia Start Time: 09:51 Stop Date/Time Anesthesia Stop Date: 03/09/25 Anesthesia Stop Time: 12:27 Summary Extremes of Age - Over 70 or under 1: MDA Coding CPT Codes CPT Codes: ANESTH UPPER ARM SURGERY - 38494 ([id number]) P3 - PATIENT W/SEVERE SYS DISEASE, QK - CONSULTING PSYCHIATRIST 2-4 CNCRNT ANES PROC, QX - FACSIMILE MACHINE OPERATOR SVC W/ MD MED DIRECTION Additional Codes: Summary - Extremes of Age - Over 70 or under 1: MDA ([id number])
--- NOTE | 2025-03-09 12:31 | P.ANES_ITS ---
Anesthesia Charges Start Date/Time Anesthesia Start Date: 03/09/25 Anesthesia Start Time: 09:51 Stop Date/Time Anesthesia Stop Date: 03/09/25 Anesthesia Stop Time: 12:27 Coding CPT Codes CPT Codes: ANESTH UPPER ARM SURGERY - 15661 ([id number]) P3 - PATIENT W/SEVERE SYS DISEASE, QK - GUEST SERVICES ASSOCIATE 2-4 CNCRNT ANES PROC
--- NOTE | 2025-03-09 12:31 | W.ANESCHARGE ---
Anesthesia Charges Start Date/Time Anesthesia Start Date: 03/09/25 Anesthesia Start Time: 09:51 Stop Date/Time Anesthesia Stop Date: 03/09/25 Anesthesia Stop Time: 12:27 Coding CPT Codes CPT Codes: ANESTH UPPER ARM SURGERY - 30345 ([id number]) P3 - PATIENT W/SEVERE SYS DISEASE, QK - SUPERINTENDENT STATIONS 2-4 CNCRNT ANES PROC
== END 2025-03-09 14:39 | disposition home or self-care (01) ==
LOC: OR 08:45
PROVIDERS: PCP Family Medicine; Visit Provider Orthopaedic Surgery
PROC: (CPT 24685; principal; 2025-03-09 09:45)
DX: S52.021A Displaced fracture of olecranon process without intraarticular extension of right ulna, initial encounter for closed fracture (principal); G89.18 Other acute postprocedural pain
CPT/HCPCS: 24685; 01740; 64415; 73070; 76000; 76942; 99100; C1713; J0330; J0690; J1100; J2250; J2371; J2405; J2704; J2710; J2795; J3010; J7120

== ENCOUNTER 2025-03-14 17:58 | Outpatient (CLI) | payer MEDICARE, BC, SELFPAY | END 2025-03-14 17:59 | disposition home or self-care (01) | LOC: AMB 03-18 18:15 | PROVIDERS: PCP Family Medicine; Visit Provider Student in an Organized Health Care Education/Training Program | DX: S09.90XA Unspecified injury of head, initial encounter (principal); W01.190A Fall on same level from slipping, tripping and stumbling with subsequent striking against furniture, initial encounter; Y92.121 Bathroom in nursing home as the place of occurrence of the external cause | CPT/HCPCS: A0425; A0427 ==

== ENCOUNTER 2025-03-14 18:12 | Emergency (ER) | payer MEDICARE, BC, SELFPAY ==
--- OUTSIDE RECORDS SUMMARY | 2025-03-14 18:14 | XMS_ITS | Clinical Summary ---
Author Organization [facility] Address [address] [place] [address] Care Team Providers Care Control Operator Name Role Phone foreign Daja AGUIRRE, P.A.-C. Primary Care Prov ider Source Comments Patient records contain information from all sites at [facility]. For routine questions regarding patient records, call [phone] during business hours, M-F 8:00 AM - 5:00 PM Central Time. Record requests for emergency care only can be directed to [phone] at any time.[facility] Allergies Active Allergy Reactions Criticality Noted Date Comments [place] Pollen Itching Medium 10/14/2012 Seasonal Allergies: Allergic [...] Acute Pain. 12 tablet 05/08/2024 10:10 PM AGRICULTURAL LENDER 5 Active Additional Information Patient not taking.Reported [...] kg Assessment & Plan (06/20/2023 7:48 AM AGRICULTURAL LENDER): Euvolemic. Melanoma Ear Right 03/09/2019 Overview (03/09/2019): Added automatically from request for surgery [id number] Parkinson's Disease With Dyskinesia, With Fluctu ations [...] management. Assessment & Plan (06/20/2023 11:01 AM AGRICULTURAL LENDER): She is wandering 24/7. She needs a [...] once she has been taking it at [facility] in a more controled way. Personal History [...] Breast cancer (in one breast) Maternal Grandmother Ros e Vero Breast cancer (in one breast) Mother's Sister [...] things needed for daily living? No 11/03/2024 [facility] Utilities Answer Date Recorded In the past 12 months has e electric, gas, oil, or water company threatened to shut off services in your home? No 11/03/2024 Depression Answer Date Recor ded PHQ-9 Total Score (max 27) 9 10/18 Housing Stability Answer Date Recorded What is your living situation today? I have a [facility] place to live 11/03/2024 Education Answer Date Recorded What is the highest level of school you have completed or the highest degree you have received? Bachelor's degree (e.g., BA, AB, BS) 03/05/2019 Comments No Sex and Gender Information Value Date Recorded Sex Assigned at Female 12/15/2020 11:07 AM CDT Legal Sex Female 8:25 AM AGRICULTURAL LENDER Gender Identity Female 03/05/2019 8:17 AM AGRICULTURAL LENDER Sexual Orientation Straight 03/05/2019 8: 17 AM AGRICULTURAL LENDER Last Filed Vital Signs Vital Sign Reading Time Taken Comments Blood Pressure 151/86 05/08/2024 8:00 PM AGRICULTURAL LENDER Pulse 93 05/08/2024 7:00 PM AGRICULTURAL LENDER Temperature 36.7 C (98.1 F) 05/08/2024 4:35 PM AGRICULTURAL LENDER Respiratory Rate 14 05/08/2024 4:35 PM AGRICULTURAL LENDER Oxygen Saturation 95% 05/08/2024 7:00 PM AGRICULTURAL LENDER Inhaled Oxygen Concentration - - Weight 43.4 kg (95 lb 9.6 oz) 06/25/2023 9:43 AM CDT Height 154.9 cm (5' 1) 06/16/2023 2:45 PM AGRICULTURAL LENDER Body Mass Index 18.06 06/16/2023 2:45 PM AGRICULTURAL LENDER Plan of Treatment Health Maintenance Due Date [...] METABOLIC PANEL, S/P STAT 05/08/2024 5:43 PM AGRICULTURAL LENDER from Last 3 Months or Most Recently Relevant to Health Maintenance Results * (ABNORMAL) Basic Metabolic Panel (05/08/2024 5:43 PM AGRICULTURAL LENDER) Potassium, P 3.7 3.6 - 5.2 mmol/L 05/08/2024 6:14 PM AGRICULTURAL LENDER [facility] Sodium, P 135 135 - 145 mmol/L 05/08/2024 6:14 PM AGRICULTURAL LENDER [facility] Chloride, P 98 98 - 107 mmol/L 05/08/2024 6:14 PM AGRICULTURAL LENDER [facility] Bicarbonate, P 24 22 - 29 mmol/L 05/08/2024 6:14 PM A[employer]ICULTURAL LENDER [facility] Anion Gap, P 13 7 - 15 05/08/2024 6:14 PM AGRICULTURAL LENDER [facility] BUN (Blood Urea Nitrogen), P 12 6 - 21 mg/dL 05/08/2024 6:14 PM AGRICULTURAL LENDER [facility] Creatinine 0.55(L) 0.59 - 1.04 mg/dL 05/08/2024 6:14 PM AGRICULTURAL LENDER [facility] Estimated GFR (eGFR) >90 >=60 mL/min/BSA 05/08/2024 6:14 PM AGRICULTURAL LENDER [facility] Comment: Estimated GFR calculated using the 2020 CKD_EPI creatinine equation. Calcium, Total, P 8.9 8.8 - 10.2 mg/dL 05/08/2024 6:14 PM AGRICULTURAL LENDER [facility] Glucose, P 139 70 - 140 mg/dL 05/08/2024 6:14 PM AGRICULTURAL LENDER [facility] Blood (Blood, Venous) 05/08/2024 5:43 PM AGRICULTURAL LENDER 05/08/2024 5:49 PM AGRICULTURAL LENDER Fara Rojas M.D. LAB BLOOD ADD-ON Final Resu lt [facility] [address] [place] [address], [place] [facility] [address] [place] [address] from Last 3 Months or Most Recently Relevant to Health Maintenance Insurance [address] [place] [address] MEDICARE Advance Directives For more information, please contact: [phone] Documents on File Type Date Recorded Patient Lifter Driver Expl anation Advance Directives 10/25/2022 2:10 PM Jose Manuel james) Rahel Eduardo HCPOA/ADVOCATE/AGENT/ DEVELOPMENT SPECIALIST/SURROG ATE Advance Directives 06/14/2021 7:48 AM HCPOA /ADVOCATE/AGENT/ DEVELOPMENT SPECIALIST/SURROG ATE * DNR/DNI (Latest Code Status on File) Date Activated Date Inactivated Comments 06/16/2023 3:58 PM 06/18/2023 3:45 PM Healthcare Agents on File Name Relationship Healthcare Agent Relationship Communication Jose Manuel Medrano ([place]) Spouse Health Care Agent [email or web address] Medrano Relative Health Care Agent Rafaela Eduardo Relative Health Care Agent [email or web address] Care Teams Control Operator Relationship Specialty Start Date End Date Daja Keys MPAS, P.A.-C. [address] [place] [id number] PCP - General Family Medicine 07/04/23
[2025-03-14 18:15] VITALS: BP 131/62; PULSE 69; RESP 18; TEMP 36.5; O2SAT 98
--- NOTE | 2025-03-14 18:40 | CRLHL7_ITS ---
For Patients: As a result of the Century Cures Act, medical imaging exams and procedure reports are released immediately into your electronic medical record. You may view this report before your referring provider. If you have questions, please contact your health care provider. INDICATION: fall and hit head dementia TECHNIQUE: CT of the head without contrast. Coronal and sagittal reformats. Bone and soft tissue algorithms. COMPARISON: CT 02/28/2025 FINDINGS: No acute intracranial hemorrhage or extra-axial collection. No evidence of acute cortical infarction. No mass effect or midline shift. Moderate generalized parenchymal volume loss. Moderate regions of decreased attenuation within the periventricular and subcortical white matter of both cerebral hemispheres most likely reflect chronic microvascular ischemic disease and age related change in this patient. Vascular calcifications within the carotid siphons. Orbital contents are normal. No calvarial fractures. No lytic or sclerotic osseous lesions within the calvarium or skull base. Scalp and other imaged soft tissue structures are normal. Mastoid air cells are clear. Advanced degenerative changes in the temporomandibular joints. IMPRESSION: No acute intracranial abnormality. No significant changes compared to the prior exam. Please note that all CT scans at this facility use dose modulation, iterative reconstruction, and/or weight-based dosing when appropriate to reduce radiation dose to as low as reasonably achievable. Dictated by Julio Alonso MD @ 03/14/2025 7:55:54 PM (Electronically Signed)
--- NOTE | 2025-03-14 18:42 | CRLHL7_ITS ---
For Patients: As a result of the Century Cures Act, medical imaging exams and procedure reports are released immediately into your electronic medical record. You may view this report before your referring provider. If you have questions, please contact your health care provider. Indication: Trauma Technique: Noncontrast axial CT of the cervical spine with coronal and sagittal reformats are provided. Comparison: CT 05/09/2024 Findings: The overall stature, alignment of the cervical spine is within normal limits. No fractures. Fusion of the C2-3 posterior elements. Grade 1 anterolisthesis at C3-4 and C7-T1. Prevertebral soft tissues, cervical airway, dens and lateral masses are within normal limits. Mild scattered degenerative changes of the cervical spine. Advanced left facet arthrosis at C3-4. Moderate left facet joint arthrosis at C4-5 with mild left neural foraminal narrowing and uncovertebral joint hypertrophy. At C5-6, mild bilateral neural foraminal narrowing due to uncovertebral joint hypertrophy. Shallow disc osteophyte complex without significant spinal canal stenosis. Multinodular thyroid goiter. Impression: 1. No convincing radiographic evidence of acute osseous injury. 2. Scattered degenerative changes of the cervical spine. 3. Multinodular thyroid goiter. Please note that all CT scans at this facility use dose modulation, iterative reconstruction, and/or weight-based dosing when appropriate to reduce radiation dose to as low as reasonably achievable. Dictated by Julio Alonso MD @ 03/14/2025 7:58:37 PM (Electronically Signed)
--- NOTE | 2025-03-14 18:43 | ED.FALL ---
HPI - Fall General Date Seen: 03/14/25 Chief Complaint: Fall/Minor Trauma Stated Complaint: fall Time Seen by Provider: 03/14/25 18:18 Source: family Mode of arrival: EMS History of Present Illness HPI Narrative: Patient is an 85-year-old female presenting to the emergency department for a fall. Per her she was getting and walking when she tripped over the nightstand. She hit the back of her head on the bed frame. There was no loss of consciousness. Not on any blood thinners. Her states she has been acting normally since the fall. No other concerns noted. She has had multiple falls over the past several weeks. Recently had elbow surgery 3 days ago for an elbow fracture from a fall. Is not complaining of any pain. Related Data Home Medications ?Medication ?Instructions ?Recorded ?Confirmed aspirin 81 mg tablet,delayed 81 mg PO MOWEFR 07/13/23 03/03/25 release (Adult Aspirin Regimen) carbidopa 25 mg-levodopa 100 mg 2.5 tab PO .TIDAC 07/13/23 03/03/25 tablet carbidopa ER 50 mg-levodopa 200 mg 1 tab PO HS 07/13/23 03/03/25 tablet,extended release donepezil 10 mg tablet 10 mg PO HS 07/13/23 03/03/25 lisinopril 5 mg tablet 5 mg PO DAILY 07/13/23 03/03/25 nitroglycerin 0.4 mg sublingual 0.4 mg sublingual Q5M PRN 07/13/23 03/03/25 tablet polyethylene glycol 3350 17 17 g PO DAILY 07/13/23 03/03/25 gram/dose oral powder (ClearLax) rosuvastatin 20 mg tablet 20 mg PO HS 07/13/23 03/03/25 acetaminophen 500 mg tablet 1,000 mg PO TID 06/01/24 03/03/25 (Acetaminophen Pain Relief) calcium 500 mg (as carbonate)-vit 1 tab PO DAILY 06/01/24 03/03/25 D3 10 mcg (400 unit) chewable tablet (Calcium 500 + D) gabapentin 100 mg capsule 100 mg PO HS 06/01/24 03/03/25 melatonin 3 mg tablet 3 mg PO HS 06/01/24 03/03/25 oxycodone 5 mg tablet 5 mg PO Q6H PRN 06/01/24 03/03/25 sodium chloride 1 gram tablet 1,000 mg PO DAILY 06/01/24 03/03/25 sennosides 8.6 mg capsule (senna) 17.2 mg PO BID 06/02/24 03/03/25 Previous Rx's ?Medication ?Instructions ?Recorded docusate sodium 100 mg capsule 100 mg PO BID #10 caps 02/01/24 magnesium citrate See Rx Instructions .Route 02/01/24 .COMPLEX PRN constipation #296 mL cefpodoxime 200 mg tablet 200 mg PO BID #6 tabs 06/03/24 oseltamivir 30 mg capsule 30 mg PO BID #6 caps 06/03/24 oxycodone 5 mg tablet 2.5 - 5 mg (0.5 - 1 x 5 mg) PO Q4H 03/09/25 PRN pain #14 tabs Allergies Allergy/AdvReac Type Severity Reaction Status Date / Time pollen extracts Allergy Unknown Verified 03/09/25 07:59 Review of Systems Status of ROS: Reports: 10 or more systems reviewed and unremarkable except as noted in History and below [facility] Medical History Altered mental status ?R41.82 - Altered mental status, unspecified (ICD-10) UTI (urinary tract infection) ?N39.0 - Urinary tract infection, site not specified (ICD-10) Lewy body dementia ?G31.83 - Neurocognitive disorder with Lewy bodies (ICD-10) ?F02.80 - Dementia in other diseases classified elsewhere, unspecified severity, without behavioral disturbance, psychotic disturbance, mood disturbance, and anxiety (ICD-10) Multinodular goiter ?E04.2 - Nontoxic multinodular goiter (ICD-10) Glaucoma ?H40.9 - Unspecified glaucoma (ICD-10) Ischemic cardiomyopathy ?I25.5 - Ischemic cardiomyopathy (ICD-10) Parkinson's disease with dyskinesia, with fluctuations (03/09/19) ?G20.B2 - Parkinson's disease with dyskinesia, with fluctuations (ICD-10) Postmenopausal atrophic vaginitis (10/14/12) ?N95.2 - Postmenopausal atrophic vaginitis (ICD-10) Peripheral vascular disease (06/20/23) ?I73.9 - Peripheral vascular disease, unspecified (ICD-10) Osteopenia (05/16/20) ?M85.80 - Other specified disorders of bone density and structure, unspecified site (ICD-10) Hyperlipidemia (05/16/20) ?E78.5 - Hyperlipidemia, unspecified (ICD-10) Chronic diastolic (congestive) heart failure (05/05/20) ?I50.32 - Chronic diastolic (congestive) heart failure (ICD-10) Multiple falls ?R29.6 - Repeated falls (ICD-10) Unsteady gait ?R26.81 - Unsteadiness on feet (ICD-10) Fall ?W19.XXXA - Unspecified fall, initial encounter (ICD-10) Proximal humerus fracture (07/14/23) ?S42.209A - Unspecified fracture of upper end of unspecified humerus, initial encounter for closed fracture (ICD-10) Frailty syndrome in geriatric patient ?R54 - Age-related physical debility (ICD-10) Cognitive impairment ?R41.89 - Other symptoms and signs involving cognitive functions and awareness (ICD-10) Melanoma ?C43.9 - Malignant melanoma of skin, unspecified (ICD-10) Heart failure with reduced ejection fraction ?I50.20 - Unspecified systolic (congestive) heart failure (ICD-10) Coronary artery disease ?I25.10 - Atherosclerotic heart disease of [place] coronary artery without angina pectoris (ICD-10) Parkinsons disease ?G20.A1 - Parkinson's disease without dyskinesia, without mention of fluctuations (ICD-10) Surgical History History of open reduction and internal fixation (ORIF) procedure (03/09/25) ?Z98.890 - Other specified postprocedural states (ICD-10) History of breast biopsy ?Z98.890 - Other specified postprocedural states (ICD-10) History of colonoscopy ?Z98.890 - Other specified postprocedural states (ICD-10) History of tonsillectomy ?Z90.89 - Acquired absence of other organs (ICD-10) History of hysterectomy ?Z90.710 - Acquired absence of both cervix and uterus (ICD-10) Hx of cataract surgery ?Z98.49 - Cataract extraction status, unspecified eye (ICD-10) Family History Brother Cardiovascular disease Father Cardiovascular disease Social History Narrative: She lives with her , Jeison, at [facility]. Her is healthcare power of employment attorney. Code status is DNR. Previously lived in [facility] and in [facility]. She is a nonsmoker. Rarely drinks alcohol. What is your current living situation?: I presently have a place to live Problems where you live: no known problems Problems where you live details: N/A In the past 12 months, utilities in danger of being shut off: no In past 12 months, lack of transportation kept you from medical appts, meetings, work, or getting things needed for daily living: no In the past 12 mos, have been you worried that your food would run out before you had money to buy more?: never true In the past 12 mos, the food you bought just didn't last and you didn't have money to buy more?: never true Smoking Status: Never smoker Do you use any of these nicotine containing products: None How often do you have a drink containing alcohol: never AUDIT-C Alcohol total score: 0 Non-prescribed substance use: denies use Caffeine: Yes How often does anyone, including family, friends and others, physically hurt you: unable to answer How often does anyone, including family, friends and others, insult or talk down to you: unable to answer How often does anyone, including family, friends and others, threaten you with harm: unable to answer How often does anyone, including family, friends and others, scream or curse at you: unable to answer Are you using contraception or practicing any form of control: No service: No Exam Narrative: Exam Narrative: Const: Well-nourished, Well-developed, in no distress Eyes: PERRL, no conjunctival injection, and symmetrical lids HENT: Atraumatic external nose and ears. Moist mucous membranes. Neck: Symmetric, trachea midline, No thyromegaly. CVS: RRR, No murmurs or gallops. Peripheral pulses 2+ and equal in all extremities RESP: Unlabored respiratory effort. Clear to auscultation bilaterally. GI: Nontender/Nondistended, No rebound or guarding. MSK:Extremities w/o deformity, Normal Active ROM, no midline spinal tenderness. Right arm is in a sling and splint. No chest wall tenderness Skin: Warm, Dry. No rashes or lesions. Neuro: Normal Muscle tone, No focal neurological deficits. Psych: Awake, Alert, & Oriented x3. Appropriate mood and affect. Const: Vital Signs, click to edit/add: Vital Signs - 24 hr 03/14/25 18:15 Temperature 97.7 F Pulse Rate [Pulse Oximeter] 69 Respiratory Rate 18 Blood Pressure [Le ft Upper Arm] 131/62 Pulse Oximetry 98 Oxygen Delivery Me thod Room Air Course Vital Signs Vital signs: Initial Vital Signs Temperature 97.7 F 03/14/25 18:15 Temperature Source Temporal Artery Scan 03/14/25 18:15 Pulse Rate 69 03/14/25 18:15 Respiratory Rate 18 03/14/25 18:15 Blood Pressure 131/62 03/14/25 18:15 Blood Pressure Mean 85 03/14/25 18:15 Blood Pressure Position Supine 03/14/25 18:15 Pulse Oximetry 98 03/14/25 18:15 Oxygen Delivery Method Room Air 03/14/25 18:15 Vital Signs Temperature 97.7 F 03/14/25 18:15 Pulse Rate 69 03/14/25 18:15 Respiratory Rate 18 03/14/25 18:15 Blood Pressure 131/62 03/14/25 18:15 Pulse Oximetry 98 03/14/25 18:15 Oxygen Delivery Method Room Air 03/14/25 18:15 Temperature 97.7 F 03/14/25 18:15 Pulse Rate 69 03/14/25 18:15 Respiratory Rate 18 03/14/25 18:15 Blood Pressure 131/62 03/14/25 18:15 Pulse Oximetry 98 03/14/25 18:15 Oxygen Delivery Method Room Air 03/14/25 18:15 MDM - Fall MDM Narrative Medical decision making narrative: Patient is an 85-year-old female presenting to the emergency department after fall. She is otherwise acting at her baseline according to her . Will CT scan her head and cervical spine. Based on the history this sounds like a mechanical fall and I do not believe further workup is indicated. CT scan of the head and cervical spine interpreted by myself and the radiologist show no acute concerning abnormalities. The niece is now here in states that she was told that when they checked her vital signs after the patient's fall today she she had a low blood pressure and a low heart rate. They are unsure how low the heart rate was but they think it was 70. This heart rate does not seem overtly lower concerning but the niece also states the patient has been complaining about back pain. I did press on her posterior ribs and she was tender mostly on left side. She states this has been going on for the past week and they did x-rays last week that the not show any fractures. Due to all this I will do a EKG, CBC, BMP, magnesium, urinalysis, CT scan chest. EKG interpreted by myself shows no concerning abnormalities. Lab work returned showing no concerning abnormalities. She has a slightly elevated white blood cell count 13 but no clear signs of infection. Sodium slightly low at 129 but is not low enough to be of concerned. Urinalysis shows no concerning abnormalities. Chest CT interpreted by myself the radiologist show fractures from ribs 4 through 10 on the left. Unsure exactly if these are week old or new or some them could possibly be old some of them are new. Her states she fell hard today and with help further her bones are she is very low he has a could have broken her ribs on 2 different days. I spoke to [facility] ED provider, Dr. Sharif, who accepted her for transfer. Family is agreeable to this plan. Lab Data Labs: Lab Results 03/14/25 03/14/25 03/14/25 Range/Units 20:25 20:55 21:08 WBC 13.02 H (4.50-11.00) K/uL RBC 4.08 (4.00-5.20) m/uL Hgb 13.1 (12.0-16.0) gm/dL Hct 39.3 (33.0-51.0) % MCV 96 (80-100) fL MCH 32 (26-34) pg MCHC 33 (32-36) gm/dL RDW Coeff of [place] 11.8 (11.5-15.5) % Plt Count 285 (140-440) K/uL Neut % (Auto) 72.4 H (42.0-72.0) % Lymph % (Auto) 17.1 L (20-44) % Edmunds % (Auto) 7.8 (0.0-11.0) % Eos % (Auto) 1.9 (0.0-7.0) % Baso % (Auto) 0.2 (0.0-3.0) % Neut # (Auto) 9.40 H (1.7-7.0) K/uL Lymph # (Auto) 2.20 (0.90-2.90) K/uL Ed[place]ds # (Auto) 1.00 H (0.00-0.90) K/UL Eos # (Auto) 0.20 (0.00-0.50) K/uL Baso # (Auto) 0.00 (0.00-0.30) K/uL Abs Immat Gran (auto) 0.10 (0.00-0.30) K/uL Imm/Tot Granulo (auto) 0.6 % Sodium 129 L (135-149) mmol/L Potassium 3.4 L (3.6-5.1) mmol/L Chloride 93 L (96-114) mmol/L Carbon Dioxide 24 (20-32) mmol/L Anion Gap 12 (7-15) mEq/L BUN 16 (7-30) mg/dL Creatinine 0.5 (0.5-1.5) mg/dL Estimated GFR 92 ml/min Glucose 117 H (60-115) mg/dL Calcium 8.9 (8.4-10.6) mg/dL Magnesium 1.9 (1.5-2.6) mg/dL Urine Color Yellow (Yellow) Urine Appearance Clear (Clear) Urine pH 7.0 (5.0-8.5) Ur Specific [place] 1.015 (1.000-1.030) Urine Protein Negative (Negative) Urine Glucose (UA) Negative (Negative) Urine Ketones Trace A (Negative) Urine Blood Negative (Negative) Urine Nitrite Negative (Negative) Urine Bilirubin Negative (Negative) Urine Urobilinogen 0.2 (0.2-1.0) Ur Leukocyte Esterase Negative (Negative) Urine RBC 0-2 (0-2) Urine WBC 0-2 (0-5) Ur Squamous Epith Cells None (None-Few) Urine Bacteria None (None) Imaging Data CT scan head: Attestation: I have reviewed the pertinent imaging results. Radiologist's impression: No acute intracranial abnormality. No significant changes compared to the prior exam. Please note that all CT scans at this facility use dose modulation, iterative reconstruction, and/or weight-based dosing when appropriate to reduce radiation dose to as low as reasonably achievable. Dictated by Julio Alonso MD @ 03/14/2025 7:55:[address] scan cervical spine: Attestation: I have reviewed the pertinent imaging results. Radiologist's impression: 1. No convincing radiographic evidence of acute osseous injury. 2. Scattered degenerative changes of the cervical spine. 3. Multinodular thyroid goiter. Please note that all CT scans at this facility use dose modulation, iterative reconstruction, and/or weight-based dosing when appropriate to reduce radiation dose to as low as reasonably achievable. Dictated by Julio Alonso MD @ 03/14/2025 7:58:[address] scan chest: Attestation: I have reviewed the pertinent imaging results. Radiologist's impression: Acute appearing left 4th through 10th rib fractures with a small to moderate left pleural effusion. Additional chronic fractures and other chronic findings as above. Please note that all CT scans at this facility use dose modulation, iterative reconstruction, and/or weight-based dosing when appropriate to reduce radiation dose to as low as reasonably achievable. Dictated by Dread rAriaga MD @ 03/14/2025 9:28:21 PM ECG Data Attestation: I personally reviewed and interpreted this ECG as follows: Prior ECG tracings: not available for review Interpretation: Normal sinus rhythm with a rate of 91 beats per minute, left axis deviation, normal intervals, no ST or T-wave abnormalities. Appears similar to previous EKGs on file. Discharge Plan Discharge Clinical Impression: Multiple fractures of rib involving four or more ribs Patient Disposition: [facility] Condition: Guarded
--- NOTE | 2025-03-14 19:50 | CRLHL7_ITS ---
For Patients: As a result of the Cures Act, medical imaging exams and procedure reports are released immediately into your electronic medical record. You may view this report before your referring provider. If you have questions, please contact your health care provider. Indication: Lower rib pain, recent fall Technique: Noncontrast CT of the chest with multiplanar reformats. Comparison: None Findings: Lungs: Small-moderate left effusion and atelectasis. Trace right effusion. No concerning pulmonary nodules are appreciated. Mediastinum: Small pericardial effusion. Calcified coronary arterial and aortic atherosclerosis. Small to moderate hiatal hernia. Lymph nodes: No gross lymphadenopathy. Upper abdomen: No acute abnormality appreciated. Soft tissues: No acute abnormality appreciated. Bones: Chronic thoracic vertebral fractures. Acute fractures of the left 4th through 10th ribs. Chronic appearing left humeral fracture. Impression: Acute appearing left 4th through 10th rib fractures with a small to moderate left pleural effusion. Additional chronic fractures and other chronic findings as above. Please note that all CT scans at this facility use dose modulation, iterative reconstruction, and/or weight-based dosing when appropriate to reduce radiation dose to as low as reasonably achievable. Dictated by Dread Arriaga MD @ 03/14/2025 9:28:21 PM (Electronically Signed)
[2025-03-14 20:00] VITALS: BP 153/79; PULSE 92; RESP 18; O2SAT 98
[2025-03-14 20:47] LABS: Hematocrit* 39.3 % (33.0-51.0); Hemoglobin* 13.1 gm/dL (12.0-16.0); Immature Granulocytes Pct Auto 0.6 %; Mean Corpuscular HGB Conc 33 gm/dL (32-36); Mean Corpuscular Hemoglobin 32 pg (26-34); Mean Corpuscular Volume 96 fL (80-100); RDW Coefficient of Variation % 11.8 % (11.5-15.5); Red Blood Count* 4.08 m/uL (4.00-5.20); White Blood Count* 13.02 K/uL (4.50-11.00)
[2025-03-14 20:49] LABS: Immature Granulocytes Abs Auto 0.10 K/uL (0.00-0.30); Lymphocytes Absolute Auto 2.20 K/uL (0.90-2.90); Slide Review Reflex No
[2025-03-14 21:19] LABS: Appearance Urine Clear (Clear)
[2025-03-14 21:29] LABS: Chloride* 93 mmol/L (96-114); Potassium* 3.4 mmol/L (3.6-5.1); Sodium* 129 mmol/L (135-149)
[2025-03-14 21:32] LABS: Anion Gap 12 mEq/L (7-15); Blood Urea Nitrogen* 16 mg/dL (7-30); Calcium* 8.9 mg/dL (8.4-10.6); Carbon Dioxide* 24 mmol/L (20-32); Creatinine* 0.5 mg/dL (0.5-1.5); Estimated Glomerular Filt Rate 92 ml/min; Glucose* 117 mg/dL (60-115)
[2025-03-14 22:40] VITALS: BP 164/99; PULSE 95; RESP 18; O2SAT 97
== END 2025-03-14 23:54 | disposition short-term general hospital (02) ==
PROVIDERS: Emergency Provider Student in an Organized Health Care Education/Training Program; PCP Family Medicine
DX: S09.90XA Unspecified injury of head, initial encounter (principal); S22.42XA Multiple fractures of ribs, left side, initial encounter for closed fracture; W01.10XA Fall on same level from slipping, tripping and stumbling with subsequent striking against unspecified object, initial encounter
CPT/HCPCS: 36415; 70450; 71250; 72125; 80048; 81001; 83735; 85025; 96374; 99285; J2270

== ENCOUNTER 2025-04-13 09:49 | Outpatient (REF) | payer MEDICARE, BC, SELFPAY ==
[2025-04-13 10:25] LABS: Hematocrit* 41.5 % (33.0-51.0); Hemoglobin* 13.4 gm/dL (12.0-16.0); Immature Granulocytes Abs Auto 0.03 K/uL (0.00-0.30); Immature Granulocytes Pct Auto 0.3 %; Mean Corpuscular HGB Conc 32 gm/dL (32-36); Mean Corpuscular Hemoglobin 32 pg (26-34); Mean Corpuscular Volume 99 fL (80-100); RDW Coefficient of Variation % 12.3 % (11.5-15.5); Red Blood Count* 4.20 m/uL (4.00-5.20); White Blood Count* 9.08 K/uL (4.50-11.00)
[2025-04-13 10:33] LABS: Lymphocytes Absolute Auto 1.50 K/uL (0.90-2.90)
[2025-04-13 10:34] LABS: Slide Review Reflex No
[2025-04-13 10:48] LABS: Chloride* 97 mmol/L (96-114); Sodium* 132 mmol/L (135-149)
[2025-04-13 10:49] LABS: Potassium* 3.7 mmol/L (3.6-5.1)
[2025-04-13 10:52] LABS: Anion Gap 5 mEq/L (7-15); Blood Urea Nitrogen* 12 mg/dL (7-30); Calcium* 8.6 mg/dL (8.4-10.6); Carbon Dioxide* 30 mmol/L (20-32); Creatinine* 0.5 mg/dL (0.5-1.5); Estimated Glomerular Filt Rate 92 ml/min; Glucose* 87 mg/dL (60-115)
--- OUTSIDE RECORDS SUMMARY | 2025-04-14 00:14 | XMS_ITS | Clinical Summary ---
Author Organization [facility] Address [address] [place] [address] Care Team Providers Care Prosthetic Technician Name Role Phone foreign Daja AGUIRRE, P.A.-C. Primary Care Prov ider Source Comments Patient records contain information from all sites at [facility]. For routine questions regarding patient records, call [phone] during business hours, M-F 8:00 AM - 5:00 PM Central Time. Record requests for emergency care only can be directed to [phone] at any time.[facility] Allergies Active AllergyReactionsCriticalityNoted DateCommentsWeed PollenItchingMedium 10/14/2012 Seasonal Allergies: Allergic Rhinitis, Itchy watery eyes, Sneezing Medications * This document contains information received from the source organization and may not represent a complete record from that organization. MedicationSigDispense QuantityRefillsLast FilledStart DateEnd DateStatus acetaminophen (TYLENOL) 325 mg tablet Take 325 mg by mouth every 6 (six) hours as needed for pain.Active calcium citrate-vitamin D3 (CITRACAL+D) 315-200 mg-unit per tablet 1 tablet daily with breakfast. Does not take on SaturdaysActive aspirin [address] tablet Take 1 tablet (81 mg total) by mouth 3 (three) times a week. Take on Mondays, Wednesdays and Fridays only 12 tablet ctive rosuvastatin (CRESTOR) 20 mg tablet Take 1 tablet (20 mg total) by mouth daily. 90 tablet 3Active carbidopa-levodopa (SINEMET CR) 50-200 mg per ER tablet Take 1 tablet by mouth at bedtime. 90 tablet ctive donepeziL (ARICEPT) 10 mg tablet Indications:Parkinsonism Unspecified (HCC)Take 1 tablet (10 mg total) by mouth at bedtime. 90 tablet ctive sennosides-docusate sodium (Senna with Docusate Sodium) 8.6-50 mg per tablet Take 1 tablet by mouth at bedtime as needed for constipation for up to 30 doses. 30 tablet 06/25/2023ctive carbidopa-levodopa (SINEMET) 25-100 mg per tablet Indications:Parkinson's Disease With Dyskinesia, With Fluctuations (HCC)Take 2.5 tablets by mouth 3 (three) times a day. Increase 06/30/23 (In addition to HS dose) 225 tablet 4Active oxyCODONE (Roxicodone) 5 mg immediate release tablet Indications:Acute PainTake 1 tablet (5 mg total) by mouth every 6 (six) hours as needed for severe pain or score 7-10 of 10 Indication: Acute Pain. 12 tablet 05/08/2024 10:10 PM CST5Active Additional Information Patient not taking.Reported on 07/31/2024 gabapentin (Neurontin) 100 mg capsule 5Active lisinopriL 5 mg tablet 5Active pramipexole (Mirapex) 0.25 mg tablet Indications:Restless Leg SyndromeTake 1 tablet (0.25 mg total) by mouth at bedtime. 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 Spells Oddvmmqpsgfv34/07/2024 Overview (06/20/2023): Related to parkinson's. Frailty Age Related Physical Kiiuzvro15/03/2024 Overview (06/25/2023): Primary and secondary frailty in the setting of advanced age, comorbid burden. Assist of 1 for bathing and grooming, dressing, walker ambulation, feeding setup Incontinent of bladder, continent of bowel Zliuvbcwjw92/01/9583Mhzyepaqkgytwt19/01/2021 Overview (06/25/2023): On rosuvastatin for secondary prevention CAD events Lab Results Component Value Date LDLCALC 45 10/05/2022 Coronary Artery Disease Without Angina Imygcdkd38/21/2021 Overview (06/25/2023): 1. STEMI 11/17/2019 s/p PCI and MAHESH to proximal LAD and PTCA to 1st diagonal branch. By report patient was left dominant. No significant disease of left main or left circumflex artery. On ASA and rosuvastatin Cardiomyopathy Qcfldyoj87/21/2021 Overview (05/05/2020): 1. LVEF 45% by outside echo with regional wall motion abnormalities in LAD distribution. Chronic Diastolic (Congestive) Heart Fmargsb0605/05/2020 Overview (06/29/2023): 10/05/22 TTE Final Impressions E/e' [...] of 5 mmHg). 7. Trileaflet aortic valve. NoDoppler evidence of aortic stenosis. Trivial aortic regurgitation. [...] kg Assessment & Plan (06/20/2023 7:48 AM RV BODY MECHANIC): Euvolemic. Melanoma Ear Right03/09/2019 Overview (03/09/2019): Added automatically from request for surgery [id number] Parkinson's Disease With Dyskinesia, With Fadsjivmmglw67/25/2019 Overview (06/25/2023): Sinemet 25/100 2 tabs tid Sinemet CR 50/200 qhs Significant tremor, she walks when she notes these. This is almost 24/7. She seems to get limited sleep. She is unable to manage iADLs and most ADLs (needs cueing to even stand and walk). Her husbandis having difficulties with medication management. Assessment & Plan (06/20/2023 11:01 AM RV BODY MECHANIC): She is wandering 24/7. She needs a locked memory care to allow her to move freely but not get lost.Spoke directly to CARLOS and JANNY at SNF to help with this transition. It is NOT safe for her to return home as her also has memory issues and can not safely care for her. Discussion in the hospital if she needs increased Sinemet, it was unclear if she was taking sinemetcorrectly, therefore will leave as is while at SNF, and reassess in one week (with Dr. Freed) as that will give us more knowledge of the need once she has been taking it at [facility] in a more controled way. Personal History Of Other Malignant Neoplasm Of Skin11/15/2014Goiter Multinodular Fjqgvliy77/29/2014Glaucoma Suspect Ocular Hypertension Bilateral 10/29/2012Postmenopausal Atrophic Tkucejjxe96/02/2013 Resolved Problems ProblemNoted DateDiagnosed DateResolved DateTremor Otbjlgpsd17/03/2024 Sfmfiu13Vertigo/04/2020Infection Urinary Tract Personal Kgeudsh48 Encounters DateTypeDepartmentCare SskyBgfedpcoidh45/02/2025Orders Only [facility] Daja Keys, MPAS, P.A.-C. Monitoring For Therapeutic Drug Therapyfrom Last 3 Months Immunizations ImmunizationAdministration DatesNext DueDT, Lvltukjas32/05/2005HZV (ZOSTAVAX) 11/09/2009Influenza TIV (IM)01/29/2012,01/18/2011,01/26/2010,01/13/2009, 01/28/2008Influenza high dose QV(65 years or older) (PF)01/26/2020,01/22/2019, 02/04/2018,01/24/2017,02/09/2016,02/09/2015,01/26/2014,02/03/2013Influenza, Quadrivalent, Adjuvanted, Preservative Free01/11/2023,01/15/2022,1PCV13 12/15/20143731RQVM0161RSV: respiratory syncytial virus (ABRYSVO) bivalent iiigvqt9301/11/2023RZV (SHINGRIX)02/24/2020,08/13/20192165TYOS-GPT-9 (COVID-19) - PFIZER (Discontinued)(12 years or older)01/17/2021,07/04/2020,06/08/2020 SARS-COV-2 (COVID-19) - PFIZER TS(Discontinued)(12 years or older)08/01/2021Td (Adult), vuhsxymb26/07/1729Ashy97/02/2015 Family History Medical HistoryRelationNameCommentsCoronary artery diseaseBrotherLeon Brittaney BypassBreast cancer (in one breast)Maternal GrandmotherRose KrugerBreast cancer (in one breast)Mother's SisterWnaomi SandovalnRelationNameStatusCommentsBrotherLeon JurgensMaternal GrandmotherRose KrugerMother's SisterWnaomi Ng Social History Tobacco UseTypesPacks/DayYears UsedDateSmoking Tobacco: NeverSmokeless Tobacco: Never Tobacco Cessation:Counseling Given: Not Answered Alcohol UseStandard Drinks/WeekCommentsNot Currently0 (1 standard drink = 0.6 oz pure alcohol)occasional glass of wineHumiliation, Afraid, Rape, and Kick questionnaireAnswerDate RecordedWithin the last year, have you been afraid of your partner or ex-partner?No06/16/2023Within the last year, have you been humiliated or emotionally abused in other ways by your partner or ex-partner?No 06/16/2023Within the last year, have you been kicked, hit, slapped, or otherwise physically hurt by your partner or ex-partner?No06/16/2023Within the last year, have you been raped or forced to have any kind of sexual activity by your part ner or ex-partner?No06/16/2023Hunger Vital SignAnswerDate RecordedWithin the past 12 months, you worried that your food would run out before you got the money to buymore.Never true11/03/2024Within the past 12 months, the food you bought just didn't last and you didn't have money to get more.Never true 11/03/2024PRAPARE - TransportationAnswerDate RecordedIn the past 12 months, has lack of transportation kept you from medical appointments or from getting medications?No11/03/2024In the past 12 months, has lack of transportation kept you from meetings, work, or from getting things needed for daily living?No 11/03/2024HC UtilitiesAnswerDate RecordedIn the past 12 months has the electric, gas, oil, or water company threatened to shut off services in your home?No11/03/2024Postpartum DepressionAnswerDate RecordedPHQ-9 Total Score (max 27)9010/18/2022Housing StabilityAnswerDate RecordedWhat is your living situation today?I have a steady place to live11/03/2024EducationAnswerDate RecordedWhat is the highest level of school you have completed or the highest degree you have received?Bachelor's degree (e.g., BA, AB, BS)03/05/2019CommentsNoSex and Gender InformationValueDate RecordedSex Assigned at GsymrKlcyet40/02/2021 11:07 AM CDTLegal OkwAmpfxz03/05/2019 8:25 AM CSTGender VbjiejsuUnczpe00/21/2019 8:17 AM CSTSexual UfyyawcstrhTfoodyfh46/21/2019 8:17 AM RV BODY MECHANIC Last Filed Vital Signs Vital SignReadingTime TakenCommentsBlood Ibrykorq162/8605/08/2024 8:00 PM RV BODY MECHANIC Hvsgv183405/08/2024 7:00 PM KUNEavfrltqyti40.7 ??C (98.1 ??F)05/08/2024 4:35 PM CSTRespiratory Jwmo977605/08/2024 4:35 PM CSTOxygen Tztukmreuh28%05/08/2024 7:00 PM CSTInhaled Oxygen Concentration--Mawclf33.4 kg (95 lb 9.6 oz)06/25/2023 9:43 AM TLQXrawcv426.9 cm (5' 1)06/16/2023 2:45 PM CSTBody Mass Index18.0606/16/2023 2:45 PM RV BODY MECHANIC Plan of Treatment Health MaintenanceDue DateLast DoneCommentsVisit: Medicare Annual Wellness Fall Risk Screen (Annual)04/15/2024Office Visit for Blood Pressure Check / Re-checkVisit: Annual, age 65+ (or Medicare and <65)OVID-19 Vaccine ( season)2024 01/09/2024, 01/21/2023, 01/15/2022, Additional history existsDTaP,Tdap,and Td Vaccines (4 - Td or Tdap)5012/15/2014, 09/19/2004, 09/17/2004Creatinine Level (Kidney Function Test)6005/08/2024, 06/17/2023, 06/16/2023, Additional history existsPotassium Level, 06/17/2023, 06/16/2023, Additional history existsSodium Level, 06/17/2023, 06/16/2023, Additional history existsPneumococcal vaccine (50+ years)Rmnhkvxbe91/02/2015, 07/10/2006Zoster SvwirjdiHdkzyzarf32/11/2020, 08/13/2019, 11/09/2009RSV vaccine - (32-36 weeks) or 50+ yearsCompleted 01/11/2023Influenza JntdqpwPolwicgic51/25/2025, 01/11/2023, 01/15/2022, Additional history existsIPV VaccinesAged OutNo longer eligible based on patient's age to complete this topic Procedures Procedure NamePriorityDate/TimeAssociated DiagnosisCommentsBASIC METABOLIC PANEL, S/PSTAT05/08/2024 5:43 PM RV BODY MECHANIC from Last 3 Months or Most Recently Relevant to Health Maintenance Results * (ABNORMAL) Basic Metabolic Panel (05/08/2024 5:43 PM RV BODY MECHANIC)ComponentValueRef RangeTest MethodAnalysis TimePerformed AtPathologist SignaturePotassium, P3.7 3.6 - 5.2 mmol/L05/08/2024 6:14 PM CSTSTMASodium, F941343 - 145 mmol/L 05/08/2024 6:14 PM CSTSTMAChloride, P9898 - 107 mmol/L05/08/2024 6:14 PM RV BODY MECHANIC STMABicarbonate, P2422 - 29 mmol/L05/08/2024 6:14 PM CSTSTMAAnion Gap, P137 - 15005/08/2024 6:14 PM CSTSTMABUN (Blood Urea Nitrogen), P126 - 21 mg/dL 05/08/2024 6:14 PM CSTSTMACreatinine0.55(L)0.59 - 1.04 mg/dL05/08/2024 6:14 PM CSTSTMAEstimated GFR (eGFR)>90>=60 mL/min/BSA05/08/2024 6:14 PM CSTSTMA Comment: Estimated GFR calculated using the 2020 CKD_EPI creatinine equation. Calcium, Total, P8.98.8 - 10.2 mg/dL05/08/2024 6:14 PM CSTSTMAGlucose, V81679 - 140 mg/dL05/08/2024 6:14 PM CSTSTMASpecimen (Source)Anatomical Location / LateralityCollection Method / VolumeCollection TimeReceived TimeBlood (Blood, Venous)05/08/2024 5:43 PM CST05/08/2024 5:49 PM RV BODY MECHANIC Narrative Authorizing ProviderResult TypeResult StatusGanalfonso Rojas M.D.LAB BLOOD ADD-ON Final ResultPerforming OrganizationAddressCity/State/ZIP CodePhone Number [facility] [address] [place] [address], [place] [facility] [address] [place] [address] from Last 3 Months or Most Recently Relevant to Health Maintenance Insurance Advance Directives For more information, please contact: [phone] TypeDate RecordedPatient RepresentativeExplanationAdvance Directives10/25/2022 2:10 PM* Jose Manuel Hilario ([place]) Mitchell * [place] Medrano * Rafaela Eduardo HCPOA/ADVOCATE/AGENT/SUPERVISOR CELLARS/SURROGATEAdvance Directive06/14/2021 7:48 AM HCPOA/ADVOCATE/AGENT/SUPERVISOR CELLARS/SURROGATE * DNR/DNI (Latest Code Status on File) Date ActivatedDate InactivatedComments06/16/2023 3:58 PM06/18/2023 3:45 PM NameRelationshipHealthcare Agent RelationshipCommunicationAlluz Hilario ([place]) MitchellSpouseHealth Care Agent* * * Rome MedranoRelativeHealth Care Agent* * Rafaela EduardoRelativeHealth Care Agent* * * Care Teams Team MemberRelationshipSpecialtyStart DateEnd Date Daja Keys MPAS, P.A.-C. [address] [place], [place] [phone] [facility]
--- OUTSIDE RECORDS SUMMARY | 2025-04-14 00:14 | XMS_ITS | Encounter Summary ---
Author Organization [facility] Address [address] [place] [address] Care Team Providers Care Country Manager Name Role Phone Daja Keys, P.A.-C. Primary Care Prov ider Reason for Referral * Outpatient (Routine) - AuthorizedSpecialtyDiagnoses / ProceduresReferred By ContactReferred To Contact Daja Keys MPAS, P.A.-C. [address] [place] [address] Phone: tel: fax: [facility] Region Referral IDStatusReasonStart DateExpiration DateVisits RequestedVisits [id number] Scheduling Instructions Nurse AWV Do not schedule prior to due date to ensure insurance coverage Visit: Medicare Annual Wellness due on 10/20/2023. LEWARE ARCHITECT Encounter Details DateTypeDepartmentCare Team (Latest Contact Info)Onolkqkckcg00/02/2025Orders Only [facility] Daja Keys, MPAS, P.A.-C. [address] [place] [phone] Monitoring For Therapeutic Drug Therapy Social History Tobacco UseTypesPacks/DayYears UsedDateSmoking Tobacco: NeverSmokeless Tobacco: NeverAlcohol UseStandard Drinks/WeekCommentsNot Currently0 (1 standard drink = [...] BS)03/05/2019CommentsNoSex and Gender InformationValueDate RecordedSex Assigned at LmhviOvckxz94/02/2021 11:07 AM CDTLegal KupChugsn65/05/2019 8:25 AM CSTGender SjdxwijaXvnfqw53/21/2019 8:17 AM CSTSexual AncivwsxrygFivirnfl44/21/2019 8:17 AM CSTdocumented as of this encounter Plan of Treatment NameTypePriorityAssociated DiagnosesOrder ScheduleBasic Metabolic PanelLab Routine Monitoring For Therapeutic Drug Therapy Expected: 03/30/2025, Expires: 09/02/2025NameTypePriorityAssociated Diagnoses Order SchedulePrimary Care nurse visit (clinic) - [facility]; Medicare Annual WellnessOutpatient ReferralRoutineExpected: 04/13/2025, Expires: 09/02/2025documented as of this encounter Visit Diagnoses Diagnosis Monitoring For Therapeutic Drug Therapy documented in this encounter Additional Health Concerns AssessmentNoted TimePHQ-9 Depression Total Score: 9010/18/2022 8:25 AM CDT documented as of this encounter Care Teams Team MemberRelationshipSpecialtyStart DateEnd Date Daja Keys MPAS, P.A.-C. [address] [place] [phone] PCP - GeneralFamily Medicine07/04/23documented as of this encounter
== END 2025-04-13 09:50 | disposition home or self-care (01) ==
LOC: NPINS 09:49
PROVIDERS: PCP Family Medicine; Visit Provider Nurse Practitioner Adult Health
DX: E87.1 Hypo-osmolality and hyponatremia (principal); D72.829 Elevated white blood cell count, unspecified
CPT/HCPCS: 80048; 85025